=== PATIENT | female | born 1955 | race Caucasian/White ===

== ENCOUNTER 2020-07-26 14:03 | Outpatient (REF) | payer MEDICAID, SELFPAY | END 2020-07-26 14:04 | disposition home or self-care (01) | LOC: HO.SH 14:03 | PROVIDERS: Visit Provider Family Medicine | DX: H91.93 Unspecified hearing loss, bilateral (principal) | CPT/HCPCS: 92557; 92567; 92591 ==

== ENCOUNTER 2020-09-06 13:55 | Outpatient (REF) | payer MEDICAID, SELFPAY | END 2020-09-06 13:56 | disposition home or self-care (01) | LOC: HO.HAP 13:55 | PROVIDERS: PCP Family Medicine; Referring Provider Family Medicine; Visit Provider Family Medicine | DX: Z46.1 Encounter for fitting and adjustment of hearing aid (principal) | CPT/HCPCS: V5011; V5020; V5160; V5261; V5264; V5266 ==

== ENCOUNTER → 2021-01-21 13:46 | Outpatient (REF) | payer MEDICAID, SELFPAY | LOC: HO.SL 13:46 | PROVIDERS: PCP Family Medicine; Visit Provider Family Medicine | DX: G47.33 Obstructive sleep apnea (adult) (pediatric) (principal) | CPT/HCPCS: 95806 ==

== ENCOUNTER 2021-08-16 12:55 | Outpatient (REF) | payer MEDICAID, SELFPAY ==
--- NOTE | ~2021-08-16 | CT_ITS ---
EXAMINATION: CT CHEST SCREENING CLINICAL INFORMATION: Current smoker. 43 pack-year history. COMPARISON: Previous chest x-ray most recent July [address] April 2017 TECHNIQUE: Multidetector volumetric CT imaging of the chest is performed without contrast using low dose technique. Additional 2D coronal and sagittal reformatted images and axial 3D maximum intensity projection (MIP) images are generated on the CT workstation. This CT examination was performed using dose optimization techniques as appropriate, variously including the following: *Automated exposure control *Adjustment of mA and/or kV according to patient size (this includes techniques or standardized protocols for targeted exams where dose is matched to indication/reason for exam; i.e. extremities or head) *Use of iterative reconstruction technique DLP: 80 mGy-cm FINDINGS: LUNGS: There is a surgical suture line and adjacent scarring or subsegmental atelectasis in the left upper lobe. There is an area of subtle increased attenuation seen in the posterior segment of the right upper lobe near the major fissure. This area measures approximately 2.0 x 4 cm for example axial image 121 series 5. The lungs are otherwise clear. No endobronchial or endotracheal lesion is seen. MEDIASTINUM: There are no enlarged hilar or mediastinal lymph nodes. There is mild coronary artery calcification. The heart does not appear enlarged. There is no pericardial effusion. PLEURA: There is no pleural effusion. No pleural mass or thickening. There is slight elevation of the right hemidiaphragm. AXILLA: No lymphadenopathy. UPPER ABDOMEN: There are postsurgical changes to the stomach. The gallbladder has been removed. OSSEOUS STRUCTURES: There are degenerative changes of the spine. CT/CT lung screening IMPRESSION: Postsurgical changes to the left upper lobe. Ill-defined area of slight increased attenuation in the medial posterior segment of the right upper lobe near the major fissure measuring 2 x 4 cm. Elevated right hemidiaphragm. Mild coronary artery calcification. ASSESSMENT: Lung-RADS category 2: Benign RECOMMENDATION: Annual low-dose chest CT follow-up recommended.
== END 2021-08-16 12:56 | disposition home or self-care (01) ==
LOC: HO.CT 12:55
PROVIDERS: Visit Provider Physician Assistant Medical
DX: Z12.2 Encounter for screening for malignant neoplasm of respiratory organs (principal); F17.210 Nicotine dependence, cigarettes, uncomplicated
CPT/HCPCS: 71271; G0296

== ENCOUNTER 2021-10-08 14:12 | Outpatient (REF) | payer SELFPAY | END 2021-10-08 14:13 | disposition home or self-care (01) | LOC: HO.HAP 14:12 | PROVIDERS: Visit Provider Family Medicine | DX: Z13.89 Encounter for screening for other disorder (principal) ==

== ENCOUNTER 2022-01-14 11:03 | Outpatient (REF) | payer MEDICAID, SELFPAY ==
--- NOTE | ~2022-01-14 | XR_ITS ---
EXAMINATION: BILATERAL SHOULDER. CLINICAL INFORMATION: Pain in bilateral shoulder. COMPARISON: None TECHNIQUE: 4 views left shoulder and 4 views right shoulder. FINDINGS: Left shoulder: There is no visible acute fracture, dislocation or subluxation seen. No bony erosive changes. No loose bodies or calcification seen. The soft tissues are normal. Postsurgical changes left upper lobe Right shoulder: There is no visible acute fracture, dislocation or subluxation. No bony erosive changes, loose bodies or acute fracture. There is a small enthesophyte along the right greater tuberosity on axial view. The soft tissues are normal. XR/XR shoulder RT min 2V IMPRESSION: Mild degenerative enthesophytes right greater tuberosity. Otherwise unremarkable bilateral shoulder exam.
--- NOTE | ~2022-01-14 | XR_ITS ---
EXAMINATION: BILATERAL SHOULDER. CLINICAL INFORMATION: Pain in bilateral shoulder. COMPARISON: None TECHNIQUE: 4 views left shoulder and 4 views right shoulder. FINDINGS: Left shoulder: There is no visible acute fracture, dislocation or subluxation seen. No bony erosive changes. No loose bodies or calcification seen. The soft tissues are normal. Postsurgical changes left upper lobe Right shoulder: There is no visible acute fracture, dislocation or subluxation. No bony erosive changes, loose bodies or acute fracture. There is a small enthesophyte along the right greater tuberosity on axial view. The soft tissues are normal. XR/XR shoulder LT min 2V IMPRESSION: Mild degenerative enthesophytes right greater tuberosity. Otherwise unremarkable bilateral shoulder exam.
== END 2022-01-14 11:04 | disposition home or self-care (01) ==
LOC: HO.XRAY 11:03
PROVIDERS: PCP Family Medicine; Visit Provider Family Medicine
DX: M25.511 Pain in right shoulder (principal); M25.512 Pain in left shoulder
CPT/HCPCS: 73030

== ENCOUNTER → 2022-02-12 19:57 | Outpatient (REF) | payer MEDICAID, SELFPAY | LOC: HO.SL 19:57 | PROVIDERS: PCP Family Medicine; Visit Provider Family Medicine | DX: G47.33 Obstructive sleep apnea (adult) (pediatric) (principal) | CPT/HCPCS: 95810 ==

== ENCOUNTER → 2022-05-12 20:24 | Outpatient (REF) | payer MEDICARE, MEDICAID, SELFPAY | LOC: HO.SL 20:24 | PROVIDERS: PCP Family Medicine; Visit Provider Family Medicine | DX: G47.33 Obstructive sleep apnea (adult) (pediatric) (principal) | CPT/HCPCS: 95811 ==

== ENCOUNTER 2022-06-08 19:01 | Emergency (ER) | payer MEDICARE, MEDICAID, SELFPAY ==
--- NOTE | ~2022-06-08 | CT_ITS ---
EXAMINATION: CT SOFT TISSUE NECK WITHOUT CONTRAST CLINICAL INFORMATION: Left neck pain and swelling COMPARISON: PET/CT performed 01/29/2017 TECHNIQUE: Helical imaging was performed in the axial plane with generation of coronal and sagittal reformatted images. This CT examination was performed using dose optimization techniques as appropriate, variously including the following: *Automated exposure control *Adjustment of mA and/or kV according to patient size (this includes techniques or standardized protocols for targeted exams where dose is matched to indication/reason for exam; i.e. extremities or head) *Use of iterative reconstruction technique DLP: 558 mGy-cm FINDINGS: No cervical adenopathy is identified. The parotid glands are homogeneous in attenuation. Calcification measures 0.6 x 0.3 cm within the right submandibular gland. There are at least 3 additional calcifications along the course of the associated right salivary duct. These are consistent with sialoliths. The submandibular glands are otherwise normal. No contour abnormality or pathologic enhancement is seen within the oral cavity or pharyngeal mucosal space. The laryngeal structures are normal. The parapharyngeal fat is preserved. The carotid sheath vasculature opacify normally. No extra mucosal soft tissue mass or fluid collection is seen. No retropharyngeal fluid collection is seen. The thyroid gland is normal. The superior mediastinum is unremarkable. The lung apices are clear. Moderate opacification of the right maxillary sinus. The mastoid air cells and visualized portions of the paranasal sinuses are otherwise well-aerated. The temporomandibular joints are normal. No periapical disease is identified. No osseous abnormalities are seen. The imaged portions of the brain parenchyma are unremarkable. CT/CT soft tissue neck wo con IMPRESSION: No cervical lymphadenopathy. No left neck mass or swelling seen. Right submandibular sialoliths.
[2022-06-08 20:34] VITALS: BP 139/73; PULSE 88; RESP 16; TEMP 36.6; O2SAT 97; BMI 76.6
--- NOTE | 2022-06-08 23:38 | ED.GENADULT ---
HPI - General Adult General Chief complaint: General Medical Stated complaint: lump under chin Time Seen by Provider: 06/08/22 21:49 Source: patient Mode of arrival: ambulatory Limitations: no limitations History of Present Illness HPI narrative: Patient comes to the emergency room complaining of left-sided neck pain that has been intermittent for 3 months now. Patient states that the left side of her neck in the front feels like a lump inside, very painful to touch and also to swallow. Patient states that intermittently over the last 2 months it has resolved and returned. However, today it has been the most painful. Patient denies fever chills, no difficulty swallowing only pain. Also, patient complaining of a big pimple in her back that has been growing fast, does not hurt. Patient also complaining that she has noticed that there were some small oval stones that she finds in her mouth randomly. Related Data Previous Rx's Medication Instructions Recorded prednisone 10 mg tablet 10 mg PO DAILY #3 tabs 06/09/22 Allergies Allergy/AdvReac Type Severity Reaction Status Date / Time No Known Allergies Allergy Unverified 07/12/20 16:29 [No Known Allergies*] Review of Systems Review of Systems: Constitutional : No Weight loss, No Fever, No Chills, No Night Sweats, No Fatigue, No Malaise ENT/Mouth : No Hearing loss, No Ear Pain, No Nasal Congestion, No Sinus Pain, No Hoarseness, No sore throat, No Rhinorrhea, No Swallowing Difficulty, complaining of swelling on the left side of her neck anteriorly Eyes: No Eye Pain, No Swelling, No Redness, No Foreign Body, No Discharge, No Vision Changes Cardiovascular : No Chest Pain, No SOB, No Dyspnea on Exertion, No Orthopnea, No Edema, No Palpitations Respiratory : No Cough, No Sputum, No Wheezing, No Smoke Exposure, No Dyspnea Gastrointestinal : No Nausea, No Vomiting, No Diarrhea, No Constipation, No abdominal Pain, No Hematochezia, No Melena Genitourinary : no irregular bleeding, No Dysuria, No Urinary Frequency, No Hematuria, No Urinary Incontinence, No Urgency, No Flank Pain, No Urinary Flow Changes, No Hesitancy Musculoskeletal : No joint pain, No Myalgias, No Joint Swelling Skin : No Skin Lesions, No rash, complaining of a pimple in her back which is rapidly growing Neuro : No Weakness, No Numbness, No Paresthesias, No Loss of Consciousness, No Dizziness, No Headache Psych : No Anxiety/Panic, No Depression, No SI/HI/AH/VH, No Social Issues, Heme/Lymph: No Bruising, No Bleeding,No Lymphadenopathy Endocrine : No Polyuria, No Polydipsia, No Temperature Intolerance [facility] Past Medical History Medical History Depression Hyperlipidemia Hypertension, essential, benign Obstructive sleep apnea (~2007) Personal history of nicotine dependence Vitamin B12 deficiency anemia Surgical History History of colonoscopy History of gastric bypass History of hernia repair History of hysterectomy History of lung surgery History of tonsillectomy Social History Social History Advance Directives: No Advance Directives Information Provided: No Physical Exam ED Vital Signs: Vital Signs - 24 hr 06/08/22 20:34 Temperature 97.9 F Pulse Rate 88 Respiratory Rate 16 Blood Pressure 139/73 Pulse Oximetry 97 Oxygen Delivery Method Room Air BMI result Body Mass Index 76.6 Const Other: Appearance: Alert. Oriented X3. No acute distress. Eyes: Pupils equal, round and reactive to light. ENT: Pharynx normal. Pain to palpation on the left side of the neck, large induration, no erythema, no discharge warmth Neck: Normal inspection. Neck supple. No lymph nodes noted. No crepitus CVS: Normal heart rate and rhythm. Pulses normal. Normal S1 and S2 Respiratory: No respiratory distress. Breath sounds normal. No Wheezing. No rales Abdomen: Soft and nontender. No rigidity. No distention. Skin: Skin warm and dry. Normal skin color. Normal skin turgor. Patient has a sebaceous cyst in the back, no signs of cellulitis Extremities: No lower extremity edema. No Lacerations. No Rash Neuro: Oriented X 3. No motor deficit. No sensory deficit. Moving all extremities. No slurred speech. CN 2 through 12 grossly intact Psych: calm, cooperative, normal affect Course Course Course Narrative: The sebaceous cyst was used by unroofing the top with an 18 gauge needle. Moderate amount of cyst material was expressed. Patient tolerated well the procedure I discussed with the patient that the small stones that she finds in her mouth a likely secondary to sialolithiasis Soft tissue CT scan pending 00:44, I discussed the CT scan findings with the patient, no acute findings on the left side of the neck. Patient does have sialolithiasis. Medical Decision Making Imaging Data Soft tissue of the neck CT: Radiologist's impression: FINDINGS: No cervical adenopathy is identified. The parotid glands are homogeneous in attenuation. Calcification measures 0.6 x 0.3 cm within the right submandibular gland. There are at least 3 additional calcifications along the course of the associated right salivary duct. These are consistent with sialoliths. The submandibular glands are otherwise normal. No contour abnormality or pathologic enhancement is seen within the oral cavity or pharyngeal mucosal space. The laryngeal structures are normal. The parapharyngeal fat is preserved. The carotid sheath vasculature opacify normally. No extra mucosal soft tissue mass or fluid collection is seen. No retropharyngeal fluid collection is seen. The thyroid gland is normal. The superior mediastinum is unremarkable. The lung apices are clear. Moderate opacification of the right maxillary sinus. The mastoid air cells and visualized portions of the paranasal sinuses are otherwise well-aerated. The temporomandibular joints are normal. No periapical disease is identified. No osseous abnormalities are seen. The imaged portions of the brain parenchyma are unremarkable. CT/CT soft tissue neck wo con IMPRESSION: No cervical lymphadenopathy. No left neck mass or swelling seen. ? Right submandibular sialoliths.? Discharge Plan Discharge Clinical Impression: Neck swelling, Sialolithiasis Patient Disposition: Home, Self-Care Instructions: Sialoadenitis (ED) Additional Instructions: Please follow-up with your primary care physician tomorrow. If you have any worsening or new symptoms, please return to the emergency room or call 911 Prescriptions: New prednisone 10 mg tablet 10 mg PO DAILY Qty: 3 0RF
== END 2022-06-09 00:50 | disposition home or self-care (01) ==
PROVIDERS: Emergency Provider Emergency Medicine; PCP Family Medicine
DX: R22.1 Localized swelling, mass and lump, neck (principal); K11.5 Sialolithiasis; M54.2 Cervicalgia; Z79.899 Other long term (current) drug therapy
CPT/HCPCS: 70490; 99282; 99283

== ENCOUNTER 2023-05-05 13:45 | Outpatient (REF) | payer MEDICARE, SELFPAY ==
[2023-05-05 16:19] LABS: MANUAL DIFF FLAG NO
[2023-05-05 16:29] LABS: Basophils Absolute Auto 0.1 X10*3/uL (0.0-0.2); Basophils Percent Auto 0.8 % (0-2); Eosinophils Absolute Auto 0.1 X10*3/uL (0.0-0.4); Eosinophils Percent Auto 1.4 % (0-4); Hemoglobin 12.6 g/dl (12.0-16.0); Imm Gran Abs Auto 0.03 X10*3/uL (0.00-0.03); Imm Gran Pct Auto 0.4 % (0.0-0.4); Lymphocytes Absolute Auto 2.7 X10*3/uL (1.2-4.9); Lymphocytes Percent Auto 31.4 % (20-40); Mean Corpuscular HGB Conc 30.7 g/dl (31.0-35.0); Mean Corpuscular Hemoglobin 29.5 pg (27.0-33.0); Mean Platelet Volume 10.7 fL (9.4-12.3); Monocytes Absolute Auto 0.6 X10*3/uL (0.1-1.2); Monocytes Percent Auto 6.9 % (2-11); Neutrophils Absolute Auto 5.1 x10*3/uL (2.0-8.3); Neutrophils Percent Auto 59.1 % (45-73); Platelet Count 337 X10*3/uL (160-400); Red Blood Count 4.27 X10*6/uL (4.20-5.50); Red Cell Distribution Width 12.5 % (11.0-16.0); White Blood Count 8.6 X10*3/uL (4.8-10.8)
[2023-05-05 16:52] LABS: Alanine Aminotransferase 13 U/L (0-31); Alkaline Phosphatase 141 U/L (39-117); Anion Gap 14 (12-20); Aspartate Amino Transferase 16 U/L (5-31); Bilirubin Total 0.7 mg/dL (0.0-1.0); Blood Urea Nitrogen 9 mg/dL (9-16); Calcium 9.9 mg/dL (8.4-10.2); Carbon Dioxide 26 mmol/L (22-29); Chloride 104 mmol/L (96-108); Estimated Glomerular Filt Rate > 60; Glucose Random 203 mg/dL (60-115); Iron 129 mcg/dL (30-160); Percent Iron Saturation 39 % (15-50); Potassium 4.6 mmol/L (3.3-5.1); Sodium 139 mmol/L (135-145); Total Iron Binding Capacity 327 mcg/dL (228-428); Total Protein 6.5 g/dL (6.5-8.0); Unsaturated Iron Binding 198 ug/dL
[2023-05-05 17:11] LABS: Ferritin 29 ng/mL (10-250); Thyroid Stimulating Hormone 1.05 uIU/mL (0.32-4.0)
[2023-05-05 17:24] LABS: Folate 16.4 ng/mL (> or = 4.0); Vitamin B12 819 pg/mL (200-900)
== END 2023-05-05 13:46 | disposition home or self-care (01) ==
LOC: HO.CHCLDS 13:45
PROVIDERS: Visit Provider Family Medicine
DX: Z00.00 Encounter for general adult medical examination without abnormal findings (principal); R53.83 Other fatigue; D53.1 Other megaloblastic anemias, not elsewhere classified
CPT/HCPCS: 36415; 80053; 82607; 82728; 82746; 83540; 84443; 85025

== ENCOUNTER 2023-06-08 11:11 | Outpatient (AMB) | payer OTHER, SELFPAY ==
[2023-06-08 11:12] VITALS: BP 139/71; PULSE 87; BMI 34.8
--- NOTE | 2023-06-08 11:12 | A.OFFVIS_ITS ---
Intake Vital Signs 06/08/23 11:12 Height 5 ft 1 in Weight 184 lb BMI 34.8 BP 139/71 Blood Pressure Location Rt brachial Position Sitting Pulse 87 Intake Visit Reasons: Abd pain Intake Note: This patient presents for an assessment for abdominal pain. Patient c/o; abd pain, supraumbilical hernia, reports pain when taking deep breathes, denies problems with bowel movements. 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 Name: Patient declined hemmer chainstitch Accompanied by: Son Allergies No Known Allergies [No Known Allergies*] Allergy (Unverified 06/08/23 11:13) Medication List - Last Reconciled 06/08/23 by Richard Edwards MD albuterol sulfate mg inhalation QID PRN alcohol swabs (Alcohol Prep Pads) 0 pad topical BID atorvastatin 40 mg PO BEDTIME cholecalciferol (vitamin D3) (Vitamin D3) 25 mcg PO DAILY clonazepam 0.5 mg PO DAILY PRN cyanocobalamin (vitamin B-12) 1,000 mcg PO DAILY duloxetine 120 mg PO DAILY fluticasone propionate 50 mcg/actuation 1 spray intranasal DAILY fluticasone propionate 110 mcg/actuation (Flovent HFA) 0 mcg inhalation folic acid 0.4 mg PO DAILY lisinopril 20 mg PO DAILY loratadine 10 mg PO DAILY metformin 500 mg PO DAILY montelukast 10 mg PO DAILY multivitamin (One Daily Multivitamin tablet) 1 tab PO DAILY naproxen 500 mg PO BID omeprazole 20 mg PO DAILY prednisone 10 mg PO DAILY quetiapine 100 mg PO BEDTIME HPI Abd pain HPI Details 68-year-old female referred for abdominal pain. She says that for a past 6 months or so, she has been having pain on both left and right flank areas mostly as well as diffusely. She otherwise denies any GI complaints. She has good oral intake. She has good bowel movements. She denies any nausea or vomiting. She has a history of a repair of an epigastric hernia, recurrent, in 2014. She apparently had been sent for a CT scan last week in [place] but she does not know the report. [facility] Medical History (Updated 06/08/23 @ 11:36 by Richard Edwards MD) Abdominal pain Depression Hyperlipidemia Hypertension, essential, benign Obstructive sleep apnea (~2007) Personal history of nicotine dependence Vitamin B12 deficiency anemia Surgical History History of colonoscopy History of gastric bypass History of hernia repair History of hysterectomy History of lung surgery History of tonsillectomy Review of Systems Const Denies chills and Denies fever(s) Card Details: Has sleep apnea Denies chest pain, Denies dyspnea, Reports dyspnea on exertion and Reports orthopnea Resp Denies cough, Denies dyspnea and Reports dyspnea on exertion GI Denies hematochezia and Denies change in bowel habits Denies hematuria Musc Denies back pain and Denies limited range of motion Neuro Denies focal weakness and Denies convulsions Psych Denies depression and Denies mood swings Physical Exam Vital Signs: Last Vital Signs Pulse 87 06/08/23 11:12 BP 139/71 06/08/23 11:12 BMI result Body Mass Index 34.8 Const Other: Appears obese General: comfortable and no acute distress Orientation/consciousness: patient oriented x3 Neck Neck: Yes no lymphadenopathy Resp Auscultation: clear to auscultation bilaterally Cardio Rhythm: regular rhythm GI Other: Vague prominence on the epigastric area on Valsalva, not well-defined Palpation (GI): Soft to palpation, nontender and no guarding Neuro General: patient oriented x3 Assessment & Plan Assessment & Plan (1) Abdominal pain: Code(s): R10.9 - Unspecified abdominal pain Plan: She has abdominal pain, chronic, as described above. She actually had a CAT scan done in [place] but she is not aware of the results I have asked her to get a copy of the disc and to bring it to me in the office. I will review this with the radiologist. I will talk to her after review of this CT scan so we can discuss the findings and plan of care Otherwise she has a very benign exam. Coding Level of Care Code New Pt Level 3 (97266) Diagnoses Abdominal pain R10.9
== END 2023-06-08 11:33 | disposition home or self-care (01) ==
PROVIDERS: PCP Family Medicine; Referring Provider Family Medicine; Visit Provider Surgery
DX: R10.9 Unspecified abdominal pain (principal)
CPT/HCPCS: 99203

== ENCOUNTER → 2023-06-08 11:11 | Outpatient (BNVA) | payer OTHER, SELFPAY | PROVIDERS: PCP Family Medicine; Referring Provider Family Medicine; Visit Provider Surgery | DX: R10.9 Unspecified abdominal pain (principal) | CPT/HCPCS: 99202 ==

== ENCOUNTER 2023-06-13 08:38 | Emergency (ER) | payer OTHER, SELFPAY ==
[2023-06-13 08:46] VITALS: BP 130/64; PULSE 104; RESP 16; TEMP 36.3; O2SAT 96; BMI 35.0
--- NOTE | 2023-06-13 08:56 | ED_ITS ---
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 States pain is radiating to right ear. Denies fevers. Has taken Tylenol for discomfort. Denies cough, shortness of breath, nasal congestion. Patient also has history of sialolithiasis/sialoadenitis but denies any recent stones. MD complaint: sore throat Onset (ago): day(s) Location: mouth Radiation: other (right ear) Severity: severe Quality: aching Pain Consistency: constant Relieving factors: none Exacerbating factors: eating and movement Associated symptoms: denies other symptoms Treatments prior to arrival: other (Tylenol) Related Data Home Medications Medication Instructions Recorded Confirmed albuterol sulfate 2.5 mg/3 mL mg inhalation QID PRN 06/08/23 06/08/23 (0.083 %) solution for nebulization alcohol swabs (Alcohol Prep Pads) 0 pad topical BID 06/08/23 06/08/23 atorvastatin 40 mg tablet 40 mg PO BEDTIME 06/08/23 06/08/23 cholecalciferol (vitamin D3) 25 25 mcg PO DAILY 06/08/23 06/08/23 mcg (1,000 unit) capsule (Vitamin D3) clonazepam 0.5 mg tablet 0.5 mg PO DAILY PRN anxiety 06/08/23 06/08/23 cyanocobalamin (vitamin B-12) 1,000 mcg PO DAILY 06/08/23 06/08/23 1,000 mcg tablet duloxetine 60 mg capsule,delayed 120 mg PO DAILY 06/08/23 06/08/23 release fluticasone propionate 110 0 mcg inhalation 06/08/23 06/08/23 mcg/actuation HFA aerosol inhaler (Flovent HFA) fluticasone propionate 50 1 spray intranasal DAILY 06/08/23 06/08/23 mcg/actuation nasal spray,suspension folic acid 400 mcg tablet 0.4 mg PO DAILY 06/08/23 06/08/23 lisinopril 20 mg tablet 20 mg PO DAILY 06/08/23 06/08/23 loratadine 10 mg tablet 10 mg PO DAILY 06/08/23 06/08/23 metformin 500 mg tablet 500 mg PO DAILY 06/08/23 06/08/23 montelukast 10 mg tablet 10 mg PO DAILY 06/08/23 06/08/23 multivitamin (One Daily 1 tab PO DAILY 06/08/23 06/08/23 Multivitamin tablet) naproxen 500 mg tablet 500 mg PO BID 06/08/23 06/08/23 omeprazole 20 mg capsule,delayed 20 mg PO DAILY 06/08/23 06/08/23 release quetiapine 100 mg tablet 100 mg PO BEDTIME 06/08/23 06/08/23 Previous Rx's Medication Instructions Recorded prednisone 10 mg tablet 10 mg PO DAILY #3 tabs 06/09/22 Allergies Allergy/AdvReac Type Severity Reaction Status Date / Time No Known Allergies Allergy Unverified 06/08/23 11:13 [No Known Allergies*] Review of Systems Review of Systems: As per HPI. Yes all other systems are reviewed and are negative Constitutional: Constitutional: Reports as per HPI [facility] Past Medical History Medical History (Updated 06/13/23 @ 09:20 by Debra Singer NP) Abdominal pain Depression Hyperlipidemia Hypertension, essential, benign Obstructive sleep apnea (~2007) Personal history of nicotine dependence Vitamin B12 deficiency anemia Surgical History History of colonoscopy History of gastric bypass History of hernia repair History of hysterectomy History of lung surgery History of tonsillectomy Social History Social History Alcohol intake: never Smoked in Last 30 Days: Yes Use of substances other than those prescribed or required for medical reasons: No Advance Directives: No Advance Directives Information Provided: No Physical Exam ED Vital Signs: Vital Signs - 24 hr 06/13/23 08:46 Temperature 97.4 F Pulse Rate 104 H Respiratory Rate 16 Blood Pressure 130/64 Pulse Oximetry 96 Oxygen Delivery Method Room Air BMI result Body Mass Index 35.0 Vital signs have been reviewed and appear to be correct. Blood pressure normal. Heart rate mildly elevated. Respiratory rate normal. Temperature normal. Oxygen saturation normal. Const General: cooperative, healthy appearing and no acute distress Orientation/consciousness: oriented to person, oriented to place, oriented to time and patient oriented x3 Limitations: no limitations HENMT Head: Yes normocephalic and Yes atraumatic Ears: external ears normal, TM's normal bilaterally, EAC's normal and mastoids normal bilaterally General nose exam: Normal external nose present Face and sinus: Yes face symmetric Mouth: oropharynx normal and moist mucous membranes Throat: Yes posterior oropharynx normal, Yes uvula midline, No peritonsillar mass and No uvular edema Eyes Pupils: Equal, round and reactive pupils present Neck Neck: Yes normal visual inspection and Yes supple Lymphatic: lymphadenopathy bilateral submandibular Resp Effort & Inspection: normal respiratory effort and able to speak in complete sentences Auscultation: clear to auscultation bilaterally Cardio Rate: regular rate Rhythm: regular rhythm Heart sounds: S1 normal heart sound present and S2 normal heart sound present GI Palpation (GI): Soft to palpation and nontender Auscultation: normoactive bowel sounds General: Yes no CVA tenderness Back/Spine/Pelvis Back: no CVA tenderness Skin General skin exam: elasticity normal and turgor normal Neuro General: oriented to person, oriented to place, oriented to time, patient oriented x3, moves all extremities, no focal motor deficits and CN's II-XI intact bilaterally Cranial nerves: Yes Equal, round and reactive pupils present Cognition (Neuro): normal cognition Extrem General: Yes full ROM, Yes no pedal edema and Yes no calf tenderness Psych Mental Status: mental status grossly normal Affect: normal affect Thought process: Normal thought process present Medications Administered Discontinued Medications Generic Name Dose Route Start Last Admin Trade Name Freq PRN Reason Stop Dose Admin Acetaminophen 975 mg 06/13/23 09:06 06/13/23 09:18 Acetaminophen 325 Mg Tablet PO 06/13/23 09:07 975 mg ONCE ONE Administration Medical Decision Making Medical Decision Making [facility] Narrative: Patient is a 68-year-old female with history of gastric bypass, HLD, HTN, BEATRICE presenting to the emergency department with complaint of sore throat and gland swelling since yesterday. On exam patient is awake, A+Ox3, VS WNL, afebrile, normal neurological exam without focal deficits, TMs normal bilaterally, posterior oropharynx without erythema, edema or exudate, uvula midline without edema, submandibular adenopathy R>L. Given reported symptoms and physical exam findings, initial differential includes strep pharyngitis, viral pharyngitis, sialolithiasis/sialoadenitis. Do not suspect peritonsillar abscess. Negative rapid strep. Patient medicated with Tylenol for discomfort. Advised patient symptoms likely related to viral infection, instructed to use Tylenol every 6 hours as well as warm salt water gargle several times daily. Discussed with patient she can also utilize sour candies to see if this decreases her symptoms given her past history of sialoadenitis. Return precautions discussed at bedside. Instructed patient to follow-up with PCP this week. Patient emery balized understanding of and agreement with plan. Differential Diagnosis Differential Diagnoses: The differential diagnosis associated with the presentation includes As per [facility]. Lab Data [facility] Lab Attestation statement: I reviewed the patient's lab results. As per [facility]. Labs: Lab Results 06/13/23 Range/Units 08:55 S. pyogenes GrpA MINOO Negative (Negative) External Record Review External record reviewed: Inpatient record, Office record and Outpatient record Prescription Management I considered prescription management with: Pain Medication Discharge Plan Discharge Clinical Impression: Acute pharyngitis Patient Disposition: Home, Self-Care Instructions: Pharyngitis (ED) Additional Instructions: You were evaluated in the emergency department for a sore throat. Your strep test was negative. Your symptoms are likely related to a viral infection which should resolve on it's own with rest and fluids. You can take Tylenol 650mg every 6 hours as needed for pain. Return to the emergency department if you develop worsening pain, difficulty swallowing, fever 100.4F or greater, shortness of breath, or any other concerning symptoms. Prescriptions: No Action prednisone 10 mg tablet 10 mg PO DAILY Qty: 3 0RF duloxetine 60 mg capsule,delayed release(DR/EC) 120 mg PO DAILY cholecalciferol (vitamin D3) [Vitamin D3] 25 mcg (1,000 unit) capsule 25 mcg PO DAILY montelukast 10 mg tablet 10 mg PO DAILY omeprazole 20 mg capsule,delayed release(DR/EC) 20 mg PO DAILY quetiapine 100 mg tablet 100 mg PO BEDTIME cyanocobalamin (vitamin B-12) 1,000 mcg tablet 1,000 mcg PO DAILY clonazepam 0.5 mg tablet 0.5 mg PO DAILY PRN (Reason: anxiety) lisinopril 20 mg tablet 20 mg PO DAILY atorvastatin 40 mg tablet 40 mg PO BEDTIME fluticasone propionate [Flovent HFA] 110 mcg/actuation HFA aerosol inhaler 0 mcg inhalation folic acid 400 mcg tablet 0.4 mg PO DAILY alcohol swabs [Alcohol Prep Pads] Pads, Medicated 0 pad topical BID multivitamin [One Daily Multivitamin] Tablet 1 tab PO DAILY loratadine 10 mg tablet 10 mg PO DAILY naproxen 500 mg tablet 500 mg PO BID fluticasone propionate 50 mcg/actuation spray,suspension 1 spray intranasal DAILY albuterol sulfate 2.5 mg /3 mL (0.083 %) solution for nebulization inhalation QID PRN metformin 500 mg tablet 500 mg PO DAILY Interventions: ED Discharge Assessment Last Done: 06/13/23 09:37 Print Language: Palestinian
[2023-06-13 09:15] LABS: IDNOW Serial# 08D9AD1C; Strep A Nucleic Acid Negative (Negative)
[2023-06-13] MEDS: Acetaminophen 325 MG TABLET 975 MG PO (09:18)
== END 2023-06-13 09:37 | disposition home or self-care (01) ==
PROVIDERS: Emergency Provider Emergency Medicine; PCP Family Medicine
DX: J02.9 Acute pharyngitis, unspecified (principal); I10 Essential (primary) hypertension; E78.5 Hyperlipidemia, unspecified; F17.200 Nicotine dependence, unspecified, uncomplicated
CPT/HCPCS: 87651; 99283; 99284

== ENCOUNTER 2023-06-24 14:26 | Outpatient (AMB) | payer OTHER, SELFPAY ==
--- NOTE | 2023-06-24 14:27 | MHC.OFFVIS ---
Intake Vital Signs 06/24/23 14:40 Height 5 ft 1 in Weight 184 lb BMI 34.8 Intake Visit Reasons: Abdominal pain, CT results Intake Note: This patient presents for a follow-up assessment for Ct-Scan results. Patients c/o; reports being hospitalized in [facility] x3days for infection salivary glands, reports taking abx. [employer] Required: Yes [employer] Lead Language: Research Assistant Member Name: Bertha Information Interpreted: non-clinical & clinical Accompanied by: Self / Same As Patient Allergies No Known Allergies [No Known Allergies*] Allergy (Unverified 06/24/23 14:43) HPI Abdominal pain, CT results HPI Details I had seen her in the office earlier this month because of bilateral flank pains. She had a CAT scan in different institution at that time and asked to retrieve this so I can review this. She says that her pains are usually on the left and right flanks. She denies any palpable mass around the umbilicus. She does have a history of ventral hernia repair epigastric area in says that she still has some pain on this. He denies GI complaints. She has good oral intake. [facility] Medical History Abdominal pain Depression Hyperlipidemia Hypertension, essential, benign Obstructive sleep apnea (~2007) Personal history of nicotine dependence Vitamin B12 deficiency anemia Surgical History History of colonoscopy History of gastric bypass History of hernia repair History of hysterectomy History of lung surgery History of tonsillectomy Social History Alcohol intake: never Review of Systems Const Denies chills and Denies fever(s) Card Denies chest pain GI Denies diarrhea and Denies vomiting Denies difficulty voiding Physical Exam Vital Signs: BMI result Body Mass Index 34.8 Const Other: Appears overweight General: comfortable and no acute distress Resp Effort & Inspection: normal respiratory effort Cardio Rate: regular rate GI Other: No palpable hernia, no tenderness around the umbilicus Palpation (GI): Soft to palpation, not firm, nontender and no guarding Assessment & Plan Assessment & Plan (1) Abdominal pain: Code(s): R10.9 - Unspecified abdominal pain Plan: She describes chronic pain on both the left and right flank areas. I was able to retrieve a copy of her disc from her recent CT scan. This shows a small fat containing hernia on the supraumbilical area. This is nonpalpable. She does not have any pain or tenderness in this area I explained to her that we can repair this hernia on the supraumbilical area but this will not provide over chronic bilateral flank pain. I am uncertain as to the etiology of this flank pains. She does have a history of multiple surgeries on the abdomen so this may be secondary to adhesions as well. She does not want to proceed with any repair of her supra umbilical hernia at this time. I did tell her that if she feels any mass on the area of the umbilicus or she develops symptoms, she should come back to the office to be re-evaluated. I will again review her CT scan with the radiologist. She is comfortable with the plan. Coding Level of Care Code Est Pt Level 3 (46861) Diagnoses Abdominal pain R10.9
[2023-06-24 14:40] VITALS: BMI 34.8
== END 2023-06-24 14:57 | disposition home or self-care (01) ==
PROVIDERS: PCP Family Medicine; Visit Provider Surgery
DX: R10.9 Unspecified abdominal pain (principal)
CPT/HCPCS: 99213

== ENCOUNTER → 2023-06-24 14:26 | Outpatient (BNVA) | payer OTHER, SELFPAY | PROVIDERS: PCP Family Medicine; Visit Provider Surgery | DX: R10.9 Unspecified abdominal pain (principal) | CPT/HCPCS: 99212 ==

== ENCOUNTER 2023-07-07 10:18 | Outpatient (REF) | payer OTHER, SELFPAY ==
[2023-07-07 11:14] LABS: MANUAL DIFF FLAG NO
[2023-07-07 11:36] LABS: Basophils Absolute Auto 0.1 X10*3/uL (0.0-0.2); Basophils Percent Auto 0.6 % (0-2); Eosinophils Absolute Auto 0.2 X10*3/uL (0.0-0.4); Hematocrit 39.8 % (37.0-47.0); Hemoglobin 12.3 g/dl (12.0-16.0); Imm Gran Abs Auto 0.03 X10*3/uL (0.00-0.03); Imm Gran Pct Auto 0.3 % (0.0-0.4); Lymphocytes Absolute Auto 2.9 X10*3/uL (1.2-4.9); Lymphocytes Percent Auto 33.3 % (20-40); Mean Corpuscular HGB Conc 30.9 g/dl (31.0-35.0); Mean Corpuscular Hemoglobin 29.4 pg (27.0-33.0); Mean Platelet Volume 9.9 fL (9.4-12.3); Monocytes Absolute Auto 0.6 X10*3/uL (0.1-1.2); Neutrophils Absolute Auto 4.9 x10*3/uL (2.0-8.3); Neutrophils Percent Auto 56.8 % (45-73); Platelet Count 324 X10*3/uL (160-400); Red Blood Count 4.19 X10*6/uL (4.20-5.50); Red Cell Distribution Width 13.1 % (11.0-16.0); White Blood Count 8.6 X10*3/uL (4.8-10.8)
[2023-07-07 12:09] LABS: C Reactive Protein 0.24 mg/dL (< or = 0.50)
[2023-07-07 12:20] LABS: Erythrocyte Sedimentation Rate 10 MM/HR (0-20)
[2023-07-09 15:08] LABS: Antibody to SS-A Antigen <1.0 NEG AI (<1.0 NEG); Antibody to SS-B Antigen <1.0 NEG AI (<1.0 NEG)
== END 2023-07-07 10:19 | disposition home or self-care (01) ==
LOC: HO.HHCL 10:18
PROVIDERS: Visit Provider Family Medicine
DX: R68.2 Dry mouth, unspecified (principal); Z20.2 Contact with and (suspected) exposure to infections with a predominantly sexual mode of transmission
CPT/HCPCS: 36415; 85025; 85652; 86140; 86235

== ENCOUNTER → 2023-09-03 15:30 | Outpatient (BNV) | payer OTHER, SELFPAY | PROVIDERS: PCP Family Medicine; Visit Provider Internal Medicine | DX: J45.40 Moderate persistent asthma, uncomplicated (principal) | CPT/HCPCS: 94060; 94727; 94729 ==

== ENCOUNTER 2023-09-03 15:39 | Outpatient (REF) | payer OTHER, SELFPAY ==
--- NOTE | 2023-09-03 | PFT_ITS ---
Forced vital capacity 80%, FEV1 61%, and FEV1/ FVC ratio is 61. [id number] 42%, and MVV 103%. Post-bronchodilator therapy, there is some decrease in all the numbers indicating a negative effect from the bronchodilator therapy. Total lung capacity 75%. Residual volume 76%. Diffusion capacity 64%. CONCLUSION: There is evidence of mild restrictive pulmonary disorder. Also moderately severe obstructive airway disorder. No positive response to bronchodilator therapy. Rather, there is some negative response. Clinical correlation is recommended. MD RINKU Loo/MODL / [phone]
== END 2023-09-03 15:40 | disposition home or self-care (01) ==
LOC: HO.RESP 15:39
PROVIDERS: PCP Family Medicine; Visit Provider Family Medicine
DX: J45.40 Moderate persistent asthma, uncomplicated (principal)
CPT/HCPCS: 94010; 94727; 94729

== ENCOUNTER 2023-12-21 14:56 | Outpatient (REF) | payer OTHER, SELFPAY ==
[2023-12-21 16:50] LABS: Microalbum/Creatinine Ratio Ur 10.8 ug/mg cr (<30)
[2023-12-21 17:57] LABS: Alanine Aminotransferase 16 U/L (0-31); Albumin Level 4.2 g/dL (3.5-5.0); Alkaline Phosphatase 137 U/L (39-117); Anion Gap 13 (12-20); Aspartate Amino Transferase 17 U/L (5-31); Bilirubin Total 0.4 mg/dL (0.0-1.0); Blood Urea Nitrogen 15 mg/dL (9-16); Calcium 9.2 mg/dL (8.4-10.2); Carbon Dioxide 30 mmol/L (22-29); Chloride 103 mmol/L (96-108); Cholesterol 123 mg/dL (<200); Estimated Glomerular Filt Rate > 60; Glucose Random 161 mg/dL (60-115); HDL Cholesterol 51 mg/dL (>40); LDL Cholesterol Calculated 56 mg/dL (<100); Potassium 4.5 mmol/L (3.3-5.1); Sodium 141 mmol/L (135-145); Triglycerides 84 mg/dL (<150)
[2023-12-21 18:18] LABS: Reflex LDLD? No
[2023-12-21 18:26] LABS: Folate 17.4 ng/mL (> or = 4.0); Vitamin B12 1746 pg/mL (200-900)
== END 2023-12-21 14:57 | disposition home or self-care (01) ==
LOC: HO.HHCL 14:56
PROVIDERS: Visit Provider Family Medicine
DX: E11.65 Type 2 diabetes mellitus with hyperglycemia (principal)
CPT/HCPCS: 36415; 80053; 80061; 82043; 82570; 82607; 82746; 84443

== ENCOUNTER 2024-04-19 14:23 | Outpatient (AMB) | payer OTHER, SELFPAY ==
--- NOTE | 2024-04-19 14:52 | MHC.OFFVIS ---
Vital Signs 04/19/24 14:54 Height 5 ft 1 in Weight 184 lb BMI 34.8 Pulse 90 Pulse Source Pulse Oximeter Pulse Oximetry (%) 95 Oxygen Delivery Method Room Air Intake Visit Reasons: copd/beatrice Jig Inspector Required: No Allergies No Known Allergies [No Known Allergies*] Allergy (Unverified 04/19/24 14:55) HPI Comments Details: The patient is here for pulmonary evaluation. The patient is a 69 year woman with known history apnea and COPD. Apparently her respiratory symptoms have been getting worse. More shortness of breath with activity addition to cough. The patient is a former smoker she quit about 4 months ago. She had been participating in the lung cancer screening program and had a CT scan back into the some 1 but has not had 1 as of yet. Will go ahead and request to see if she can go back on the program or if she needs to be re-referred. In the meantime she has been using Flovent in addition to Incruse. The medication that been partially helpful. Will try to simplify respiratory regimen by switching over to Trelegy. She should also have a rescue inhaler available as needed. The patient did have pulmonary function studies several years ago we did review them she did have a mixed obstructive restrictive ventilatory defect consistent with mild COPD and mild restrictive lung disease. Most conditions are likely contributing to her ongoing shortness of breath. Therefore will optimize respiratory therapy and have her PFTs repeated and she should have the CT scan of the lung cancer screening program will follow-up after that. If the patient develops any worsening symptoms prior to the next visit she will call for an earlier assessment. [facility] Medical History (Updated 04/19/24 @ 22:26 by Luís Hall MD) COPD (chronic obstructive pulmonary disease) Abdominal pain Vitamin B12 deficiency anemia Depression Personal history of nicotine dependence Hyperlipidemia Hypertension, essential, benign Obstructive sleep apnea (~2007) Surgical History History of tonsillectomy History of hysterectomy History of gastric bypass History of colonoscopy History of hernia repair History of lung surgery Social History Alcohol intake: never Review of Systems Const Denies fever(s) Eyes Reports no additional complaints ENT Reports nasal congestion Card Denies chest pain and Reports dyspnea on exertion Resp Reports cough, Reports dyspnea on exertion and Denies wheezing GI Reports no additional complaints Musc Reports no additional complaints Skin/Breast Denies rash Aller/Immun Denies wheezing Physical Exam Vital Signs: Last Vital Signs Pulse 90 04/19/24 14:54 Pulse Ox 95 04/19/24 14:54 Oxygen Delivery Method Room Air 04/19/24 14:54 BMI result Body Mass Index 34.8 Const General: comfortable HEENT Head: Yes normocephalic Neck Neck: Yes supple Chest Chest palpation & inspection: normal inspection of the chest Resp Effort & Inspection: normal respiratory effort Auscultation: diminished lung sounds Cardio Heart sounds: S1 normal heart sound present and S2 normal heart sound present GI Palpation (GI): Soft to palpation Skin General skin exam: no rashes or lesions noted Extrem General: Yes no clubbing, cyanosis or edema Assessment & Plan Assessment & Plan (1) COPD (chronic obstructive pulmonary disease): Code(s): J44.9 - Chronic obstructive pulmonary disease, unspecified Category: Medical Qualifiers: COPD type: chronic bronchitis Chronic bronchitis type: simple Qualified Code(s): J41.0 - Simple chronic bronchitis (2) Obstructive sleep apnea: Onset Date: ~2007 Comment: (Moderate BEATRICE on 2007 sleep test - AHI 45.6 on 01/21/21 sleep test Code(s): G47.33 - Obstructive sleep apnea (adult) (pediatric) Category: Medical Plan Start Trelegy stop Incruse and Flovent [place] as needed PFTs restart LDCT program continue CPAP therapy F/U 3 months Orders: Orders PFT pulmonary function test Today J44.9 - Chronic obstructive pulmonary disease, unspecified Medications: New [id number] 100-62.5-25 mcg (Trelegy Ellipta) 1 inh inhalation DAILY 60 ea 11RF 30 days J44.9 - Chronic obstructive pulmonary disease, unspecified albuterol sulfate 90 mcg/actuation 2 inhalations inhalation Q6H PRN 18 grams 12RF shortness of breath or wheezing 30 days J44.9 - Chronic obstructive pulmonary disease, unspecified Coding Level of Care Code New Pt Level 4 (08361) Diagnoses Simple chronic bronchitis J41.0 COPD type: chronic bronchitis Chronic bronchitis type: simple Obstructive sleep apnea G47.33 Time Spent (min) 35
[2024-04-19 14:54] VITALS: PULSE 90; O2SAT 95; BMI 34.8
== END 2024-04-19 15:25 | disposition home or self-care (01) ==
PROVIDERS: PCP Family Medicine; Visit Provider Hospitalist
DX: J41.0 Simple chronic bronchitis (principal); G47.33 Obstructive sleep apnea (adult) (pediatric)
CPT/HCPCS: 99204

== ENCOUNTER → 2024-04-19 14:23 | Outpatient (BNVA) | payer OTHER, SELFPAY | PROVIDERS: PCP Family Medicine; Visit Provider Hospitalist | DX: J41.0 Simple chronic bronchitis (principal); G47.33 Obstructive sleep apnea (adult) (pediatric) | CPT/HCPCS: 99202 ==

== ENCOUNTER 2024-10-21 13:55 | Outpatient (REF) | payer OTHER, SELFPAY ==
[2024-10-21 10:07] VITALS: PULSE 116
--- NOTE | 2024-10-21 13:59 | PFT_ITS ---
Flows: FEV1: 66 % of predicted at 1.36 L FVC: 64 % of predicted at 1.68 L FEV1/FVC: 81 % Bronchodilator response: Present in small to medium airways only Volumes: Total lung capacity: 61 % of predicted at 2.73 L Residual volume: 63 % of predicted at 1.07 L Slow vital capacity: 59 % of predicted at 1.66 L Expiratory reserve volume: 7 % of predicted at 0.05 L Diffusion capacity: Normal Impression: Moderate restrictive ventilatory defect with bronchodilator response present in small to medium airways only. Decreased expiratory reserve volume suggests extrathoracic restriction likely secondary to abdominal obesity. MTDD
== END 2024-10-21 13:56 | disposition home or self-care (01) ==
LOC: HO.RESP 13:55
PROVIDERS: PCP Family Medicine; Visit Provider Hospitalist
DX: J44.9 Chronic obstructive pulmonary disease, unspecified (principal)
CPT/HCPCS: 94010; 94640; 94727; 94729

== ENCOUNTER → 2024-10-21 13:59 | Outpatient (BNV) | payer OTHER, SELFPAY | PROVIDERS: PCP Family Medicine; Visit Provider Internal Medicine Pulmonary Disease | DX: J44.9 Chronic obstructive pulmonary disease, unspecified (principal) | CPT/HCPCS: 94060; 94727; 94729 ==

== ENCOUNTER 2024-10-27 12:10 | Outpatient (REF) | payer OTHER, SELFPAY ==
[2024-10-27 13:36] LABS: Alanine Aminotransferase 16 U/L (0-31); Albumin Level 4.4 g/dL (3.5-5.0); Alkaline Phosphatase 177 U/L (39-117); Anion Gap 12 (12-20); Aspartate Amino Transferase 21 U/L (5-31); Bilirubin Total 0.4 mg/dL (0.0-1.0); Blood Urea Nitrogen 11 mg/dL (9-16); Calcium 9.3 mg/dL (8.4-10.2); Carbon Dioxide 29 mmol/L (22-29); Chloride 101 mmol/L (96-108); Cholesterol 110 mg/dL (<200); Estimated Glomerular Filt Rate > 60; Glucose Random 245 mg/dL (60-115); HDL Cholesterol 33 mg/dL (>40); LDL Cholesterol Calculated 52 mg/dL (<100); Potassium 4.6 mmol/L (3.3-5.1); Sodium 137 mmol/L (135-145); Total Protein 7.4 g/dL (6.5-8.0); Triglycerides 125 mg/dL (<150)
[2024-10-27 13:56] LABS: Folate 18.3 ng/mL (> or = 4.0); Vitamin B12 1488 pg/mL (200-900)
[2024-10-27 14:12] LABS: Reflex LDLD? No
== END 2024-10-27 12:11 | disposition home or self-care (01) ==
LOC: HO.HHCL 12:10
PROVIDERS: Visit Provider Family Medicine
DX: E11.65 Type 2 diabetes mellitus with hyperglycemia (principal)
CPT/HCPCS: 36415; 80053; 80061; 82607; 82746; 84443

== ENCOUNTER 2024-11-04 14:06 | Outpatient (AMB) | payer OTHER, SELFPAY ==
--- NOTE | 2024-11-04 14:09 | MHC.OFFVIS ---
Vital Signs 11/04/24 14:12 Height 5 ft 1 in Weight 195 lb 1.745 oz BMI 36.9 BP 120/72 Blood Pressure Location Rt brachial Position Sitting Pulse 93 Pulse Source Pulse Oximeter Pulse Oximetry (%) 96 Oxygen Delivery Method Room Air Intake Visit Reasons: copd Allergies No Known Allergies [No Known Allergies*] Allergy (Unverified 11/04/24 14:15) HPI Comments Details: The patient is a 69 year woman with known history apnea and COPD. Apparently her respiratory symptoms have been getting worse. More shortness of breath with activity addition to cough. The patient is a former smoker she quit about 4 months ago. She had been participating in the lung cancer screening program and had a CT scan back into the some 1 but has not had 1 as of yet. Will go ahead and request to see if she can go back on the program or if she needs to be re-referred. In the meantime she has been using Flovent in addition to Incruse. The medication that been partially helpful. Will try to simplify respiratory regimen by switching over to Trelegy. She should also have a rescue inhaler available as needed. The patient did have pulmonary function studies several years ago we did review them she did have a mixed obstructive restrictive ventilatory defect consistent with mild COPD and mild restrictive lung disease. Most conditions are likely contributing to her ongoing shortness of breath. Therefore will optimize respiratory therapy and have her PFTs repeated and she should have the CT scan of the lung cancer screening program will follow-up after that. If the patient develops any worsening symptoms prior to the next visit she will call for an earlier assessment. 11/04/2024 the patient is here for a pulmonary follow-up visit. She still struggling with her breathing. Significant shortness of breath even at rest. But worse with activity. Moderate in severity. She needs to take a break while walking. 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 I will send it again. In addition to that she did have pulmonary function studies. No evidence of any obstruction but she did have a moderate restriction. Likely her body habitus although need to address for any parenchymal disease. She was supposed to have a CT scan through the lung cancer screening program but she has not has had it as of yet. In addition to that the patient has not been using her CPAP. She understands she needs uses CPAP but she does not have supplies. I did fill out a script for her to get supplies and I did send to the [employer] and I did call the [employer] company as well. Hopefully we can get his supplies in the meantime she can rinse her supplies with mild soap or white vinegar to try to clean it and use it effectively. The patient did have a brief walking oximetry in the office. She was very short of breath and heart rate did go up to about 115 with minimal activity. Therefore will have her get an echocardiogram. She does get lower extremity edema so will also request Lasix for 3-4 days to help her volume status. She may benefit from a stress test as well. [facility] Medical History (Updated 04/19/24 @ 22:26 by Luís Hall MD) COPD (chronic obstructive pulmonary disease) Abdominal pain Vitamin B12 deficiency anemia Depression Personal history of nicotine dependence Hyperlipidemia Hypertension, essential, benign Obstructive sleep apnea (~2007) Surgical History History of tonsillectomy History of hysterectomy History of gastric bypass History of colonoscopy History of hernia repair History of lung surgery Social History (Updated 11/04/24 @ 14:15 by Rosi Noel CMA) Alcohol intake: never Patient Tobacco Use Status: Former Tobacco user Review of Systems Const Denies fever(s) Eyes Reports no additional complaints ENT Reports nasal congestion Card Denies chest pain and Reports dyspnea on exertion Resp Reports cough, Reports dyspnea on exertion and Denies wheezing GI Reports no additional complaints Musc Reports no additional complaints Skin/Breast Denies rash Aller/Immun Denies wheezing Physical Exam Vital Signs: Last Vital Signs Pulse 93 11/04/24 14:12 BP 120/72 11/04/24 14:12 Pulse Ox 96 11/04/24 14:12 Oxygen Delivery Method Room Air 11/04/24 14:12 BMI result Body Mass Index 36.9 Const General: comfortable HEENT Head: Yes normocephalic Neck Neck: Yes supple Chest Chest palpation & inspection: normal inspection of the chest Resp Effort & Inspection: normal respiratory effort Auscultation: diminished lung sounds Cardio Heart sounds: S1 normal heart sound present and S2 normal heart sound present GI Palpation (GI): Soft to palpation Skin General skin exam: no rashes or lesions noted Extrem General: Yes no clubbing, cyanosis or edema Assessment & Plan Assessment & Plan (1) COPD (chronic obstructive pulmonary disease): Code(s): J44.9 - Chronic obstructive pulmonary disease, unspecified Category: Medical Qualifiers: COPD type: chronic bronchitis Chronic bronchitis type: simple Qualified Code(s): J41.0 - Simple chronic bronchitis (2) Obstructive sleep apnea: Onset Date: ~2007 Comment: (Moderate BEATRICE on 2007 sleep test - AHI 45.6 on 01/21/21 sleep test Code(s): G47.33 - Obstructive sleep apnea (adult) (pediatric) Category: Medical Plan Start Trelegy stop Incruse and Flovent [place] as needed restart LDCT program continue CPAP therapy Lasix x 3-5 days ECHO F/U 3 months Orders: Orders CA echo transthoracic complete 11/04/24 I27.20 - Pulmonary hypertension, unspecified Medications: New furosemide (Lasix) 20 mg PO DAILY 5 tabs 0RF Refilled cbixyvnfqdw-ddqlzyzds-srkvihho 100-62.5-25 mcg (Trelegy Ellipta) 1 inh inhalation DAILY 60 ea 11RF 30 days J44.9 - Chronic obstructive pulmonary disease, unspecified Coding Level of Care Code Est Pt Level 4 (82181) Diagnoses Simple chronic bronchitis J41.0 COPD type: chronic bronchitis Chronic bronchitis type: simple Obstructive sleep apnea G47.33 Time Spent (min) 17
[2024-11-04 14:12] VITALS: BP 120/72; PULSE 93; O2SAT 96; BMI 36.9
== END 2024-11-04 14:34 | disposition home or self-care (01) ==
PROVIDERS: PCP Family Medicine; Visit Provider Hospitalist
DX: J41.0 Simple chronic bronchitis (principal); G47.33 Obstructive sleep apnea (adult) (pediatric)
CPT/HCPCS: 99214

== ENCOUNTER → 2024-11-04 14:06 | Outpatient (BNVA) | payer OTHER, SELFPAY | PROVIDERS: PCP Family Medicine; Visit Provider Hospitalist | DX: J41.0 Simple chronic bronchitis (principal); G47.33 Obstructive sleep apnea (adult) (pediatric) | CPT/HCPCS: 99212 ==

== ENCOUNTER 2024-11-28 09:19 | Outpatient (REF) | payer OTHER, SELFPAY ==
--- NOTE | ~2024-11-28 | XR_ITS ---
EXAMINATION: XR CERVICAL SPINE CLINICAL INFORMATION: chronic neck pain on left side COMPARISON: None available. TECHNIQUE: 6 views of the cervical spine, inclusive of flexion and extension views, were obtained. FINDINGS: Craniocervical junction is intact. Marginal osteophyte formation and endplate sclerosis and decreased intervertebral disc height at C4-5 C5-6 and to a lesser extent C6-7. Grade 1 anterolisthesis C3-4. Grade 1 retrolisthesis C5-6. No acute cortical disruption. Left neuroforamina narrowing C4-5 and C5-6. Upper airway is patent. XR/XR cervical spine 4V IMPRESSION: Multilevel cervical spondylosis resulting in grade 1 anterolisthesis C3-4 and grade 1 retrolisthesis C5-6. Electronically signed by: Alvin Porras MD 11/28/2024 11:54 AM [facility]
--- NOTE | ~2024-11-28 | XR_ITS ---
EXAMINATION: XR SHOULDER 2 OR MORE VIEWS LEFT HISTORY: chronic left shoulder pain. Positive impingement COMPARISON: Comparison is made with the prior examination dated 01/14/2022. FINDINGS: Three views of the left shoulder are submitted. Osseous mineralization is normal. There is no fracture or dislocation. The glenohumeral joint is maintained. There is mild narrowing of the AC joint. The soft tissues are unremarkable. XR/XR shoulder LT min 2V IMPRESSION: Mild narrowing of the AC joint. Electronically signed by: Pravin Kendrick MD 11/29/2024 07:51 AM [facility]
--- OUTSIDE RECORDS SUMMARY | 2024-11-28 09:44 | XMS_ITS | Encounter Summary ---
Author Organization [employer] Address [address] [facility] 7 [place] [address] Care Team Providers Care Painter And Paperhanger Apprentice Name Role Phone Isela Grier MD Primary Care Provider [phone] Jaron Ambrose PRESSURE SUPERVISOR Unavailable Unavailable Reason for Referral * Imaging (Routine) - Closed Specialty Diagnoses / Procedures Referred By Jaden mallory Referred To Contact Radiology Diagnoses Generalized abdominal pain Procedures CT Abdomen Pelvis w/ Contrast Isela Grier MD [address] [place] [address] Phone: tel: fax: [facility] [address] [place] [address] Phone: tel: fax: Referral ID Status Reason Start Date Expiration Date Visits Re quested Visits Authorized [id number] Closed 05/13/2023 05/12/2024 1 1 Encounter Details Date Type Department Care Team (Late st Contact Info) Description 05/13/2023 Orders Only [facility] MEDICINE [address] [place], [place] [phone] Isela Grier MD [address] [place], [place] [phone] Generalized abdominal pain (Primary Dx) Social History Tobacco Use Types Packs/Day Years Used Date Smoking Tobacco: Every Day Cigarettes Passive Smoke Exposure: Current Smokeless Tobacco: Never Comments Unknown Sex and Gender Information Value Date Recorded Sex Assigned at Female 08/25/2022 10:14 AM EDT Legal Sex Female 10:14 AM EDT Gender Identity Female 08/25/2022 10:14 AM EDT Sexual Orientation Straight 08/25/2022 10 :14 AM EDT COVID-19 Exposure Response Date Recorded In the last 10 days, have yo u been in contact with someone who was confirmed or suspected to have Coronavirus/COVID-19? No / Unsure 05/05/2023 12:55 PM EDT documented as of this encounter Plan of Treatment Scheduled Orders Name Type Priority Associated Diagnoses Orde r Schedule CT Abdomen Pelvis w/ Contrast Imaging Routine Generalized abdominal pain Expected: 05/13/2023, Expires: 05/13/2024 documented as of this encounter Visit Diagnoses Diagnosis Generalized abdominal pain- Primary Abdominal pain, generalized documented in this encounter Additional Health Concerns Assessment Noted Time PHQ-9 Depression Total Score: 15 03/17/ 023 2:20 PM EDT documented as of this encounter Care Teams Painter And Paperhanger Apprentice Relationship Specialty Start Date End Date Isela Grier MD [address] [place] [address] PCP - General Family Medicine 10/26/18 Jaron Ambrose FNP [address] [place] [address] Nurse Practitioner Family Medicine 09/21/23 documented as of this encounter
--- OUTSIDE RECORDS SUMMARY | 2024-11-28 09:45 | XMS_ITS | Encounter Summary ---
Author Organization [facility] Address [address] [place] [address] Care Team Providers Care Web Developer Programmer Name Role Phone Isela Grier MD Primary Care Provider [phone] Reason for Referral * Imaging (Routine) - Closed Specialty Diagnoses / Procedures Referred By Jaden mallory Referred To Contact Radiology Diagnoses Encounter for screening for osteoporosis Procedures BD Bone Density DXA Axial Skeleton Isela Grier MD [address] [place] [address] [address] Referral ID Status Reason Start Date Expiration Date Visits Re quested Visits Authorized [id number] Closed 10/30/2024 10/30/2025 1 1 Reason for Visit * Imaging (Routine) - Closed Specialty Diagnoses / Procedures Referred By Jaden mallory Referred To Contact Radiology Diagnoses Encounter for screening for osteoporosis Procedures BD Bone Density DXA Axial Skeleton Isela Grier MD [address] [place] [address] [address] Referral ID Status Reason Start Date Expiration Date Visits Re quested Visits Authorized [id number] Closed 10/30/2024 10/30/2025 1 1 Encounter Details Date Type Department Care Team (Latest Contact Info) Description 11/09/2024 9:36 AM EST - 11/09/2024 11:59 PM EST Hospital Encounter [facility] Bone Density [address] [place] [address] Encounter for screening for osteoporosis Discharge Disposition: Home or Self Care Social History Tobacco Use Types Packs/Day Years Used Date Smoking Tobacco: Former Cigarettes Passive Smoke Exposure: Never Smokeless Tobacco: Never Alcohol Use Standard Drinks/Week Comments Never 0 (1 standard drink = 0.6 oz pur e alcohol) Sex and Gender Information Value Date Recorded Sex Assigned at Female 09/07/2024 10:48 AM EST Gender Identity Female 09/07/2024 10:48 AM EST Sexual Orientation Straight 11/02/2024 3: 01 PM EST Job Start Date Occupation Industry Not on file Not on file Not on file documented as of this encounter Medications at Time of Discharge Medication Sig Dispensed Refills Start Date End Date albuterol HFA (PROAIR HFA ; PROVENTIL HFA ; VENTOLIN HFA) 90 mcg/actuation inhaler 2 puffs every 6 (six) hours if needed. 01/16/2014 B complex tablet Take 1 tablet by mouth 1 (one) time each day. cholecalciferol (VITAMIN D-3) 25 mcg (1,000 unit) capsule Take 1 capsule (1,000 Units total) by mouth 1 (one) time each day. duloxetine HCl (CYMBALTA ORAL) Take 120 mg by mouth 1 (one) time each day. FOLIC ACID ORAL Take 1 tablet by mouth 1 (one) time each day. lisinopriL (PRINIVIL,ZESTRIL) 2.5 mg tablet 1 tablet (2.5 mg total). 01/16/2014 loratadine (CLARITIN) 10 mg tablet Take 1 tablet (10 mg total) by mouth 1 (one) time each day. LORazepam (ATIVAN) 0.5 mg tablet Take 1 tablet (0.5 mg total) by mouth every 6 (six) hours if needed for anxiety. Max Daily Amount: 2 mg metFORMIN (GLUCOPHAGE) 500 mg tablet Take 1 tablet (500 mg total) by mouth 2 (two) times a day with meals. multivitamin (MULTIPLE VITAMINS ORAL) Take 10 mg by mouth 1 (one) time each day. omeprazole (PriLOSEC) [address] capsule 1 capsule (20 mg total) 1 (one) time each day. Take 1 Capsule by mouth daily for 90 days. - Oral Do not crush or chew. oxyCODONE (OXY-IR) 5 mg immediate release capsule Take 1-2 capsules (5-10 mg total) by mouth every 4 (four) hours if needed for severe pain. 12 capsule 09/07/2024 pravastatin (PRAVACHOL) 40 mg tablet Take 1 tablet (40 mg total) by mouth 1 (one) time each day. 01/16/2014 documented as of this encounter Discharge Disposition Disposition Code Departure Means Destination Home or Self Care documented in this encounter Plan of Treatment Not on file documented as of this encounter Procedures Procedure Name Priority Date/Time Associated Diagnosis Comments BD BONE DENSITY DXA AXIAL SKELETON Routine 11/09/2024 10:33 AM EST Encounter for screening for osteoporosis documented in this encounter Results * BD Bone Density DXA Axial Skeleton (11/09/2024 10:33 AM EST) Anatomical Region Laterality Modality Wrist, Hip, L-spine Bone Densito metry 11/09/2024 12:2 2 PM EST Impressions 11/09/2024 12:24 PM EST 1. Osteopenia. 2. FRAX analysis yields a 10-year probability of major osteoporotic fracture of 10.5% and a 10-year probability of hip fracture of 1.8%. Code 62784 -------- FINAL REPORT -------- Dictated By: Michael Fierro Dictated Date: 11/09/2024 12:22 ET Assigned Physician: Michael Fierro Reviewed and Electronically Signed By: Michael Fierro Signed Date: 11/09/2024 12:24 ET Workstation ID: [id number] Transcribed By: Self Edit Transcribed Date: 11/09/2024 12:22 ET Narrative 11/09/2024 12:24 PM EST HISTORY: ??The patient is a 69-year-old postmenopausal female with clinical concern for metabolic bone disease. FINDINGS: ??Dual energy x-ray absorptiometry of the lumbar spine and femurs is performed. The mean bone mineral density at L1-3 is 0.938 gm/cm2 which is 80% of that of young normals and 89% of that of age matched controls. This yields a T-score of -1.9 and a Z-score of -1.0 which is diagnostic of osteopenia. The mean bone mineral density of the femurs bilaterally is 0.836 gm/cm2 which is 83% of that of young normals and 92% of that of age matched controls. ??This yields a T-score of -1.4 and a Z-score of -0.5 which is diagnostic of osteopenia. ??The T-score of the right femoral neck is -2.2 and that of the left femoral neck is - 2.2 which is diagnostic of osteopenia. Procedure Note Michael Fierro MD - 11/09/2024 HISTORY: The patient is a 69-year-old postmenopausal female with clinicalconcern for metabolic bone disease. FINDINGS: Dual energy x-ray absorptiometry of the lumbar spine and femursis performed. The mean bone mineral density at L1-3 is 0.938 gm/cm2 whichis 80% of that of young normals and 89% of that of age matched controls.This yields a T-score of -1.9 and a Z-score of -1.0 which is diagnostic ofosteopenia. The mean bone mineral density of the femurs bilaterally is 0.836 gm/vx7ijlst is 83% of that of young normals and 92% of that of age matchedcontrols. This yields a T-score of -1.4 and a Z-score of -0.5 which isdiagnostic of osteopenia. The T- score of the right femoral neck is -2.2and that of the left femoral neck is -2.2 which is diagnostic ofosteopenia. IMPRESSION: 1. Osteopenia. 2. FRAX analysis yields a 10-year probability of major osteoporoticfracture of 10.5% and a 10-year probability of hip fracture of 1.8%. Code 23566 -------- FINAL REPORT -------- Dictated By: Michael Fierro Dictated Date: 11/09/2024 12:22 ET Assigned Physician: Michael Fierro Reviewed and Electronically Signed By: Michael Fierro Signed Date: 11/09/2024 12:24 ET Workstation ID: [id number] Transcribed By: Self Edit Transcribed Date: 11/09/2024 12:22 ET Isela Grier MD IMG DXA PROCEDURES documented in this encounter Visit Diagnoses Diagnosis Encounter for screening for osteoporosis documented in this encounter Care Teams Web Developer Programmer Relationship Specialty Start Date End Date Isela Grier MD [address] [place] [id number] PCP - General 10/20/23 documented as of this encounter
--- OUTSIDE RECORDS SUMMARY | 2024-11-28 09:45 | XMS_ITS | Encounter Summary ---
Author Organization [employer] Address [address] [facility] 7t [place] [address] Care Team Providers Care Anesthesiologist Physician Name Role Phone Isela Grier MD Primary Care Provider [phone] Jaron Ambrose Unavailable Unavailable Reason for Visit * Reason Comments Med Refill Encounter Details Date Type Department Care Team (Late st Contact Info) Description 07/27/2023 Refill [facility] MEDICINE [address] [place], [place] [phone] Rosi Saxena MD [address] [place], [place] [phone] Social History Tobacco Use Types Packs/Day Years Used Date Smoking Tobacco: Every Day Cigarettes Passive Smoke Exposure: Current Smokeless Tobacco: Never Depression Answer Date Recorded Patient Health Questionnaire-9 Score 12 07/14/2023 Depression Answer Date Recorded Patient Health Questionnaire-2 Score 5 07/14/2023 Comments Unknown Sex and Gender Information Value Date Recorded Sex Assigned at Female 08/25/2022 10:14 AM EDT Legal Sex Female 10:14 AM EDT Gender Identity Female 08/25/2022 10:14 AM EDT Sexual Orientation Straight 08/25/2022 10 :14 AM EDT documented as of this encounter Plan of Treatment Not on file documented as of this encounter Visit Diagnoses Not on filedocumented in this encounter Additional Health Concerns Assessment Noted Time PHQ-9 Depression Total Score: 12 023 1:12 PM EDT documented as of this encounter Care Teams Anesthesiologist Physician Relationship Specialty Start Date End Date Isela Grier MD [address] [place] [address] PCP - General Family Medicine 10/26/18 Jaron Ambrose FNP [address] [place] [address] Nurse Practitioner Family Medicine 09/21/23 documented as of this encounter
--- OUTSIDE RECORDS SUMMARY | 2024-11-28 09:45 | XMS_ITS | Encounter Summary ---
Author Organization [employer] Address [address] [facility] 7t [place] [address] Care Team Providers Care Equalizer Operator Name Role Phone Isela Grier MD Primary Care Provider Jaron Ambrose Unavailable Unavailable Encounter Details Date Type Department Care Team (Late st Contact Info) Description 09/26/2022 Abstract [facility] MED & PEDS [address] [place] [address] Provider, MD Luis Social History Tobacco Use Types Packs/Day Years Used Date Smoking Tobacco: Never Assessed Comments Unknown Sex and Gender Information Value Date Recorded Sex Assigned at Female 08/25/2022 10:14 AM EDT Legal Sex Female 10:14 AM EDT Gender Identity Female 08/25/2022 10:14 AM EDT Sexual Orientation Straight 08/25/2022 10 :14 AM EDT documented as of this encounter Plan of Treatment Not on file documented as of this encounter Visit Diagnoses Not on filedocumented in this encounter Care Teams Equalizer Operator Relationship Specialty Start Date End Date Isela Grier MD [address] [place] [address] PCP - General Family Medicine 10/26/18 Jaron Ambrose FNP [address] [place] [address] Nurse Practitioner Family Medicine 09/21/23 documented as of this encounter
--- OUTSIDE RECORDS SUMMARY | 2024-11-28 09:45 | XMS_ITS | Encounter Summary ---
Author Organization [employer] Address [address] [facility] [address] [place] [address] Care Team Providers Care Data Librarian Name Role Phone Isela Grier MD Primary Care Provider [phone] Jaron Ambrose Unavailable Unavailable Reason for Visit * Reason Onset Date Comments Appointment 10/03/2022 Encounter Details Date Type Department Care Team (Late st Contact Info) Description 10/03/2022 Telephone [facility] MEDICINE [address] [place], [place] [phone] Isela Grier MD [address] [place], [place] [phone] Appointment Social History Tobacco Use Types Packs/Day Years Used Date Smoking Tobacco: Never Assessed Depression Answer Date Recorded Patient Health Questionnaire-9 Score 13 05/09/2024 Patient Health Questionnaire-9 Score 13 05/09/2024 Last PHQ-9: Questionnaire Data Not on file 0 05/09/2024 Housing Stability Answer Date Recorded What is your housing situation today? I have sharon isidro 08/17/[address] you li ve. Do you have problems with any of the following? None of the above 08/17/2023 Food Insecurity Answer Date Recorded Within the past 12 months, y ou worried that your food would run out before you got money to buy more: Never True 08/17/2023 Within the past 12 months,th e food you bought just didn't last and you didn't have enough money to get more: Never True Transportation Answer Date Recorded In the past 12 months, has l ack of transportation kept you from medical appts, meetings, work or from getting things needed for daily living? No 08/17/2023 Utilities Answer Date Recorded In the past 12 months, has t he electric, gas, oil or water company threatened to shut off services in your home? No 08/17/2023 Depression Answer Date Recorded Patient Health Questionnaire-2 Score 3 05/09/2024 Comments Unknown Sex and Gender Information Value [...] PM EDT documented as of this encounter Miscellaneous Notes * Telephone Encounter - Philip Hobbs - 10/03/2022 2:02 PM EST Tc from pt requesting to switch follow up appt scheduled for 10/06/22 @ 10am with PCP as a TELE , Advised will leave a message. Please contact at [phone] documented in this encounter Plan of Treatment Not on file documented as of this encounter Visit Diagnoses Not on filedocumented in this encounter Care Teams Data Librarian Relationship Specialty Start Date End Date Isela Grier MD [address] [place] [address] PCP - General Family Medicine 10/26/18 Jaron Ambrose FNP [address] [place] [address] Nurse Practitioner Family Medicine 09/21/23 documented as of this encounter
--- OUTSIDE RECORDS SUMMARY | 2024-11-28 09:45 | XMS_ITS | Clinical Summary ---
Author Organization [facility] Address [address] [place] [address] Care Team Providers Care Customer Solutions Architect Name Role Phone Unavailable Primary Care Provider Unavailabl e Social History Tobacco Use Types Packs/Day Years Used Date Smoking Tobacco: Never Assessed Sex and Gender Information Value Date Recorded Sex Assigned at Not on file Gender Identity Not on file Sexual Orientation Not on file Plan of Treatment Health Maintenance Due Date Last Done Comments Hepatitis C Virus Screening 1955 DTaP/Tdap/Td Vaccines (1 - Tdap) 1976 Pneumococcal Vaccines 50+ (1 of 1 - PCV) 2007 Zoster (Shingles) Vaccine (1 of 2) 2007 COVID-19 Vaccine ( - 2023-2 5 season) 2024 RSV Vaccine 60 years and old er and Patients (1 - 1-dose 75+ series) 2032 Hepatitis B Vaccines Aged Out No long er eligible based on patient's age to complete this topic
--- OUTSIDE RECORDS SUMMARY | 2024-11-28 09:45 | XMS_ITS | Encounter Summary ---
Author Organization [employer] Address [address] [facility] [address] [place] [address] Care Team Providers Care Burlap Man Name Role Phone Isela Grier MD Primary Care Provider [phone] Jaron Ambrose Unavailable Unavailable Reason for Visit * Reason Onset Date Comments DME from [facility] 11/11/2024 Encounter Details Date Type Department Care Team (Late st Contact Info) Description 11/11/[address] [facility] MEDICINE [address] [place] [address] Rissa Kiser MA DME from [facility] Social History Tobacco Use Types Packs/Day Years [...] AM EDT documented as of this encounter Miscellaneous Notes * Telephone Encounter - Rissa Kiser MA - 11/11/2024 10:26 AM EST Confirmation of order and DME for CPAP from [facility] placed on PCP desk for signature. documented in this encounter Plan of Treatment Not on file documented as of this encounter Visit Diagnoses Not on filedocumented in this encounter Additional Health Concerns Assessment Noted Time PHQ-9 Depression Total Score: 13 024 2:55 PM EDT documented as of this encounter Care Teams Burlap Man Relationship Specialty Start Date End Date Isela Grier MD [address] [place] [address] PCP - General Family Medicine 10/26/18 Jaron Ambrose FNP [address] [place] [address] Nurse Practitioner Family Medicine 09/21/23 documented as of this encounter
--- OUTSIDE RECORDS SUMMARY | 2024-11-28 09:45 | XMS_ITS | Encounter Summary ---
Author Organization [facility] Address [address] [place] [address] Care Team Providers Care Supervisor Steno Pool Name Role Phone Isela Grier MD Primary Care Provider [phone] Reason for Referral * Imaging (Routine) - Closed Specialty Diagnoses / Procedures Referred By Jaden mallory Referred To Contact Radiology Diagnoses Encounter for screening mammogram for malignant neoplasm of breast Procedures [facility] Mammo Digital Screening w Isela Patel MD [address] [place] [address] [address] Referral ID Status Reason Start Date Expiration Date Visits Re quested Visits Authorized [id number] Closed 10/30/2024 10/30/2025 1 1 Reason for Visit * Imaging (Routine) - Closed Specialty Diagnoses / Procedures Referred By Jaden mallory Referred To Contact Radiology Diagnoses Encounter for screening mammogram for malignant neoplasm of breast Procedures [facility] Mammo Digital Screening w Isela aPtel MD [address] [place] [address] [address] Referral ID Status Reason Start Date Expiration Date Visits Re quested Visits Authorized [id number] Closed 10/30/2024 10/30/2025 1 1 Encounter Details Date Type Department Care Team (Latest Contact Info) Description 11/09/2024 9:38 AM EST - 11/09/2024 11:59 PM EST Hospital En[facility] at [address] [address] Encounter for screening mammogram for malignant neoplasm of breast Discharge Disposition: Home or Self Care Social [...] on file documented as of this encounter Last Filed Vital Signs Vital Sign Reading Time Taken Comments Blood Pressure - - Pulse - - Temperature - - Respiratory Rate - - Oxygen Saturation - - Inhaled Oxygen Concentration - - Weight 87.5 kg (193 lb) 11/09/2024 10:19 AM EST Height 154.9 cm (5' 1 ) 11/09/2024 10:19 AM EST Body Mass Index 36.47 11/09/2024 10:19 AM EST documented in this encounter Medications at Time of Discharge [...] Procedure Name Priority Date/Time Associated Diagnosis Comments MG MAMMO DIGITAL SCREENING W TACHO BILAT Routine 11/09/2024 10:32 AM EST Encounter for screening mammogram for malignant neoplasm of breast documented in this encounter Results * MG Mammo Digital Screening w Tacho bilat (11/09/2024 10:32 AM EST) Anatomical Region Laterality Modality Breast Bilateral Mammography 11/18/2024 3:31 PM EST Impressions 11/18/2024 3:36 PM EST No mammographic evidence of malignancy. ?? No suspicious interval change. A negative mammogram in the presence of a clinically suspicious palpable abnormality does not preclude the possibility of malignancy or alter the indications for biopsy. ASSESSMENT: ?? BI-RADS 1: NEGATIVE RECOMMENDATION(S): 1: Routine screening mammogram BILATERAL in 1 year. -------- FINAL REPORT -------- Dictated By: Thomas Swanson Dictated Date: 11/18/2024 15:31 ET Assigned Physician: Thomas Swanson Reviewed and Electronically Signed By: Thomas Swanson Signed Date: 11/18/2024 15:36 ET Workstation ID: [id number] Transcribed By: Self Edit Transcribed Date: 11/18/2024 15:31 ET Narrative 11/18/2024 3:36 PM EST EXAM: ??SCREENING MAMMOGRAPHY, BILATERAL HISTORY: ??SCREENING. ??No additional history. COMPARISON: ??11/19/2012 TECHNIQUE: Synthesized CC and MLO projections of each breast. ??Tomosynthesis of each breast in the CC and MLO projections. ADDITIONAL IMAGING: None Computer-aided detection was employed with the iCAD ??profound AI 3-D. TISSUE DENSITY: There are scattered areas of fibroglandular density. (BI-RADS category B) FINDINGS: RIGHT BREAST: No suspicious mass. No suspicious calcification. No distortion. ?? No additional suspicious right breast findings LEFT BREAST: No suspicious mass. No suspicious calcification. No distortion. ?? Stable intramammary lymph node in the 3 o'clock position. Procedure Note Thomas Swanson MD - 11/18/2024 EXAM: SCREENING MAMMOGRAPHY, BILATERAL HISTORY: SCREENING. No additional history. COMPARISON: 11/19/2012 TECHNIQUE: Synthesized CC and MLO projections of each breast.Tomosynthesis of each breast in the CC and MLO projections. ADDITIONAL IMAGING: None Computer-aided detection was employed with the iCAD profound AI 3-D. TISSUE DENSITY: There are scattered areas of fibroglandular density.(BI-RADS category B) FINDINGS: RIGHT BREAST: No suspicious mass. No suspicious calcification. No distortion. Noadditional suspicious right breast findings LEFT BREAST: No suspicious mass. No suspicious calcification. No distortion. Stableintramammary lymph node in the 3 o'clock position. IMPRESSION: No mammographic evidence of malignancy. No suspicious interval change. A negative mammogram in the presence of a clinically suspicious palpableabnormality does not preclude the possibility of malignancy or alter theindications for biopsy. ASSESSMENT: BI-RADS 1: NEGATIVE RECOMMENDATION(S): 1: Routine screening mammogram BILATERAL in 1 year. -------- FINAL REPORT -------- Dictated By: Thomas Swanson Dictated Date: 11/18/2024 15:31 ET Assigned Physician: Thomas Swanson Reviewed and Electronically Signed By: Thomas Swanson Signed Date: 11/18/2024 15:36 ET Workstation ID: [id number] Transcribed By: Self Edit Transcribed Date: 11/18/2024 15:31 ET Isela Grier MD IMG BI PROCEDURES documented in this encounter Visit Diagnoses Diagnosis Encounter for screening mammogram for malignant neoplasm of breast documented in this encounter Care Teams Supervisor Steno Pool Relationship Specialty Start Date End Date Isela Grier MD [address] [place] [phone] PCP - General 10/20/23 documented as of this encounter
--- OUTSIDE RECORDS SUMMARY | 2024-11-28 09:45 | XMS_ITS | Encounter Summary ---
Author Organization [facility] [employer] [facility] Address [address] [facility] [address] [place] [address] Care Team Providers Care Splicer Helper Name Role Phone Isela Grier MD Primary Care Provider [phone] Jaron Ambrose Unavailable Unavailable Reason for Visit * Reason Comments Med Refill Encounter Details Date Type Department Care Team (Late st Contact Info) Description 06/19/2023 Refill [facility] [address] [place], [place] [phone] Rosi Saxena MD [address] [place], [place] [phone] Type 2 diabetes mellitus without complications (CMS/HCC) Social History Tobacco Use Types Packs/Day Years [...] as of this encounter Visit Diagnoses Diagnosis Type 2 diabetes mellitus without complications (CMS/HCC) documented in this encounter Additional Health Concerns Assessment Noted Time PHQ-9 Depression Total Score: 15 023 2:20 PM EDT documented as of this encounter Care Teams Splicer Helper Relationship Specialty Start Date End Date Isela Grier MD [address] [place] [address] PCP - General Family Medicine 10/26/18 Jaron Ambrose FNP [address] [place] [address] Nurse Practitioner Family Medicine 09/21/23 documented as of this encounter
--- OUTSIDE RECORDS SUMMARY | 2024-11-28 09:45 | XMS_ITS | Encounter Summary ---
Author Organization [facility] [employer] [facility] [employer] [facility] Address [address] [place] [address] Care Team Providers Care Pathology Secretary Name Role Phone Isela Grier MD Primary Care Provider [phone] Jaron Ambrose Unavailable Unavailable Reason for Visit * Reason Comments Med Refill Encounter Details Date Type Department Care Team (Late st Contact Info) Description 09/21/2024 Refill [facility] [address] [place], [place] [phone] Isela Grier MD [address] [place], [place] [phone] Social History Tobacco Use Types Packs/Day Years [...] documented as of this encounter Care Teams Pathology Secretary Relationship Specialty Start Date End Date Isela Grier MD [address] [place] [address] PCP - General Family Medicine 10/26/18 Jaron Ambrose FNP [address] [place] [address] Nurse Practitioner Family Medicine 09/21/23 documented as of this encounter
--- OUTSIDE RECORDS SUMMARY | 2024-11-28 09:45 | XMS_ITS | Clinical Summary ---
Author Organization [facility] Address [address] [place] [address] Phone Care Team Providers Care Driver Name Role Phone Isela Grier MD Primary Care Provider [phone] Allergies No known active allergies Medications Medication Sig Dispensed Refills Start Date End Date Status cholecalciferol (VITAMIN D-3) 25 mcg (1,000 unit) capsule Take 1 capsule (1,000 Units total) by mouth 1 (one) time each day. Active loratadine (CLARITIN) 10 mg tablet Take 1 tablet (10 mg total) by mouth 1 (one) time each day. Active lisinopriL (PRINIVIL,ZESTRIL) 2.5 mg tablet 1 tablet (2.5 mg total). 01/16/2014 Active albuterol HFA (PROAIR HFA ; PROVENTIL HFA ; VENTOLIN HFA) 90 mcg/actuation inhaler 2 puffs every 6 (six) hours if needed. 01/16/2014 Active pravastatin (PRAVACHOL) 40 mg tablet Take 1 tablet (40 mg total) by mouth 1 (one) time each day. 01/16/2014 Active FOLIC ACID ORAL Take 1 tablet by mouth 1 (one) time each day. Active multivitamin (MULTIPLE VITAMINS ORAL) Take 10 mg by mouth 1 (one) time each day. Active omeprazole (PriLOSEC) [address] capsule 1 capsule (20 mg total) 1 (one) time each day. Take 1 Capsule by mouth daily for 90 days. - Oral Do not crush or chew. Active B complex tablet Take 1 tablet by mouth 1 (one) time each day. Active metFORMIN (GLUCOPHAGE) 500 mg tablet Take 1 tablet (500 mg total) by mouth 2 (two) times a day with meals. Active LORazepam (ATIVAN) 0.5 mg tablet Take 1 tablet (0.5 mg total) by mouth every 6 (six) hours if needed for anxiety. Max Daily Amount: 2 mg Active duloxetine HCl (CYMBALTA ORAL) Take 120 mg by mouth 1 (one) time each day. Active oxyCODONE (OXY-IR) 5 mg immediate release capsule Take 1-2 capsules (5-10 mg total) by mouth every 4 (four) hours if needed for severe pain. 12 capsule 09/07/2024 Active Active Problems Problem Noted Date Diagnosed Date B12 deficiency 01/16/2014 CTS (carpal tunnel syndrome) 01/16/2014 Diabetes mellitus type 2 with neurological manif estations 01/16/2014 Overview (07/28/2024): CTS DJD (degenerative joint disease) 01/16/2014 Overview (07/28/2024): Multiple joints Hyperlipidemia 01/16/2014 Obesity 01/16/2014 Overview (07/28/2024): S/p gastric bypass Schizoaffective disorder 01/16/2014 Vitamin D deficiency 01/16/2014 Anxiety 12/14/2013 Chronic joint pain 12/14/2013 Depression 12/14/2013 Resolved Problems Problem Noted Date Diagnosed Date Resolved Date Incarcerated ventral hernia 09/06/2024 09/07/2024 Encounters Date Type Department Care Team Description 11/09/2024 9:38 AM EST - 11/09/2024 11:59 PM [facility] Hospital Encounter [facility] [address] [place] [phone] Encounter for screening mammogram for malignant neoplasm of breast Discharge Disposition: Home or Self Care 11/09/2024 9:36 AM EST - 11/09/2024 11:59 PM [facility] Hospital Encounter [facility] Bone Density [address] [place] [phone] Encounter for screening for osteoporosis Discharge Disposition: Home or Self Care 10/19/2024 11:14 AM EST - 10/19/2024 2:00 PM EST Emergency [facility] Emergency [address] [place] [address] Nahun Kelley MD Pneumonia of right lower lobe due to infectious organism (Primary Dx) Discharge Disposition: Home or Self Care 10/10/2024 1:45 PM EST Office Visit Bariatric Surgery [facility] [address] [phone] Adwoa Tate MD S/P repair of ventral hernia (Primary Dx) 09/07/2024 2:02 PM EST Anesthesia Event [facility] OR [address] [place] [address] Beck Rodriges MD [facility], [facility] 09/07/2024 1:30 PM EST - 09/07/2024 4:00 PM EST Surgery [facility] OR [address] [place] [address] Adwoa Tate MD OPEN REPAIR VENTRAL HERNIA [[id number] (CPT??)] 09/07/2024 10:50 AM EST - 09/07/2024 5:32 PM EST Hospital Encounter [facility] OR [address] [place] [phone] Adwoa Tate MD Ventral hernia without obstruction or gangrene Discharge Disposition: Home or Self Care 09/06/2024 1:15 PM EST Office Visit Bariatric Surgery [facility] [address] [phone] Nissa Johnson PA Incarcerated ventral hernia (Primary Dx) from Last 3 Months Immunizations Name Administration Dates Next Due COVID-19 (Moderna/Spikevax) 12yo and older 05/21/2022,10/24/2021,01/29/2021,01/01 Hep A, Unspecified 06/23/2012 Influenza, Unspecified 07/08/2013,07/23/2011, Moderna SARS-CoV-2 COVID-19, mRNA, LNP-S, preservative free 05/21/2022,10/24/2021,01/29/2021,01/01 Pneumococcal polysaccharide 23 valent (Pneumovax 23) 2yo and older 11/08/2009 Td Tetanus diptheria (Tdvax) 7yo and older 05/02/2003 Tdap Tetanus diptheria acell ular pertussis (Boostrix; Adacel) 7yo and older 01/20/2012 Surgical History Surgery Date Site/Laterality Comments TONSILLECTOMY PROCEDURE: HISTORICAL TONSILLECTOMY TUBAL LIGATION PROCEDURE: HISTORICAL TUBAL LIGATION OTHER SURGICAL HISTORY PROCEDURE: MD ANES HRNA RPR UPR ABD LMBR&VNT HERNIA&/DEHSN BLADDER SUSPENSION PROCEDURE: HISTORICAL BLADDER SUSPENSION HYSTERECTOMY PROCEDURE: HISTORICAL HYSTERECTOMY GASTRIC BYPASS PROCEDURE: MD GASTRIC RSTCV W/BYP W/SM INT RCNSTJ LIMIT ABSRPJ OTHER SURGICAL HISTORY 11/19/12 PROCEDURE: OUTSIDE MAMMO SALIVARY GLANDS Bilateral REMOVED STEREOTACTIC CORE BIOPSY Right BREAST CYST ASPIRATION Right Medical History Medical History Date Comments Depression 12/14/2013 DX:Depression Anxiety 12/14/2013 DX:Anxiety Chronic joint pain 12/14/2013 DX:Chronic joel int pain Diabetes mellitus type 2, diet-controlled (CMS/HCC) 01/16/2014 DX:Diabetes mellitus type 2, diet-controlled (HCC) Schizoaffective disorder ([facility]) 01/16/2014 DX:Schizoaffective disorder (HCC) Hyperlipidemia 01/16/2014 DX:Hyperlipidemi a B12 deficiency 01/16/2014 DX:B12 deficienc y Obesity 01/16/2014 DX:Obesity; COMM ENT: S/p gastric bypass Tobacco abuse 01/16/2014 DX:Tobacco abuse Vitamin D deficiency 01/16/2014 DX:Vitamin D deficiency DJD (degenerative joint disease) 01/16/2014 DX:DJD (degenerative joint disease); COMMENT: Multiple joints CTS (carpal tunnel syndrome) 01/16/2014 DX: CTS (carpal tunnel syndrome) Panic Attack Hypertension Asthma COPD (chronic obstructive pu lmonary disease) ([facility]) Sleep apnea Shortness of breath HL (hearing loss) Hearing loss GERD (gastroesophageal reflux disease) Hernia of abdominal wall Anemia Neuromuscular disorder ([facility]) Chronic fatigue syndrome wit h fibromyalgia Family History Medical History Relation Name Comments Other: head and neck cancer Father Hyperlipidemia Mother Relation Name Status Comments Father Mother Social History Tobacco Use Types Packs/Day Years Used Date Smoking Tobacco: Former Cigarettes Passive Smoke Exposure: Never Smokeless Tobacco: Never Tobacco Cessation:Counseling Given: Not Answered Alcohol Use Standard Drinks/Week Comments Never 0 (1 standard drink = 0.6 oz pur e alcohol) Sex and Gender Information Value Date Recorded Sex Assigned at Female 09/07/2024 10:48 AM EST Gender Identity Female 09/07/2024 10:48 AM EST Sexual Orientation Straight 11/02/2024 3: 01 PM EST Job Start Date Occupation Industry Not on file Not on file Not on file Obstetrics History Para Term AB IAB SAB Ectopic Multiple Livin g Live Births 6 Last Filed Vital Signs Vital Sign Reading Time Taken Comments Blood Pressure 130/51 10/19/2024 1:38 PM EST Pulse 90 10/19/2024 1:38 PM EST Temperature 36.8 ??C (98.2 ??F) 10/19/2024 1:38 PM ES T Respiratory Rate 20 10/19/2024 11:01 AM EST Oxygen Saturation 97% 10/19/2024 1:25 PM EST Inhaled Oxygen Concentration - - Weight 87.5 kg (193 lb) 11/09/2024 10:19 AM EST Height 154.9 cm (5' 1 ) 11/09/2024 10:19 AM EST Body Mass Index 36.47 11/09/2024 10:19 AM EST Plan of Treatment Health Maintenance Due Date Last Done Comments Diabetes: Annual Foot Exam 1967 Diabetes: Annual Retina Eye Exam 1967 RSV Immunization Patients 60+ Years Old (1 - Risk 60-74 years 1-dose series) 2017 Colorectal Cancer Screening: Colonoscopy 09/27/2022 Hepatitis C Screening 09/27/2022 Medicare Annual Wellness Visit 09/27/2022 Social Influencers of Health Screening 09/27/2022 Diabetes: Annual Urine Albumin-Creatinine Ratio (uACR) 12/21/2024 12/21/2023 Diabetes: Blood Sugar Control Test (HGBA1C) 04/26/2025 10/27/2024, 09/07/2024, 02/09/2024, Additional history exists Depression Screening 05/09/2025 05/09/2024 Falls Risk Assessment 09/07/2025 09/07/2024 Diabetes: Annual GFR (Glomerular Filtration Rate) 10/27/2025 10/27/2024, 10/19/2024, 09/07/2024, Additional history exists Hypertension/CHF/CAD Annual BMP Blood Test 10/27/2025 10/27/2024, 10/19/2024, 09/07/2024, Additional history exists Breast Cancer Screening 11/09/2026 11/09/2024, 07/15 Cholesterol Screening (Lipid Panel) 12/21/2028 12/21/2023 DTaP,Tdap,and Td Vaccines (4 - Td or Tdap) 07/30/2032 07/30/2022, 01/20/2012, 05/02/2003 Osteoporosis Screening (Bone Density Screening) 11/09/2034 11/09/2024 Hepatitis B Vaccines Completed 07/02/2016, 07/23/2015, 06/07/2015 Pneumococcal Vaccine: 65+ Years Completed 07/30/2022, 06/12/2017, 03/24/2016, Additional history exists Zoster Vaccines Completed 12/19/2022, 07/30/2022 Hepatitis A Vaccines Completed 12/21/2023, 06/23/20 12 COVID-19 Vaccine Completed 10/27/2024, , 05/21/2022, Additional history exists Influenza Vaccine Completed 10/27/2024, , 07/18/2022, Additional history exists HIB Vaccines Aged Out No longer eligi ble based on patient's age to complete this topic HPV Vaccines Aged Out No longer eligi ble based on patient's age to complete this topic IPV Vaccines Aged Out No longer eligi ble based on patient's age to complete this topic MMR Vaccines Aged Out No longer eligi ble based on patient's age to complete this topic Meningococcal ACWY Vaccine Aged Out N o longer eligible based on patient's age to complete this topic RSV Immunization Patients Under 20 months Aged Out No longer eligible based on patient's age to complete this topic Varicella Vaccines Aged Out No longer eligible based on patient's age to complete this topic Medical Devices Implanted Type Area Hand Drawer In Device Identifier Shelf Expiration Date Model / Serial / Lot Mesh Ventralex St 2.5in Med [place] W/Vicky - /A - [id number] Implanted:Qty: 1 on 09/07/2024 by Adwoa Tate MD at [facility] Surgical Mesh Sling Implants N/A: Abdomen CR BARD - DAVOL DIV [id number] 09/22/2025 [id number] / N/A / [id number] Procedures Procedure Name Priority Date/Time Associated Diagnosis Comments BD BONE DENSITY DXA AXIAL SKELETON Routine 11/09/2024 10:33 AM EST Encounter for screening for osteoporosis MG MAMMO DIGITAL SCREENING W TACHO BILAT Routine 11/09/2024 10:32 AM EST Encounter for screening mammogram for malignant neoplasm of breast RESPIRATORY VIRUS PANEL MOLECULAR STUDY STAT 10/19/2024 12:00 PM EST TROPONIN I HIGH SENSITIVITY STAT 10/19/2024 11:42 AM EST XR CHEST 2 VIEWS STAT 10/19/2024 11:2 9 AM EST CBC WITH AUTO DIFFERENTIAL STAT 10/19/2024 11:08 AM EST TROPONIN I HIGH SENSITIVITY STAT 10/19/2024 11:08 AM EST BASIC METABOLIC PANEL STAT 10/19/2024 11:08 AM EST CBC AND DIFFERENTIAL STAT 10/19/2024 11:08 AM EST ECG 12-LEAD STAT 10/19/2024 10:55 AM EST ECG ANNOTATED 10/19/2024 TISSUE EXAM Routine 09/07/2024 2:38 PM EST Ventral hernia without obstruction or gangrene TH AN ENDOTRACHEAL(NO CHARGE) Routine 09/07/2024 2:24 PM EST MD REPR ANT ABD HERNIA(S) ANY APPR INIT INCL IMPL 3-10 CM REDUCIBLE 09/07/2024 2:04 PM EST Ventral hernia without obstruction or gangrene Case Notes 23 HR BED, MOVE to 3 HEMOGLOBIN A1C Routine 09/07/2024 11:45 AM EST PROCEDURAL ECG Routine 09/07/2024 11:44 AM EST GIBBS URINE CULTURE TUBE Routine 09/07/2024 11:30 AM EST URINALYSIS WITH REFLEX MICROSCOPIC AND CULTURE Routine 09/07/2024 11:30 AM EST URINALYSIS WITH REFLEX MICROSCOPIC AND CULTURE Routine 09/07/2024 11:30 AM EST CULTURE URINE Routine 09/07/2024 11:30 AM EST CBC WITH AUTO DIFFERENTIAL Routine 09/07/2024 11:28 AM EST TYPE AND SCREEN Routine 09/07/2024 11:28 AM EST PROTHROMBIN TIME WITH INR Routine 09/07/2024 11:28 AM EST CBC AND DIFFERENTIAL Routine 09/07/2024 11:28 AM EST BASIC METABOLIC PANEL Routine 09/07/2024 11:28 AM EST POCT GLUCOSE BLOOD Routine 09/07/2024 11 :13 AM EST HM URINE ALBUMIN CREATININE RATIO Routine 12/21/2023 LIPID PANEL Routine 12/21/2023 from Last 3 Months or Most Recently Relevant to Health Maintenance Results * BD Bone Density DXA Axial Skeleton (11/09/2024 10:33 AM EST) Anatomical Region Laterality Modality Wrist, Hip, L-spine Bone Densito metry 11/09/2024 12:2 2 PM EST Impressions 11/09/2024 12:24 PM EST 1. Osteopenia. 2. FRAX analysis yields a 10-year probability of major osteoporotic fracture of 10.5% and a 10-year probability of hip fracture of 1.8%. Code 57009 -------- FINAL REPORT -------- Dictated By: Michael Fierro Dictated Date: 11/09/2024 12:22 ET Assigned Physician: Michael Fierro Reviewed and Electronically Signed By: Michael Fierro Signed Date: 11/09/2024 12:24 ET Workstation ID: [id number] Transcribed By: Self Edit Transcribed Date: 11/09/2024 [...] density of the femurs bilaterally is 0.836 gm/fa3gthqa is 83% of that of young normals [...] probability of hip fracture of 1.8%. Code 23416 -------- FINAL REPORT -------- Dictated By: Michael iFerro Dictated Date: 11/09/2024 12:22 ET Assigned Physician: Michale Fierro Reviewed and Electronically Signed By: Michael Fierro Signed Date: 11/09/2024 12:24 ET Workstation ID: [id number] Transcribed By: Self Edit Transcribed Date: 11/09/2024 12:22 ET Isela Grier MD IMG DXA PROCEDURES * MG Mammo Digital Screening w Tacho [...] Signed Date: 11/18/2024 15:36 ET Workstation ID: [id number] Transcribed By: Self Edit Transcribed Date: 11/18/2024 [...] Signed Date: 11/18/2024 15:36 ET Workstation ID: [id number] Transcribed By: Self Edit Transcribed Date: 11/18/2024 15:31 ET Isela Grier MD [facility] BI PROCEDURES * Respiratory virus panel molecular study (10/19/2024 12:00 PM EST) Pathologist [facility] Adenovirus Detection by PCR Not Detected Not Detected LAB MICROBIOLOGY METHOD 10/19/2024 1:30 PM EST [facility] Influenza A PCR Not Detected Not Detected LAB MICROBIOLOGY METHOD 10/19/2024 1:30 PM EST [facility] Influenza B PCR Not Detected Not Detected LAB MICROBIOLOGY METHOD 10/19/2024 1:30 PM EST [facility] Coronavirus 229E Not Detected Not Detected LAB MICROBIOLOGY METHOD 10/19/2024 1:30 PM EST [facility] Coronavirus HKU1 Not Detected Not Detected LAB MICROBIOLOGY METHOD 10/19/2024 1:30 PM EST [facility] Coronavirus OC43 Not Detected Not Detected LAB MICROBIOLOGY METHOD 10/19/2024 1:30 PM EST [facility] Coronavirus NL63 Not Detected Not Detected LAB MICROBIOLOGY METHOD 10/19/2024 1:30 PM EST [facility] Parainfluenza Virus 1 Not Detected Not Detected LAB MICROBIOLOGY METHOD 10/19/2024 1:30 PM EST [facility] Parainfluenza Virus 2 Not Detected Not Detected LAB MICROBIOLOGY METHOD 10/19/2024 1:30 PM EST [facility] Parainfluenza Virus 3 Not Detected Not Detected LAB MICROBIOLOGY METHOD 10/19/2024 1:30 PM EST [facility] Parainfluenza Virus 4 Not Detected Not Detected LAB MICROBIOLOGY METHOD 10/19/2024 1:30 PM EST [facility] RSV PCR Not Detected Not Detected LAB MICROBIOLOGY METHOD 10/19/2024 1:30 PM EST [facility] Human Metapneumovirus A and B Not Detected Not Detected LAB MICROBIOLOGY METHOD 10/19/2024 1:30 PM EST [facility] Rhinovirus/Entero virus Not Detected Not Detected LAB MICROBIOLOGY METHOD 10/19/2024 1:30 PM EST [facility] Bordetella pertussis Not Detected Not Detected LAB MICROBIOLOGY METHOD 10/19/2024 1:30 PM EST [facility] Bordetella parapertussis Not Detected Not Detected LAB MICROBIOLOGY METHOD 10/19/2024 1:30 PM EST [facility] Mycoplasma pneumo by PCR Not Detected Not Detected LAB MICROBIOLOGY METHOD 10/19/2024 1:30 PM EST [facility] Chlamydia pneumoniae Not Detected Not Detected LAB MICROBIOLOGY METHOD 10/19/2024 1:30 PM EST [facility] SARS COV-2 Not Detected Not Detected LAB MICROBIOLOGY METHOD 10/19/2024 1:30 PM EST [facility] Swab Both anterior nares / Unknown Non-blood Collection / Unknown 10/19/2024 12:00 PM EST 10/19/2024 12:13 PM EST [facility] - 10/19/2024 1:30 PM EST Testing was performed using the [employer] Respiratory Pathogen PCR Assay. All results must be correlated with the clinical findings. Results should not be used as the sole basis for diagnosis. False Negative results may occur from the presence of sequence variants in the region targeted by the assay or the presence of inhibitors. Results may be affected by concurrent antiviral/antimicrobial therapy or levels of organisms that are below the limit of detection. Carole FLOREZ LAB MICROBIOLOGY - GENERAL ORDERABLES [facility] [address] [place] [address], * Troponin I high sensitivity (10/19/2024 11:42 AM EST) Only the most recent of2 resultswithin the time period is included. High Sensitivity Troponin I 6 <=54 ng/L LAB CHEMISTRY METHOD 10/19/2024 12:35 PM EST [facility] Blood Venous blood specimen / Unknown Venipuncture / Unknown 10/19/2024 11:42 AM EST 10/19/2024 11:56 AM EST [facility]ative [facility] - 10/19/2024 12:35 PM EST High levels of biotin in samples may falsely decrease hsTroponin values. ??Use caution when interpreting hsTroponin results in patients taking biotin who exhibit renal impairment (eGFR <60) or in patients taking more than 20 mg/day of biotin. Nahun Kelley MD LAB BLOOD ORDERABLES [facility] ([facility] [address] [place] [address], * XR Chest 2 Views (10/19/2024 11:29 AM EST) Anatomical Region Laterality Modality Body Radiographic Afsaneh ging 10/19/2024 11:4 0 AM EST Impressions 10/19/2024 11:42 AM EST Elevated right hemidiaphragm width opacity right lung base suspicious for atelectasis infiltrate. It is new since the last study 01/24/2022 -------- FINAL REPORT -------- Dictated By: Franklin Dasilva Dictated Date: 10/19/2024 11:40 ET Assigned Physician: Franklin Dasilva Reviewed and Electronically Signed By: Franklin Dasilva Signed Date: 10/19/2024 11:42 ET Workstation ID: [id number] Transcribed By: Self Edit Transcribed Date: 10/19/2024 11:40 ET Narrative 10/19/2024 11:42 AM EST EXAMINATION: Chest 2 views. CLINICAL INDICATION: SOB and sick for 2 days. COMPARISON: Chest 01/24/2022. FINDINGS: The lungs are hyperexpanded with moderate elevation of right hemidiaphragm and effacement of medial right hemidiaphragm suggestive of underlying infiltrate or atelectasis. Rest of lungs are clear. The heart size and pulmonary vascularity is normal. No gross bony abnormality seen. Procedure Note Franklin Dasilva MD - 10/19/2024 EXAMINATION: Chest 2 views. CLINICAL INDICATION: SOB and sick for 2 days. COMPARISON: Chest 01/24/2022. FINDINGS: The lungs are hyperexpanded with moderate elevation of righthemidiaphragm and effacement of medial right hemidiaphragm suggestive ofunderlying infiltrate or atelectasis. Rest of lungs are clear. The heartsize and pulmonary vascularity is normal. No gross bony abnormalityseen. IMPRESSION: Elevated right hemidiaphragm width opacity right lung base suspicious foratelectasis infiltrate. It is new since the last study 01/24/2022 -------- FINAL REPORT -------- Dictated By: Franklin Dasilva Dictated Date: 10/19/2024 11:40 ET Assigned Physician: Franklin Dasilva Reviewed and Electronically Signed By: Franklin Dasilva Signed Date: 10/19/2024 11:42 ET Workstation ID: [id number] Transcribed By: Self Edit Transcribed Date: 10/19/2024 11:40 ET Nahun Kelley MD IMG XR PROCEDURES * (ABNORMAL) CBC auto differential (10/19/2024 11:08 AM EST) Only the most recent of2 resultswithin the time period is included. WBC 8.4 4.8 - 10.8 K/mcL LAB HEMETOLOGY METHOD 10/19/2024 11:33 AM [facility] RBC 3.90 3.80 - 4.80 M/mcL LAB HEMETOLOGY METHOD 10/19/2024 11:33 AM [facility] Hemoglobin 11.6 11.5 - 16.0 g/dL LAB HEMETOLOGY METHOD 10/19/2024 11:33 AM [facility] Hematocrit 36.7 35.0 - 47.0 % LAB HEMETOLOGY METHOD 10/19/2024 11:33 AM [facility] MCV 93.4 79.0 - 98.0 FL LAB HEMETOLOGY METHOD 10/19/2024 11:33 AM [facility] MCH 29.5 27.0 - 32.0 pcg LAB HEMETOLOGY METHOD 10/19/2024 11:33 AM [facility] MCHC 31.6(L) 32.0 - 37.0 g/dL LAB HEMETOLOGY METHOD 10/19/2024 11:33 AM [facility] RDW 11.9 11.0 - 15.0 % LAB HEMETOLOGY METHOD 10/19/2024 11:33 AM [facility] Platelets 323 130 - 400 K/mcL LAB HEMETOLOGY METHOD 10/19/2024 11:33 AM [facility] MPV 9.9 7.0 - 11.0 FL LAB HEMETOLOGY METHOD 10/19/2024 11:33 AM [facility] NRBC 0.0 <1.0 % LAB HEMETOLOGY METHOD 10/19/2024 11:33 AM [facility] NRBC Absolute 0.00 <0.10 K/mcL LAB HEMETOLOGY METHOD 10/19/2024 11:33 AM [facility] Neutrophils Relative 57.7 % LAB HEMETOLOGY METHOD 10/19/2024 11:33 AM [facility] Lymphocytes Relative 31.6 % LAB HEMETOLOGY METHOD 10/19/2024 11:33 AM [facility] Monocytes Relative 7.5 % LAB HEMETOLOGY METHOD 10/19/2024 11:33 AM [facility] Eosinophils Relative 2.0 % LAB HEMETOLOGY METHOD 10/19/2024 11:33 AM [facility] Basophils Relative 0.7 % LAB HEMETOLOGY METHOD 10/19/2024 11:33 AM [facility] Immature Granulocytes Relative 0.5 % LAB HEMETOLOGY METHOD 10/19/2024 11:33 AM [facility] Neutrophils Absolute 4.85 1.50 - 7.00 K/mcL LAB HEMETOLOGY METHOD 10/19/2024 11:33 AM EST [facility] Lymphocytes Absolute 2.66 1.00 - 5.00 K/mcL LAB HEMETOLOGY METHOD 10/19/2024 11:33 AM EST [facility] Monocytes Absolute 0.63 0.20 - 1.00 K/mcL LAB HEMETOLOGY METHOD 10/19/2024 11:33 AM EST [facility] Eosinophils Absolute 0.17 0.00 - 0.50 K/mcL LAB HEMETOLOGY METHOD 10/19/2024 11:33 AM EST [facility] Basophils Absolute 0.06 0.00 - 0.20 K/mcL LAB HEMETOLOGY METHOD 10/19/2024 11:33 AM [facility] Immature Granulocytes Absolute 0.04(H) 0.00 - 0.03 K/mcL LAB HEMETOLOGY METHOD 10/19/2024 11:33 AM [facility] Blood Venous blood specimen / Unknown Venipuncture / Unknown 10/19/2024 11:08 AM EST 10/19/2024 11:27 AM EST Nahun Kelley MD LAB BLOOD ORDERABLES [facility] [address] [place] [address], * (ABNORMAL) Basic metabolic panel (10/19/2024 11:08 AM EST) Only the most recent of2 resultswithin the time period is included. Sodium 136 133 - 145 mmol/L LAB CHEMISTRY METHOD 10/19/2024 11:51 AM EST [facility] Potassium 4.6 3.5 - 5.5 mmol/L LAB CHEMISTRY METHOD 10/19/2024 11:51 AM [facility] Chloride 102 96 - 110 mmol/L LAB CHEMISTRY METHOD 10/19/2024 11:51 AM EST [facility] CO2 31 21 - 32 mmol/L LAB CHEMISTRY METHOD 10/19/2024 11:51 AM [facility] Anion Gap 3 3 - 11 LAB CHEMISTRY METHOD 10/19/2024 11:51 AM [facility] Glucose 292(H) 70 - 100 mg/dL LAB CHEMISTRY METHOD 10/19/2024 11:51 AM [facility] BUN 13 5 - 25 mg/dL LAB CHEMISTRY METHOD 10/19/2024 11:51 AM [facility] Creatinine 1.05 0.50 - 1.10 mg/dL LAB CHEMISTRY METHOD 10/19/2024 11:51 AM [facility] eGFR 58(L) >=60 mL/min/1. 73m2 LAB CHEMISTRY METHOD 10/19/2024 11:51 AM [facility] Comment:Calculation based on the??Chronic Kidney Disease Epidemiology Collaboration (CKD-EPI) equation refit??without adjustment for race. BUN/Creatinine Ratio 12.4 LAB CHEMISTRY METHOD 10/19/2024 11:51 AM [facility] Calcium 9.0 8.5 - 10.5 mg/dL LAB CHEMISTRY METHOD 10/19/2024 11:51 AM [facility] Blood Venous blood specimen / Unknown Venipuncture / Unknown 10/19/2024 11:08 AM EST 10/19/2024 11:27 AM EST Nhaun Kelley MD LAB BLOOD ORDERABLES [facility] [facility] [address] [place] [address], * ECG 12 lead (10/19/2024 10:55 AM EST) Ventricular Rate ECG 90 BPM GEMUSE Atrial Rate 90 BPM GEMUSE P-R Interval 144 ms GEMUSE QRS Duration 90 ms GEMUSE Q-T Interval 362 ms GEMUSE QTc 442 ms GEMUSE P Wave Deering 33 degrees GEMUSE R Deering 32 degrees GEMUSE T Deering 39 degrees GEMUSE ECG Interpretation Normal sinus rhythm Normal ECG When compared with ECG of 07-SEP-2024 11:44, No significant change was found Confirmed by Frankie CHAPMAN, GISELA ([id number]) on 10/19/2024 8:04:19 PM GEMUSE 10/19/2024 10:5 5 AM EST 10/19/2024 8:04 PM EST Nahun Kelley MD ECG ORDERABLES GEMESAU * ECG-Annotated (10/19/2024) Provider Onbase MD ECG ORDERABLES * Tissue exam (09/07/2024 2:38 PM EST) Final Diagnosis Ventral hernia sac: Benign mesothelial lined adipose tissue with patchy chronic inflammation 09/09/2024 12:31 PM EST [facility] Gross Description A. Abdominal Wall, HERNIA SAC: Labeled hernia sac . Received in formalin is a 45 gram, 7.0 x 6.5 x 3.4 cm soft, yellow, lobular fibrovascular portion of adipose tissue with attached soft, thin, kapoor-white to pink saccular, fibromembranous tissue. The specimen is sections and wholesale representative sections are submitted in one cassette, multiple pieces. TS 09/09/2024 12:31 PM EST [facility] Disclaimer Unless otherwise specified, all tissue is 10% NB formalin fixed and paraffin embedded. 09/09/2024 12:31 PM EST [facility] Tissue Abdominal wall / Unknown 09/07/2024 2:38 PM EST 09/07/2024 4:10 PM EST Adwoa Tate MD LAB PATHOLOGY ORDERA BLES [facility] [address] [place] [address], * TH AN ENDOTRACHEAL(NO CHARGE) (09/07/2024 2:24 PM EST) Narrative Gege Brunner CRNA - 09/07/2024 2:24 PM EST Gege Brunner CRNA ? 09/07/2024 ??2:25 PM General Information and Staff Patient location during procedure: OR Performed by: Gege Brunner CRNA Authorized by: Beck Rodriges MD ?? Intubation Airway not difficult Urgency: elective Final Airway Details Successful airway: ETT Cuffed: yes Successful intubation technique: direct laryngoscopy Facilitating devices/methods: anterior pressure/BURP Endotracheal tube insertion site: oral Blade: Kristian Blade size: #3 ETT size (mm): 7.0 Cormack-Lehane Classification: grade IIb - view of arytenoids or posterior of glottis only Placement verified by: chest auscultation and capnometry Measured from: lips ETT to lips (cm): 22 Number of attempts at approach: 1 Ventilation between attempts: BVM Number of other approaches attempted: 0Final airway type: endotracheal airway Indications and Patient Condition Indications for airway management: anesthesia Spontaneous ventilation: present Sedation level: Yes Preoxygenated: yes Soft Tissue Damage: No Dentition Unchanged: Yes Patient position: neutral MILS not maintained throughout Mask difficulty assessment: 2 - vent by mask + OA or adjuvant +/- NMBA Start Time: 09/07/2024 2:18 PMStop Time: 09/07/2024 2:18 PM Beck Rodriges MD ANESTHESIA ORDERABLE S * (ABNORMAL) Hemoglobin A1c (09/07/2024 11:45 AM EST) Hemoglobin A1C 8.3(H) <6.5 % LAB CHEMISTRY METHOD 09/08/2024 10:30 PM EST [facility] Mean Bld Glu Estim. 192 mg/dL LAB CHEMISTRY METHOD 09/08/2024 10:30 PM EST [facility] Blood Venous blood specimen / Unknown Venipuncture / Unknown 09/07/2024 11:45 AM EST 09/08/2024 2:14 PM EST Adwoa Tate MD LAB BLOOD ORDERABLES Performing Organization Address City/[facility]/ZIP Co de Phone Number [facility] [address] [place] [address], * ECG 12 lead - Procedural (No Charge) (09/07/2024 11:44 AM EST) Ventricular Rate ECG 90 BPM GEMUSE Atrial Rate 90 BPM GEMUSE P-R Interval 146 ms GEMUSE QRS Duration 76 ms GEMUSE Q-T Interval 356 ms GEMUSE QTc 435 ms GEMUSE P Wave Deering 22 degrees GEMUSE R Deering 20 degrees GEMUSE T Deering 34 degrees GEMUSE ECG Interpretation Normal sinus rhythm Normal ECG When compared with ECG of 24-JAN-2022 01:58, No significant change was found Confirmed by Frankie REED JOHN ([id number]) on 09/08/2024 6:59:46 AM GEMUSE 09/07/2024 11:4 4 AM EST 09/08/2024 6:59 AM EST Nissa FLOREZ ECG ORDERABLES Performing Organization Address [facility]/ZIP Co de Phone Number GEMUSE * (ABNORMAL) Urinalysis with reflex microscopic and culture (09/07/2024 11:30 AM EST) Pathologist [facility] Specific [place] Urine 1.026 1.003 - 1.030 LAB URINALYSIS - AUTOMATED METHOD 09/07/2024 12:20 PM [facility] pH, Urine 5.5 5.0 - 8.0 pH LAB URINALYSIS - AUTOMATED METHOD 09/07/2024 12:20 PM [facility] Leukocytes, Urine Small(A) Negative LAB URINALYSIS - AUTOMATED METHOD 09/07/2024 12:20 PM [facility] Nitrite, Urine Negative Negative LAB URINALYSIS - AUTOMATED METHOD 09/07/2024 12:20 PM [facility] Protein, Urine 30(A) <=Trace mg/dL LAB URINALYSIS - AUTOMATED METHOD 09/07/2024 12:20 PM [facility] Glucose, Urine Negative Negative mg/dL LAB URINALYSIS - AUTOMATED METHOD 09/07/2024 12:20 PM [facility] Ketones, Urine Trace(A) Negative mg/dL LAB URINALYSIS - AUTOMATED METHOD 09/07/2024 12:20 PM [facility] Urobilinogen, Urine 1.0 0.2 - 1.0 mg/dL LAB URINALYSIS - AUTOMATED METHOD 09/07/2024 12:20 PM [facility] Bilirubin, Urine Negative Negative LAB URINALYSIS - AUTOMATED METHOD 09/07/2024 12:20 PM [facility] Blood, Urine Negative Negative LAB URINALYSIS - AUTOMATED METHOD 09/07/2024 12:20 PM [facility] RBC, Urine 0.3 0 - 4 /HPF LAB URINALYSIS - AUTOMATED METHOD 09/07/2024 12:20 PM [facility] WBC, Urine 5.1(H) 0 - 4 /HPF LAB URINALYSIS - AUTOMATED METHOD 09/07/2024 12:20 PM [facility] Squamous Epithelial, Urine >100(H) 0 - 60 /LPF LAB URINALYSIS - AUTOMATED METHOD 09/07/2024 12:20 PM [facility] Bacteria, Urine Negative Negative /HPF LAB URINALYSIS - AUTOMATED METHOD 09/07/2024 12:20 PM [facility] Hyaline Casts, Urine 14.3(H) 0 - 3 /LPF LAB URINALYSIS - AUTOMATED METHOD 09/07/2024 12:20 PM [facility] Urine Urine specimen obtained by clean catch procedure / Unknown Non-blood Collection / Unknown 09/07/2024 11:30 AM EST 09/07/2024 11:43 AM EST Nissa FLOREZ LAB URINE ORDERABLES [facility] [address] [place] [address], [place] [phone] * Gibbs urine culture tube (09/07/2024 11:30 AM EST) Pathologist [facility] Extra Tube Hold for add-ons. 09/07/2024 1:01 PM EST [facility] Comment:Auto resulted. Urine Urine specimen obtained by clean catch procedure / Unknown Non-blood Collection / Unknown 09/07/2024 11:30 AM EST 09/07/2024 11:43 AM EST Nissa FLOREZ LAB URINE ORDERABLES Performing Organization Address [facility]/ZIP Co de Phone Number [facility] [address] [place] [address], [place] [phone] * Culture urine (09/07/2024 11:30 AM EST) [facility] Culture, Urine No growth 09/08/2024 1:10 PM EST [facility] Urine Urine specimen obtained by clean catch procedure / Unknown Non-blood Collection / Unknown 09/07/2024 11:30 AM EST 09/07/2024 12:20 PM EST Nissa FLOREZ LAB MICROBIOLOGY - G ENERAL ORDERABLES Performing Organization Address City/[facility]/ZIP Co de Phone Number [facility] [address] [place] [address], [place] [phone] * Prothrombin time with INR (09/07/2024 11:28 AM EST) Protime 11.4 10.6 - 13.9 sec LAB COAGULATION METHOD 09/07/2024 12:01 PM [facility] INR 0.9 LAB COAGULATION METHOD 09/07/2024 12:01 PM [facility] Blood Venous blood specimen / Unknown Venipuncture / Unknown 09/07/2024 11:28 AM EST 09/07/2024 11:43 AM EST Nissa FLOREZ LAB BLOOD ORDERABLES [facility] [address] [place] [address], [place] [phone] * Type and screen (09/07/2024 11:28 AM EST) ABO Group O 09/07/2024 12:41 PM EST [facility] Rh Type Positive 09/07/2024 12:41 PM EST [facility] Antibody Screen Negative 09/07/2024 12:41 PM EST [facility] Blood Venous blood specimen / Unknown Venipuncture / Unknown 09/07/2024 11:28 AM EST 09/07/2024 11:43 AM EST Nissa FLOREZ LAB BLOOD BANK TEST ORDERABLES Performing Organization Address City/[facility]/ZIP Co de Phone Number [facility] [address] [place] [address], [place] [phone] * (ABNORMAL) POCT Glucose, blood (09/07/2024 11:13 AM EST) Glucose POCT 176(H) 70 - 100 mg/dL 09/07/2024 11:14 AM EST [facility] Blood Capillary blood specimen / Unknown 09/07/2024 11:13 AM EST 09/07/2024 11:15 AM EST Adwoa Tate MD LAB POINT OF CARE TE ST DOCKED DEVICE UNSOLICITED RESULTS [facility] [address] [place] [address], [place] [phone] * HM Urine Albumin Creatinine Ratio (12/21/2023) HM Urine Albumin Creatinine Ratio Abstracted Historical Provider MD MISBAH Albright * Lipid panel (12/21/2023) LDL/HDL Ratio 0 Comment:No interpretation, A bstracted Triglycerides 0 mg/dL Comment:No interpretation, A bstracted Cholesterol 0 mg/dL Comment:No interpretation, A bstracted HDL 0 mg/dL Comment:No interpretation, A bstracted LDL Cholesterol 0 mg/dL Comment:No interpretation, A bstracted Blood Venous blood specimen / Unknown Historical Provider LAB BLOOD ORDERAB LES from Last 3 Months or Most Recently Relevant to Health Maintenance Advance Directives * Full Code - Default (Latest Code Status on File) Date Activated Date Inactivated Comments 09/07/2024 11:24 AM 09/07/2024 3:59 PM This is o rder is used when code status has not been discussed with the patient, or code status is otherwise unknown/unconfirmed To update the patient's code status, place a code status order. Do not modify or discontinue any currently active code status orders. Care Teams Driver Relationship Specialty Start Date End Date Isela Grier MD [address] [place] [phone] PCP - General 10/20/23
--- OUTSIDE RECORDS SUMMARY | 2024-11-28 09:45 | XMS_ITS | Encounter Summary ---
Author Organization [employer] Address [address] [facility] [address] [place] [address] Care Team Providers Care Drawing Box Tender Name Role Phone Isela Grier MD Primary Care Provider [phone] Jaron Ambrose SUPERVISOR [employer] Unavailable Unavailable Reason for Visit * Reason Onset Date Comments [employer] 11/23/2024 CPAP/B iPAP supplies Encounter Details Date Type Department Care Team (Late st Contact Info) Description 11/23/[address] [facility] [address] [place], [place] [phone] Isela Grier MD [address], [place] [phone] [employer] (CPAP/BiPAP supplies) Social History Tobacco Use Types Packs/Day Years [...] encounter Miscellaneous Notes * Telephone Encounter - Susana Roque [place] - 11/23/2024 11:10 AM EST Received medical necessity form from [employer] For CPAP/BiPAP. Form has been placedon PCP's desk for signature. documented in this encounter Plan of Treatment Not on file documented as of this encounter Visit Diagnoses Not on filedocumented in this encounter Additional Health Concerns Assessment Noted Time PHQ-9 Depression Total Score: 13 024 2:55 PM EDT documented as of this encounter Care Teams Drawing Box Tender Relationship Specialty Start Date End Date Isela Grier MD [address] [place] [address] PCP - General Family Medicine 10/26/18 Jaron Ambrose FNP [address] [place] [address] Nurse Practitioner Family Medicine 09/21/23 documented as of this encounter
--- OUTSIDE RECORDS SUMMARY | 2024-11-28 09:46 | XMS_ITS | Clinical Summary ---
Author Organization [employer] Address [address] [place] [address] Care Team Providers Care Financial Representative Name Role Phone Isela Grier MD Primary Care Provider [phone] Jaron Ambrose Unavailable Unavailable Allergies No known active allergies Medications * This document contains information received from the source organization and may not represent a complete record from that organization. albuterol 108 (90 Base) MCG/ACT inhaler Inhale 2 puffs by mouth every 4 to 6 hours as needed 2 Active Blood Glucose Monitoring Suppl (Ogone [place] Lite) w/Device kit 1 each before breakfast and before evening meal. 2 Active Ibuprofen-Acetamin ophen (Advil Dual Action) 125-250 MG tablet per tablet Take 2 tablets by mouth every 4 hours as needed Active Mometasone Furoate (Asmanex HFA) 100 MCG/ACT aerosol INHALE 1 PUFF BY MOUTH TWICE DAILY RINSE MOUTH AFTER USING. 13 g 11 3 Active Umeclidinium [place]hen[place] (Incruse Ellipta) 62.5 MCG/ACT aerosol powder Inhale 1 Dose in the morning. 30 each 11 3 Active nicotine polacrilex (Nicorette) 2 MG gum CHEW 1 PIECE OF GUM EVERY 2 HOURS NEEDED 110 each 1 4 Active nicotine (Nicoderm, Step 3) 7 MG/24HR patch APPLY 1 PATCH TOPICALLY TO THE SKIN IN THE MORNING *DO NOT SMOKE WHILE USING PATCH* 30 patch 1 4 Active famotidine (Pepcid) 20 MG tablet Take 1 tablet (20 mg) by mouth if needed at bedtime for heartburn. 30 tablet 11 4 12/20/19 25 Active cyanocobalamin (Vitamin B-12) 1000 MCG tablet TAKE 1 TABLET BY MOUTH EVERY MORNING 90 tablet 4 Active montelukast (Singulair) 10 MG tablet TAKE 1 TABLET BY MOUTH EVERY EVENING 90 tablet 4 Active lisinopril 20 MG tablet TAKE 1 TABLET BY MOUTH EVERY MORNING 30 tablet 4 Active omeprazole (PriLOSEC) [address] capsule TAKE 1 CAPSULE BY MOUTH ONCE DAILY EVERY MORNING 30 capsule 4 Active fluticasone (Flonase) 50 MCG/ACT nasal spray INHALE 1 SPRAY IN EACH NOSTRIL ONCE DAILY EVERY MORNING 16 g 4 Active buPROPion XL (Wellbutrin XL) 150 MG 24 hr tablet Take 1 tablet (150 mg) by mouth in the morning. Do not crush, chew, or split. 90 tablet 3 4 Active clonazePAM (KlonoPIN) 0.5 MG tabletIndications: MDD (major depressive disorder), recurrent, severe, with psychosis (CMS/HCC) Take 1 tablet (0.5 mg) by mouth every 12 (twelve) hours if needed for anxiety. 60 tablet 4 Active DULoxetine (Cymbalta) [address] capsuleIndications :MDD (major depressive disorder), recurrent, severe, with psychosis (CMS/HCC) Take 1 capsule (60 mg) by mouth 2 times daily. 180 capsule 4 Active QUEtiapine (SEROquel) 50 MG tabletIndications: MDD (major depressive disorder), recurrent, severe, with psychosis (CMS/HCC) Take 1 tablet (50 mg) by mouth in the morning. Also take Seroquel (Quetiapine) 200 mg at bedtime 90 tablet 4 Active QUEtiapine (SEROquel) 300 MG tabletIndications: MDD (major depressive disorder), recurrent, severe, with psychosis (CMS/HCC) Take 1 tablet (300 mg) by mouth at bedtime. Plus Seroquel (Quetiapine) 50 mg in the morning 90 tablet 3 4 Active loratadine (Claritin) 10 MG tablet TAKE 1 TABLET BY MOUTH EVERY MORNING 90 tablet 3 4 Active Alcohol Swabs (Alcohol Prep) 70 % pads USE DIRECTED TWICE DAILY 100 each 5 4 Active TRUEplus Lancets 33G miscIndications:Ty pe 2 diabetes mellitus with diabetic polyneuropathy (CMS/HCC),Type 2 diabetes mellitus without complications (CMS/HCC) TEST BLOOD SUGAR TWICE DAILY 100 each 11 4 Active FREESTYLE LITE test stripIndications:T ype 2 diabetes mellitus with diabetic polyneuropathy (CMS/HCC),Type 2 diabetes mellitus without complications (CMS/HCC) TEST BLOOD SUGAR TWICE DAILY 50 strip 11 4 Active atorvastatin (Lipitor) 80 MG tablet TAKE 1 TABLET BY MOUTH AT BEDTIME 90 tablet 3 4 Active folic acid (Folvite) 400 MCG tablet TAKE 1 TABLET BY MOUTH EVERY MORNING 90 tablet 3 4 Active cholecalciferol (D3-1000) 25 MCG (1000 UT) capsule TAKE 1 CAPSULE BY MOUTH EVERY MORNING 90 capsule 4 Active Multiple Vitamin (Multivitamin) tablet TAKE 1 TABLET BY MOUTH EVERY MORNING WITH FOOD 90 tablet 4 Active metFORMIN XR (Glucophage-XR) 500 MG 24 hr tabletIndications: Type 2 diabetes mellitus with hyperglycemia, without long-term current use of insulin (CMS/HCC) TAKE 2 TABLETS BY MOUTH TWICE DAILY IN THE MORNING AND IN THE EVENING BEFORE MEALS DO NOT BREAK, CRUSH, DISSOLVE OR CHEW 360 tablet 4 Active Ascorbic Acid (vitamin C) 500 MG tabletIndications: Iron deficiency anemia, unspecified iron deficiency anemia type TAKE 1 TABLET BY MOUTH TWICE DAILY IN THE MORNING AND AT BEDTIME 180 tablet 4 Active Dulaglutide 3 MG/0.5ML solution auto-injector Inject 3 mg under the skin 1 (one) time per week. 2 mL 11 5 Active Active Problems Problem Noted Date Diagnosed Date Neck pain on left side 10/27/2024 Chronic left shoulder pain 10/27/2024 Assessment & Plan (10/27/2024 5:34 PM EST): Evaluate with X-ray Refer to [facility] Improve glycemic control before intraarticular steroid injection S/P recurrent ventral herniorrhaphy 10/26/2024 Assessment & Plan (10/26/2024 4:19 PM EST): - On our record at least 3 times - Another provider documents 5 times - most recently by Dr. Tate on 09/07/24 Chronic pain of both knees 02/09/2024 Assessment & Plan (10/27/2024 5:33 PM EST): Check XR and refer back to orthopedics. Work on weight reduction. Assessment & Plan (02/09/2024 4:54 PM EDT): Check XR and refer back to orthopedics. Work on weight reduction. GERD (gastroesophageal reflux disease) Assessment & Plan (01/04/2024 9:12 AM EDT): - continue omeprazole - add famotidine - check H. Pylori stool antigen Dry mouth 07/07/2023 Assessment & Plan (10/27/2024 5:32 PM EST): - Multifactorial - possibly due to medications, DM, Allergic rhinitis/BEATRICE - evaluated for Sjogren's syndrome, negative MARY ANNE in 2022 Assessment & Plan (07/07/2023 10:24 AM EDT): Multifactorial - possibly due to medications, DM, Allergic rhinitis/BEATRICE - will Optimize Tx for Chronic Diagnosis/Chronic Conditions - will evaluate for Sjogran? s Syndrome Infective sialoadenitis 07/07/2023 Assessment & Plan (07/07/2023 10:26 AM EDT): Hospitalized from 06/19 - 06/21 in [facility] Treated with IV Abx, completed Abx course Pt has outpatient f/u with ENT Generalized abdominal pain 05/05/2023 Assessment & Plan (10/27/2024 5:23 PM EST): - normal colonoscopy in 2013 - s/p ventral hernia repair in 2014 - CT Scan in May 2023 Showed : fat-containing paramedian supraumbilical hernia. - s/p open ventral hernia repair by Dr. Tate on 09/07/24 Assessment & Plan (01/04/2024 8:59 AM EDT): - normal colonoscopy in 2013 - s/p ventral hernia repair in 2014 - CT Scan Showed : fat-containing paramedian supraumbilical hernia. - evaluated by Dr. Edwards on 06/24/30 and was given reassurance that there is no need for surgical treatment - check abdominal US and renal US for flank pain Assessment & Plan (07/29/2023 3:59 AM EDT): - normal colonoscopy in 2013 - s/p ventral hernia repair in 2014 - CT Scan Showed : fat-containing paramedian supraumbilical hernia. - evaluated by Dr. Edwards on 06/24/30 and was given reassurance that there is no need for surgical treatment Assessment & Plan (05/12/2023 6:23 AM EDT): - normal colonoscopy in 2013 - s/p ventral hernia repair in 2014 - possible recurrent hernia; refer back to Dr. 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) use of oral hypoglycemic kayla jaquez 02/26/2023 Tobacco dependence 10/07/2022 Assessment & Plan (02/20/2024 7:00 AM EDT): Last CT scan in Lung RADS 2 in Jul 2021 She stopped smoking in Oct 2023 Continue working on smoking cessation effort Referred back to [facility] screening program, but missed appt Assessment & Plan (01/04/2024 9:13 AM EDT): Last CT scan in Lung RADS 2 in Jul 2021 She has cut down on smoking and stopped completely recently Continue working on smoking cessation effort Refer back to [facility] lung cancer screening program Assessment & Plan (10/16/2023 11:53 AM EST): ?? Last CT scan in Lung RADS 2 in Jul 2021 ?? Currently 4-5 cigs per day, slowly cutting down ?? Continue working on smoking cessation effort ?? Start nicotine patch and gum ?? Advised pt to check with [facility] lung cancer screening program Assessment & Plan (07/07/2023 10:27 AM EDT): ?? Last CT scan in Lung RADS 2 in Jul 2021 ?? Currently 4-5 cigs per day, slowly cutting down ?? Continue working on smoking cessation effort ?? Evaluate with PFT for COPD ?? Consider adding Long-Acting Muscarinic agonist ?? Advised pt to check with [facility] lung cancer screening program Assessment & Plan (05/12/2023 6:46 AM EDT): ?? Last CT scan in Lung RADS 2 in Jul 2021 ?? Currently 3-4 cigs per day, slowly cutting down ?? Continue working on smoking cessation effort ?? Advised pt to check with [facility] cancer screening program Assessment & Plan (02/26/2023 11:50 AM EDT): ?? Currently 3-4 cigs per day, slowly cutting down ?? Continue working on smoking cessation effort Assessment & Plan (10/07/2022 11:23 AM EST): ?? Currently 3-4 cigs per day, slowly cutting down ?? Continue working on smoking cessation effort Sialolithiasis 10/07/2022 Assessment & Plan (10/27/2024 5:37 PM EST): - Recurrent - Last seen by ENT in Nov 2023 - Surgery for stone removal in 11/2023 - recommended patient to suck on a lemondrop with gentle massages to salivary gland Assessment & Plan (07/07/2023 10:13 AM EDT): Recurrent - most recent for Infective Sialadenitis - Upcoming appt with ENT in 09/2023 - Surgery for stone removal is in 11/2023 - recommended patient to suck on a lemondrop with gentle massages to salivary gland Assessment & Plan (10/07/2022 11:23 AM EST): ?? Referred to ENT and pt missed appt ?? Pt states she will reschedule Osteoarthritis of multiple joints 10/07/2022 Overview (10/07/2022): Referred to catering driver per pt's request Pt missed appt and states pt will reschedule Stopped smoking with greater than 20 pack year h istory 10/07/2022 Overview (10/07/2022): ?? Followed by [facility] [place] cancer screening program ?? Last seen on 08/14/21 Assessment & Plan (10/27/2024 5:36 PM EST): Previously followed by [facility] lung cancer screening program Last seen on 08/14/21, and missed recent appointment Encouraged to reschedule Assessment & Plan (02/20/2024 7:00 AM EDT): Previously followed by [facility] cancer screening program Last seen on 08/14/21, and missed recent appointment Encouraged to reschedule Assessment & Plan (10/06/2023 7:28 AM EST): Followed by [facility] cancer screening [facility] Last seen on 08/14/21 Assessment & Plan (10/07/2022 11:27 AM EST): ?? Followed by [facility] cancer screening [facility] ?? Last seen on 08/14/21 ?? Check the status of follow-up Obstructive sleep apnea syndrome 09/29/2022 Assessment & Plan (10/27/2024 5:25 PM EST): - Sleep study on 01/2022 severe BEATRICE. - Titration sleep study on 05/12/22. AutoPAP 11-20 cm H2O recommended. - She states she has a machine, but needs new supplies. Will check the status - Will prescribe CPAP and supplies. Assessment & Plan (02/20/2024 6:53 AM EDT): Last sleep study done on 05/05/22, at [facility], recommended Auto-PAP between 11-20 cm H2O. Check the status of Auto-PAP. Assessment & Plan (01/04/2024 8:58 AM EDT): Last sleep study done on 05/05/22, at [facility], recommended Auto-PAP between 11-20 cm H2O. Check the status of Auto-PAP. Assessment & Plan (10/06/2023 7:24 AM EST): Last sleep study done on 05/05/22, at [facility], recommended Auto-PAP between 11-20 cm H2O. Check the status of Auto-PAP. Assessment & Plan (07/07/2023 10:11 AM EDT): ?? Last sleep study done on 05/05/22, at [facility], recommended Auto-PAP between 11-20 cm H2O. ?? Check the status of Auto-PAP. Assessment & Plan (05/12/2023 6:27 AM EDT): ?? Last sleep study done on 05/05/22, at [facility], recommended Auto-PAP between 11-20 cm H2O. ?? Check the status of Auto-PAP. Assessment & Plan (02/26/2023 11:45 AM EDT): ?? Last sleep study done in April 2022, at [facility]. It was a titration study, but ideal treatment pressure was not obtained. It recommends Auto-PAP between 11-20 cm H2O. ?? Check the status of CPAP supply. Assessment & Plan (10/07/2022 11:15 AM EST): ?? Last sleep study done in February 2021, she was supposed to have a titration study ?? Check the status of CPAP titration and supply. Status post gastric bypass for obesity Assessment & Plan (10/27/2024 5:30 PM EST): - by Dr. 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 Dela Cruz - left VATS lingular wedge resection, mediastinal lympadenectomy, bronchoscopy, and intercotal subpleural paravertebral nerve blocks on 06/11/17 for left upper lobe pulmonary nodule and mediastinal lymphadenopathy - final pathology report was histoplasmosis Assessment & Plan (05/12/2023 6:33 AM EDT): - evaluated by thoracic surgeon, Dr. Dela Cruz - left VATS lingular wedge resection, mediastinal lympadenectomy, bronchoscopy, and intercotal subpleural paravertebral nerve blocks on 06/11/17 for left upper lobe pulmonary nodule and mediastinal lymphadenopathy - final pathology report was histoplasmosis Carpal tunnel syndrome 07/02/2016 Essential hypertension 03/31/2016 Assessment & Plan (10/27/2024 5:29 PM EST): Goal BP < 140/90 per JNC-8 and < 130/80 per ACC/AHA guideline BP at goal today Continue lisinopril 20 mg daily Continue working on lifestyle modifications Assessment & Plan (02/09/2024 6:25 AM EDT): Goal BP < 140/90 per JNC-8 and < 130/80 per ACC/AHA guideline Continue lisinopril 20 mg daily Treatment Hx: Has not tried other medication Continue current lifestyle modifications Continue current medications: Follow up in 3-6 mo, sooner if any problem arises Assessment & Plan (01/04/2024 8:59 AM EDT): Goal BP < 140/90 per JNC-8 and < 130/80 per ACC/AHA guideline Continue lisinopril 20 mg daily Treatment Hx: Has not tried other medication Continue current lifestyle modifications Continue current medications: Follow up in 3-6 mo, sooner if any problem arises Assessment & Plan (10/06/2023 7:25 AM EST): ? ? Goal BP < 140/90 per JNC-8 and < 130/80 per ACC/AHA guideline ? ? Continue lisinopril 20 mg daily ? ? Treatment Hx: Has not tried other medication ? ? Continue current lifestyle modifications ? ? Continue current medications: ? ? Follow up in 3-6 mo, sooner if any problem arises Assessment & Plan (07/07/2023 10:06 AM EDT): ? ? Goal BP < 140/90 per JNC-8 and < 130/80 per ACC/AHA guideline ? ? Continue lisinopril 20 mg daily ? ? Treatment Hx: Has not tried other medication ? ? Continue current lifestyle modifications ? ? Continue current medications: ? ? Follow up in 3-6 mo, sooner if any problem arises Assessment & Plan (05/05/2023 1:45 PM EDT): ? ? Goal BP < 140/90 per JNC-8 and < 130/80 per ACC/AHA guideline ? ? Continue lisinopril 20 mg daily ? ? Treatment Hx: Has not tried other medication ? ? Continue current lifestyle modifications ? ? Continue current medications: ? ? Follow up in 3-6 mo, sooner if any problem arises Assessment & Plan (02/16/2023 5:28 PM EDT): ? ? Goal BP < 140/90 per JNC-8 and < 130/80 per ACC/AHA guideline ? ? Continue lisinopril 20 mg daily ? ? Treatment Hx: Has not tried other medication ? ? Continue current lifestyle modifications ? ? Continue current medications: ? ? Follow up in 3-6 mo, sooner if any problem arises Assessment & Plan (10/07/2022 11:05 AM EST): ? ? Goal BP < 140/90 per JNC-8 and < 130/80 per ACC/AHA guideline ? ? Continue lisinopril 20 mg daily ? ? Treatment Hx: Has not tried other medication ? ? Continue current lifestyle modifications ? ? Continue current medications: ? ? Follow up in 3-6 mo, sooner if any problem arises Megaloblastic anemia due to vitamin B12 deficien cy 03/31/2016 COPD (chronic obstructive pulmonary disease) 09/2015 Assessment & Plan (10/27/2024 5:46 PM EST): - Following with [facility] Propulsion Systems Engineer, Dr. Hall, last seen in March 2024. Upcoming appointment. - Last exacerbation in April 2021 - recently seen [facility] on 10/19/24, and Dx pneumonia. Rx Augmentin. No prednisone. Patient reports minimal improvement. No wheezing today. - Previously treated as asthma. Most recent PFT in Aug 2023 is suggestive of COPD. - Previously on mometasone (Asmanex) and umeclidinium (Incruse), which were switched to fluticasone / umeclidinium / vilanterol (Trelegy). Questionable adherence to a new inhaler. - Continue montelukast 10 mg daily - Continue albuterol HFA prn. - She stop smoking 10/17. She has not smoked since then. Cont her smoking cessation efforts. - Optimize treatment for BEATRICE - Consider cardiac etiology for SOB Assessment & Plan (02/09/2024 4:15 PM EDT): - Last exacerbation in April 2021 - Previously treated as asthma. Most recent PFT in Aug 2023 is suggestive of COPD. - Cont umeclidinium - Cont mometasone 100 mcg bid - Continue montelukast 10 mg daily - Continue albuterol HFA prn. - She stop smoking 10/17. She has not smoked since then. Cont her smoking cessation efforts. - Sleep study on 01/2022 severe BEATRICE. - Titration sleep study on 05/12/22. AutoPAP 11-20 cm H2O recommended. - Has not recieved CPAP, will check status, Assessment & Plan (10/16/2023 11:34 AM EST): - Last exacerbation in April 2021 - Previously treated as asthma. Most recent PFT in Aug 2023 is suggestive of COPD. - Start LAMA, either tiotropium or umeclidinium - Switch fluticasone 110 mcg bid to mometasone 100 mcg bid - Continue montelukast 10 mg daily - Continue albuterol HFA prn. - Stop smoking. - Sleep study on 01/2022 severe BEATRICE. - Titration sleep study on 05/12/22. AutoPAP 11-20 cm H2O recommended. - Has not recieved CPAP, will check status, Assessment & Plan (07/07/2023 10:49 AM EDT): Last exacerbation in April 2021 -Continue Flovent 110 mcg bid. -Continue Singulair 10 mg daily. -Continue albuterol HFA prn. -Stop smoking. -Sleep study on 01/2022 severe BEATRICE. -Titration sleep study on 05/12/22. AutoPAP 11-20 cm H2O recommended. -Has not recieved CPAP, will check status, Assessment & Plan (02/26/2023 11:47 AM EDT): Last exacerbation in April 2021 -Continue Flovent 110 mcg bid. -Continue Singulair 10 mg daily. -Continue albuterol HFA prn. -Stop smoking. -Sleep study on 01/2022 severe BEATRICE. -Titration sleep study on 05/12/22. AutoPAP 11-20 cm H2O recommended. -Has not recieved CPAP, will check status, Obesity 12/03/2012 Vitamin D deficiency 12/03/2012 MDD (major depressive disord er), recurrent, severe, with psychosis 12/03/2012 Assessment & Plan (10/26/2024 4:20 PM EST): >>ASSESSMENT AND PLAN FOR SCHIZOAFFECTIVE DISORDER (CMS/HCC) WRITTEN ON 10/07/2022 11:14 AM BY ISELA GRIER MD Followed by Jaron for psychopharmacology clinic Current medications: Cymalta 120 mg daily; Quetiapine 50 mg qAM and 150 mg at bedtime, clonazepam 1mg prn Continue following Tx plan per Jaron. Jaron's input appreciated. She was able to contract safety today. Assessment & Plan (10/26/2024 4:20 PM EST): >>ASSESSMENT AND PLAN FOR SCHIZOAFFECTIVE DISORDER (CMS/HCC) WRITTEN ON 02/20/2024 7:00 AM BY ISELA GRIER MD Followed by Jaron for psychopharmacology clinic Current medications: Cymalta 120 mg daily; Quetiapine 50 mg qAM and 150 mg at bedtime, clonazepam 1mg prn Continue following Tx plan per Jaron. Jaron's input appreciated. She was able to contract safety today. Assessment & Plan (10/26/2024 4:24 PM EST): Previous and differential Dxs included anxiety disorder with panic attack, PTSD, and/or schizoaffective disorder Previously followed by [facility], in psychopharmacology clinic Current medications: duloexetine (Cymbalta) 120 mg daily; Quetiapine 50 mg qAM and 300 mg at bedtime; bupropion XL 150 mg qAM; clonazepam 0.5 mg bid prn Assessment & Plan (05/09/2024 3:52 PM EDT): Doing better. Anxiety, depressive symptoms and hallucinations (shadows) improved. Sleeping better. She has multiple serious medical conditions and chronic pain. Continue Seroquel 300 mg at bedtime. Continue Seroquel 50 mg in am, Clonazepam 0.5 mg BID prn, Wellbutrin XL 150 mg in am, Cymbalta 120 mg daily. Since this provider will be retiring, she will be referred to new [facility] psychiatric provider. Pt is aware that those will be televisits, and that the new provider is not an [facility] [facility] employee. She gives verbal consent to share protected health information. F/U with therapist as usual. She agrees with the plan. Assessment & Plan (03/28/2024 4:28 PM EDT): Anxiety, depressive symptoms and hallucinations (shadows) are not adequately controlled. Not sleeping well and talking in her sleep (which is new for her). She has multiple serious medical conditions and chronic pain. Will now increase to Seroquel 300 mg at bedtime. Continue Seroquel 50 mg in am, Clonazepam 0.5 mg BID (not prn), Wellbutrin XL 150 mg in am, Cymbalta 120 mg daily. Since this provider will be retiring, we will have one more appointment in approx 1 month, then she will be referred to new [facility] psychiatric provider. Pt is aware that those will be televisits, and that the new provider is not an [facility] employee. She gives verbal consent to share protected health information. F/U with therapist as usual. She agrees with the plan. Assessment & Plan (01/25/2024 12:12 PM EDT): Pt c/o too much anxiety, plus depression. Mild passive SI. Only mild visual hallucinations (shadows). Recently quit smoking, eating too much as a result. Will increase to Clonazepam 0.5 mg BID (not prn). Continue Wellbutrin XL 150 mg in am, Seroquel 200 mg at bedtime, Seroquel 50 mg in am, Cymbalta 120 mg daily. Today 01/25/2024 informed pt that I would be retiring, and suggest she speak with therapist about referral to agency prescriber. Meanwhile F/U with me in 2 months. She agrees with the plan. Assessment & Plan (10/26/2024 4:20 PM EST): >>ASSESSMENT AND PLAN FOR MDD (MAJOR DEPRESSIVE DISORDER), RECURRENT, SEVERE, WITH PSYCHOSIS (CMS/HCC) WRITTEN ON 10/16/2023 11:49 AM BY ISELA GRIER MD Followed by Jaron for psychopharmacology clinic Current medications: Cymalta 120 mg daily; Quetiapine 50 mg qAM and 200 mg at bedtime, clonazepam 0.5 mg prn Continue following Tx plan per Jaron. Jaron's input appreciated. She was able to contract safety today. >>ASSESSMENT AND PLAN FOR SCHIZOAFFECTIVE DISORDER (CMS/HCC) WRITTEN ON 10/16/2023 11:49 AM BY ISELA GRIER MD Followed by Jaron for psychopharmacology clinic Current medications: Cymalta 120 mg daily; Quetiapine 50 mg qAM and 150 mg at bedtime, clonazepam 1mg prn Continue following Tx plan per Jarno. Jaron's input appreciated. She was able to contract safety today. Assessment & Plan (07/14/2023 1:47 PM EDT): Question mild cognitive defect/impaired memory. Pt states she is the same, but PHQ9 is improved, no longer with passive SI, and only mild visual hallucinations (shadows) that don't bother her. She will continue Wellbutrin XL 150 mg in am, Seroquel 200 mg at bedtime, Seroquel 50 mg in am, Clonazepam 0.5 mg once daily prn, Cymbalta 120 mg daily. F/U with therapist and with me in 2 months. She agrees with the plan. Assessment & Plan (10/26/2024 4:20 PM EST): >>ASSESSMENT AND PLAN FOR MDD (MAJOR DEPRESSIVE DISORDER), RECURRENT, SEVERE, WITH PSYCHOSIS (CMS/HCC) WRITTEN ON 07/07/2023 10:09 AM BY KIMBERLY VILLARREAL Followed by Jaron for psychopharmacology clinic Current medications: Cymalta 120 mg daily; Quetiapine 50 mg qAM and 200 mg at bedtime, clonazepam 0.5 mg prn Continue following Tx plan per Jaron. Jaron's input appreciated. She was able to contract safety today. >>ASSESSMENT AND PLAN FOR SCHIZOAFFECTIVE DISORDER (CMS/HCC) WRITTEN ON 07/07/2023 10:11 AM BY KIMBERLY VILLARREAL Followed by Jaron for psychopharmacology clinic Current medications: Cymalta 120 mg daily; Quetiapine 50 mg qAM and 150 mg at bedtime, clonazepam 1mg prn Continue following Tx plan per Jaron. Jaron's input appreciated. She was able to contract safety today. Assessment & Plan (10/26/2024 4:20 PM EST): >>ASSESSMENT AND PLAN FOR MDD (MAJOR DEPRESSIVE DISORDER), RECURRENT, SEVERE, WITH PSYCHOSIS (CMS/HCC) WRITTEN ON 05/05/2023 1:46 PM BY KIMBERLY Parrish by Jaron for psychopharmacology clinic Current medications: Cymalta 120 mg daily; Quetiapine 50 mg qAM and 200 mg at bedtime, clonazepam 0.5 mg prn Continue following Tx plan per Jaron. Jaron's input appreciated. She was able to contract safety today. >>ASSESSMENT AND PLAN FOR SCHIZOAFFECTIVE DISORDER (CMS/HCC) WRITTEN ON 05/05/2023 1:52 PM BY KIMBERLY Parrish by Jaron for psychopharmacology clinic Current medications: Cymalta 120 mg daily; Quetiapine 50 mg qAM and 150 mg at bedtime, clonazepam 1mg prn Continue following Tx plan per Jaron. Jaron's input appreciated. She was able to contract safety today. Assessment & Plan (03/17/2023 3:31 PM EDT): Sleeping OK with medication, but anhedonia and low mood are persistent, with mild visual hallucinations (shadows) and passive SI without plan or intent. Will add Wellbutrin XL 150 mg in am. Continue other medications as usual: Seroquel 200 mg at bedtime, Seroquel 50 mg in am, Clonazepam 0.5 mg once daily prn, Cymbalta 120 mg daily. Will refer for counseling. F/u 2 months. She agrees with the plan. Assessment & Plan (02/26/2023 11:50 AM EDT): ?? Followed by Jaron for psychopharmacology clinic ?? Current medications: Cymalta 120 mg daily; Quetiapine 50 mg qAM and 200 mg at bedtime, clonazepam 0.5 mg prn ?? Continue following Tx plan per Jaron. Jaron's input appreciated. ?? She was able to contract safety today. Assessment & Plan (01/20/2023 1:26 PM EDT): Sleep and mood are improved. Did not discuss visual hallucinations today. Patient has not found them bothersome. Unfortunately seems to have experienced increased appetite with higher dose of Seroquel. Since she is otherwise doing very well, would prefer not to change the medications if possible. Pt would be interested in speaking with integrated circuit fabricator and the provider will consult PCP about possible referral. Meanwhile, continue Seroquel 200 mg at bedtime, Seroquel 50 mg in am, Clonazepam 0.5 mg once daily prn, Cymbalta 120 mg daily. F/u 6-8 weeks. She agrees with the plan. Assessment & Plan (12/02/2022 1:28 PM EST): Mood is stable, but not sleeping as well. Visual hallucinations improved but not eradicated, but patient does not find this bothersome. Will increase to Seroquel 200 mg at bedtime. Continue Seroquel 50 mg in am. Continue Clonazepam 0.5 mg once daily prn, Cymbalta 120 mg daily. F/u 6-8 weeks. She agrees with the plan. Assessment & Plan (10/07/2022 3:42 PM EST): Mood is improved. Sleeping well. Visual hallucinations improved but not eradicated, but patient does not find this bothersome. Will continue Seroquel 50 mg in am; Seroquel 100 mg plus 50 mg (total dose Seroquel 150 mg) at bedtime,. Continue Clonazepam 0.5 mg once daily prn, Cymbalta 120 mg daily. F/u 6-8 weeks. She agrees with the plan. Dyslipidemia 06/17/2012 Assessment & Plan (10/26/2024 4:32 PM EST): - last lipid profile 12/21/23 - continue Atorvastatin 80 mg nightly - continue working on lifestyle modification Assessment & Plan (02/09/2024 4:52 PM EDT): - last lipid profile 12/21/23 - continue Atorvastatin 80 mg nightly - continue working on lifestyle modification Assessment & Plan (10/16/2023 11:49 AM EST): - last lipid profile 11/11/22 TC 178; TG 175; HDL 41; LDL 108 - continue Atorvastatin 80 mg nightly - continue working on lifestyle modification Assessment & Plan (07/07/2023 10:06 AM EDT): - last lipid profile 11/11/22 TC 178; TG 175; HDL 41; LDL 108 - continue Atorvastatin 80 mg nightly - continue working on lifestyle modification Assessment & Plan (05/12/2023 6:39 AM EDT): - last lipid profile 11/11/22 TC 178; TG 175; HDL 41; LDL 108 - continue Atorvastatin 80 mg nightly - continue working on lifestyle modification Assessment & Plan (02/16/2023 5:33 PM EDT): 11/11/22 TC 178; TG 175; HDL 41; LDL 108 -continue Atorvastatin 80 mg nightly Elevated alkaline phosphatase level 06/17/2012 Assessment & Plan (10/26/2024 4:31 PM EST): - mild - most recent hepatic profile showed improvement - 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 Hx GBP. Previously diet-controlled after GBP. Started pharmacological Tx in 2022 Hgb A1C 9.3% on 10/27/24 Continue Metformin ER 1000 mg bid Increase dulaglutide to 3 mg weekly and titrate up as tolerated. Continue working on lifestyle modifications Continue checking BG Microalbumin test: 12/21/23 normal, ordered on 10/27/24 Lipid profile: 10/27/24 Diabetic eye exam: 09/24/23 Foot exam: 10/27/24 Follow up in 3 mo Assessment & Plan (02/20/2024 7:04 AM EDT): Dx > 10 years. Hx GBP. Previously diet-controlled after GBP. Started pharmacological Tx in 2022 Hgb A1C 7.0% on 02/09/24, improving Continue Metformin ER 1000 mg bid Increase dulaglutide to 1.5 mg weekly and titrate up as tolerated. Continue working on lifestyle modifications Continue checking BG Microalbumin test: 12/21/23, normal Lipid profile: 12/21/23 Diabetic eye exam: 09/24/23 Foot exam: 10/06/23 Follow up in 3 mo Assessment & Plan (01/04/2024 9:12 AM EDT): Dx > 10 years. Hx GBP. Previously diet-controlled after GBP. Started pharmacological Tx in 2022 Hgb A1C 8.7% on 10/06/23 despite metformin, 7.6% on 07/07/23 Continue Metformin ER to 1000 mg bid Continue dulaglutide 0.75 mg weekly and titrate up as tolerated. Continue working on lifestyle modifications Continue checking BG Microalbumin test: 11/11/22, undetected Lipid profile: 11/11/22 TC 178; TG 175; HDL 41; LDL 108 Diabetic eye exam: 09/24/23 Foot exam: 10/06/23 Follow up in 3 mo Assessment & Plan (10/16/2023 11:38 AM EST): Dx > 10 years. Hx GBP. Previously diet-controlled after GBP. Started pharmacological Tx in 2022 Hgb A1C 8.7% on 10/06/23 despite metformin, 7.6% on 07/07/23 Increase Metformin ER to 1000 mg bid Start dulaglutide 0.75 mg weekly and titrate up as tolerated. Continue working on lifestyle modifications Continue checking BG Microalbumin test: 11/11/22, undetected Lipid profile: 11/11/22 TC 178; TG 175; HDL 41; LDL 108 Diabetic eye exam: 09/24/23 Foot exam: 10/06/23 Follow up in 3 mo Assessment & Plan (07/07/2023 10:03 AM EDT): ?? Dx > 10 years. Hx GBP. ?? Hgb A1C 7.6% on 07/07/23, stable from 7.5% on 05/05/23 ?? Continue Metformin ?? Consider adding GLP-1 agonist if pt wishes to lose weight ?? Continue working on lifestyle modifications ?? Continue checking BG ?? Microalbumin test: 11/11/22, undetected ?? Lipid profile: 11/11/22 TC 178; TG 175; HDL 41; LDL 108 ?? Diabetic eye exam: 01/31/22 ?? Foot exam: 06/18/22 Assessment & Plan (05/12/2023 6:48 AM EDT): ?? Dx > 10 years. Hx GBP. ?? Hgb A1C 7.5% on 05/05/23, improving from 8.0% on 02/16/23 ?? Continue Metformin ?? Consider adding GLP-1 agonist if pt wishes to lose weight ?? Continue working on lifestyle modifications ?? Continue checking BG ?? Microalbumin test: 11/11/22, undetected ?? Lipid profile: 11/11/22 TC 178; TG 175; HDL 41; LDL 108 ?? Diabetic eye exam: 01/31/22 ?? Foot exam: 06/18/22 Assessment & Plan (02/16/2023 5:32 PM EDT): ?? Dx > 10 years. Hx GBP. ?? Hgb A1C 8.0% on 02/16/23, worsened from 6.6% on 06/18/22 ?? Start Metformin ?? Continue working on lifestyle modifications ?? Continue checking BG ?? Microalbumin test: 11/11/22, undetected ?? Lipid profile: 11/11/22 TC 178; TG 175; HDL 41; LDL 108 ?? Diabetic eye exam: 01/31/22 ?? Foot exam: 06/18/22 Assessment & Plan (10/07/2022 11:12 AM EST): ?? Dx > 10 years. Hx GBP. ?? Hgb A1C 6.6% on 06/18/22 ?? Continue working on lifestyle modifications ?? Continue checking BG ?? Microalbumin test: Overdue ?? Lipid profile: 01/14/22, will reorder ?? Diabetic eye exam: 01/31/22 ?? Foot exam: 06/18/22 Resolved Problems Problem Noted Date Diagnosed Date Resolved Date Acute atopic conjunctivitis 09/29/2022 05/12/2023 Encounters Date Type Department Care Team Description 11/23/2024 Telephone [facility] [address] [place] [address] Isela Grier MD [employer] (CPAP/BiPAP supplies) 11/11/2024 Telephone [facility] [address] [place] [address], [place] [phone] Rissa Kiser MA DME from [employer] 10/28/2024 Telephone [facility] [address] [place] [address] Luanne Miles MA dme [employer] supplies 10/27/2024 11:00 AM EST Office Visit [facility] [address] [place] [address] Isela Grier MD Obstructive sleep apnea syndrome (Primary Dx); Chronic obstructive pulmonary disease, unspecified COPD type (CMS/HCC); Essential hypertension; Type 2 diabetes mellitus with hyperglycemia, without long-term current use of insulin ([facility]); Generalized abdominal pain; S/P recurrent ventral herniorrhaphy; MDD (major depressive disorder), recurrent, severe, with psychosis (CMS/HCC); Elevated alkaline phosphatase level; Dyslipidemia; Screening for osteoporosis; Postmenopause; Breast cancer screening by mammogram; Chronic left shoulder pain; Neck pain on left side; Encounter for immunization; Tachycardia; Palpitation; Dyspnea, unspecified type; Sialolithiasis; Status post gastric bypass for obesity; Dry mouth; Osteoarthritis of multiple joints, unspecified osteoarthritis type; Chronic pain of both knees; Stopped smoking with greater than 20 pack year history 10/27/2024 Telephone [facility] [address] [place] [address] Isela Grier MD 10/27/2024 Travel 09/21/2024 Refill [facility] [address] [place] [address] Isela Grier MD 09/20/2024 Telephone [facility] [address] [place] [address] Rissa Kiser MA Rx for CPAP discontinuation 09/19/2024 Telephone [facility] [address] [place] [address] Isela Grier MD Med Refill 09/19/2024 Refill [facility] [address] [place] [address] Isela Grier MD Type 2 diabetes mellitus with hyperglycemia, without long-term current use of insulin ([facility]); Iron deficiency anemia, unspecified iron deficiency anemia type 09/19/2024 Telephone [facility] [address] [place] [address] Rissa Kiser MA DME CPap [employer] 09/15/2024 Telephone [facility] [address] [place] [address] Luanne Miles MA cpap machine fyi from Last 3 Months Immunizations Name Administration Dates Next Due Hep A, Adult 12/21/2023 Hep B, adult 07/02/2016,07/23/2015,06/07/2015 Influenza High-dose Quadriva lent Preservative Free 07/07/2023,07/18/2022 Influenza injectable quadriv alent IIV4 with preservative 07/21/2017,07/23/2015 Influenza injectable quadriv alent preservative free 07/26/2020,07/15/2019,10/05/2018,12/25 Influenza, High Dose Seasona l, Preservative Free 10/27/2024 Influenza, IIV3, injectable 10/23/2014, 1,07/10/2010 Influenza, Split (incl. nazia fied surface antigen) 07/08/2013,11/17/2012 Moderna Covid-19 Vaccine 12+ 05/21/2022, 10/24/2021,01/29/2021,01/01 Pfizer Covid-19 Vaccine 12+ 10/27/2024, 4 Pneumococcal Conjugate PCV 20 07/30/2022 Pneumococcal Polysaccharide PPSV23 06/12,03/24/2016,06/08/2012,11/08 TD (adult), 2 Lf tetanus tox oid, preservative free, adsorbed 05/02/2003 Tdap 07/30/2022,01/20/2012 Zoster, Recombinant 12/19/2022,07/30/2022 Social History Tobacco Use Types Packs/Day Years Used Date Smoking Tobacco: Every Day Cigarettes Passive Smoke Exposure: Current Smokeless Tobacco: Never Tobacco Cessation:Ready to Q uit: Not Asked; Counseling Given: Not Answered Depression Answer Date Recorded Patient Health Questionnaire-9 Score 05/09/2024 Patient Health Questionnaire-9 Score 05/09/2024 Last PHQ-9: Questionnaire Data Not on [...] Orientation Straight 08/25/2022 10 :14 AM EDT Last Filed Vital Signs Vital Sign Reading Time Taken Comments Blood Pressure 124/70 10/27/2024 11:13 AM EST Pulse 114 10/27/2024 11:13 AM EST Temperature 35.1 ??C (95.1 ??F) 10/27/2024 11:[address] Respiratory Rate 17 10/27/2024 11:13 AM EST Oxygen Saturation 95% 10/27/2024 11:13 AM EST Inhaled Oxygen Concentration - - Weight 88 kg (194 lb) 10/27/2024 11:13 AM EST Height 157.1 cm (5' 1.87 ) 07/07/2023 9:40 AM ED T Body Mass Index 35.63 07/07/2023 9:40 AM EDT Plan of Treatment Health Maintenance Due Date Last Done Comments CT Colonography 1957 FIT DNA/Cologuard 1957 FIT 1957 FOBT 1957 Sigmoidoscopy 1957 Eye Exam 1967 Alcohol/Substance Use Screening 1969 RSV Patients and Patients Aged 60 years or older (1 - Risk 60-74 years 1-dose series) 2017 Mammogram 07/15/2021 07/15/2019 SDOH Screening 02/17/2024 02/16/2023 Colonoscopy 05/09/2024 05/09/2014 Colorectal Cancer Screening 05/09/2024 Depression Monitoring (PHQ-9) 11/09/2024 05/09/2024, 05/09/2024 Diabetes: Urine Protein Screening 12/21/2024 12/21/2023, 05/21/2020 Diabetes: Hemoglobin A1C 01/25/2025 025, 02/09/2024, 10/06/2023, Additional history exists Depression Screening 05/09/2025 05/09/2024, 05/09/20 Diabetes: Foot Exam 10/27/2025 10/27/2024 Lipid Panel 10/27/2025 10/27/2024, 11/27, 11/11/2022, Additional history exists Tobacco Screening 10/27/2025 10/27/2024 DTaP/Tdap/Td Vaccines (3 - Td or Tdap) 07/30/2032 07/30/2022, 01/20/2012, 05/02/2003 Hepatitis B Vaccines Completed 07/02/2016, 07/23/2015, 06/07/2015 Pneumococcal Vaccine: 50+ Years Completed 07/30/2022, 06/12/2017, 03/24/2016, Additional history [...] on patient's age to complete this topic Hepatitis C Screening Discontinued IPV Vaccines Aged Out No longer eligi ble based on patient's age to complete this topic Meningococcal Vaccine Aged Out No noreen cristino eligible based on patient's age to complete this topic RSV under 20 months Aged Out No longe r eligible based on patient's age to complete this topic Rotavirus Vaccines Aged Out No longer eligible based on patient's age to complete this topic Procedures Procedure Name Priority Date/Time Associated Diagnosis Comments ECG 12-LEAD Routine 10/27/2024 12:51 PM EST Tachycardia Palpitation Dyspnea, unspecified type TSH W/REFLEX TO FT4 Routine 10/27/2024 1 2:13 PM EST Type 2 diabetes mellitus with hyperglycemia, without long-term current use of insulin (CMS/HCC) COMPREHENSIVE METABOLIC PANEL Routine 10/27/2024 12:13 PM EST Type 2 diabetes mellitus with hyperglycemia, without long-term current use of insulin (CMS/HCC) LIPID PANEL WITH REFLEX TO DIRECT LDL Routine 10/27/2024 12:13 PM EST Type 2 diabetes mellitus with hyperglycemia, without long-term current use of insulin (CMS/HCC) VITAMIN B12/FOLATE, SERUM PANEL Routine 10/27/2024 12:13 PM EST Type 2 diabetes mellitus with hyperglycemia, without long-term current use of insulin (CMS/HCC) POCT GLYCOSYLATED HEMOGLOBIN (HGB A1C) Routine 10/27/2024 11:14 AM EST Type 2 diabetes mellitus with hyperglycemia, without long-term current use of insulin (CMS/HCC) POCT GLUCOSE Routine 10/27/2024 11:14 AM EST Type 2 diabetes mellitus with hyperglycemia, without long-term current use of insulin (CMS/HCC) ALBUMIN, RANDOM URINE W/CREATININE Routine 12/21/2023 3:00 PM EST Type 2 diabetes mellitus with hyperglycemia, without long-term current use of insulin (CMS/HCC) BI MAMMOGRAM SCREENING BILATERAL Routine 07/15/2019 11:33 AM EDT HM COLONOSCOPY Routine 05/09/2014 from Last 3 Months or Most Recently Relevant to Health Maintenance Results * ECG 12 lead (10/27/2024 12:51 PM EST) Narrative Isela Grier MD - 10/27/2024 12:51 PM EST Rate 92, sinus rhythm, normal WA, narrow QRS, normal QTc. ??Normal axis. ?? No hypertrophy. ??No acute ischemic ST-T change. ?? Isela Grier MD ECG ORDERABLES Final Result * (ABNORMAL) Vitamin B12 (Cobalamin) and Folate Panel, Serum (10/27/2024 12:13 PM EST) Vitamin B12 1,488(H) 200 - 900 pg/mL [facility] Comment:NORMAL 200-900 PG/ML INDETERMINATE 160-199 PG/ML DEFICIENT < 160 PG/ML Folate 18.3 > or = 4.0 ng/mL [facility] Comment:Reference Values:> o r = 4.0 ng/mL< 4.0 ng/mL suggests folate deficiency Methotrexate, aminopterin and folinic acid(leucovorin) are chemotherapeutic agents whose molecularstructures are similar to folate; therefore, the Architectfolate assay cannot be used for patients using these drugs. Blood 10/27/2024 12:1 3 PM EST 10/27/2024 1:00 PM EST Isela Grier MD LAB BLOOD ORDERABLES Final Resul t Performing Organization Address [facility] Co de Phone Number [facility] [address] [place] [phone] * TSH with Reflex to Free T4 (10/27/2024 12:13 PM EST) TSH reflex Free T4 0.80 0.32 - 4.0 uIU/mL [facility] Blood 10/27/2024 12:1 3 PM EST 10/27/2024 1:00 PM EST Isela Grier MD LAB BLOOD ORDERABLES Final Resul t Performing Organization Address City/[facility]/ZIP Co de Phone Number [facility] [address] [place] [phone] * (ABNORMAL) Lipid Panel with Reflex to Direct LDL (10/27/2024 12:13 PM EST) Triglycerides 125 <150 mg/dL [facility] Comment:Desirable Triglyceri de: less than 150 mg/dLBorderline High Triglyceride 150-199 mg/dLHigh Triglyceride: 200-499 mg/dLVery High Triglyceride: greater than or equal to 5OO mg/dL Cholesterol 110 <200 mg/dL [facility] Comment:Desirable Cholestero l: less than 200 mg/dLBorderline High Cholesterol: 200-239 mg/dLHigh Cholesterol: greater than 239 mg/dL LDL Cholesterol Calculated 52 <100 mg/dL [facility] Comment:Desirable LDL: less than 100 mg/dLNear Optimal/Above Optimal LDL: 110- 129 mg/dLBorderline High LDL: 130-159 mg/dLHigh LDL: 160-189 mg/dLVery High LDL: greater than or equal to 190 mg/dL HDL Cholesterol 33(L) >40 mg/dL [facility] Comment:Desirable HDL: great er than 40 mg/dL Note: This HDL assay may give artificially low results in patients with liver disease. Blood 10/27/2024 12:1 3 PM EST 10/27/2024 1:00 PM EST us Isela Grier MD LAB BLOOD ORDERABLES Final Resul t [facility] [address] [place] [phone] * (ABNORMAL) Comprehensive Metabolic Panel (10/27/2024 12:13 PM EST) Sodium 137 135 - 145 mmol/L [facility] Potassium 4.6 3.3 - 5.1 mmol/L [facility] Chloride 101 96 - 108 mmol/L [facility] Carbon Dioxide 29 22 - 29 mmol/L [facility] Anion Gap 12 12 - 20 [facility] Urea Nitrogen (BUN) 11 9 - 16 mg/dL [facility] Creatinine, Serum 0.89 0.5 - 1.4 mg/dL [facility] Estimated Glomerular Filt Rate >60 [facility] Comment:Chronic Kidney Disea se: Estimated GFR < 60 mL/min/1.64g0Rebstq Kidney Disease: Estimated GFR < 15 mL/min/1.73m2 Glucose 245(H) 60 - 115 mg/dL [facility] Calcium 9.3 8.4 - 10.2 mg/dL [facility] Bilirubin, Total 0.4 0.0 - 1.0 mg/dL [facility] Aspartate Amino Transferase 21 5 - 31 U/L [facility] Alanine Aminotransferase 16 0 - 31 U/L [facility] Total Protein 7.4 6.5 - 8.0 g/dL [facility] Albumin Level 4.4 3.5 - 5.0 g/dL [facility] Alkaline Phosphatase 177(H) 39 - 117 U/L [facility] Blood Venous blood specimen / Unknown 10/27/2024 12:13 PM EST 10/27/2024 1:00 PM EST Isela Grier MD LAB BLOOD ORDERABLES Final Resul t [facility] [address] [place] [phone] * (ABNORMAL) POCT glycosylated hemoglobin (Hgb A1c) (10/27/2024 11:14 AM EST) Pathologist [facility] Hemoglobin A1C 9.3(A) 4.0 - 6.0 % QC Media Lot # [id number] Lot# Expiration Date Blood Capillary blood specimen / Unknown 10/27/2024 11:14 AM EST us Isela Grier MD POINT OF CARE TEST ENTER/EDIT OR DERABLES Final Result * (ABNORMAL) POCT glucose manually resulted (10/27/2024 11:14 AM EST) Pathologist [facility] Glucose Blood, POC 329(A) 60 - 200 mg/dL [employer] Media Lot # [id number] Lot# Expiration Date [id number] Blood Capillary blood specimen / Unknown 10/27/2024 11:14 AM EST us Isela Grier MD POINT OF CARE TEST ENTER/EDIT OR DERABLES Final Result * Albumin, Random Urine W/Creatinine (12/21/2023 3:00 PM EST) Creatinine, Urine 211.40 mg/dL [facility] Microalbumin Urine 23.0 mg/L [facility] Microalbum Creatinine Ratio Ur 10.8 <30 ug/mg cr [facility] Comment:Albumin/Creatinine R atio Reference Ranges: Normal: < 30 ug/mg creatinine Microalbuminuria: 30 - 300 ug/mg creatinineClinical Albuminuria: > 300 ug/mg creatinine Urine 12/21/2023 3:00 PM EST 12/21/2023 4:02 PM EST Isela Grier MD LAB URINE ORDERABLES Final Resul t Performing Organization Address City/State/[facility] Co de Phone Number [facility] [address] [place] [phone] * DIGITAL BILATERAL SCREEN 1 (07/15/2019 11:33 AM EDT) Anatomical Region Laterality Modality Breast Bilateral Mammography 07/15/2019 11:3 3 AM EDT Narrative 07/15/2019 11:33 AM EDT Refer to the Notes tab for result details [facility] Procedure: DIGITAL BILATERAL SCREEN 1 Procedure Note ProviderLuis MD - 01/17/2023 Refer to the Notes tab for result details [facility] Procedure: DIGITAL BILATERAL SCREEN 1 us Isela Grier MD IMG BI PROCEDURES Final Result * Hm Colonoscopy (05/09/2014) Colonoscopy Normal Normal [facility] External Provider HEALTH MAINTENANCE Final Result from Last 3 Months or Most Recently Relevant to Health Maintenance Insurance - [employer] Care Teams Financial Representative Relationship Specialty Start Date End Date Isela Grier MD [address] [place] [address] PCP - General Family Medicine 10/26/18 Jaron Ambrose FNP [address] [place] [address] Nurse Practitioner Family Medicine 09/21/23
--- OUTSIDE RECORDS SUMMARY | 2024-11-28 09:46 | XMS_ITS | Encounter Summary ---
Author Organization [employer] Address [address] [place] [address] Care Team Providers Care Ethanol Quality Leader Name Role Phone Isela Grier MD Primary Care Provider [phone] Jaron Ambrose Unavailable Unavailable Reason for Visit * Reason Onset Date Comments Med Refill 09/19/2024 Encounter Details Date Type Department Care Team (Late st Contact Info) Description 09/19/2024 Telephone [facility] [address] [place], [place] [phone] Isela Grier MD [address], [place] [phone] Med Refill Social History Tobacco Use Types Packs/Day Years [...] encounter Miscellaneous Notes * Telephone Encounter - Bridget Sebastian LPN - 09/19/2024 3:02 PM EST Medication pended to provider for approval. * Telephone Encounter - Lilia Miranda - 09/19/2024 2:45 PM EST TC from [facility] requesting refills on medications : Multiple Vitamin (Multivitamin) tablet ,Vitamin D High Potency 25 MCG (1000 UT) capsule , metFORMINXR (Glucophage-XR) 500 MG 24 hr tablet, Ascorbic Acid (vitamin C) 500 MG tablet Pt need refills for medboxes. PCP DR. Grier documented in this encounter Plan of Treatment Not on file documented as of this encounter Visit Diagnoses Not on filedocumented in this encounter Additional Health Concerns Assessment Noted Time PHQ-9 Depression Total Score: 13 024 2:55 PM EDT documented as of this encounter Care Teams Ethanol Quality Leader Relationship Specialty Start Date End Date Isela Grier MD [address] [place] [phone] PCP - General Family Medicine 10/26/18 Jaron Ambrose FNP [address] [place] [address] Nurse Practitioner Family Medicine 09/21/23 documented as of this encounter
[2024-11-28 12:15] LABS: Creatinine Urine 187.33 mg/dL; Microalbum/Creatinine Ratio Ur 5.8 ug/mg cr (<30)
== END 2024-11-28 09:20 | disposition home or self-care (01) ==
LOC: HO.XRAY 09:19
PROVIDERS: PCP Family Medicine; Visit Provider Family Medicine
DX: M25.512 Pain in left shoulder (principal); E11.65 Type 2 diabetes mellitus with hyperglycemia; G89.29 Other chronic pain; M54.2 Cervicalgia
CPT/HCPCS: 72050; 73030; 82043; 82570

== ENCOUNTER → 2024-11-28 09:37 | Outpatient (BNV) | payer OTHER, SELFPAY | PROVIDERS: PCP Family Medicine; Visit Provider Radiology Diagnostic Radiology | DX: M47.812 Spondylosis without myelopathy or radiculopathy, cervical region (principal) | CPT/HCPCS: 72050; 73030 ==

== ENCOUNTER → 2024-12-02 14:40 | Outpatient (REF) | payer OTHER, SELFPAY | LOC: HO.CARD 14:40 | PROVIDERS: PCP Family Medicine; Visit Provider Hospitalist | DX: I27.20 Pulmonary hypertension, unspecified (principal) | CPT/HCPCS: 93306 ==

== ENCOUNTER → 2024-12-02 14:44 | Outpatient (BNV) | payer OTHER, SELFPAY | PROVIDERS: PCP Family Medicine; Visit Provider Internal Medicine Cardiovascular Disease | DX: I51.89 Other ill-defined heart diseases (principal); I27.20 Pulmonary hypertension, unspecified | CPT/HCPCS: 93306 ==

== ENCOUNTER 2025-02-24 11:01 | Outpatient (AMB) | payer OTHER, SELFPAY ==
[2025-02-24 11:03] VITALS: BP 130/64; PULSE 95; O2SAT 93; BMI 36.0
--- NOTE | 2025-02-24 11:03 | MHC.OFFVIS ---
Vital Signs 02/24/25 11:03 Height 5 ft 1 in Weight 190 lb 11.198 oz BMI 36.0 BP 130/64 Blood Pressure Location Lt brachial Position Sitting Pulse 95 Pulse Source Pulse Oximeter Pulse Oximetry (%) 93 Oxygen Delivery Method Room Air Intake Visit Reasons: COPD Allergies No Known Allergies [No Known Allergies*] Allergy (Verified 02/24/25 11:05) HPI Comments Details: The patient is a 69 year woman with known history apnea and COPD. Apparently her respiratory symptoms have been getting worse. More shortness of breath with activity addition to cough. The patient is a former smoker she quit about 4 months ago. She had been participating in the lung cancer screening program and had a CT scan back into the some 1 but has not had 1 as of yet. Will go ahead and request to see if she can go back on the program or if she needs to be re-referred. In the meantime she has been using Flovent in addition to Incruse. The medication that been partially helpful. Will try to simplify respiratory regimen by switching over to Trelegy. She should also have a rescue inhaler available as needed. The patient did have pulmonary function studies several years ago we did review them she did have a mixed obstructive restrictive ventilatory defect consistent with mild COPD and mild restrictive lung disease. Most conditions are likely contributing to her ongoing shortness of breath. Therefore will optimize respiratory therapy and have her PFTs repeated and she should have the CT scan of the lung cancer screening program will follow-up after that. If the patient develops any worsening symptoms prior to the next visit she will call for an earlier assessment. 11/04/2024 the patient is here for a pulmonary follow-up visit. She still struggling with her breathing. Significant shortness of breath even at rest. But worse with activity. Moderate in severity. She needs to take a break while walking. She did pick out hand the Trelegy. I will send it again. In addition to that she did have pulmonary function studies. No evidence of any obstruction but she did have a moderate restriction. Likely her body habitus although need to address for any parenchymal disease. She was supposed to have a CT scan through the lung cancer screening program but she has not has had it as of yet. In addition to that the patient has not been using her CPAP. She understands she needs uses CPAP but she does not have supplies. I did fill out a script for her to get supplies and I did send to the [employer] and I did call the [employer] as well. Hopefully we can get his supplies in the meantime she can rinse her supplies with mild soap or white vinegar to try to clean it and use it effectively. The patient did have a brief walking oximetry in the office. She was very short of breath and heart rate did go up to about 115 with minimal activity. Therefore will have her get an echocardiogram. She does get lower extremity edema so will also request Lasix for 3-4 days to help her volume status. She may benefit from a stress test as well. 02/24/2025 the patient is here for pulmonary follow-up visit. She continues to have dyspnea on exertion with minimal activity. Moderate severity. During the last visit she was started on Trelegy and also given some diuretics for few days. She did have an echocardiogram demonstrating some diastolic dysfunction. In addition to that she underwent blood work which is reassuring. She was supposed to have a CT through the lung cancer screening program she has not has not had as of yet. I did have her talk to the program to make sure she gets scheduled. The patient also has been using the CPAP. The CPAP therapy has been affecting beneficial. She has a fullface mask and sometimes has a hard time with it. She can always try a nasal mask. I did provide her a trial of the end 30 I that she can try. The patient will bring her CPAP to the next visit. I do believe that based on her symptoms in her cardiovascular risk factors that she should have a cardiac evaluation as well. I will refer to Cardiology this time to undergo additional cardiac testing. [facility] Medical History (Updated 02/26/25 @ 16:24 by Luís Hall MD) Dyspnea COPD (chronic obstructive pulmonary disease) Abdominal pain Vitamin B12 deficiency anemia Depression Personal history of nicotine dependence Hyperlipidemia Hypertension, essential, benign Obstructive sleep apnea (~2007) Surgical History History of tonsillectomy History of hysterectomy History of gastric bypass History of colonoscopy History of hernia repair History of lung surgery Social History Alcohol intake: never Patient Tobacco Use Status: Former Tobacco user Review of Systems Const Denies chills, Denies fatigue, Denies fever(s), Denies weight gain and Denies weight loss Eyes Reports no additional complaints ENT Denies dizziness Card Denies chest pain, Denies leg edema, Denies lightheadedness, Denies palpitations, Denies dyspnea on exertion, Denies orthopnea and Denies other Resp Denies cough, Denies dyspnea on exertion and Denies wheezing GI Denies hematochezia and Denies change in stool character Musc Denies abnormal gait, Denies muscle weakness, Denies numbness, Denies radiating pain into limb and Denies tingling Skin/Breast Denies rash Neuro Denies abnormal gait, Denies dizziness, Denies numbness and Denies tingling Endo Denies fatigue and Denies palpitations Aller/Immun Denies wheezing Physical Exam Vital Signs: Last Vital Signs Pulse 95 02/24/25 11:03 BP 130/64 02/24/25 11:03 Pulse Ox 93 02/24/25 11:03 Oxygen Delivery Method Room Air 02/24/25 11:03 BMI result Body Mass Index 36.0 Const General: comfortable HEENT Head: Yes normocephalic Neck Neck: Yes supple Chest Chest palpation & inspection: normal inspection of the chest Resp Effort & Inspection: normal respiratory effort Auscultation: diminished lung sounds Cardio Heart sounds: S1 normal heart sound present and S2 normal heart sound present GI Palpation (GI): Soft to palpation Skin General skin exam: no rashes or lesions noted Extrem General: Yes no clubbing, cyanosis or edema Assessment & Plan Assessment & Plan (1) COPD (chronic obstructive pulmonary disease): Code(s): J44.9 - Chronic obstructive pulmonary disease, unspecified Category: Medical Qualifiers: COPD type: chronic bronchitis Chronic bronchitis type: simple Qualified Code(s): J41.0 - Simple chronic bronchitis (2) Obstructive sleep apnea: Onset Date: ~2007 Comment: (Moderate BEATRICE on 2007 sleep test - AHI 45.6 on 01/21/21 sleep test Code(s): G47.33 - Obstructive sleep apnea (adult) (pediatric) Category: Medical (3) Dyspnea: Code(s): R06.00 - Dyspnea, unspecified Category: Medical Qualifiers: Dyspnea type: dyspnea on exertion Qualified Code(s): R06.09 - Other forms of dyspnea Plan daily Trelegy FRANKLIN as needed restart LDCT program continue CPAP therapy, n30i Cardiology eval F/U 6 months Orders: Referrals Cardiology Referral R06.00 - Dyspnea, unspecified Coding Level of Care Code Est Pt Level 4 (76235) Complex EM visit Add On G2211 Diagnoses Simple chronic bronchitis J41.0 COPD type: chronic bronchitis Chronic bronchitis type: simple Obstructive sleep apnea G47.33 Dyspnea on exertion R06.09 Dyspnea type: dyspnea on exertion Time Spent (min) 17
--- OUTSIDE RECORDS SUMMARY | 2025-02-24 12:08 | XMS_ITS | Encounter Summary ---
Author Organization [employer] Address [address] [place] [address] Care Team Providers Care Podiatric Physician Name Role Phone Isela Grier MD Primary Care Provider [phone] Jaron Ambrose Unavailable Unavailable Encounter Details Date Type Department Care Team (Late st Contact Info) Description 11/28/2024 Abstract [facility] [address] [place] [address] Luanne Miles MA Social History Tobacco Use Types Packs/Day Years [...] as of this encounter Plan of Treatment Upcoming Encounters Date Type Department Care Team (Late st Contact Info) Description 05/01/2025 3:15 PM EDT Office Visit [facility] [address] [place] [phone] Isela Grier MD [address] [place] [phone] documented as of this encounter Visit Diagnoses Not on filedocumented in this encounter Additional Health Concerns Assessment Noted Time PHQ-9 Depression Total Score: 13 024 2:55 PM EDT documented as of this encounter Care Teams Podiatric Physician Relationship Specialty Start Date End Date Isela Grier MD [address] [place] [phone] PCP - General Family Medicine 10/26/18 Jaron Ambrose FNP [address] [place] [phone] Nurse Practitioner Family Medicine 09/21/23 documented as of this encounter
--- OUTSIDE RECORDS SUMMARY | 2025-02-24 12:08 | XMS_ITS | Clinical Summary ---
Author Organization [facility] Address [address] [place] [address] Phone Care Team Providers Care Case Operator Name Role Phone Isela Grier MD Primary Care Provider Allergies No known active allergies Medications cholecalciferol (VITAMIN D-3) 25 mcg (1,000 unit) capsule Take 1 capsule (1,000 Units total) by mouth 1 (one) time each day. Active loratadine (CLARITIN) 10 mg tablet Take 1 tablet (10 mg total) by mouth 1 (one) time each day. Active lisinopriL (PRINIVIL,ZESTR IL) 2.5 mg tablet 1 tablet (2.5 mg [...] tunnel syndrome) 01/16/2014 Diabetes mellitus type 2 wit h neurological manifestations ([facility] V24, [facility] V28) 01/16/2014 Overview (07/28/2024): CTS DJD (degenerative joint disease) 01/16/2014 Overview (07/28/2024): Multiple joints Hyperlipidemia 01/16/2014 Obesity 01/16/2014 Overview (07/28/2024): S/p gastric bypass Schizoaffective disorder ([facility] V24, [facility] V 28) 01/16/2014 Vitamin D deficiency 01/16/2014 Anxiety 12/14/2013 Chronic joint pain 12/14/2013 Depression 12/14/2013 Resolved Problems Problem Noted Date Diagnosed Date Resolved Date Incarcerated ventral hernia 09/06/2024 09/07/2024 Immunizations Name Administration Dates Next Due COVID-19 [...] HISTORICAL TUBAL LIGATION OTHER SURGICAL HISTORY PROCEDURE: [place] ANES HRNA RPR UPR ABD LMBR&VNT HERNIA&/DEHSN BLADDER SUSPENSION PROCEDURE: HISTORICAL BLADDER SUSPENSION HYSTERECTOMY PROCEDURE: HISTORICAL HYSTERECTOMY GASTRIC BYPASS PROCEDURE: [place] GASTRIC RSTCV W/BYP W/SM INT RCNSTJ LIMIT ABSRPJ OTHER SURGICAL HISTORY 11/19/12 PROCEDURE: OUTSIDE MAMMO SALIVARY GLANDS Bilateral REMOVED STEREOTACTIC CORE BIOPSY Right BREAST CYST ASPIRATION Right Medical History Medical History Date Comments Depression 12/14/2013 DX:Depression Anxiety 12/14/2013 DX:Anxiety Chronic joint pain 12/14/2013 DX:Chronic joel int pain Diabetes mellitus type 2, diet-controlled ([facility] V24, [facility] V28) 01/16/2014 DX:Diabetes mellitus type 2, diet-controlled ([facility]) Schizoaffective disorder ( S/[facility] V24, [facility] V28) 01/16/2014 DX:Schizoaffective disorder ([facility]) Hyperlipidemia 01/16/2014 DX:Hyperlipidemi a B12 deficiency 01/16/2014 DX:B12 deficienc y Obesity 01/16/2014 DX:Obesity; COMM ENT: S/p gastric bypass Tobacco abuse 01/16/2014 DX:Tobacco abuse Vitamin D deficiency 01/16/2014 DX:Vitamin D deficiency DJD (degenerative joint disease) 01/16/2014 DX:DJD (degenerative joint disease); COMMENT: Multiple joints CTS (carpal tunnel syndrome) 01/16/2014 DX: CTS (carpal tunnel syndrome) Panic Attack Hypertension Asthma COPD (chronic obstructive pu lmonary disease) ([facility] V24, [facility] V28) Sleep apnea Shortness of breath HL (hearing loss) Hearing loss GERD (gastroesophageal reflux disease) Hernia of abdominal wall Anemia Neuromuscular disorder ([facility] V24, [facility] V28) Chronic fatigue syndrome wit h fibromyalgia Family [...] drink = 0.6 oz pur e alcohol) Comments No Sex and Gender Information Value Date Recorded Sex Assigned at Female 09/07/2024 10:48 AM EST Legal Sex Female 6:17 PM EST Gender Identity Female 09/07/2024 10:48 AM EST Sexual Orientation Straight 11/02/2024 3: 01 PM EST Obstetrics History Para Term AB IAB SAB [...] Annual Retina Eye Exam 1967 RSV Immunization Adult Patients (1 - Risk 60-74 years 1-dose series) 2017 Colorectal Cancer Screening: Colonoscopy 09/27/2022 Hepatitis C Screening 09/27/2022 Medicare Annual Wellness Visit 09/27/2022 Social Influencers of Health Screening 09/27/2022 Diabetes: Annual Urine Albumin-Creatinine Ratio (uACR) 12/21/2024 12/21/2023 COVID-19 Vaccine ( season) 2025 10/27/2024, 12/21/2023, 05/21/2022, Additional history exists Diabetes: Blood Sugar Control Test (HGBA1C) 04/26/2025 [...] Vaccines Completed 12/19/2022, 07/30/2022 Hepatitis A Vaccines Aged Out 12/21/2023, 06/23/20 12 No longer eligible based on patient's age to complete this topic Influenza Vaccine Completed 10/27/2024, , 07/18/2022, Additional [...] patient's age to complete this topic Meningococcal B Vaccine Aged Out No l onger eligible based on patient's age to complete this topic RSV Immunization Patients Under 20 months Aged Out No longer eligible based on patient's age to complete this topic Varicella Vaccines Aged Out No longer eligible based on patient's age to complete this topic Medical Devices Implanted Type Area Truck Technician Device Identifier Shelf Expiration Date Model / Serial / Lot Mesh Ventralex St 2.5in Med Kletsel Dehe [employer] W/Strap - Sn/A - [id number] Implanted:Qty: 1 on 09/07/2024 by Adwoa Tate MD at [facility] Surgical Mesh Sling Implants N/A: Abdomen CR BARD - DAVOL DIV [id number] 09/22/2025 [id number] / N/A / [id number] Procedures Procedure Name Priority Date/Time Associated Diagnosis Comments BD BONE DENSITY DXA AXIAL SKELETON Routine 11/09/2024 10:33 AM EST Encounter for screening for osteoporosis MG MAMMO DIGITAL SCREENING W TACHO BILAT Routine 11/09/2024 10:32 AM EST Encounter for screening mammogram for malignant neoplasm of breast BASIC METABOLIC PANEL STAT 10/19/2024 11:08 AM EST HEMOGLOBIN A1C Routine 09/07/2024 11:45 AM EST HM URINE ALBUMIN CREATININE RATIO [...] probability of hip fracture of 1.8%. Code 89707 -------- FINAL REPORT -------- Dictated By: Michael Fierro Dictated Date: 11/09/2024 12:22 ET Assigned Physician: Michael Fierro Reviewed and Electronically Signed By: Michael Fierro Signed Date: 11/09/2024 12:24 ET Workstation ID: [id number] Transcribed By: Self Edit Transcribed Date: 11/09/2024 [...] density of the femurs bilaterally is 0.836 gm/ni3jsopz is 83% of that of young normals [...] probability of hip fracture of 1.8%. Code 61861 -------- FINAL REPORT -------- Dictated By: Michael Fierro Dictated Date: 11/09/2024 12:22 ET Assigned Physician: Michael Fierro Reviewed and Electronically Signed By: Michael Fierro Signed Date: 11/09/2024 12:24 ET Workstation ID: [id number] Transcribed By: Self Edit Transcribed Date: 11/09/2024 12:22 ET Isela Grier MD IM DXA PROCEDURES Final Result * MG Mammo Digital Screening w Tacho [...] Signed Date: 11/18/2024 15:36 ET Workstation ID: [id number] Transcribed By: Self Edit Transcribed Date: 11/18/2024 [...] Signed Date: 11/18/2024 15:36 ET Workstation ID: [id number] Transcribed By: Self Edit Transcribed Date: 11/18/2024 15:31 ET us Isela Grier MD IM BI PROCEDURES Final Result * (ABNORMAL) Basic metabolic panel (10/19/2024 11:08 AM EST) Sodium 136 133 - 145 mmol/L LAB CHEMISTRY METHOD 10/19/2024 11:51 AM [facility] Potassium 4.6 3.5 - 5.5 mmol/L LAB CHEMISTRY METHOD 10/19/2024 11:51 AM [facility] Chloride 102 96 - 110 mmol/L LAB CHEMISTRY METHOD 10/19/2024 11:51 AM [facility] CO2 31 21 - 32 mmol/L LAB CHEMISTRY METHOD 10/19/2024 11:51 AM [facility] Anion Gap 3 3 - 11 LAB CHEMISTRY METHOD 10/19/2024 11:51 AM [facility] Glucose 292(H) 70 - 100 mg/dL LAB CHEMISTRY METHOD 10/19/2024 11:51 AM [facility] BUN 13 5 - 25 mg/dL LAB CHEMISTRY METHOD 10/19/2024 11:51 AM [facility] Creatinine 1.05 0.50 - 1.10 mg/dL LAB CHEMISTRY METHOD 10/19/2024 11:51 AM [facility] eGFR 58(L) >=60 mL/min/1. 73m2 LAB CHEMISTRY METHOD 10/19/2024 11:51 AM [facility] Comment:Calculation based on the??Chronic Kidney Disease Epidemiology Collaboration (CKD-EPI) equation refit??without adjustment for race. BUN/Creatinine Ratio 12.4 LAB CHEMISTRY METHOD 10/19/2024 11:51 AM [facility] Calcium 9.0 8.5 - 10.5 mg/dL LAB CHEMISTRY METHOD 10/19/2024 11:51 AM [facility] Blood Venous blood specimen / Unknown Venipuncture / Unknown 10/19/2024 11:08 AM EST 10/19/2024 11:27 AM EST us Nahun Kelley MD LAB BLOOD ORDERABLES Final Resu lt [facility] [address] [place] [address], [place] [phone] * (ABNORMAL) Hemoglobin A1c (09/07/2024 11:45 AM EST) Pathologist [facility] Hemoglobin A1C 8.3(H) <6.5 % LAB CHEMISTRY METHOD 09/08/2024 10:30 PM EST [facility] Mean Bld Glu Estim. 192 mg/dL LAB CHEMISTRY METHOD 09/08/2024 10:30 PM EST [facility] Blood Venous blood specimen / Unknown Venipuncture / Unknown 09/07/2024 11:45 AM EST 09/08/2024 2:14 PM EST Adwoa Tate MD LAB BLOOD ORDERABLES Final R esult [facility] [address] [place] [address], * HM Urine Albumin Creatinine Ratio (12/21/2023) Pathologist [facility] Urine Albumin Creatinine Ratio Abstracted Historical Provider HEALTH MAINTENANCE Final Result * Lipid panel (12/21/2023) [facility] LDL/HDL Ratio 0 Comment:No interpretation, A bstracted Triglycerides 0 mg/dL Comment:No interpretation, A bstracted Cholesterol 0 mg/dL Comment:No interpretation, A bstracted HDL 0 mg/dL Comment:No interpretation, A bstracted LDL Cholesterol 0 mg/dL Comment:No interpretation, A bstracted Blood Venous blood specimen / Unknown Historical Provider LAB BLOOD ORDERABLES Tari l Result from Last 3 Months or Most Recently Relevant to Health Maintenance Insurance [facility] MEDICARE Member Subscriber Plan / Payer (Ef fective 2022-Present) Name:Lilliam Miranda Relation to Subscriber:Self Name:Lilliam Miranda Payer ID:[id number] Group ID:[id number] Type:Not on file Address: [place] [address] [address] [id number] Advance Directives * Full Code - Default [...] currently active code status orders. Care Teams Case Operator Relationship Specialty Start Date End Date Isela Grier MD [address] [place] [phone] PCP - General 10/20/23
--- OUTSIDE RECORDS SUMMARY | 2025-02-24 12:08 | XMS_ITS | Encounter Summary ---
Author Organization [employer] Address [address] [facility] 7 [place] [address] Care Team Providers Care Building Appraiser Name Role Phone Isela Grier MD Primary Care Provider [phone] Jaron Ambrose BERRY PLANTER Unavailable Unavailable Reason for Referral * Imaging (Routine) - Closed Specialty Diagnoses / Procedures Referred By Jaden mallory Referred To Contact Radiology Diagnoses Generalized abdominal pain Procedures CT Abdomen Pelvis w/ Contrast Isela Grier MD [address] [place] [address] Phone: tel: fax: [facility] [address] [place] [address] Phone: tel: fax: Referral ID Status Reason Start Date Expiration Date Visits Re quested Visits Authorized [id number] Closed 05/13/2023 05/12/2024 1 1 Encounter Details Date Type Department Care Team (Late st Contact Info) Description 05/13/[address] [facility] [address] [place], [place] [phone] Isela Grier MD [address] [place], [place] [phone] Generalized abdominal pain (Primary Dx) Social History [...] Description 05/01/2025 3:15 PM EDT Office Visit [facility] [address] [place] [address] Isela Grier MD [address] [place] [phone] Scheduled Orders Name Type Priority Associated Diagnoses [...] documented as of this encounter Care Teams Building Appraiser Relationship Specialty Start Date End Date Isela Grier MD [address] [place] [phone] PCP - General Family Medicine 10/26/18 Jaron Ambrose FNP [address] [place] [phone] Nurse Practitioner Family Medicine 09/21/23 documented as of this encounter
--- OUTSIDE RECORDS SUMMARY | 2025-02-24 12:08 | XMS_ITS | Encounter Summary ---
Author Organization [employer] Address [address] [facility] 7[address] [place] [address] Care Team Providers Care Daycare Manager Name Role Phone Isela Grier MD Primary Care Provider [phone] Jaron Ambrose Unavailable Unavailable Reason for Visit * Reason Comments Med Refill Encounter Details Date Type Department Care Team (Late st Contact Info) Description 06/19/2023 Refill [facility] [address] [place] [address] [phone] Rosi Saxena MD [address] [place] [address] [phone] Type 2 diabetes mellitus without complications ([facility]) Social History Tobacco Use Types Packs/Day Years [...] Description 05/01/2025 3:15 PM EDT Office Visit [facility] [address] [place] [address] [phone] Isela Grier MD [address] [place], [place] [phone] documented as of this encounter Visit Diagnoses Diagnosis Type 2 diabetes mellitus without complications (CMS/HCC) documented in this encounter Additional Health Concerns Assessment Noted Time PHQ-9 Depression Total Score: 15 023 2:20 PM EDT documented as of this encounter Care Teams Daycare Manager Relationship Specialty Start Date End Date Isela Grier MD [address] [place] [address] PCP - General Family Medicine 10/26/18 Jaron Ambrose FNP [address] [place] [address] Nurse Practitioner Family Medicine 09/21/23 documented as of this encounter
--- OUTSIDE RECORDS SUMMARY | 2025-02-24 12:08 | XMS_ITS | Data Portability ---
Author Organization [place] - [facility], Allergy Address [address] [address] Care Team Providers Care Hvac Estimator Name Role Phone BENITA RAO Primary Care Provider [phone] Assessment Encounter Date Assessment Date Assessment LastModified by Organization Details LastModified Time 11/29/2024 11/29/2024 patient complain s of hypersensitivity to touch on the area of right submandibular gland excison scar. The numb, sensitivity and itch sensation are likely consistent with prolonged healing. Discussed with Dr Mcdonnell who agrees that revision of the scar with additional surgery may not resolve the pain. Scar massage has not previously been attempted due to sensitivity. It is recommended that she try to break up the scar with massage twice daily which was demonstrated today in office. Steroid injection could also be considered if the massage is not effective. Followup with Dr Mcdonnell in December or January to discuss Risk factor of DM may explain the wound healing [email or web address] Not available 11/29/2024 09:14:10 02/16/2025 02/16/2025 1. Hypertrophic Scar Iris is s/p right submandibular gland excision 01/2024. She does not like the appearance of her scar which is mildly hypertrophic. We discussed that any steroid injection or scar revision will not address her symptoms of pain or discomfort at the site, but will only change appearance and thickness of the scar. Risks and benefits of kenalog injection were reviewed including but not limited to pain, bleeding, infection, need for further surgery, less than ideal cosmesis, hypopigmentation 1st injection performed today Follow-up in 6 weeks [email or web address] Not available 02/19/2025 09:44:41 Plan of Treatment Reminders Order Date Submit Date Provider Last Modified By Organization Details Last Modified Time Details Appointments Establish ed 15 2024 04:00P M CRISTOPHER MCDONNELL MD Not available Not available Not available Lab None recorded. Referral None recorded. Procedures None recorded. Surgeries None recorded. Imaging None recorded. Medication Orders None recorded. Patient TargetsNo targets recorded. Patient InstructionsNo instructions recorded. Reason for Referral None Reported. Problems Name Problem SNOMED Code Status Onset Date Resolution Date Notes Provider Name and Address Organization Details Recorded Time Sialolith iasis 42095129 Active 2022 Sialolith iasis; Note: Date Diagnosed : 06/18/2023 9:53 AM (K11.5) Not Available [facility] 4 03:09:19 Acute recurrent sialoaden itis 24529084211 41554 Active 2022 Acute recurrent sialoaden itis; Note: Date Diagnosed : 06/18/2023 9:53 AM (K11.22) Not Available [facility] 4 03:09:17 Follow-up visit Active 2023 Encounter for follow-up examinati on after completed treatment for condition s other than malignant neoplasm; Note: Date Diagnosed : 12/07/2023 3:50 PM (Z09) Not Available [facility] 4 03:09:17 Mass of neck 499669744 Active 2023 Localized swelling, mass and lump, neck; Note: Date Diagnosed : 01/18/2024 4:30 PM (R22.1) Not Available [facility] 4 03:09:18 Neck swelling 714257253 Active 2023 Localized swelling, mass and lump, neck; Note: Date Diagnosed : 01/18/2024 4:30 PM (R22.1) Not Available [facility] 4 03:09:18 Sensorine ural hearing loss 87542960 Active 2023 Sensorine ural hearing loss, unilatera l, right ear, with unrestric cyndee hearing on the contralat eral side; Note: Date Diagnosed : 01/18/2024 4:30 PM (H90.41) Not Available [facility] 4 03:09:18 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 Procedures Surgical History Date Name Laterality Status Provider Name and Address Organization Details Recorded Time Injection kenalog completed CRISTOPHER MCDONNELL MD [address], [place], [address], [facility] - [facility] 02/19/2025 09:42:50 Imaging Results None recorded. Procedure Notes None recorded. Medical Equipment None Reported. Allergies No known drug allergies Medications Name Sig Start Date Stop Date Status Note LastModified by Organization Details LastModified Time medbox status USE DIRECTED 02/16 completed Not Available Not Available Not Available multivita min tablet TAKE 1 TABLET BY MOUTH EVERY MORNING WITH FOOD active Not Available Not Available No t Available atorvasta tin 80 mg tablet TAKE 1 TABLET BY MOUTH AT BEDTIME active Not Available Not Available No t Available quetiapin e 300 mg tablet TAKE 1 TABLET BY MOUTH AT BEDTIME 02/16 completed Not Available Not Available Not Available Vitamin C 500 mg tablet TAKE 1 TABLET BY MOUTH TWICE DAILY IN THE MORNING AND AT BEDTIME active Not Available Not Available No t Available lisinopri l 20 mg tablet TAKE 1 TABLET BY MOUTH EVERY MORNING active Not Available Not Available No t Available clonazepa m 0.5 mg tablet TAKE 1 TABLET BY MOUTH EVERY TWELVE HOURS NEEDED FOR ANXIETY active Not Available Not Available No t Available quetiapin e 200 mg tablet 02/16 completed Not Available Not Available Not Available cyanocoba nicole (vit B-12) 1,000 mcg tablet TAKE 1 TABLET BY MOUTH EVERY MORNING active Not Available Not Available No t Available folic acid 400 mcg tablet TAKE 1 TABLET BY MOUTH EVERY MORNING active Not Available Not Available No t Available acetamino phen 500 mg tablet TAKE 2 TABLETS BY MOUTH EVERY 8 HOURS 02/16 completed Not Available Not Available Not Available amoxicill in 500 mg tablet TAKE 1 TABLET BY MOUTH FOUR TIMES DAILY UNTIL FINISHED 11/29 completed Not Available Not Available Not Available ketorolac 0.5 % eye drops PLACE 1 DROP IN THE AFFECTED EYE THREE TIMES DAILY DIRECTED . START 2 DAYS BEFORE SURGERY AND CONTINUE DIRECTED active Not Available Not Available No t Available famotidin e 20 mg tablet TAKE 1 TABLET BY MOUTH AT BEDTIME NEEDED FOR HEARTBUR N active Not Available Not Available No t Available docusate sodium 100 mg capsule TAKE 1 CAPSULE BY MOUTH TWICE DAILY active Not Available Not Available No t Available omeprazol e 20 mg capsule,d elayed release TAKE 1 TABLET BY MOUTH EVERY MORNING active Not Available Not Available No t Available monteluka st 10 mg tablet TAKE 1 TABLET BY MOUTH EVERY EVENING active Not Available Not Available No t Available furosemid e 20 mg tablet TAKE 1 TABLET BY MOUTH EVERY DAY active Not Available Not Available No t Available fluticaso ne propionat e 50 mcg/actua tion nasal spray,carla pension INSTILL 1 SPRAY IN EACH NOSTRIL ONCE DAILY IN THE MORNING active Not Available Not Available No t Available metformin ER 500 mg tablet,ex tended release 24 hr TAKE 2 TABLETS BY MOUTH TWICE DAILY IN THE MORNING AND EVENING BEFORE MEALS DO NOT BREAK, CRUSH, DISSOLVE OR CHEW active Not Available Not Available No t Available loratadin e 10 mg tablet TAKE 1 TABLET BY MOUTH EVERY MORNING active Not Available Not Available No t Available amoxicill in 875 mg-potass ium clavulana te 125 mg tablet TOME 1 TABLETA POR V A ORAL CADA 12 HORAS POR 7 D 11/29 completed Not Available Not Available Not Available nicotine 7 mg/24 hr daily transderm al patch 11/29 completed Not Available Not Available Not Available Ventolin HFA 90 mcg/actua tion aerosol inhaler INHALE 2 PUFFS BY MOUTH EVERY 6 HOURS NEEDED FOR WHEEZING OR SHORTNES S OF BREATH active Not Available Not Available No t Available oxycodone 5 mg tablet TAKE 1 TO 2 TABLETS BY MOUTH EVERY 4 HOURS NEEDED FOR SEVERE PAIN 11/29 completed Not Available Not Available Not Available Vitamin D3 25 mcg (1,000 unit) capsule TAKE 1 CAPSULE BY MOUTH EVERY MORNING active Not Available Not Available No t Available bupropion HCl XL 150 mg 24 hr tablet, extended release TAKE 1 TABLET BY MOUTH EVERY MORNING active Not Available Not Available No t Available Alcohol Prep Pads USE DIRECTED TWICE DAILY active Not Available Not Available No t Available duloxetin e 60 mg capsule,d elayed release TAKE 2 CAPSULES BY MOUTH ONCE DAILY IN THE MORNING active Not Available Not Available No t Available Flovent HFA 110 mcg/actua tion aerosol inhaler active Medicati on ID: [id number] rand Name: Flovent HFA Send Method: E-Prescr ibed Sub s Allowed: subs OK Medic ationGen ericName : Flovent HFA Not Available Not Available Not Available quetiapin e 50 mg tablet TAKE 1 TABLET BY MOUTH EVERY MORNING active Not Available Not Available No t Available FreeStyle Lite Strips USE DIRECTED TO TEST BLOOD SUGAR TWICE DAILY active Not Available Not Available No t Available diclofena c 1 % topical gel APPLY 4 GRAMS TOPICALL Y TO AFFECTED AREA(S) TWICE DAILY DIRECTED active Not Available Not Available No t Available TRUEplus Lancets 33 gauge USE DIRECTED TO TEST BLOOD SUGAR TWICE DAILY active Not Available Not Available No t Available Trulicity 1.5 mg/0.5 mL subcutane ous pen injector INJECT ONE PEN (=1.5MG) SUBCUTAN EOUSLY ONCE A WEEK DIRECTED 11/29 completed Not Available Not Available Not Available Trulicity 0.75 mg/0.5 mL subcutane ous pen injector INJECT ONE PEN (=0.75MG ) SUBCUTAN EOUSLY ONCE A WEEK DIRECTED 11/29 completed Not Available Not Available Not Available Asmanex HFA 100 mcg/actua tion aerosol inhaler INHALE 1 PUFF BY MOUTH TWICE DAILY. RINSE MOUTH AFTER USING. active Not Available Not Available No t Available Incruse Ellipta 62.5 mcg/actua tion powder for inhalatio n INHALE 1 PUFF BY MOUTH EVERY DAY IN THE MORNING AT THE SAME TIME 02/16 completed Not Available Not Available Not Available Trelegy Ellipta 100 mcg-62.5 mcg-25 mcg powder for inhalatio n INHALE 1 PUFF BY MOUTH EVERY DAY AT THE SAME TIME RINSE MOUTH AFTER USING active Not Available Not Available No t Available Pediatric Comp-Air Compresso r Nebulizer OTC active Not Available Not Available No t Available Trulicity 3 mg/0.5 mL subcutane ous pen injector INJECT ONE PEN (= 3MG) SUBCUTAN EOUSLY ONCE A WEEK DIRECTED active Not Available Not Available No t Available Vitals Date Recorded Body height Body mass index (BMI) Body weight Provider Name and Address Organization Details Last Updated DateTime 02/16/2025 154.94 cm 35.9 kg/m2 05104.55 g Helena Blancas [facility] 02/16/2025 15:41:19 Date Recorded Body height Body mass index (BMI) Body weight Provider Name and Address Organization Details Last Updated DateTime 11/29/2024 154.94 cm 36.7 kg/m2 04857.92 g Helena Blancas [facility] 11/29/2024 08:53:09 Social History None recorded. Functional Status None recorded. Mental Status None recorded. Family History Nothing Reported. Medical History No medical history recorded. Gynecological HistoryNo gynecological history recorded. Obstetrics History GPAL:G 0 P 0 0 0 0 Past Encounters Encounter ID Performer Location Encounter Start Date Encounter Closed Date Diagnosis/Indication Diagnosis SNOMED-CT Code Diagnosis ICD10 Code Diagnosis Note [id number] GURINDER LACY MD [facility] [address] [address] 11/29/2024 08:36:23 11/29/2024 09:17:33 Acute recurrent sialoadenitis 2534713448 087711 K11.22 Hypertrophic scar 495853 06 L91.0 Type 2 brent betes mellitus 46503114 E11.9 [id number] CRISTOPHER MCDONNELL MD [facility] [address] [address] 02/16/2025 15:30:00 02/16/2025 16:06:39 Hypertrophic scar 44971967 L91.0 Health Concerns Section Related Observation LastModified by Organization Detai ls LastModified Time None Recorded Concern Status LastModified by Organization Details LastModified Time None Recorded Advance Directives Directive None Recorded Payers Encounter Date Sequence Insurance Name Policy Number Policy Martin Covered Member ID Martin Member ID Guarantor Name 11/29/2024 1 [facility] [employer] - DOS ON OR AFTER 2023 - HALF-WAY OPTIONS AND ONE CARE (MEDICARE REPLACEMENT/ADV ANTAGE - PPO) Lilliam Miranda [id number] Lilliam Miranda 02/16/2025 1 [employer] - DOS ON OR AFTER 2023 - HALF-WAY OPTIONS AND ONE CARE (MEDICARE REPLACEMENT/ADV ANTAGE - PPO) Lilliam Miranda [id number] Lilliam Miranda Notes Date Note Type Note Provider Name and Address Organization Details Recorded Time 11/29/2024 text/html [place] - son translatingRIGHT sialoadenitisnow reports occasional numb, itch or burn of the skin areapain 03/04 now, 07/05 prior to surgeryfeels the area swells when she is asleepuses advil to improve pain to 01/0212/04/23 Rosie, Right submandibular gland [facility]02/23[facility]20[facility]. There is residual 14 mm island of submandibular tissue with surrounding stranding consistent with scarring. No obstructing sialolith GURINDER LACY MD [address] [place] [address], [phone], [place] - [facility] 11/29/2024 09:16:12 02/16/2025 text/html 69yo woman who presents for kenalog injection. She had a right submandibular gland excision 01/2024 w/ Dr. Velez. She reports pain and discomfort at the incision site since that time. She also does not like the thickened appearance of the scar. CRISTOPHER MCDONNELL MD [address] [place] [address], [phone], [facility] - [facility] 02/19/2025 09:45:03 OBGyn Episode No OBEpisode recorded.
--- OUTSIDE RECORDS SUMMARY | 2025-02-24 12:08 | XMS_ITS | Encounter Summary ---
Author Organization [employer] Address [address] [place] [address] Care Team Providers Care Hand Bootmaker Name Role Phone Isela Grier MD Primary Care Provider [phone] Jaron Ambrose Unavailable Unavailable Reason for Visit * Reason Comments Med Refill Encounter Details Date Type Department Care Team (Late st Contact Info) Description 09/21/2024 Refill [facility] MEDICINE [address] [place], [place] [phone] Isela Grier MD [address] [place], [place] [phone] Social History Tobacco Use Types Packs/Day Years [...] Description 05/01/2025 3:15 PM EDT Office Visit [facility] [address] [place] [phone] Isela Grier MD [address] [place] [address] documented as of this encounter Visit Diagnoses Not on filedocumented in this encounter Additional Health Concerns Assessment Noted Time PHQ-9 Depression Total Score: 13 024 2:55 PM EDT documented as of this encounter Care Teams Hand Bootmaker Relationship Specialty Start Date End Date Isela Grier MD [address] [place] [address] PCP - General Family Medicine 10/26/18 Jaron Ambrose FNP [address] [place] [phone] Nurse Practitioner Family Medicine 09/21/23 documented as of this encounter
--- OUTSIDE RECORDS SUMMARY | 2025-02-24 12:08 | XMS_ITS | Encounter Summary ---
Author Organization [employer] Address [address] [facility] [address] [place] [address] Care Team Providers Care Technology Internship Name Role Phone Isela Grier MD Primary Care Provider [phone] Jaron Ambrose Unavailable Unavailable Reason for Visit * Reason Comments Med Refill Encounter Details Date Type Department Care Team (Late Contact Info) Description 07/27/2023 Refill [facility] MEDICINE [address] [place] [phone] Rosi Saxena MD [address] [place] [phone] Social History Tobacco Use Types Packs/Day Years [...] Encounters Date Type Department Care Team (Late Contact Info) Description 05/01/2025 3:15 PM EDT Office Visit [facility] MEDICINE [address] [place] [phone] Isela Grier MD [address] [place] [phone] documented as of this encounter Visit Diagnoses Not on filedocumented in this encounter Additional Health Concerns Assessment Noted Time PHQ-9 Depression Total Score: 12 07/14/ 023 1:12 PM EDT documented as of this encounter Care Teams Technology Internship Relationship Specialty Start Date End Date Isela Grier MD [address] [place] [address] PCP - General Family Medicine 10/26/18 Jaron Ambrose FNP [address] [place] [address] Nurse Practitioner Family Medicine 09/21/23 documented as of this encounter
--- OUTSIDE RECORDS SUMMARY | 2025-02-24 12:08 | XMS_ITS | Clinical Summary ---
Author Organization [facility] Address [address] [place] [address] Care Team Providers Care Calciner Operator Helper Name Role Phone Isela Rothman MD Primary Care Provider [phone] Jaron Ambrose Unavailable Unavailable Allergies No known active allergies Medications * This document contains information received from the source organization and may not represent a complete record from that organization. albuterol 108 (90 Base) MCG/ACT inhaler Inhale 2 puffs by mouth every 4 to 6 hours as needed 07/31/20 22 Active Ibuprofen-Acetami nophen (Advil Dual Action) 125-250 MG tablet per tablet Take 2 tablets by mouth every 4 hours as needed Active Mometasone Furoate (Asmanex HFA) 100 MCG/ACT aerosol INHALE 1 PUFF BY MOUTH TWICE DAILY RINSE MOUTH AFTER USING. 13 g 11 09/21/20 23 Active Umeclidinium Baldwin (Incruse Ellipta) 62.5 MCG/ACT aerosol powder Inhale 1 Dose in the morning. 30 each 10/06/20 23 Active nicotine polacrilex (Nicorette) 2 MG gum CHEW 1 PIECE OF GUM EVERY 2 HOURS NEEDED 110 each 11/27/19 24 Active nicotine (Nicoderm, Step 3) 7 MG/24HR patch APPLY 1 PATCH TOPICALLY TO THE SKIN IN THE MORNING *DO NOT SMOKE WHILE USING PATCH* 30 patch 1 12/21/19 24 Active lisinopril 20 MG tablet TAKE 1 TABLET BY MOUTH EVERY MORNING 30 tablet 04/06/20 24 Active omeprazole (PriLOSEC) [address] capsule TAKE 1 CAPSULE BY MOUTH ONCE DAILY EVERY MORNING 30 capsule 04/06/20 24 Active buPROPion XL (Wellbutrin XL) 150 MG 24 hr tablet Take 1 tablet (150 mg) by mouth in the morning. Do not crush, chew, or split. 90 tablet 05/09/20 24 Active DULoxetine (Cymbalta) [address] capsuleIndication s:MDD (major depressive disorder), recurrent, severe, with psychosis (CMS/HCC) Take 1 capsule (60 mg) by mouth 2 times daily. 180 capsule 05/09/20 24 Active QUEtiapine (SEROquel) 50 MG tabletIndications :MDD (major depressive disorder), recurrent, severe, with psychosis (CMS/HCC) Take 1 tablet (50 mg) by mouth in the morning. Also take Seroquel (Quetiapine) 200 mg at bedtime 90 tablet 05/09/20 24 Active QUEtiapine (SEROquel) 300 MG tabletIndications :MDD (major depressive disorder), recurrent, severe, with psychosis (CMS/HCC) Take 1 tablet (300 mg) by mouth at bedtime. Plus Seroquel (Quetiapine) 50 mg in the morning 90 tablet 05/09/20 24 Active loratadine (Claritin) 10 MG tablet TAKE 1 TABLET BY MOUTH EVERY MORNING 90 tablet 06/06/20 24 Active Alcohol Swabs (Alcohol Prep) 70 % pads USE DIRECTED TWICE DAILY 100 each 06/20/20 24 Active TRUEplus Lancets 33G miscIndications:T ype 2 diabetes mellitus with diabetic polyneuropathy (CMS/HCC),Type 2 diabetes mellitus without complications (CMS/HCC) TEST BLOOD SUGAR TWICE DAILY 100 each 07/14/20 24 Active FREESTYLE LITE test stripIndications: Type 2 diabetes mellitus with diabetic polyneuropathy (CMS/HCC),Type 2 diabetes mellitus without complications (CMS/HCC) TEST BLOOD SUGAR TWICE DAILY 50 strip 07/18/20 24 Active atorvastatin (Lipitor) 80 MG tablet TAKE 1 TABLET BY MOUTH AT BEDTIME 90 tablet 07/25/20 24 Active folic acid (Folvite) 400 MCG tablet TAKE 1 TABLET BY MOUTH EVERY MORNING 90 tablet 3 08/23/20 24 Active Dulaglutide 3 MG/0.5ML solution auto-injector Inject 3 mg under the skin 1 (one) time per week. 2 mL 11 10/27/19 25 Active alendronate (Fosamax) 70 MG tabletIndications :Screening for osteoporosis Take 1 tablet (70 mg) by mouth every 7 (seven) days. Take in the morning with a full glass of water, on an empty stomach, and do not take anything else by mouth or lie down for the next 30 min. 4 tablet 11 11/29/19 25 026 Active Blood Glucose Monitoring Suppl ([employer] [place] Lite) w/Device kit 1 each before breakfast and before evening meal. 1 kit 1 11/29/19 25 Active fluticasone (Flonase) 50 MCG/ACT nasal spray INSTILL 1 SPRAY IN EACH NOSTRIL ONCE DAILY IN THE MORNING 16 g 3 12/05/19 25 Active Multiple Vitamin (Multivitamin) tablet TAKE 1 TABLET BY MOUTH EVERY MORNING WITH FOOD 90 tablet 12/13/19 25 Active Ascorbic Acid (vitamin C) 500 MG tabletIndications :Iron deficiency anemia, unspecified iron deficiency anemia type TAKE 1 TABLET BY MOUTH TWICE DAILY IN THE MORNING AND AT BEDTIME 180 tablet 12/13/19 25 Active metFORMIN XR (Glucophage-XR) 500 MG 24 hr tabletIndications :Type 2 diabetes mellitus with hyperglycemia, without long-term current use of insulin (CMS/HCC) TAKE 2 TABLETS BY MOUTH TWICE DAILY IN THE MORNING AND EVENING BEFORE MEALS DO NOT BREAK, CRUSH, DISSOLVE OR CHEW 360 tablet 12/13/19 25 Active D3-1000 25 MCG (1000 UT) capsule TAKE 1 CAPSULE BY MOUTH EVERY MORNING 90 capsule 12/13/19 25 Active cyanocobalamin (Vitamin B-12) 1000 MCG tablet TAKE 1 TABLET BY MOUTH EVERY MORNING 90 tablet 3 01/05/20 25 Active dapagliflozin (Farxiga) 10 MG Take 1 tablet (10 mg) by mouth Once per day. 90 tablet 3 01/25/20 25 026 Active clonazePAM (KlonoPIN) 0.5 MG tabletIndications :MDD (major depressive disorder), recurrent, severe, with psychosis (CMS/HCC) Take 1 tablet (0.5 mg) by mouth every 12 (twelve) hours if needed for anxiety. 60 tablet 01/26/20 25 Active famotidine (Pepcid) 20 MG tablet TAKE 1 TABLET BY MOUTH AT BEDTIME NEEDED FOR HEARTBURN 30 tablet 11 02/02/20 25 Active montelukast (Singulair) 10 MG tablet TAKE 1 TABLET BY MOUTH EVERY EVENING 90 tablet 3 02/02/20 25 Active famotidine (Pepcid) 20 MG tablet Take 1 tablet (20 mg) by mouth if needed at bedtime for heartburn. 30 tablet 11 12/21/19 24 025 Discontinued montelukast (Singulair) 10 MG tablet TAKE 1 TABLET BY MOUTH EVERY EVENING 90 tablet 3 03/14/20 24 025 Discontinued Active Problems Problem Noted Date Diagnosed Date Recurrent falls 01/29/2025 Assessment & Plan (01/29/2025 12:52 PM EDT): - check lab and MRI Osteopenia 01/24/2025 Assessment & Plan (01/29/2025 1:01 PM EDT): - DEXA on 11/09/24 the lowest T score -2.2 - continue alendronate 70 mg weekly - continue weight - bearing exercise Neck pain on left side 10/27/2024 Chronic [...] EDT): Hospitalized from 06/19 - 06/21 in [facility] Treated with IV Abx, completed Abx [...] 2013 - s/p ventral hernia repair in 2015 - possible recurrent hernia; refer back to Dr. Edwards - will obtain abdominal CT data security consultant (current) use of oral hypoglycemic kayla gs 02/26/2023 Tobacco dependence 10/07/2022 Assessment & Plan (01/25/2025 11:55 AM EDT): Last CT scan in [facility] 2 in Jul 2021 She stopped smoking in Oct 2023 Continue working on smoking cessation effort [place] [facility] [place], but missed appt Assessment & Plan (02/20/2024 7:00 AM EDT): Last CT scan in Lung [facility] 2 in Jul 2021 She stopped smoking in Oct 2023 Continue working on smoking cessation effort Referred back [place] [facility] [place], but missed appt Assessment & Plan (01/04/2024 9:13 AM EDT): Last CT scan in Lung [facility] 2 in Jul 2021 She has cut down on smoking and stopped completely recently Continue working on smoking cessation effort Refer back [place] [facility] [place] Assessment & Plan (10/16/2023 11:53 AM EST): ?? Last CT scan in Lung [facility] 2 in Jul 2021 ?? Currently 4-5 cigs per day, slowly cutting down ?? Continue working on smoking cessation effort ?? Start nicotine patch and gum ?? Advised pt to check with [facility] [place] Assessment & Plan (07/07/2023 10:27 AM EDT): ?? Last CT scan in Lung [facility] 2 in Jul 2021 ?? Currently 4-5 cigs per day, slowly cutting down ?? Continue working on smoking cessation effort ?? Evaluate with PFT for COPD ?? Consider adding Long-Acting Muscarinic agonist ?? Advised pt to check with [facility] [place] Assessment & Plan (05/12/2023 6:46 AM EDT): ?? Last CT scan in Lung [facility] 2 in Jul 2021 ?? Currently 3-4 cigs per day, slowly cutting down ?? Continue working on smoking cessation effort ?? Advised pt to check with [facility] [place] Assessment & Plan [...] multiple joints 10/07/2022 Overview (10/07/2022): Referred to prospect manager per pt's request Pt missed appt and states pt will reschedule Stopped smoking with greater than 20 pack year h istory 10/07/2022 Overview (10/07/2022): ?? [place] [facility] [place] ?? Last seen on 08/14/21 Assessment & Plan (10/27/2024 5:36 PM EST): Previously followed [place] [facility] [place] Last seen on 08/14/21, and missed recent appointment Encouraged to reschedule Assessment & Plan (02/20/2024 7:00 AM EDT): Previously [place] [facility] [place] Last seen on 08/14/21, and missed recent appointment Encouraged to reschedule Assessment & Plan (10/06/2023 7:28 AM EST): [place] [facility] [place] Last seen on 08/14/21 Assessment & Plan (10/07/2022 11:27 AM EST): ?? Followed [place] [facility] [place] ?? Last seen on 08/14/21 ?? Check the status of follow-up Obstructive sleep apnea syndrome 09/29/2022 Assessment & Plan (01/29/2025 1:00 PM EDT): - Sleep study on 01/2022 severe BEATRICE. - Titration sleep study on 05/12/22. AutoPAP 11-20 cm H2O recommended. - Recently seen by Dr. Hall, and was prescribed all the supplies she needed; improve adherence Assessment & Plan (10/27/2024 5:25 PM EST): - Sleep study on 01/2022 severe BEATRICE. - Titration sleep study on 05/12/22. AutoPAP 11-20 cm H2O recommended. - She states she has a machine, but needs new supplies. Will check the status - Will prescribe CPAP and supplies. Assessment & Plan (02/20/2024 6:53 AM EDT): Last sleep study done on 05/05/22, [place] [facility], recommended Auto-PAP between 11-20 cm H2O. Check the status of Auto-PAP. Assessment & Plan (01/04/2024 8:58 AM EDT): Last sleep study done on 05/05/22, at [facility], recommended Auto-PAP between 11-20 cm H2O. Check the status of Auto-PAP. Assessment & Plan (10/06/2023 7:24 AM EST): Last sleep study done on 05/05/22, at [facility], recommended Auto-PAP between 11-20 cm H2O. Check the status of Auto-PAP. Assessment & Plan (07/07/2023 10:11 AM EDT): ?? Last sleep study done on 05/05/22, [place] [facility], recommended Auto-PAP between 11-20 cm H2O. ?? Check the status of Auto-PAP. Assessment & Plan (05/12/2023 6:27 AM EDT): ?? Last sleep study done on 05/05/22, at [facility], recommended Auto-PAP between 11-20 cm H2O. ?? Check the status of Auto-PAP. Assessment & Plan (02/26/2023 11:45 AM EDT): ?? Last sleep study done in April 2022, at [facility] It was a titration study, but ideal [...] 07/02/2016 Essential hypertension 03/31/2016 Assessment & Plan (01/25/2025 11:52 AM EDT): Goal BP < 140/90 per JNC-8 and < 130/80 per ACC/AHA guideline BP at goal today Continue lisinopril 20 mg daily Continue working on lifestyle modifications Assessment & Plan (10/27/2024 5:29 PM EST): [...] obstructive pulmonary disease) 09/2015 Assessment & Plan (01/29/2025 12:59 PM EDT): - Following with [facility] Coach Driver, Dr. Hall, last seen in Oct 2024. Upcoming appointment. - Last exacerbation in April 2021 - recently seen in [facility] ED on 10/19/24, and Dx pneumonia. Rx [...] cardiac etiology for SOB Assessment & Plan (10/27/2024 5:46 PM EST): - Following with [facility] Coach Driver, Dr. Hall, last seen in March 2024. Upcoming appointment. - Last exacerbation in April 2021 - recently seen in [facility] ED on 10/19/24, and Dx pneumonia. Rx [...] EST): >>ASSESSMENT AND PLAN FOR SCHIZOAFFECTIVE DISORDER ([facility]/HCC) WRITTEN ON 10/07/2022 11:14 AM BY ISELA ROTHMAN MD Followed by Jaron for psychopharmacology clinic Current medications: Cymalta 120 mg daily; Quetiapine 50 mg qAM and 150 mg at bedtime, clonazepam 1mg prn Continue following Tx plan per Jaron. Jaron's input appreciated. She was able to contract safety today. Assessment & Plan (10/26/2024 4:20 PM EST): >>ASSESSMENT AND PLAN FOR SCHIZOAFFECTIVE DISORDER ([facility]) WRITTEN ON 02/20/2024 7:00 AM BY ISELA ROTHMAN MD Followed by Jaron for psychopharmacology clinic [...] retiring, she will be referred to new [facility] psychiatric provider. Pt is aware that those will be televisits, and that the new provider is not an [facility] employee. She gives verbal consent to share [...] then she will be referred to new [facility] psychiatric provider. Pt is aware that those will be televisits, and that the new provider is not an [facility] employee. She gives verbal consent to share [...] (CMS/HCC) WRITTEN ON 10/16/2023 11:49 AM BY IESLA ROTHMAN MD Followed by Jaron for psychopharmacology clinic Current medications: Cymalta 120 mg daily; Quetiapine 50 mg qAM and 200 mg at bedtime, clonazepam 0.5 mg prn Continue following Tx plan per Jaron. Jaron's input appreciated. She was able to contract safety today. >>ASSESSMENT AND PLAN FOR SCHIZOAFFECTIVE DISORDER (CMS/HCC) WRITTEN ON 10/16/2023 11:49 AM BY ISELA ROTHMAN MD Followed by Jaron for psychopharmacology clinic [...] (MAJOR DEPRESSIVE DISORDER), RECURRENT, SEVERE, WITH PSYCHOSIS ([facility]/HCC) WRITTEN ON 07/07/2023 10:09 AM BY KIMBERLY VILLARREAL Followed by Jaron for psychopharmacology clinic Current medications: Cymalta 120 mg daily; Quetiapine 50 mg qAM and 200 mg at bedtime, clonazepam 0.5 mg prn Continue following Tx plan per Jaron. Jaron's input appreciated. She was able to contract safety today. >>ASSESSMENT AND PLAN FOR SCHIZOAFFECTIVE DISORDER ([facility]/HCC) WRITTEN ON 07/07/2023 10:11 AM BY KIMBERLY [...] WRITTEN ON 05/05/2023 1:46 PM BY KIMBERLY VILLARREAL Followed by Jaron for psychopharmacology clinic Current medications: Cymalta 120 mg daily; Quetiapine 50 mg qAM and 200 mg at bedtime, clonazepam 0.5 mg prn Continue following Tx plan per Jaron. Jaron's input appreciated. She was able to contract safety today. >>ASSESSMENT AND PLAN FOR SCHIZOAFFECTIVE DISORDER (CMS/HCC) WRITTEN ON 05/05/2023 1:52 PM BY KIMBERLY VILLARREAL Followed by Jaron for [...] Pt would be interested in speaking with highway worker and the provider will consult PCP about [...] the plan. Dyslipidemia 06/17/2012 Assessment & Plan (01/25/2025 11:55 AM EDT): - last lipid profile 10/27/24 - continue Atorvastatin 80 mg nightly - continue working on lifestyle modification Assessment & Plan (10/26/2024 4:32 PM EST): [...] mellitus, type 2 05/19/2012 Assessment & Plan (01/29/2025 1:02 PM EDT): Dx > 10 years. Hx GBP. Previously diet-controlled after GBP. Started pharmacological Tx in 2022 Hgb A1C 8.2% on 01/24/25, improvement from 9.3% on 10/27/24 Continue Metformin ER 1000 mg bid Continue dulaglutide to 3 mg weekly and titrate up as tolerated. Add dapagliflozin (Farxiga) 10 mg daily Continue working on lifestyle modifications Continue checking BG Microalbumin test: 12/21/23 normal, ordered on 10/27/24 Lipid profile: 10/27/24 Diabetic eye exam: 09/24/23 Foot exam: 10/27/24 Follow up in 3 mo Assessment & Plan (10/27/2024 5:43 PM EST): [...] Encounters Date Type Department Care Team Description 01/30/2025 Refill [facility] [address] [place] [id number] Isela Rothman MD 01/25/2025 Refill [facility] [address] [place] [address] Shanita Vasquez RN MDD (major depressive disorder), recurrent, severe, with psychosis ([facility]/HCC) 01/25/2025 Telephone [facility] [address] [place] [address] Isela Rothman MD Med Refill 01/24/2025 3:15 PM EDT Office Visit [facility] [address] [place] [address] Isela Rothman MD Obstructive sleep apnea syndrome (Primary Dx); Essential hypertension; Type 2 diabetes mellitus with hyperglycemia, without long-term current use of insulin ([facility]); Megaloblastic anemia due to vitamin B12 deficiency; Vitamin D deficiency; Class 2 severe obesity due to excess calories with serious comorbidity and body mass index (BMI) of 35.0 to 35.9 in adult ([facility]); Tobacco dependence; Dyslipidemia; Osteopenia of necks of both femurs; Recurrent falls; Dietary counseling; Exercise counseling; Chronic obstructive pulmonary disease, unspecified COPD type ([facility]); Dizziness; MDD (major depressive disorder), recurrent, severe, with psychosis ([facility]) 01/24/2025 Travel 01/02/2025 Refill [facility] [address] [place] [address] Isela Rothman MD 12/12/2024 Refill [facility] [address] [place] [address] Mary Avina MD Iron deficiency anemia, unspecified iron deficiency anemia type; Type 2 diabetes mellitus with hyperglycemia, without long-term current use of insulin ([facility]) 12/03/2024 Refill [facility] [address] [place] [address] Isela Rothman MD 11/29/2024 Abstract [facility] [address] [place] [address] Luanne Miles MA 11/29/2024 Refill [facility] [address] [place] [address] Clair Celeste RN Screening for osteoporosis 11/28/2024 Abstract [facility] [address] [place] [address] Luanne Miles MA from Last 3 Months Immunizations Name Administration [...] Sign Reading Time Taken Comments Blood Pressure 136/91 01/24/2025 3:27 PM EDT Pulse 95 01/24/2025 3:27 PM EDT Temperature 35.6 ??C (96 ??F) 01/24/2025 3:27 PM EDT Respiratory Rate 12 01/24/2025 3:27 PM EDT Oxygen Saturation 92% 01/24/2025 3:27 PM EDT Inhaled Oxygen Concentration - - Weight 86.3 kg (190 lb 3.2 oz) 01/24/2025 3:27 P M EDT Height 154.9 cm (5' 1 ) 01/24/2025 3:27 PM EDT Body Mass Index 35.94 01/24/2025 3:27 PM EDT Plan of Treatment Upcoming Encounters Date Type Department Care Team (Late st Contact Info) Description 05/01/2025 3:15 PM EDT Office Visit [facility] [address] [place] [address] Isela Rothman MD [address] [place] [address] Health Maintenance Due Date Last Done Comments CT Colonography 1957 FIT DNA/Cologuard 1957 FIT 1957 FOBT 1955 Sigmoidoscopy 1957 Eye Exam 1967 Alcohol/Substance Use Screening 1969 RSV Patients and Patients Aged 60 years or older (1 - Risk 60-74 years 1-dose series) 2017 SDOH Screening 02/17/2024 02/16/2023 Colonoscopy 05/09/2024 05/09/2014 Colorectal Cancer Screening 05/09/2024 Diabetes: Hemoglobin A1C 04/25/2025 025, 10/27/2024, 09/07/2024, Additional history exists Depression Screening 05/09/2025 05/09/2024, 05/09/20 Diabetes: Foot Exam 10/27/2025 10/27/2024 Lipid Panel 10/27/2025 10/27/2024, 11/27, 11/11/2022, Additional history exists Diabetes: Urine Protein Screening 11/28/2025 11/28/2024, 12/21/2023, 05/21/2020 Tobacco Screening 01/29/2026 01/29/2025 Mammogram 11/09/2026 11/09/2024, 10/26, 11/09/2024, Additional history exists DTaP/Tdap/Td Vaccines (3 - Td or Tdap) 07/30/2032 07/30/2022, 01/20/2012, 05/02/2003 Hepatitis B Vaccines Completed 07/02/2016, 07/23/2015, 06/07/2015 Pneumococcal Vaccine: 50+ Years Completed 07/30/2022, 06/12/2017, 03/24/2016, Additional history exists Zoster Vaccines Completed 12/19/2022, 07/30/2022 Hepatitis A Vaccines Aged Out 12/21/2023, 06/23/20 12 No longer eligible based on patient's age to complete this topic COVID-19 Vaccine Completed 10/27/2024, , 05/21/2022, Additional [...] Procedure Name Priority Date/Time Associated Diagnosis Comments POCT GLYCATED HEMOGLOBIN, TOTAL Routine 01/24/2025 3:29 PM EDT Type 2 diabetes mellitus with hyperglycemia, without long-term current use of insulin ([facility]) POCT GLUCOSE Routine 01/24/2025 3:28 PM EDT Type 2 diabetes mellitus with hyperglycemia, without long-term current use of insulin ([facility]) XR CERVICAL SPINE 4V Routine 11/28/2024 10:00 AM EST Chronic left shoulder pain Neck pain on left side XR SHOULDER 2+ VIEWS LEFT Routine 11/28/2024 10:00 AM EST Chronic left shoulder pain Neck pain on left side ALBUMIN, RANDOM URINE W/CREATININE Routine 11/28/2024 9:30 AM EST Type 2 diabetes mellitus with hyperglycemia, without long-term current use of insulin ([facility]) HM MAMMOGRAPHY Routine 11/09/2024 LIPID PANEL WITH REFLEX TO DIRECT LDL Routine 10/27/2024 12:13 PM EST Type 2 diabetes mellitus with hyperglycemia, without long-term current use of insulin ([facility]) COLONOSCOPY Routine 05/09/2014 from Last 3 Months or Most Recently Relevant to Health Maintenance Results * (ABNORMAL) POCT HGB A1C (01/24/2025 3:29 PM EDT) Hemoglobin A1C 8.2(A) 4.0 - 6.0 % QC Media Lot # [id number] Lot# Expiration Date Blood 01/24/2025 3:29 PM EDT Isela Rothman MD POINT OF CARE TEST ENTER/EDIT OR DERABLES Final Result * POCT Glucose (01/24/2025 3:28 PM EDT) Glucose Blood, POC 140 60 - 200 mg/dL QC Media Lot # [id number] Lot# Expiration Date ,026 Blood Capillary blood specimen / Unknown 01/24/2025 3:28 PM EDT Isela Rothman MD POINT OF CARE TEST ENTER/EDIT OR DERABLES Final Result * XR CERVICAL SPINE 4V (11/28/2024 10:00 AM EST) Anatomical Region Laterality Modality Abdomen Radiographic Afsaneh ging 11/28/2024 10:0 0 AM EST Narrative 11/28/2024 11:57 AM EST ? [facility] ?[address] ?[place] [address] ?XRay Report ? Signed ? Patient: Lilliam Savage ?MR#: [id number] ?? [id number] ? : 1955 ?Acct:[id number] ? Age/Sex: 69 / F ?ADM Date: 11/28/24 ? Loc: HO.XRAY ? Attending Dr: Isela Rothman MD ? Ordering Physician: Isela Rothman MD ?? Date of Service: 11/28/24 ?? Procedure(s): XR cervical spine 4V ?? Accession Number(s): [id number] ? cc: Isela Rothman MD ? EXAMINATION: ?? XR CERVICAL SPINE ? CLINICAL INFORMATION: ?? chronic neck pain on left side ? COMPARISON: ?? None available. ? TECHNIQUE: ?? 6 views of the cervical spine, inclusive of flexion and extension ?? views, were obtained. ? FINDINGS: ?? Craniocervical junction is intact. ?? Marginal osteophyte formation and endplate sclerosis and decreased ?? intervertebral disc height at C4-5 C5-6 and to a lesser extent C6-7. ?? Grade 1 anterolisthesis C3-4. ?? Grade 1 retrolisthesis C5-6. ?? No acute cortical disruption. ?? Left neuroforamina narrowing C4-5 and C5-6. ?? Upper airway is patent. ? XR/XR cervical spine 4V ?? IMPRESSION: ?? Multilevel cervical spondylosis resulting in grade 1 anterolisthesis ?? C3-4 and grade 1 retrolisthesis C5-6. ? Electronically signed by: ??Alvin Porras MD ??11/28/2024 11:54 AM ?? EST RP ? Dictated By: ?Alvin Lyn MD ? Signed By: ?<Electronically signed by Alvin Ayoub MD in OV> ? 11/28/241153 ? DD/ 1000 ? TD/TT: 11/28/24 1017 ? Weighing Station Operator: ? Procedure Note Donotuseinterpreter, Image - 11/28/[address] [address] XRay Report Signed Patient: Cecelia Savage#: [id number] : 7Acct:[id number] Age/Sex: 69 / FADM Date: 11/28/24 Loc: [facility] Attending Dr: Isela Rothman MD Ordering Physician: Isela Rothman MD Date of Service: 11/28/24 Procedure(s): XR cervical spine 4V Accession Number(s): [id number] cc: Isela Rothman MD EXAMINATION: XR CERVICAL SPINE CLINICAL INFORMATION: chronic neck pain on left side COMPARISON: None available. TECHNIQUE: 6 views of the cervical spine, inclusive of flexion and extension views, were obtained. FINDINGS: Craniocervical junction is intact. Marginal osteophyte formation and endplate sclerosis and decreased intervertebral disc height at C4-5 C5-6 and to a lesser extent C6-7. Grade 1 anterolisthesis C3-4. Grade 1 retrolisthesis C5-6. No acute cortical disruption. Left neuroforamina narrowing C4-5 and C5-6. Upper airway is patent. XR/XR cervical spine 4V IMPRESSION: Multilevel cervical spondylosis resulting in grade 1 anterolisthesis C3-4 and grade 1 retrolisthesis C5-6. Electronically signed by: Alvin Porras MD 11/28/2024 11:54 AM EST Dictated By: Alvin Lyn MD Signed By: <Electronically signed by Alvin Ayoub MDin OV> 11/28/24 1154 DD/ 1000 TD/TT: 11/28/24 1017 Weighing Station Operator: us Isela Rothman MD IMG XR PROCEDURES Final Result * XR Shoulder 2+ Views Left (11/28/2024 10:00 AM EST) Anatomical Region Laterality Modality Upper Extremities, Shoulder Left Radi ographic Imaging 11/28/2024 10:0 0 AM EST Narrative 11/29/2024 7:54 AM EST ? [facility] ?[address] ?[place] [address] ?XRay Report ? Signed ? Patient: Lilliam Savage ?MR#: [id number] ?? [id number] ? : 1955 ?Acct:[id number] ? Age/Sex: 69 / F ?ADM Date: 11/28/24 ? Loc: HO.XRAY ? Attending Dr: Isela Rothman MD ? Ordering Physician: Isela Rothman MD ?? Date of Service: 11/28/24 ?? Procedure(s): XR shoulder LT min 2V ?? Accession Number(s): [id number] ? cc: Isela Rothman MD ? EXAMINATION: ??XR SHOULDER 2 OR MORE VIEWS LEFT ? HISTORY: chronic left shoulder pain. ??Positive impingement ? COMPARISON: Comparison is made with the prior examination dated ?? 01/14/2022. ? FINDINGS: ? Three views of the left shoulder are submitted. ??Osseous mineralization ?? is normal. ??There is no fracture or dislocation. ??The glenohumeral ?? joint is maintained. There is mild narrowing of the AC joint. ??The soft ?? tissues are unremarkable. ? XR/XR shoulder LT min 2V ?? IMPRESSION: ? Mild narrowing of the AC joint. ? Electronically signed by: ??Pravin Kendrick MD ??11/29/2024 07:51 AM EST ?? RP ? Dictated By: ?Pravin Kendrick MD ? Signed By: ?<Electronically signed by Pravin Kendrick MD in OV> ?11/29/24 0751 ? DD/ 1000 ? TD/TT: 11/28/24 1017 ? Weighing Station Operator: ? Procedure Note Donotuseinterpreter, Image - 11/29/[address] [address] XRay Report Signed Patient: Cecelia Savage#: [id number] : 7Acct:[id number] Age/Sex: 69 / FADM Date: 11/28/24 Loc: [facility] Attending Dr: Isela Rothman MD Ordering Physician: Isela Rothman MD Date of Service: 11/28/24 Procedure(s): XR shoulder LT min 2V Accession Number(s): [id number] cc: Isela Rothman MD EXAMINATION: XR SHOULDER 2 OR MORE VIEWS LEFT HISTORY: chronic left shoulder pain. Positive impingement COMPARISON: Comparison is made with the prior examination dated 01/14/2022. FINDINGS: Three views of the left shoulder are submitted. Osseous mineralization is normal. There is no fracture or dislocation. The glenohumeral joint is maintained. There is mild narrowing of the AC joint. The soft tissues are unremarkable. XR/XR shoulder LT min 2V IMPRESSION: Mild narrowing of the AC joint. Electronically signed by: Pravin Kendrick MD 11/29/2024 07:51 AM EST Dictated By: Pravin Kendrick MD Signed By: <Electronically signed by Pravin Kendrick MD in OV> 11/29/24 0751 DD/ 1000 TD/TT: 11/28/24 1017 Weighing Station Operator: us Isela Rothman MD IMG XR PROCEDURES Edited Result - Final * Albumin, Random Urine W/Creatinine (11/28/2024 9:30 AM EST) Creatinine, Urine 187.33 mg/dL [facility] Microalbumin Urine 11.0 mg/L [facility] Microalbum Creatinine Ratio Ur 5.8 <30 ug/mg cr [facility] Comment:Albumin/Creatinine R atio Reference Ranges: Normal: < 30 ug/mg creatinine Microalbuminuria: 30 - 300 ug/mg creatinineClinical Albuminuria: > 300 ug/mg creatinine Urine 11/28/2024 9:30 AM EST 11/28/2024 10:29 AM EST Isela Rothman MD LAB URINE ORDERABLES Final Resul t [facility] [address] [place], [place] [phone] * Mammography (11/09/2024) Mammogram BIRADS 1 Normal, Abnormal, BIRADS 1 , BIRADS 2 Anatomical Region Laterality Modality Other 11/09/2024 us Historical Provider HEALTH MAINTENANCE Final Result * (ABNORMAL) Lipid Panel with Reflex to Direct LDL (10/27/2024 12:13 PM EST) Triglycerides 125 <150 mg/dL [facility] Comment:Desirable Triglyceri de: less than 150 mg/dLBorderline High Triglyceride 150-199 mg/dLHigh Triglyceride: 200-499 mg/dLVery High Triglyceride: greater than or equal to 5OO mg/dL Cholesterol 110 <200 mg/dL [facility] Comment:Desirable Cholestero l: less than 200 mg/dLBorderline High Cholesterol: 200-239 mg/dLHigh Cholesterol: greater than 239 mg/dL LDL Cholesterol Calculated 52 <100 mg/dL [facility] Comment:Desirable LDL: less than 100 mg/dLNear Optimal/Above Optimal LDL: 110- 129 mg/dLBorderline High LDL: 130-159 mg/dLHigh LDL: 160-189 mg/dLVery High LDL: greater than or equal to 190 mg/dL HDL Cholesterol 33(L) >40 mg/dL [facility] Comment:Desirable HDL: great er than 40 mg/dL Note: This HDL assay may give artificially low results in patients with liver disease. Blood 10/27/2024 12:1 3 PM EST 10/27/2024 1:00 PM EST Isela Rothman MD LAB BLOOD ORDERABLES Final Resul t [facility] [address] [place] [address] [phone] * Hm Colonoscopy (05/09/2014) Colonoscopy Normal Normal [facility] External Provider HEALTH MAINTENANCE Final Result from Last 3 Months or Most Recently Relevant to Health Maintenance Insurance [facility] [employer] OPT[employer] (HMO D-SNP) [id number] Care Teams Calciner Operator Helper Relationship Specialty Start Date End Date Isela Rothman MD [address] [place] [id number] PCP - General Family Medicine 1/1/19 Jaron Ambrose FNP [address] [place] [id number] Nurse Practitioner Family Medicine 09/21/23
--- OUTSIDE RECORDS SUMMARY | 2025-02-24 12:08 | XMS_ITS | Encounter Summary ---
Author Organization [employer] Address [address] [place] [address] Care Team Providers Care Wellfield Technician Name Role Phone Isela Grier MD Primary Care Provider [phone] Jaron Ambrose Unavailable Unavailable Reason for Visit * Reason Onset Date Comments Med Refill 09/19/2024 Encounter Details Date Type Department Care Team (Late st Contact Info) Description 09/19/2024 Telephone [facility] [address] [place], [place] [phone] Isela Grier MD [address] [place], [place] [phone] Med Refill Social History Tobacco Use Types [...] - 09/19/2024 2:45 PM EST TC from [facility] requesting refills on medications : Multiple Vitamin (Multivitamin) tablet ,Vitamin D High Potency 25 MCG (1000 UT) capsule , metFORMINXR (Glucophage-XR) 500 MG 24 hr tablet, Ascorbic Acid (vitamin C) 500 MG tablet Pt need refills for medboxes. PCP DR. Grier documented in this encounter Plan of Treatment Upcoming Encounters Date Type Department Care Team (Late st Contact Info) Description 05/01/2025 3:15 PM EDT Office Visit [facility] [address] [place] [address] Isela Grier MD [address] [place] [address] documented as of this encounter Visit Diagnoses Not on filedocumented in this encounter Additional Health Concerns Assessment Noted Time PHQ-9 Depression Total Score: 13 024 2:55 PM EDT documented as of this encounter Care Teams Wellfield Technician Relationship Specialty Start Date End Date Isela Grier MD [address] [place] [address] PCP - General Family Medicine 10/26/18 Jaron Ambrose FNP [address] [place] [address] Nurse Practitioner Family Medicine 09/21/23 documented as of this encounter
--- OUTSIDE RECORDS SUMMARY | 2025-02-24 12:08 | XMS_ITS | Clinical Summary ---
Author Organization [facility] Address [address] [place] [address] Care Team Providers Care Steamship Agent Name Role Phone Unavailable Primary Care Provider Unavailabl e Social History Tobacco Use Types Packs/Day Years Used Date Smoking Tobacco: Never Assessed Comments Unknown Sex and Gender Information Value Date Recorded Sex Assigned at Not on file Legal Sex Female 6:40 PM EST Gender Identity Not on file Sexual Orientation [...]
--- OUTSIDE RECORDS SUMMARY | 2025-02-24 12:08 | XMS_ITS | Encounter Summary ---
Author Organization [employer] Address [address] [facility] [address] [place] [address] Care Team Providers Care Wedding Planner Name Role Phone Isela Grier MD Primary Care Provider [phone] Jaron Ambrose GRADE SETTER Unavailable Unavailable Encounter Details Date Type Department Care Team (Late st Contact Info) Description 09/26/2022 Abstract [facility] [address] [place] [address] ProviderLuis MD Social History Tobacco Use Types Packs/Day Years [...] Description 05/01/2025 3:15 PM EDT Office Visit [facility] [address] [place] [address] Isela Grier MD [address] [place], [place] [phone] documented as of this encounter Visit Diagnoses Not on filedocumented in this encounter Care Teams Wedding Planner Relationship Specialty Start Date End Date Isela Grier MD [address] [place], [place] [phone] PCP - General Family Medicine 10/26/18 Jaron Ambrose FNP [address] [place] [address] Nurse Practitioner Family Medicine 09/21/23 documented as of this encounter
== END 2025-02-24 11:31 | disposition home or self-care (01) ==
LOC: HO.HPS 11:02
PROVIDERS: PCP Family Medicine; Visit Provider Hospitalist
DX: J41.0 Simple chronic bronchitis (principal); G47.33 Obstructive sleep apnea (adult) (pediatric); R06.09 Other forms of dyspnea
CPT/HCPCS: 99214; G2211

== ENCOUNTER → 2025-02-24 11:01 | Outpatient (BNVA) | payer OTHER, SELFPAY | PROVIDERS: PCP Family Medicine; Visit Provider Hospitalist | DX: J41.0 Simple chronic bronchitis (principal); G47.33 Obstructive sleep apnea (adult) (pediatric); R06.09 Other forms of dyspnea; Z99.89 Dependence on other enabling machines and devices | CPT/HCPCS: 99212 ==

== ENCOUNTER 2025-06-14 09:10 | Outpatient (AMB) | payer OTHER, SELFPAY ==
--- NOTE | 2025-06-14 09:11 | MHC.OFFVIS ---
Vital Signs 06/14/25 09:19 Height 5 ft 1 in Weight 186 lb BMI 35.1 BP 121/62 Blood Pressure Location Rt brachial Position Sitting Pulse 97 Intake Visit Reasons: colonoscopy screening Intake Note: Patient referred by pcp Dr. Grier for colonoscopy screening. Last colonoscopy many yrs ago. Patient c/o: denies hemorrhoids, diarrhea, constipation. Cytotechnologist/Cytology Supervisor Required: No Accompanied by: Self / Same As Patient Allergies No Known Allergies (No Known Allergies*) Allergy (Verified 06/14/25 09:16) Medication List - Last Reconciled 06/14/25 by Richard Edwards MD albuterol sulfate mg inhalation QID PRN albuterol sulfate 90 mcg/actuation 2 inhalations inhalation Q6H PRN 30 days alcohol swabs (Alcohol Prep Pads) 0 pad topical BID atorvastatin 40 mg PO BEDTIME atorvastatin 80 mg PO DAILY blood sugar diagnostic (FreeStyle Lite Strips) As directed bupropion HCl XL 150 mg PO DAILY cholecalciferol (vitamin D3) (Vitamin D3) 25 mcg PO DAILY clonazepam 0.5 mg PO DAILY PRN CPAP (CPAP Machine/Device) As directed cyanocobalamin (vitamin B-12) 1,000 mcg PO DAILY duloxetine 120 mg PO DAILY fluticasone propionate 50 mcg/actuation 1 spray intranasal DAILY esdpssmurzz-wcupkqnxe-fzzjjptf 100-62.5-25 mcg (Trelegy Ellipta) 1 inh inhalation DAILY 30 days folic acid 0.4 mg PO DAILY furosemide (Lasix) 20 mg PO DAILY lisinopril 20 mg PO DAILY loratadine 10 mg PO DAILY metformin 500 mg PO DAILY montelukast 10 mg PO DAILY multivitamin (One Daily Multivitamin tablet) 1 tab PO DAILY naproxen 500 mg PO BID nebulizers As directed omeprazole 20 mg PO DAILY quetiapine 100 mg PO BEDTIME HPI HPI colonoscopy screening: Details: [age] year old female referred for screening colonoscopy. She denies significant GI complaints. She denies any family history of colon cancer. She has known emphysema. She is an ex-smoker. She has not on oxygen supplemental oxygen but admits to shortness breast easily. Review of her records show that her last colonoscopy was in 2013 and this was unremarkable. [facility] Medical History Colon cancer screening Dyspnea COPD (chronic obstructive pulmonary disease) Abdominal pain Vitamin B12 deficiency anemia Depression Personal history of nicotine dependence Hyperlipidemia Hypertension, essential, benign Obstructive sleep apnea (~2007) Surgical History History of tonsillectomy History of hysterectomy History of gastric bypass History of colonoscopy History of hernia repair History of lung surgery Social History Alcohol intake: never Patient Tobacco Use Status: Former Tobacco user Review of Systems Const Denies chills and Denies fever(s) Card Denies chest pain, Reports dyspnea and Reports dyspnea on exertion Resp Denies cough, Reports dyspnea and Reports dyspnea on exertion GI Denies hematochezia and Denies change in bowel habits Denies hematuria Musc Denies back pain, Reports arthralgias and Reports limited range of motion Neuro Denies focal weakness and Denies convulsions Psych Denies depression and Denies mood swings Physical Exam Const Other: Walks with a cane General: comfortable and no acute distress Orientation/consciousness: patient oriented x3 Neck Neck: Yes no lymphadenopathy Resp Auscultation: clear to auscultation bilaterally Cardio Rhythm: regular rhythm GI Palpation (GI): Soft to palpation, nontender and no guarding Neuro General: patient oriented x3 Assessment & Plan Assessment & Plan (1) Colon cancer screening: Code(s): Z12.11 - Encounter for screening for malignant neoplasm of colon Category: Medical Plan: I explained to her the technique of colonoscopy for screening. I reviewed the risks including but not limited to bleeding and perforation, as well as the benefits and alternatives. She says she understands and agrees to proceed. She does not seem to be at high risk for colon cancer. Review of her records shows that her last colonoscopy was in 2013 and she had normal findings then. Medications: New sodium,potassium,mag sulfates 17.5-3.13-1.6 gram (Suprep Bowel Prep Kit) DILUTE; drink full amount early evening before AND next morning at least 2 hr before procedure; follow w 960 mL water PO 354 mL 0RF Coding Level of Care Code New Pt Level 3 (79736) Diagnoses Colon cancer screening Z12.11
[2025-06-14 09:19] VITALS: BP 121/62; PULSE 97; BMI 35.1
--- OUTSIDE RECORDS SUMMARY | 2025-06-14 09:52 | XMS_ITS | Encounter Summary ---
Author Organization [employer] Address [address] [place] [address] [address] [place] [address] Care Team Providers Care Licensed Mortician Name Role Phone Isela Grier MD Primary Care Provider [phone] Jaron Ambrose Unavailable Unavailable Reason for Visit * Reason Comments Med Refill Encounter Details Date Type Department Care Team (Late st Contact Info) Description 07/27/2023 Refill [facility] [address] [place] [address] Rosi Saxena MD [address] [place], [place] [phone] Social History Tobacco Use Types Packs/Day Years [...] documented as of this encounter Care Teams Licensed Mortician Relationship Specialty Start Date End Date Isela Grier MD [address] [place] [address] PCP - General Family Medicine 10/26/18 Jaron Ambrose FNP [address] [place] [address] Nurse Practitioner Family Medicine 09/21/23 documented as of this encounter
--- OUTSIDE RECORDS SUMMARY | 2025-06-14 09:54 | XMS_ITS | Patient Health Record ---
Author Organization [facility] Address [address] [place] [address] Care Team Providers Care Manager Of Production Name Role Phone Pravin Huynh Unavailable [phone] Reason For Referral No Information Plan Of Treatment No Information
--- OUTSIDE RECORDS SUMMARY | 2025-06-14 09:54 | XMS_ITS | Clinical Summary ---
Author Organization [facility] Address [address] [place] [address] Care Team Providers Care Surfacer Operator Name Role Phone Unavailable Primary Care Provider [...]
== END 2025-06-14 09:24 | disposition home or self-care (01) ==
LOC: HO.HGS 09:11
PROVIDERS: PCP Family Medicine; Visit Provider Surgery
DX: Z12.11 Encounter for screening for malignant neoplasm of colon (principal)
CPT/HCPCS: 99213

== ENCOUNTER → 2025-06-14 09:10 | Outpatient (BNVA) | payer OTHER, SELFPAY | PROVIDERS: PCP Family Medicine; Visit Provider Surgery | DX: Z12.11 Encounter for screening for malignant neoplasm of colon (principal) | CPT/HCPCS: 99212 ==

== ENCOUNTER 2025-07-04 10:31 | Outpatient (AMB) | payer OTHER, SELFPAY ==
[2025-07-04 10:45] VITALS: BP 110/62; PULSE 86; O2SAT 90; BMI 36.7
--- NOTE | 2025-07-04 10:45 | MHC.OFFVIS ---
Vital Signs 07/04/25 10:45 Height 5 ft 1 in Weight 194 lb 0.108 oz BMI 36.7 BP 110/62 Blood Pressure Location Lt brachial Position Sitting Pulse 86 Pulse Source Pulse Oximeter Pulse Oximetry (%) 90 L Oxygen Delivery Method Room Air Intake Visit Reasons: COPD Accompanied by: Self / Same As Patient Allergies No Known Allergies (No Known Allergies*) Allergy (Verified 07/04/25 10:48) HPI Comments Details: The patient is a 70 year woman with known history apnea and COPD. Apparently her respiratory symptoms have been getting worse. More shortness of breath with activity addition to cough. The patient is a former smoker she quit about 4 months ago. She had been participating in the lung cancer screening program and had a CT scan back into the some 1 but has not had 1 as of yet. Will go ahead and request to see if she can go back on the program or if she needs to be re-referred. In the meantime she has been using Flovent in addition to Incruse. The medication that been partially helpful. Will try to simplify respiratory regimen by switching over to Trelegy. She should also have a rescue inhaler available as needed. The patient did have pulmonary function studies several years ago we did review them she did have a mixed obstructive restrictive ventilatory defect consistent with mild COPD and mild restrictive lung disease. Most conditions are likely contributing to her ongoing shortness of breath. Therefore will optimize respiratory therapy and have her PFTs repeated and she should have the CT scan of the lung cancer screening program will follow-up after that. If the patient develops any worsening symptoms prior to the next visit she will call for an earlier assessment. 11/04/2024 the patient is here for a pulmonary follow-up visit. She still struggling with her breathing. Significant shortness of breath even at rest. But worse with activity. Moderate in severity. She needs to take a break while walking. She did picker operator the Trelegy. I will send it again. In addition to that she did have pulmonary function studies. No evidence of any obstruction but she did have a moderate restriction. Likely her body habitus although need to address for any parenchymal disease. She was supposed to have a CT scan through the lung cancer screening program but she has not has had it as of yet. In addition to that the patient has not been using her CPAP. She understands she needs uses CPAP but she does not have supplies. I did fill out a script for her to get supplies and I did send to the [employer]ript[employer] company and I did call the Tript[employer]ting company as well. Hopefully we can get his supplies in the meantime she can rinse her supplies with mild soap or white vinegar to try to clean it and use it effectively. The patient did have a brief walking oximetry in the office. She was very short of breath and heart rate did go up to about 115 with minimal activity. Therefore will have her get an echocardiogram. She does get lower extremity edema so will also request Lasix for 3-4 days to help her volume status. She may benefit from a stress test as well. 02/24/2025 the patient is here for pulmonary follow-up visit. She continues to have dyspnea on exertion with minimal activity. Moderate severity. During the last visit she was started on Trelegy and also given some diuretics for few days. She did have an echocardiogram demonstrating some diastolic dysfunction. In addition to that she underwent blood work which is reassuring. She was supposed to have a CT through the lung cancer screening program she has not has not had as of yet. I did have her talk to the program to make sure she gets scheduled. The patient also has been using the CPAP. The CPAP therapy has been affecting beneficial. She has a fullface mask and sometimes has a hard time with it. She can always try a nasal mask. I did provide her a trial of the end 30 I that she can try. The patient will bring her CPAP to the next visit. I do believe that based on her symptoms in her cardiovascular risk factors that she should have a cardiac evaluation as well. I will refer to Cardiology this time to undergo additional cardiac testing. 07/04/2025 the patient is here for pulmonary preop evaluation. The patient is scheduled to undergo a total knee replacement at [facility]. Overall she is doing good from a respiratory standpoint. She continues to use her CPAP at nighttime. The CPAP therapy does help her cardiovascular risk. She has struggles with the though. She is getting supplies and she does try to use it more than 4 hours a night. Her respiratory status is also stable. For COPD she has been on Trelegy which he has been affecting beneficial. She has not required any prednisone. And she does not need the use of her albuterol regularly. She was supposed to take part in the lung cancer screening program. I will reach out to the coordinate see if there is any obstacles for her getting into the program. At least from a pulmonary standpoint the patient may be able to proceed with anesthesia and surgery without any reservations. [facility] Medical History Colon cancer screening Dyspnea COPD (chronic obstructive pulmonary disease) Abdominal pain Vitamin B12 deficiency anemia Depression Personal history of nicotine dependence Hyperlipidemia Hypertension, essential, benign Obstructive sleep apnea (~2007) Surgical History History of tonsillectomy History of hysterectomy History of gastric bypass History of colonoscopy History of hernia repair History of lung surgery Social History Alcohol intake: never Patient Tobacco Use Status: Former Tobacco user Review of Systems Const Denies chills, Denies fatigue, Denies fever(s), Denies weight gain and Denies weight loss Eyes Reports no additional complaints ENT Denies dizziness Card Denies chest pain, Denies leg edema, Denies lightheadedness, Denies palpitations, Denies dyspnea on exertion, Denies orthopnea and Denies other Resp Denies cough, Denies dyspnea on exertion and Denies wheezing GI Denies hematochezia and Denies change in stool character Musc Reports abnormal gait, Reports arthralgias, Reports limited range of motion, Denies muscle weakness, Denies numbness, Denies radiating pain into limb and Denies tingling Skin/Breast Denies rash Neuro Reports abnormal gait, Denies dizziness, Denies numbness and Denies tingling Endo Denies fatigue and Denies palpitations Aller/Immun Denies wheezing Physical Exam Vital Signs: Last Vital Signs Pulse 86 07/04/25 10:45 BP 110/62 07/04/25 10:45 Pulse Ox 90 L 07/04/25 10:45 Oxygen Delivery Method Room Air 07/04/25 10:45 BMI result Body Mass Index 36.7 Const General: comfortable HEENT Head: Yes normocephalic Neck Neck: Yes supple Chest Chest palpation & inspection: normal inspection of the chest Resp Effort & Inspection: normal respiratory effort Auscultation: diminished lung sounds Cardio Heart sounds: S1 normal heart sound present and S2 normal heart sound present GI Palpation (GI): Soft to palpation Skin General skin exam: no rashes or lesions noted Extrem General: Yes no clubbing, cyanosis or edema Assessment & Plan Assessment & Plan (1) COPD (chronic obstructive pulmonary disease): Code(s): J44.9 - Chronic obstructive pulmonary disease, unspecified Category: Medical Qualifiers: COPD type: chronic bronchitis Chronic bronchitis type: simple Qualified Code(s): J41.0 - Simple chronic bronchitis (2) Obstructive sleep apnea: Onset Date: ~2007 Comment: (Moderate BEATRICE on 2007 sleep test - AHI 45.6 on 01/21/21 sleep test Code(s): G47.33 - Obstructive sleep apnea (adult) (pediatric) Category: Medical (3) Dyspnea: Code(s): R06.00 - Dyspnea, unspecified Category: Medical Qualifiers: Dyspnea type: dyspnea on exertion Qualified Code(s): R06.09 - Other forms of dyspnea (4) Pre-op chest exam: Code(s): Z01.811 - Encounter for preprocedural respiratory examination Category: Medical (5) Personal history of nicotine dependence: Comment: (current smoker, onset 23, 1ppd x 43yrs, now 1/4ppd - 40pyh) Code(s): Z87.891 - Personal history of nicotine dependence Category: Medical Plan daily Trelegy [place]LIN as needed restart LDCT program? continue CPAP therapy, n30i proceed with anesthesia and orthopedic surgery from Pulmonary standpoint. Bronchodilator therapy. Should continue PAP therapy in the post operative period. F/U 6-8 months Orders: Referrals Lung Cancer Screening Referral Z87.891 - Personal history of nicotine dependence Coding Level of Care Code Est Pt Level 4 (56245) Complex EM visit Add On G2211 Diagnoses Simple chronic bronchitis J41.0 COPD type: chronic bronchitis Chronic bronchitis type: simple Obstructive sleep apnea G47.33 Dyspnea on exertion R06.09 Dyspnea type: dyspnea on exertion Pre-op chest exam Z01.811 Personal history of nicotine dependence Z87.891 Time Spent (min) 17
--- OUTSIDE RECORDS SUMMARY | 2025-07-04 12:20 | XMS_ITS | Encounter Summary ---
Author Organization [employer] Address [address] [place] [address] Care Team Providers Care Hospital Television Rental Clerk Name Role Phone Isela Grier MD Primary Care Provider [phone] Jaron Ambrose Unavailable Unavailable Reason for Visit * Reason Comments Med Refill Encounter Details Date Type Department Care Team (Late st Contact Info) Description 04/06/2025 Refill [facility] MEDICINE [address] [place], [place] [phone] Rosi Saxena MD [address] [place], [place] [phone] Moderate persistent asthma, uncomplicated Social History Tobacco Use Types Packs/Day Years [...] as of this encounter Visit Diagnoses Diagnosis Moderate persistent asthma, uncomplicated documented in this encounter Additional Health Concerns Assessment Noted Time PHQ-9 Depression Total Score: 13 024 2:55 PM EDT documented as of this encounter Care Teams Hospital Television Rental Clerk Relationship Specialty Start Date End Date Isela Grier MD [address] [place] [address] PCP - General Family Medicine 10/26/18 Jaron Ambrose FNP [address] [place] [address] Nurse Practitioner Family Medicine 09/21/23 documented as of this encounter
--- OUTSIDE RECORDS SUMMARY | 2025-07-04 12:20 | XMS_ITS | Encounter Summary ---
Author Organization [employer] Address [address] [facility] [address] [place] [address] Care Team Providers Care Asphalt Heater Tender Name Role Phone Isela Grier MD Primary Care Provider [phone] Jaron Ambrose Unavailable Unavailable Reason for Referral * Imaging (Routine) - Closed Specialty Diagnoses / Procedures Referred By Jaden mallory Referred To Contact Radiology Diagnoses Generalized abdominal pain Procedures CT Abdomen Pelvis w/ Contrast Isela Grier MD [address] [place] [address] Phone: tel: fax: [facility] [address] [place] [address] Phone: tel: fax: Referral ID Status Reason Start Date Expiration Date Visits Re quested Visits Authorized [id number] Closed 05/13/2023 05/12/2024 1 1 Encounter Details Date Type Department Care Team (Late st Contact Info) Description 05/13/2023 Orders Only [facility] MED[facility]INE [address] [place], [place] [phone] Isela Grier MD [address] [place] [address] Generalized abdominal pain (Primary Dx) Social History [...] documented as of this encounter Care Teams Asphalt Heater Tender Relationship Specialty Start Date End Date Isela Grier MD [address] [place] [address] PCP - General Family Medicine 10/26/18 Jaron Ambrose FNP [address] [place] [address] Nurse Practitioner Family Medicine 09/21/23 documented as of this encounter
--- OUTSIDE RECORDS SUMMARY | 2025-07-04 12:20 | XMS_ITS | Encounter Summary ---
Author Organization [employer] Address [address] [place] [address] [address] [place] [address] Care Team Providers Care Formation Fracturing Operator Name Role Phone Isela Grier MD Primary Care Provider [phone] Jaron Ambrose Unavailable Unavailable Reason for Visit * Reason Comments Med Refill Encounter Details Date Type Department Care Team (Late st Contact Info) Description 07/27/[address] [facility] MEDICINE [address] [place] [address] Rosi Saxena MD [address] [place], [place] [phone] Social History Tobacco Use Types Packs/Day Years [...] documented as of this encounter Care Teams Formation Fracturing Operator Relationship Specialty Start Date End Date Isela Grier MD [address] [place] [address] PCP - General Family Medicine 10/26/18 Jaron Ambrose FNP [address] [place] [address] Nurse Practitioner Family Medicine 09/21/23 documented as of this encounter
--- OUTSIDE RECORDS SUMMARY | 2025-07-04 12:20 | XMS_ITS | Encounter Summary ---
Author Organization [employer] Address [address] [place] [address] [address] [place] [address] Care Team Providers Care Meat Lugger Name Role Phone Isela Grier MD Primary Care Provider [phone] Jaron Ambrose Unavailable Unavailable Reason for Visit * Reason Comments Med Refill Encounter Details Date Type Department Care Team (Late st Contact Info) Description 06/19/2023 Refill [facility] MEDICINE [address] [place] [address] Rosi Saxena MD [address] [place], [place] [phone] Type 2 diabetes mellitus without complications (CMS/HCC) [...] documented as of this encounter Care Teams Meat Lugger Relationship Specialty Start Date End Date Isela Grier MD [address] [place] [address] PCP - General Family Medicine 10/26/18 Jaron Ambrose FNP [address] [place] [address] Nurse Practitioner Family Medicine 09/21/23 documented as of this encounter
--- OUTSIDE RECORDS SUMMARY | 2025-07-04 12:21 | XMS_ITS | Clinical Summary ---
Author Organization [facility] Address [address] [place] [address] Phone Care Team Providers Care House Mother Name Role Phone Isela Grier MD Primary Care Provider [phone] Allergies No known active allergies Medications cholecalciferol [...] (two) times a day with meals. Active duloxetine HCl (CYMBALTA ORAL) Take 120 mg by mouth 1 (one) time each day. Active oxyCODONE (OXY-IR) 5 mg immediate release capsule Take 1-2 capsules (5-10 mg total) by mouth every 4 (four) hours if needed for severe pain. 12 capsule 09/07/2024 Active LORazepam (Ativan) 0.5 mg tablet Take 1 tablet (0.5 mg total) by mouth 3 (three) times a day if needed for anxiety for up to 5 days. Max Daily Amount: 1.5 mg 15 tablet 04/04/2025 Active loratadine (CLARITIN) 10 mg tablet Take 1 tablet (10 mg total) by mouth 1 (one) time each day. 30 tablet 05/06/2025 Active Active Problems Problem Noted Date Diagnosed Date B12 deficiency 01/16/2014 CTS (carpal tunnel syndrome) 01/16/2014 Diabetes mellitus type 2 wit h neurological manifestations ([facility] V24, [facility] V28) 01/16/2014 Overview (07/28/2024): CTS DJD (degenerative joint disease) 01/16/2014 Overview (07/28/2024): Multiple joints Hyperlipidemia 01/16/2014 Obesity 01/16/2014 Overview (07/28/2024): S/p gastric bypass Schizoaffective disorder ([facility] V24, [facility] V 28) 01/16/2014 Vitamin D deficiency 01/16/2014 Anxiety 12/14/2013 Chronic joint pain 12/14/2013 Depression 12/14/2013 Resolved Problems Problem Noted Date Diagnosed Date Resolved Date Incarcerated ventral hernia 09/06/2024 09/07/2024 Encounters Date Type Department Care Team Description 05/07/2025 5:25 PM EDT - 05/08/2025 12:37 AM EDT [facility] Emergency [address] [place] [address] Discharge Disposition: Home or Self Care 05/06/2025 8:54 PM EDT - 05/06/2025 10:29 PM EDT Emergency [facility] Emergency [address] [place] [id number] Blepharitis of upper and lower eyelids of both eyes, unspecified type (Primary Dx); Allergic conjunctivitis of both eyes Discharge Disposition: Home or Self Care 04/04/2025 9:14 AM EDT - 04/04/2025 1:04 PM EDT Emergency [facility] Emergency [address] [place] [address] Alberto Henderson MD Mild asthma with exacerbation, unspecified whether persistent (Primary Dx); Anxiety; Chronic kidney disease, unspecified CKD stage Discharge Disposition: Home or Self Care from Last 3 Months Immunizations Name Administration [...] HISTORICAL TUBAL LIGATION OTHER SURGICAL HISTORY PROCEDURE: NH ANES HRNA RPR UPR ABD LMBR&VNT HERNIA&/DEHSN BLADDER SUSPENSION PROCEDURE: HISTORICAL BLADDER SUSPENSION HYSTERECTOMY PROCEDURE: HISTORICAL HYSTERECTOMY GASTRIC BYPASS PROCEDURE: NH GASTRIC RSTCV W/BYP W/SM INT RCNSTJ LIMIT ABSRPJ OTHER SURGICAL HISTORY 11/19/12 PROCEDURE: OUTSIDE MAMMO SALIVARY GLANDS Bilateral REMOVED STEREOTACTIC CORE BIOPSY Right BREAST CYST ASPIRATION Right Medical History Medical History Date Comments Depression 12/14/2013 DX:Depression Anxiety 12/14/2013 DX:Anxiety Chronic joint pain 12/14/2013 DX:Chronic joel int pain Diabetes mellitus type 2, diet-controlled ([facility] V24, [facility] V28) 01/16/2014 DX:Diabetes mellitus type 2, diet-controlled ([facility]) Schizoaffective disorder ([facility] V24, [facility] V28) 01/16/2014 DX:Schizoaffective disorder ([facility]) Hyperlipidemia 01/16/2014 DX:Hyperlipidemi a B12 deficiency 01/16/2014 DX:B12 deficienc y Obesity 01/16/2014 DX:Obesity; COMM ENT: S/p gastric bypass Tobacco abuse 01/16/2014 DX:Tobacco abuse Vitamin D deficiency 01/16/2014 DX:Vitamin D deficiency DJD (degenerative joint disease) 01/16/2014 DX:DJD (degenerative joint disease); COMMENT: Multiple joints CTS (carpal tunnel syndrome) 01/16/2014 DX: CTS (carpal tunnel syndrome) Panic Attack Hypertension Asthma COPD (chronic obstructive pu lmonary disease) ([facility] V24, [facility] V28) Sleep apnea Shortness of breath HL (hearing loss) Hearing loss GERD (gastroesophageal reflux disease) Hernia of abdominal wall Anemia Neuromuscular disorder ([facility] V24, [facility] V28) Chronic fatigue syndrome wit h fibromyalgia [...] Sign Reading Time Taken Comments Blood Pressure 156/100 05/07/2025 9:29 PM EDT Pulse 90 05/07/2025 9:29 PM EDT Temperature 37.2 C (99 F) 05/07/2025 9:29 PM EDT Respiratory Rate 18 05/07/2025 9:29 PM EDT Oxygen Saturation 97% 05/07/2025 9:29 PM EDT Inhaled Oxygen Concentration - - Weight 83.5 kg (184 lb) 05/07/2025 5:32 PM EDT Height 154.9 cm (5' 1 ) 05/07/2025 5:32 PM EDT Body Mass Index 34.77 05/07/2025 5:32 PM EDT Plan of Treatment Health Maintenance Due Date Last Done Comments Diabetes: Annual Foot Exam 1965 Diabetes: Annual Retina Eye Exam 1965 RSV Immunization Adult Patients (1 - Risk 60-74 years 1-dose series) 2017 Colorectal Cancer Screening: Colonoscopy 09/27/2022 Hepatitis C Screening 09/27/2022 Medicare Annual Wellness Visit 09/27/2022 Social Influencers of Health Screening 09/27/2022 Depression Screening 10/26/2024 Diabetes: Annual Urine Albumin-Creatinine Ratio (uACR) 12/21/2024 12/21/2023 COVID-19 Vaccine ( season) 2025 10/27/2024, 12/21/2023, 05/21/2022, Additional history exists Influenza Vaccine (#1) 2025 , 07/07/2023, 07/18/2022, Additional history exists Falls Risk Assessment 09/07/2025 09/07/2024 Diabetes: Blood Sugar Control Test (HGBA1C) 11/01/2025 05/01/2025, 01/24/2025, 10/27/2024, Additional history exists Diabetes: Annual GFR (Glomerular Filtration Rate) 04/04/2026 04/04/2025, 10/27/2024, 10/19/2024, Additional history exists Hypertension/CHF/CAD Annual BMP Blood Test 04/04/2026 04/04/2025, 10/27/2024, 10/19/2024, Additional history exists Breast Cancer Screening 11/09/2026 [...] on patient's age to complete this topic HIB Vaccines Aged Out No longer eligi [...] this topic Medical Devices Implanted Type Area Remnant Sorter Device Identifier Shelf Expiration Date Model / Serial / Lot Mesh Ventralex St 2.5in Med [employer] W/Strap - Sn/A - [id number] Implanted:Qty: 1 on 09/07/2024 by Adwoa Tate MD at [facility] Surgical Mesh Sling Implants N/A: Abdomen CR BARD - DAVOL DIV [id number] 09/22/2025 [id number] / N/A / [id number] Procedures Procedure Name Priority Date/Time Associated Diagnosis Comments ECG ANNOTATED 04/05/2025 XR CHEST 2 VIEWS STAT 04/04/2025 12:1 9 PM EDT TROPONIN I HIGH SENSITIVITY STAT 04/04/2025 10:49 AM EDT [id number], RSV, FLU A AND B QUALITATIVE RT-PCR, INTERNAL LAB STAT 04/04/2025 10:49 AM EDT ECG 12-LEAD STAT 04/04/2025 9:35 AM EDT CBC WITH AUTO DIFFERENTIAL STAT 04/04/2025 9:32 AM EDT B-TYPE NATRIURETIC PEPTIDE STAT 04/04/2025 9:32 AM EDT MAGNESIUM STAT 04/04/2025 9:32 AM EDT LIPASE STAT 04/04/2025 9:32 AM EDT COMPREHENSIVE METABOLIC PANEL STAT 04/04/2025 9:32 AM EDT CBC AND DIFFERENTIAL STAT 04/04/2025 9:32 AM EDT TROPONIN I HIGH SENSITIVITY STAT 04/04/2025 9:32 AM EDT BD BONE DENSITY DXA AXIAL SKELETON Routine 11/09/2024 10:33 AM EST Encounter for screening for osteoporosis MG MAMMO DIGITAL SCREENING W TACHO BILAT Routine 11/09/2024 10:32 AM EST Encounter for screening mammogram for malignant neoplasm of breast HEMOGLOBIN A1C Routine 09/07/2024 11:45 AM EST HM URINE ALBUMIN CREATININE RATIO Routine 12/21/2023 LIPID PANEL Routine 12/21/2023 from Last 3 Months or Most Recently Relevant to Health Maintenance Results * ECG-Annotated (04/05/2025) us Provider Onbase MD ECG ORDERABLES Final Result * XR Chest 2 Views (04/04/2025 12:19 PM EDT) Anatomical Region Laterality Modality Body Radiographic Afsaneh ging 04/04/2025 12:2 3 PM EDT Impressions 04/04/2025 12:24 PM EDT Impression: Stable radiographic appearance of the chest. No active pulmonary process identified. Telerad VIKKI ([id number]) -------- FINAL REPORT -------- Dictated By: Jeri Martinez Dictated Date: 04/04/2025 12:23 ET Assigned Physician: Jeri Martinez Reviewed and Electronically Signed By: Jeri Martinez Signed Date: 04/04/2025 12:24 ET Workstation ID: [id number] Transcribed By: Self Edit Transcribed Date: 04/04/2025 12:23 ET Narrative 04/04/2025 12:24 PM EDT History: Chest pain. Comparison: 10/19/24 Findings: PA and lateral views. This is a suboptimal inspiration. The cardiac silhouette remains normal in size. The isela are not enlarged and the pulmonary vascularity is within normal limits. Surgical chain suture is again seen in the left lung, consistent with previous partial lung resection. The lungs are clear. The costophrenic angles are sharp. Right hemidiaphragmatic elevation is unchanged. The regional skeleton is intact. Upper abdominal surgical clips are seen. Procedure Note Jeri Martinez MD - 04/04/2025 History: Chest pain. Comparison: 10/19/24 Findings: PA and lateral views. This is a suboptimal inspiration. The cardiacsilhouette remains normal in size. The isela are not enlarged and thepulmonary vascularity is within normal limits. Surgical chain suture is again seen in the left lung, consistent withprevious partial lung resection. The lungs are clear. The costophrenicangles are sharp. Right hemidiaphragmatic elevation is unchanged. The regional skeleton is intact. Upper abdominal surgical clips areseen. IMPRESSION: Impression: Stable radiographic appearance of the chest. No active pulmonary processidentified. Telerad VIKKI ([id number]) -------- FINAL REPORT -------- Dictated By: Jeri Martinez Dictated Date: 04/04/2025 12:23 ET Assigned Physician: Jeri Martinez Reviewed and Electronically Signed By: Jeri Martinez Signed Date: 04/04/2025 12:24 ET Workstation ID: [id number] Transcribed By: Self Edit Transcribed Date: 04/04/2025 12:23 ET Alberto Henderson MD IMG XR PROCEDURES Final Res ult * [id number], RSV, Influenza A and B qualitative RT-PCR (04/04/2025 10:49 AM EDT) Influenza A PCR Not Detected Not Detected LAB MICROBIOLOGY METHOD 04/04/2025 12:10 PM EDT [facility] Influenza B PCR Not Detected Not Detected LAB MICROBIOLOGY METHOD 04/04/2025 12:10 PM EDT [facility] RSV PCR Not Detected Not Detected LAB MICROBIOLOGY METHOD 04/04/2025 12:10 PM EDT [facility] SARS COV-2 Not Detected Not Detected LAB MICROBIOLOGY METHOD 04/04/2025 12:10 PM EDT [facility] Swab Both anterior nares / Unknown Non-blood Collection / Unknown 04/04/2025 10:49 AM EDT 04/04/2025 11:10 AM EDT Narrative [facility] - 04/04/2025 12:10 PM EDT Disclaimer: Testing was performed using the [employer] GeneXpert Xpress SARS-CoV-2 _Flu_RSV PLUS PCR assay. The manner in which this information is used to guide patient care is the responsibility of the healthcare provider. Results should be correlated with the clinical history, epidemiological data, and other data available to the clinician evaluating the patient. Negative results do not preclude infection. This test has been authorized by the FDA under an Emergency Use Authorization (EUA). This test is only authorized for the duration of time the declaration that circumstances exist justifying the authorization of the emergency use of in vitro diagnostic tests for detection of SARS-CoV-2 virus and/or diagnosis of COVID-19 infection under section 564 (b) (1) of the Act, 21 U.S.C 360bbb-3 (b) (1), unless the authorization is terminated or revoked sooner. Reference Range: Not Detected Fact sheet for Healthcare providers can be found at https://www.fda.gov/media/641871/download. Fact sheet for Healthcare patients can be found at https://www.fda.gov/media/779905/download. us Alberto Henderson MD LAB MICROBIOLOGY - GENERAL ORDERABLES Final Result Performing Organization Address [facility] de Phone Number [facility] [address] [place] [address], [place] [phone] * Troponin I high sensitivity (04/04/2025 10:49 AM EDT) Only the most recent of2 resultswithin the time period is included. [facility] High Sensitivity Troponin I 6 <=54 ng/L LAB CHEMISTRY METHOD 04/04/2025 11:47 AM EDT [facility] Blood Venous blood specimen / Unknown Venipuncture / Unknown 04/04/2025 10:49 AM EDT 04/04/2025 11:10 AM EDT Narrative [facility] - 04/04/2025 11:47 AM EDT High levels of biotin in samples may falsely decrease hsTroponin values. Use caution when interpreting hsTroponin results in patients taking biotin who exhibit renal impairment (eGFR <60) or in patients taking more than 20 mg/day of biotin. us Alberto Henderson MD LAB BLOOD ORDERABLES Final Result Performing Organization Address [facility] de Phone Number [facility] [address] [place] [address], [place] [phone] * ECG 12 lead (04/04/2025 9:35 AM EDT) [facility] Ventricular Rate ECG 111 BPM GEMUSE Atrial Rate 111 BPM GEMUSE P-R Interval 136 ms GEMUSE QRS Duration 84 ms GEMUSE Q-T Interval 318 ms GEMUSE QTc 432 ms GEMUSE P Wave [place] 26 degrees GEMUSE R [place] 15 degrees GEMUSE T [place] 17 degrees GEMUSE ECG Interpretation Sinus tachycardia Otherwise normal ECG When compared with ECG of 19-OCT-2024 10:55, No significant change was found Confirmed by Frankie GARCIA JAMES ([id number]) on 04/04/2025 3:46:33 PM GEMUSE 04/04/2025 9:35 AM EDT 04/04/2025 3:46 PM EDT us Alberto Henderson MD ECG ORDERABLES Final Resul t GEMUSE * (ABNORMAL) CBC auto differential (04/04/2025 9:32 AM EDT) WBC 10.1 4.8 - 10.8 K/mcL LAB HEMETOLOGY METHOD 04/04/2025 10:16 AM [facility] RBC 4.00 3.80 - 4.80 M/mcL LAB HEMETOLOGY METHOD 04/04/2025 10:16 AM [facility] Hemoglobin 11.8 11.5 - 16.0 g/dL LAB HEMETOLOGY METHOD 04/04/2025 10:16 AM [facility] Hematocrit 38.3 35.0 - 47.0 % LAB HEMETOLOGY METHOD 04/04/2025 10:16 AM [facility] MCV 96.5 79.0 - 98.0 FL LAB HEMETOLOGY METHOD 04/04/2025 10:16 AM [facility] MCH 29.7 27.0 - 32.0 pcg LAB HEMETOLOGY METHOD 04/04/2025 10:16 AM [facility] MCHC 30.8(L) 32.0 - 37.0 g/dL LAB HEMETOLOGY METHOD 04/04/2025 10:16 AM [facility] RDW 12.3 11.0 - 15.0 % LAB HEMETOLOGY METHOD 04/04/2025 10:16 AM [facility] Platelets 372 130 - 400 K/mcL LAB HEMETOLOGY METHOD 04/04/2025 10:16 AM [facility] MPV 9.9 7.0 - 11.0 FL LAB HEMETOLOGY METHOD 04/04/2025 10:16 AM [facility] NRBC 0.0 <1.0 % LAB HEMETOLOGY METHOD 04/04/2025 10:16 AM [facility] NRBC Absolute 0.00 <0.10 K/mcL LAB HEMETOLOGY METHOD 04/04/2025 10:16 AM [facility] Neutrophils Relative 62.3 % LAB HEMETOLOGY METHOD 04/04/2025 10:16 AM [facility] Lymphocytes Relative 28.1 % LAB HEMETOLOGY METHOD 04/04/2025 10:16 AM [facility] Monocytes Relative 7.0 % LAB HEMETOLOGY METHOD 04/04/2025 10:16 AM [facility] Eosinophils Relative 1.6 % LAB HEMETOLOGY METHOD 04/04/2025 10:16 AM [facility] Basophils Relative 0.6 % LAB HEMETOLOGY METHOD 04/04/2025 10:16 AM [facility] Immature Granulocytes Relative 0.4 % LAB HEMETOLOGY METHOD 04/04/2025 10:16 AM [facility] Neutrophils Absolute 6.27 1.50 - 7.00 K/mcL LAB HEMETOLOGY METHOD 04/04/2025 10:16 AM [facility] Lymphocytes Absolute 2.83 1.00 - 5.00 K/mcL LAB HEMETOLOGY METHOD 04/04/2025 10:16 AM [facility] Monocytes Absolute 0.70 0.20 - 1.00 K/mcL LAB HEMETOLOGY METHOD 04/04/2025 10:16 AM [facility] Eosinophils Absolute 0.16 0.00 - 0.50 K/[facility] LAB HEMETOLOGY METHOD 04/04/2025 10:16 AM EDT [facility] Basophils Absolute 0.06 0.00 - 0.20 K/[facility] LAB HEMETOLOGY METHOD 04/04/2025 10:16 AM EDT [facility] Immature Granulocytes Absolute 0.04(H) 0.00 - 0.03 K/[facility] LAB HEMETOLOGY METHOD 04/04/2025 10:16 AM EDT [facility] Blood Venous blood specimen / Unknown Venipuncture / Unknown 04/04/2025 9:32 AM EDT 04/04/2025 10:05 AM EDT Alberto Henderson MD LAB BLOOD ORDERABLES Final Result Performing Organization Address [facility]/ZIP Co de Phone Number [facility] [address] [place] [address], [place] [phone] * B-type natriuretic peptide (04/04/2025 9:32 AM EDT) BNP 9 <=100 pcg/mL LAB CHEMISTRY METHOD 04/04/2025 10:43 AM EDT [facility] Blood Venous blood specimen / Unknown Venipuncture / Unknown 04/04/2025 9:32 AM EDT 04/04/2025 10:04 AM EDT Alberto Henderson MD LAB BLOOD ORDERABLES Final Result Performing Organization Address [facility]/State/ZIP Co de Phone Number [facility] [address] [place] [address], [place] [phone] * (ABNORMAL) Magnesium (04/04/2025 9:32 AM EDT) Magnesium 1.8(L) 1.9 - 2.6 mg/dL LAB CHEMISTRY METHOD 04/04/2025 10:56 AM EDT [facility] Comment:Hemolysis present Blood Venous blood specimen / Unknown Venipuncture / Unknown 04/04/2025 9:32 AM EDT 04/04/2025 10:04 AM EDT Alberto Henderson MD LAB BLOOD ORDERABLES Final Result Performing Organization Address [facility]/ZIP Co de Phone Number [facility] [address] [place] [address], [place] [phone] * Lipase (04/04/2025 9:32 AM EDT) Lipase 59 13 - 75 unit/L LAB CHEMISTRY METHOD 04/04/2025 10:56 AM EDT [facility] Blood Venous blood specimen / Unknown Venipuncture / Unknown 04/04/2025 9:32 AM EDT 04/04/2025 10:04 AM EDT Alberto Henderson MD LAB BLOOD ORDERABLES Final Result Performing Organization Address [facility]/ZIP Co de Phone Number [facility] [address] [place] [address], [place] [phone] * (ABNORMAL) Comprehensive metabolic panel (04/04/2025 9:32 AM EDT) Sodium 142 133 - 145 mmol/L LAB CHEMISTRY METHOD 04/04/2025 10:56 AM EDT [facility] Potassium 4.2 3.5 - 5.5 mmol/L LAB CHEMISTRY METHOD 04/04/2025 10:56 AM EDT [facility] Comment:Hemolysis present Chloride 109 96 - 110 mmol/L LAB CHEMISTRY METHOD 04/04/2025 10:56 AM EDT [facility] CO2 23 21 - 32 mmol/L LAB CHEMISTRY METHOD 04/04/2025 10:56 AM EDT [facility] Anion Gap 10 3 - 11 LAB CHEMISTRY METHOD 04/04/2025 10:56 AM [facility] Glucose 218(H) 70 - 100 mg/dL LAB CHEMISTRY METHOD 04/04/2025 10:56 AM [facility] BUN 14 5 - 25 mg/dL LAB CHEMISTRY METHOD 04/04/2025 10:56 AM [facility] Creatinine 1.29(H) 0.50 - 1.10 mg/dL LAB CHEMISTRY METHOD 04/04/2025 10:56 AM [facility] eGFR 45(L) >=60 mL/min/1. 73m2 LAB CHEMISTRY METHOD 04/04/2025 10:56 AM [facility] Comment:Calculation based on the Chronic Kidney Disease Epidemiology Collaboration (CKD-EPI) equation refit without adjustment for race. BUN/Creatinine Ratio 10.9 LAB CHEMISTRY METHOD 04/04/2025 10:56 AM [facility] Calcium 8.3(L) 8.5 - 10.5 mg/dL LAB CHEMISTRY METHOD 04/04/2025 10:56 AM [facility] AST (SGOT) 27 10 - 42 unit/L LAB CHEMISTRY METHOD 04/04/2025 10:56 AM [facility] Comment:Hemolysis present ALT (SGPT) 26 10 - 60 unit/L LAB CHEMISTRY METHOD 04/04/2025 10:56 AM [facility] Alkaline Phosphatase 195(H) 42 - 121 unit/L LAB CHEMISTRY METHOD 04/04/2025 10:56 AM [facility] Total Protein 6.7 6.0 - 8.0 g/dL LAB CHEMISTRY METHOD 04/04/2025 10:56 AM [facility] Albumin 3.6 3.2 - 5.0 g/dL LAB CHEMISTRY METHOD 04/04/2025 10:56 AM [facility] Total Bilirubin 0.3 0.0 - 1.4 mg/dL LAB CHEMISTRY METHOD 04/04/2025 10:56 AM EDT [facility] Blood Venous blood specimen / Unknown Venipuncture / Unknown 04/04/2025 9:32 AM EDT 04/04/2025 10:04 AM EDT us Alberto Henderson MD LAB BLOOD ORDERABLES Final Result [facility] [address] [place] [address], * BD Bone Density DXA Axial Skeleton (11/09/2024 10:33 AM EST) Anatomical Region Laterality Modality Wrist, Hip, L-spine Bone Densito metry 11/09/2024 12:2 2 PM EST Impressions 11/09/2024 12:24 PM EST 1. Osteopenia. 2. FRAX analysis yields a 10-year probability of major osteoporotic fracture of 10.5% and a 10-year probability of hip fracture of 1.8%. Code 34893 -------- FINAL REPORT -------- Dictated By: Michael Fierro Dictated Date: 11/09/2024 12:22 ET Assigned Physician: Michael Fierro Reviewed and Electronically Signed By: Michael Fierro Signed Date: 11/09/2024 12:24 ET Workstation ID: [id number] Transcribed By: Self Edit Transcribed Date: 11/09/2024 12:22 ET Narrative 11/09/2024 12:24 PM EST HISTORY: The patient is a 69-year-old postmenopausal female with clinical concern for metabolic bone disease. FINDINGS: Dual energy [...] 92% of that of age matched controls. This yields a T-score of -1.4 and a Z-score of -0.5 which is diagnostic of osteopenia. The T-score of the right femoral neck is -2.2 and that of the left femoral neck is -2.2 which is diagnostic of osteopenia. Procedure Note [...] density of the femurs bilaterally is 0.836 gm/hx6hbekm is 83% of that of young normals [...] probability of hip fracture of 1.8%. Code 83804 -------- FINAL REPORT -------- Dictated By: Michael Fierro Dictated Date: 11/09/2024 12:22 ET Assigned Physician: Michael Fierro Reviewed and Electronically Signed By: Michael Fierro Signed Date: 11/09/2024 12:24 ET Workstation ID: [id number] Transcribed By: Self Edit Transcribed Date: 11/09/2024 12:22 ET us Isela Grier MD IM DXA PROCEDURES Final Result * MG Mammo Digital Screening w Tacho bilat (11/09/2024 10:32 AM EST) Anatomical Region Laterality Modality Breast Bilateral Mammography 11/18/2024 3:31 PM EST Impressions 11/18/2024 3:36 PM EST No mammographic evidence of malignancy. No suspicious interval change. A negative mammogram in the presence of a clinically suspicious palpable abnormality does not preclude the possibility of malignancy or alter the indications for biopsy. ASSESSMENT: BI-RADS 1: NEGATIVE RECOMMENDATION(S): 1: Routine screening mammogram BILATERAL in 1 year. -------- FINAL REPORT -------- Dictated By: Thomas Swanson Dictated Date: 11/18/2024 15:31 ET Assigned Physician: Thomas Swanson Reviewed and Electronically Signed By: Thomas Swanson Signed Date: 11/18/2024 15:36 ET Workstation ID: [id number] Transcribed By: Self Edit Transcribed Date: 11/18/2024 15:31 ET Narrative 11/18/2024 3:36 PM EST EXAM: SCREENING MAMMOGRAPHY, BILATERAL HISTORY: SCREENING. No additional history. COMPARISON: 11/19/2012 TECHNIQUE: Synthesized CC and MLO projections of each breast. Tomosynthesis of each breast in the CC and MLO projections. ADDITIONAL IMAGING: None Computer-aided detection was employed with the [employer] 3-D. TISSUE DENSITY: There are scattered areas of fibroglandular density. (BI-RADS category B) FINDINGS: RIGHT BREAST: No suspicious mass. No suspicious calcification. No distortion. No additional suspicious right breast findings LEFT BREAST: No suspicious mass. No suspicious calcification. No distortion. Stable intramammary lymph node in the 3 o'clock position. Procedure Note Thomas Swanson MD - 11/18/2024 EXAM: SCREENING MAMMOGRAPHY, BILATERAL HISTORY: SCREENING. No additional history. COMPARISON: 11/19/2012 TECHNIQUE: Synthesized CC and MLO projections of each breast.Tomosynthesis of each breast in the CC and MLO projections. ADDITIONAL IMAGING: None Computer-aided detection was employed with the [employer] AI 3-D. TISSUE DENSITY: There are scattered [...] Signed Date: 11/18/2024 15:36 ET Workstation ID: [id number] Transcribed By: Self Edit Transcribed Date: 11/18/2024 15:31 ET Isela Grier MD IMG BI PROCEDURES Final Result * (ABNORMAL) Hemoglobin A1c (09/07/2024 11:45 AM EST) Hemoglobin A1C 8.3(H) <6.5 % LAB CHEMISTRY METHOD 09/08/2024 10:30 PM EST [facility] Mean Bld Glu Estim. 192 mg/dL LAB CHEMISTRY METHOD 09/08/2024 10:30 PM EST [facility] Blood Venous blood specimen / Unknown Venipuncture / Unknown 09/07/2024 11:45 AM EST 09/08/2024 2:14 PM EST Adwoa Tate MD LAB BLOOD ORDERABLES Final R esult [facility] [address] [place] [address], [place] [phone] * HM Urine Albumin Creatinine Ratio (12/21/2023) Urine Albumin Creatinine Ratio Abstracted Historical Provider HEALTH MAINTENANCE Final Result * Lipid panel (12/21/2023) LDL/HDL Ratio 0 Comment:No interpretation, A bstracted Triglycerides 0 mg/dL Comment:No interpretation, A bstracted Cholesterol 0 mg/dL Comment:No interpretation, A bstracted HDL 0 mg/dL Comment:No interpretation, A bstracted LDL Cholesterol 0 mg/dL Comment:No interpretation, A bstracted Blood Venous blood specimen / Unknown us Historical Provider MD LAB BLOOD ORDERABLES Tari l Result from Last 3 Months or Most Recently Relevant to Health Maintenance Insurance [facility] MEDICARE Member Subscriber Plan / Payer (Ef fective 2022-Present) Name:Lilliam Miranda Relation to Subscriber:Self Name:Lilliam Miranda Payer ID:[id number] Group ID:[id number] Type:Not on file Address: [place] [address] [address] [id number] Advance Directives * Full Code - Default [...] currently active code status orders. Care Teams House Mother Relationship Specialty Start Date End Date Isela Grier MD [address] [place] [address] [phone] PCP - General 10/20/23
--- OUTSIDE RECORDS SUMMARY | 2025-07-04 12:21 | XMS_ITS | Encounter Summary ---
Author Organization [employer] Address [address] [facility] [place] [address] Care Team Providers Care Reroller Hand Name Role Phone Isela Grier MD Primary Care Provider Jaron Ambrose Unavailable Unavailable Reason for Visit * Reason Onset Date Comments Med Refill 07/03/2025 Encounter Details Date Type Department Care Team (Late st Contact Info) Description 07/03/2025 Refill [facility] [address] [place], [place] [phone] Isela Grier MD [address] [place], [place] [phone] MDD (major depressive disorder), recurrent, severe, with psychosis (CMS/HCC) Social History Tobacco Use Types Packs/Day Years Used Date Smoking Tobacco: Every Day Cigarettes Passive Smoke Exposure: Current Smokeless Tobacco: Never Depression Answer Date Recorded Patient Health Questionnaire-9 Score 21 05/16/2025 Patient Health Questionnaire-9 Score 21 05/16/2025 Last PHQ-9: Questionnaire Data Not on file 0 05/16/2025 Housing Stability Answer Date Recorded What is your housing situation today? I have sharon isidro 05/01/[address] you li ve. Do you have problems with any of the following? None of the above 05/01/2025 Food Insecurity Answer Date Recorded Within the past 12 months, y ou worried that your food would run out before you got money to buy more: Never True 05/01/2025 Within the past 12 months,th e food you bought just didn't last and you didn't have enough money to get more: Never True 04/2025 Transportation Answer Date Recorded In the past 12 months, has l ack of transportation kept you from medical appts, meetings, work or from getting things needed for daily living? No 05/01/2025 Utilities Answer Date Recorded In the past 12 months, has t he electric, gas, oil or water company threatened to shut off services in your home? No 05/01/2025 Depression Answer Date Recorded Patient Health Questionnaire-2 Score 6 05/16/2025 Internet Access Answer Date Recorded Internet Access Q1 Yes 05/01/2025 Internet Access Q2 Not on file 05/01/2025 Comments No Sex and Gender Information Value Date Recorded Sex Assigned at Female 08/25/2022 10:14 AM EDT Legal Sex Female 10:14 AM EDT Gender Identity Female 08/25/2022 10:14 AM EDT Sexual Orientation Straight 08/25/2022 10 :14 AM EDT documented as of this encounter Miscellaneous Notes * Telephone Encounter - Carli Carvajal LPN - 07/03/2025 1:22 PM EDT Last seen 05/05/25. documented in this encounter Plan of Treatment Not on file documented as of this encounter Visit Diagnoses Diagnosis MDD (major depressive disorder), recurrent, severe, with psychosis (CMS/HCC) documented in this encounter Additional Health Concerns Assessment Noted Time PHQ-9 Depression Total Score: 21 025 1:55 PM EDT documented as of this encounter Care Teams Reroller Hand Relationship Specialty Start Date End Date Isela Grier MD [address] [place] [address] PCP - General Family Medicine 10/26/18 Jaron Ambrose FNP [address] [place] [address] Nurse Practitioner Family Medicine 09/21/23 documented as of this encounter
--- OUTSIDE RECORDS SUMMARY | 2025-07-04 12:21 | XMS_ITS | Encounter Summary ---
Author Organization [employer] Address [address] [place] [address] Care Team Providers Care Head Counselor Name Role Phone Isela Grier MD Primary Care Provider [phone] Jaron Ambrose Unavailable Unavailable Encounter Details Date Type Department Care Team (Late st Contact Info) Description 11/28/2024 Abstract [facility] [address] [place] [address] Luanne Miles [place] Social History Tobacco Use [...] documented as of this encounter Care Teams Head Counselor Relationship Specialty Start Date End Date Isela Grier MD [address] [place] [address] PCP - General Family Medicine 10/26/18 Jaron Ambrose FNP [address] [place] [address] Nurse Practitioner Family Medicine 09/21/23 documented as of this encounter
--- OUTSIDE RECORDS SUMMARY | 2025-07-04 12:21 | XMS_ITS | Encounter Summary ---
Author Organization [employer] Address [address] [facility] [address] [place] [address] Care Team Providers Care Licsw Name Role Phone Isela Grier MD Primary Care Provider [phone] Jaron Ambrose Unavailable Unavailable Reason for Visit * Reason Onset Date Comments Med Refill 09/19/2024 Encounter Details Date Type Department Care Team (Late st Contact Info) Description 09/19/2024 Telephone [facility] [address] [place], [place] [phone] Isela Grier MD [address] [place], [place] [phone] Med Refill Social History Tobacco Use Types [...] - 09/19/2024 2:45 PM EST TC from [facility] requesting refills on medications : [...] documented as of this encounter Care Teams Licsw Relationship Specialty Start Date End Date Isela Grier MD [address] [place] [phone] PCP - General Family Medicine 10/26/18 Jaron Ambrose FNP [address] [place] [address] Nurse Practitioner Family Medicine 09/21/23 documented as of this encounter
--- OUTSIDE RECORDS SUMMARY | 2025-07-04 12:21 | XMS_ITS | Patient Health Record ---
Author Organization [facility] Address [address] [place] [address] Care Team Providers Care Fashion Illustrator Name Role Phone Pravin Huynh Unavailable [phone] Reason For Referral No Information Plan Of Treatment No Information
--- OUTSIDE RECORDS SUMMARY | 2025-07-04 12:21 | XMS_ITS | Encounter Summary ---
Author Organization [employer] Address [address] [facility] [address] [place] [address] Care Team Providers Care Print Inspector Name Role Phone Isela Grier MD Primary Care Provider [phone] Jaron Ambrose Unavailable Unavailable Encounter Details Date Type Department Care Team (Late st Contact Info) Description 09/26/2022 Abstract [facility] [address] [place], [place] [phone] ProviderLuis MD Social History Tobacco Use Types [...] on filedocumented in this encounter Care Teams Print Inspector Relationship Specialty Start Date End Date Isela Grier MD [address] [place], [place] [phone] PCP - General Family Medicine 10/26/18 Jaron Ambrose FNP [address] [place] [address] Nurse Practitioner Family Medicine 09/21/23 documented as of this encounter
--- OUTSIDE RECORDS SUMMARY | 2025-07-04 12:21 | XMS_ITS | Clinical Summary ---
Author Organization [facility] Address [address] [place] [address] Care Team Providers Care Manual Winder Name Role Phone Unavailable Primary Care Provider Unavailabl e Social History Tobacco Use Types Packs/Day Years Used Date Smoking Tobacco: Never Assessed Comments Unknown Sex and Gender Information Value Date Recorded Sex Assigned at Not on file Legal Sex Female 6:40 PM EST Gender Identity Not on file Sexual Orientation Not on file Plan of Treatment Health Maintenance Due Date Last Done Comments Advance Care Planning 1955 Hepatitis C Virus Screening 1955 DTaP/Tdap/Td Vaccines (1 - Tdap) 1976 Pneumococcal Vaccines 50+ (1 of 1 - PCV) 2007 Zoster (Shingles) Vaccine (1 of 2) 2007 COVID-19 Vaccine ( - 2023-2 5 season) 2025 RSV Vaccine 60 years and old er and Patients (1 - 1-dose 75+ series) 2032 Hepatitis B Vaccines Aged Out No long er eligible based on patient's age to complete this topic
--- OUTSIDE RECORDS SUMMARY | 2025-07-04 12:21 | XMS_ITS | Clinical Summary ---
Author Organization [employer] Address [address] [facility] [address] [place] [address] Care Team Providers Care Receiving Associate Name Role Phone Isela Grier MD Primary Care Provider [phone] Jaron Ambrose Unavailable Unavailable Allergies No known [...] 13 g 11 09/21/20 23 Active Umeclidinium [place] (Incruse Ellipta) 62.5 MCG/ACT aerosol powder Inhale [...] PATCH* 30 patch 1 12/21/19 24 Active omeprazole (PriLOSEC) [address] capsule TAKE 1 CAPSULE BY MOUTH ONCE DAILY EVERY MORNING 30 capsule 04/06/20 24 Active loratadine (Claritin) 10 MG tablet TAKE 1 TABLET BY MOUTH EVERY MORNING 90 tablet 3 06/06/20 24 Active Alcohol Swabs (Alcohol Prep) 70 % pads USE DIRECTED TWICE DAILY 100 each 5 06/20/20 24 Active TRUEplus Lancets 33G miscIndications:T ype 2 diabetes mellitus with diabetic polyneuropathy (CMS/HCC),Type 2 diabetes mellitus without complications (CMS/HCC) TEST BLOOD SUGAR TWICE DAILY 100 each 11 07/14/20 24 Active folic acid (Folvite) 400 MCG tablet TAKE 1 TABLET BY MOUTH EVERY MORNING 90 tablet 3 08/23/20 24 Active alendronate (Fosamax) 70 MG tabletIndications :Screening for osteoporosis Take 1 tablet (70 mg) by mouth every 7 (seven) days. Take in the morning with a full glass of water, on an empty stomach, and do not take anything else by mouth or lie down for the next 30 min. 4 tablet 11 11/29/19 25 2025 Active Blood Glucose Monitoring Suppl (Social Tools Marcella Lite) w/Device kit 1 each before breakfast and before evening meal. 1 kit 1 11/29/19 25 Active fluticasone (Flonase) 50 MCG/ACT nasal spray INSTILL 1 SPRAY IN EACH NOSTRIL ONCE DAILY IN THE MORNING 16 g 3 12/05/19 25 Active cyanocobalamin (Vitamin B-12) 1000 MCG tablet TAKE 1 TABLET BY MOUTH EVERY MORNING 90 tablet 3 01/05/20 25 Active dapagliflozin (Farxiga) 10 MG Take 1 tablet (10 mg) by mouth Once per day. 90 tablet 3 01/25/20 25 2025 Active famotidine (Pepcid) 20 MG tablet TAKE 1 TABLET BY MOUTH AT BEDTIME NEEDED FOR HEARTBURN 30 tablet 11 02/02/20 25 Active montelukast (Singulair) 10 MG tablet TAKE 1 TABLET BY MOUTH EVERY EVENING 90 tablet 3 02/02/20 25 Active lisinopril 20 MG tablet TAKE 1 TABLET BY MOUTH EVERY MORNING 90 tablet 3 03/01/20 25 Active metFORMIN XR (Glucophage-XR) 500 MG 24 hr tabletIndications :Type 2 diabetes mellitus with hyperglycemia, without long-term current use of insulin (CMS/HCC) TAKE 2 TABLETS BY MOUTH TWICE DAILY IN THE MORNING AND EVENING WITH MEALS DO NOT BREAK, CRUSH, DISSOLVE OR CHEW 360 tablet 1 05/13/20 25 Active Ascorbic Acid (vitamin C) 500 MG tabletIndications :Iron deficiency anemia, unspecified iron deficiency anemia type TAKE 1 TABLET BY MOUTH TWICE DAILY IN THE MORNING AND AT BEDTIME 180 tablet 03/07/20 25 Active Multiple Vitamin (Multivitamin) tablet TAKE 1 TABLET BY MOUTH EVERY MORNING WITH FOOD 90 tablet 03/07/20 25 Active D3-1000 25 MCG (1000 UT) capsule TAKE 1 CAPSULE BY MOUTH EVERY MORNING 90 capsule 03/07/20 25 Active Blood Pressure Monitor [facility] Check BP daily 1 each 05/01/20 25 Active Tirzepatide (Mounjaro) 7.5 MG/0.5ML solution auto-injectorIndi cations:Type 2 diabetes mellitus with hyperglycemia, without long-term current use of insulin (CMS/HCC) Inject 7.5 mg under the skin 1 (one) time per week. 2 mL 05/01/20 25 Active clonazePAM (KlonoPIN) 0.5 MG tabletIndications :MDD (major depressive disorder), recurrent, severe, with psychosis (CMS/HCC) TAKE 1 TABLET BY MOUTH EVERY TWELVE HOURS NEEDED FOR ANXIETY 60 tablet 05/29/20 25 Active QUEtiapine (SEROquel) 300 MG tabletIndications :MDD (major depressive disorder), recurrent, severe, with psychosis (CMS/HCC) Take 1 tablet (300 mg) by mouth at bedtime. Plus Seroquel (Quetiapine) 50 mg in the morning 90 tablet 3 06/05/20 25 Active FREESTYLE LITE test stripIndications: Type 2 diabetes mellitus with diabetic polyneuropathy (CMS/HCC),Type 2 diabetes mellitus without complications (CMS/HCC) USE DIRECTED TO TEST BLOOD SUGAR TWICE DAILY 50 strip 11 06/19/20 25 Active atorvastatin (Lipitor) 80 MG tablet TAKE 1 TABLET BY MOUTH AT BEDTIME 90 tablet 3 07/03/20 25 Active QUEtiapine (SEROquel) 50 MG tabletIndications :MDD (major depressive disorder), recurrent, severe, with psychosis (CMS/HCC) Take 1 tablet (50 mg) by mouth in the morning. Also take Seroquel (Quetiapine) 200 mg at bedtime 90 tablet 3 07/03/20 25 Active buPROPion XL (Wellbutrin XL) 150 MG 24 hr tablet Take 1 tablet (150 mg) by mouth in the morning. Do not crush, chew, or split. 90 tablet 3 07/03/20 25 Active DULoxetine (Cymbalta) [address] capsuleIndication s:MDD (major depressive disorder), recurrent, severe, with psychosis (CMS/HCC) Take 1 capsule (60 mg) by mouth 2 times daily. 180 capsule 3 07/03/20 25 Active buPROPion XL (Wellbutrin XL) 150 MG 24 hr tablet Take 1 tablet (150 mg) by mouth in the morning. Do not crush, chew, or split. 90 tablet 3 05/09/20 24 2024 Discontinued(R eorder (will not trigger notification to Pharmacy)) DULoxetine (Cymbalta) [address] capsuleIndication s:MDD (major depressive disorder), recurrent, severe, with psychosis (CMS/HCC) Take 1 capsule (60 mg) by mouth 2 times daily. 180 capsule 3 05/09/202024 Discontinued(R eorder (will not trigger notification to Pharmacy)) QUEtiapine (SEROquel) 50 MG tabletIndications :MDD (major depressive disorder), recurrent, severe, with psychosis (CMS/HCC) Take 1 tablet (50 mg) by mouth in the morning. Also take Seroquel (Quetiapine) 200 mg at bedtime 90 tablet 05/09/202024 Discontinued(R eorder (will not trigger notification to Pharmacy)) QUEtiapine (SEROquel) 300 MG tabletIndications :MDD (major depressive disorder), recurrent, severe, with psychosis (CMS/HCC) Take 1 tablet (300 mg) by mouth at bedtime. Plus Seroquel (Quetiapine) 50 mg in the morning 90 tablet 3 05/09/20 24 2024 Discontinued(R eorder (will not trigger notification to Pharmacy)) FREESTYLE LITE test stripIndications: Type 2 diabetes mellitus with diabetic polyneuropathy (CMS/HCC),Type 2 diabetes mellitus without complications (CMS/HCC) TEST BLOOD SUGAR TWICE DAILY 50 strip 11 07/18/20 24 2024 Discontinued atorvastatin (Lipitor) 80 MG tablet TAKE 1 TABLET BY MOUTH AT BEDTIME 90 tablet 3 07/25/20 24 2024 Discontinued Active Problems Problem Noted Date Diagnosed Date WADE (generalized anxiety disorder) 05/16/2025 Right maxillary sinus opacification 05/14/2025 Assessment & Plan (05/14/2025 3:13 PM EDT): - Head MRI in January 2025 showed heterogeneous soft tissue over the right maxillary sinus, etiology unknown. Follow-up sinus CT advised to exclude mass lesions. - Will evaluate with sinus CT scan - Patient was advised to follow-up visit with current ENT Pulmonary fibrosis 05/14/2025 Assessment & Plan (05/14/2025 3:22 PM EDT): - Following with [facility] h[place] [facility]. Maldon[place], last seen in December 2024. - History of histoplasmosis; patient was seen by ID specialist and thoracic surgeon. She does not require any treatment. Recurrent falls 01/29/2025 Assessment & Plan (01/29/2025 [...] Chronic Diagnosis/Chronic Conditions - will evaluate for Sjogran s Syndrome Infective sialoadenitis 07/07/2023 Assessment & Plan (07/07/2023 10:26 AM EDT): Hospitalized from 06/19 - 06/21 in [facility] Treated with IV Abx, completed Abx course [...] Dr. Edwards - will obtain abdominal CT assisted (current) use of oral hypoglycemic kayla gisele 02/26/2023 Tobacco dependence 10/07/2022 Assessment & Plan (05/01/2025 1:09 PM EDT): Last CT scan in Lung R[facility] 2 in Jul 2021 She stopped smoking in Oct 2023 Continue working on smoking cessation effort Referred back to [facility] [place], but missed appt Assessment & Plan (01/25/2025 11:55 AM EDT): Last CT scan in Lung RADS 2 in Jul 2021 She stopped smoking in Oct 2023 Continue working on smoking cessation effort Referred back to [facility] [place], but missed appt Assessment & Plan (02/20/2024 7:00 AM EDT): Last CT scan in Lung RADS 2 in Jul 2021 She stopped smoking in Oct 2023 Continue working on smoking cessation effort Referred back to [facility] [place], but missed appt Assessment & Plan (01/04/2024 9:13 AM EDT): Last CT scan in Lung RADS 2 in Jul 2021 She has cut down on smoking and stopped completely recently Continue working on smoking cessation effort Refer back to [facility] [place] Assessment & Plan (10/16/2023 11:53 AM EST): Last CT scan in Lung RADS 2 in Jul 2021 Currently 4-5 cigs per day, slowly cutting down Continue working on smoking cessation effort Start nicotine patch and gum Advised pt to check with [facility] [place] Assessment & Plan (07/07/2023 10:27 AM EDT): Last CT scan in Lung RADS 2 in Jul 2021 Currently 4-5 cigs per day, slowly cutting down Continue working on smoking cessation effort Evaluate with PFT for COPD Consider adding Long-Acting Muscarinic agonist Advised pt to check with [facility] [place] Assessment & Plan (05/12/2023 6:46 AM EDT): Last CT scan in Lung RADS 2 in Jul 2021 Currently 3-4 cigs per day, slowly cutting down Continue working on smoking cessation effort Advised pt to check with [facility] [place] Assessment & Plan (02/26/2023 11:50 AM EDT): Currently 3-4 cigs per day, slowly cutting down Continue working on smoking cessation effort Assessment & Plan (10/07/2022 11:23 AM EST): Currently 3-4 cigs per day, slowly cutting down Continue working on smoking cessation effort Sialolithiasis [...] Assessment & Plan (10/07/2022 11:23 AM EST): Referred to ENT and pt missed appt Pt states she will reschedule Osteoarthritis of multiple joints 10/07/2022 Overview (10/07/2022): Referred to environmental services project manager per pt's request Pt missed appt and states pt will reschedule Stopped smoking with greater than 20 pack year h istory 10/07/2022 Overview (10/07/2022): Followed by [facility] [place] Last seen on 08/14/21 Assessment & Plan (05/01/2025 1:09 PM EDT): Previously followed by [facility] [place] Last seen on 08/14/21, and missed recent appointment Encouraged to reschedule Assessment & Plan (10/27/2024 5:36 PM EST): Previously followed by [facility] [place] Last seen on 08/14/21, and missed recent appointment Encouraged to reschedule Assessment & Plan (02/20/2024 7:00 AM EDT): Previously followed by [facility] [place] Last seen on 08/14/21, and missed recent appointment Encouraged to reschedule Assessment & Plan (10/06/2023 7:28 AM EST): Followed by [facility] [place] Last seen on 08/14/21 Assessment & Plan (10/07/2022 11:27 AM EST): Followed by [facility] [place] Last seen on 08/14/21 Check the status of follow-up Obstructive sleep apnea syndrome 09/29/2022 Assessment & Plan (05/01/2025 1:09 PM EDT): - Sleep study on 01/2022 severe BEATRICE. - Titration sleep study on 05/12/22. AutoPAP 11-20 cm H2O recommended. - Recently seen by Dr. Hall, and was prescribed all the supplies she needed; improve adherence Assessment & Plan (01/29/2025 1:00 PM EDT): [...] Last sleep study done on 05/05/22, at [facility], recommended Auto-PAP between 11-20 cm H2O. Check the status of Auto-PAP. Assessment & Plan (01/04/2024 8:58 AM EDT): Last sleep study done on 05/05/22, at [facility], recommended Auto-PAP between 11-20 cm H2O. Check the status of Auto-PAP. Assessment & Plan (10/06/2023 7:24 AM EST): Last sleep study done on 05/05/22, at [facility], recommended Auto-PAP between 11-20 cm H2O. Check the status of Auto-PAP. Assessment & Plan (07/07/2023 10:11 AM EDT): Last sleep study done on 05/05/22, at [facility], recommended Auto-PAP between 11-20 cm H2O. Check the status of Auto-PAP. Assessment & Plan (05/12/2023 6:27 AM EDT): Last sleep study done on 05/05/22, at [facility], recommended Auto-PAP between 11-20 cm H2O. Check the status of Auto-PAP. Assessment & Plan (02/26/2023 11:45 AM EDT): Last sleep study done in April 2022, at [facility]. It was a titration study, but ideal treatment pressure was not obtained. It recommends Auto-PAP between 11-20 cm H2O. Check the status of CPAP supply. Assessment & Plan (10/07/2022 11:15 AM EST): Last sleep study done in February 2021, she was supposed to have a titration study Check the status of CPAP titration and [...] 07/02/2016 Essential hypertension 03/31/2016 Assessment & Plan (05/14/2025 3:11 PM EDT): Goal BP < 130/80 per ACC/AHA guideline BP borderline today Continue lisinopril 20 mg daily Continue working on lifestyle modifications Assessment & Plan (01/25/2025 11:52 AM EDT): [...] Assessment & Plan (10/06/2023 7:25 AM EST): Goal BP < 140/90 per JNC-8 and < 130/80 per ACC/AHA guideline Continue lisinopril 20 mg daily Treatment Hx: Has not tried other medication Continue current lifestyle modifications Continue current medications: Follow up in 3-6 mo, sooner if any problem arises Assessment & Plan (07/07/2023 10:06 AM EDT): Goal BP < 140/90 per JNC-8 and < 130/80 per ACC/AHA guideline Continue lisinopril 20 mg daily Treatment Hx: Has not tried other medication Continue current lifestyle modifications Continue current medications: Follow up in 3-6 mo, sooner if any problem arises Assessment & Plan (05/05/2023 1:45 PM EDT): Goal BP < 140/90 per JNC-8 and < 130/80 per ACC/AHA guideline Continue lisinopril 20 mg daily Treatment Hx: Has not tried other medication Continue current lifestyle modifications Continue current medications: Follow up in 3-6 mo, sooner if any problem arises Assessment & Plan (02/16/2023 5:28 PM EDT): Goal BP < 140/90 per JNC-8 and < 130/80 per ACC/AHA guideline Continue lisinopril 20 mg daily Treatment Hx: Has not tried other medication Continue current lifestyle modifications Continue current medications: Follow up in 3-6 mo, sooner if any problem arises Assessment & Plan (10/07/2022 11:05 AM EST): Goal BP < 140/90 per JNC-8 and < 130/80 per ACC/AHA guideline Continue lisinopril 20 mg daily Treatment Hx: Has not tried other medication Continue current lifestyle modifications Continue current medications: Follow up in 3-6 mo, sooner if any problem arises 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 Hall, last seen in Oct 2024. Upcoming appointment. - Last exacerbation in April 2021 - recently seen in [facility] ED on 10/19/24, and Dx [...] cardiac etiology for SOB Assessment & Plan (01/29/2025 12:59 PM EDT): - Following with [facility] Signal Operator, Dr. Hall, last seen in Oct 2024. Upcoming appointment. - Last exacerbation in April 2021 - recently seen in [facility] ED on 10/19/24, and Dx [...] (10/27/2024 5:46 PM EST): - Following with [facility] Signal Operator, Dr. Hall, last seen in March 2024. Upcoming appointment. - Last exacerbation in April 2021 - recently seen in [facility] ED on 10/19/24, and Dx [...] recieved CPAP, will check status, Obesity 12/03/2012 Assessment & Plan (05/14/2025 3:18 PM EDT): - patient is on semaglutide for diabetes, BEATRICE, and obesity Vitamin D deficiency 12/03/2012 MDD (major depressive disord er), recurrent, severe, with psychosis 12/03/2012 Assessment & Plan (05/14/2025 3:16 PM EDT): - PHQ-9 score 23; WADE 7 score 12 - Previous and differential Dxs included anxiety disorder with panic attack, PTSD, and/or schizoaffective disorder - Previously followed by [facility], in psychopharmacology clinic - Current medications: duloexetine (Cymbalta) 120 mg daily; Quetiapine 50 mg qAM and 300 mg at bedtime; bupropion XL 150 mg qAM; clonazepam 0.5 mg bid prn - Referred to integrated behavioral health service Assessment & Plan (10/26/2024 4:20 PM EST): [...] retiring, she will be referred to new [facility] psychiatric provider. Pt is aware that those will be televisits, and that the new provider is not an [facility] employee. She gives verbal consent to [...] then she will be referred to new [facility] psychiatric provider. Pt is aware that those will be televisits, and that the new provider is not an [facility] employee. She gives verbal consent to [...] today. >>ASSESSMENT AND PLAN FOR SCHIZOAFFECTIVE DISORDER ([facility]/HCC) WRITTEN ON 07/07/2023 10:11 AM BY KIMBERLY [...] (MAJOR DEPRESSIVE DISORDER), RECURRENT, SEVERE, WITH PSYCHOSIS ([facility]) WRITTEN ON 05/05/2023 1:46 PM BY KIMBERLY VILLARREAL Followed by Jaron for psychopharmacology clinic Current medications: Cymalta 120 mg daily; Quetiapine 50 mg qAM and 200 mg at bedtime, clonazepam 0.5 mg prn Continue following Tx plan per Jaron. Jaron's input appreciated. She was able to contract safety today. >>ASSESSMENT AND PLAN FOR SCHIZOAFFECTIVE DISORDER ([facility]/HCC) WRITTEN ON 05/05/2023 1:52 PM BY KIMBERLY [...] Assessment & Plan (02/26/2023 11:50 AM EDT): Followed by Jaron for psychopharmacology clinic Current [...] Pt would be interested in speaking with assistant professor of theater and the provider will consult PCP about [...] the plan. Dyslipidemia 06/17/2012 Assessment & Plan (05/01/2025 1:07 PM EDT): - last lipid profile 10/27/24 - continue Atorvastatin 80 mg nightly - continue working on lifestyle modification Assessment & Plan (01/25/2025 11:55 AM EDT): [...] mellitus, type 2 05/19/2012 Assessment & Plan (05/14/2025 3:20 PM EDT): Dx > 10 years. Hx GBP. Previously diet-controlled after GBP. Started pharmacological Tx in 2022 Hgb A1C 8.0% on 05/01/25, very slightly improved from 8.2% on 01/24/25 Continue Metformin ER 1000 mg bid Change dulaglutide 3 mg weekly to tirzepatide for a better health outcome. Start at 7.5 mg weekly. Continue dapagliflozin (Farxiga) 10 mg daily Continue working on lifestyle modifications Continue checking BG Microalbumin test: 11/28/24 No microalbutminuria. Lipid profile: 10/27/24 Diabetic eye exam: 09/24/23 Foot exam: 10/27/24 Follow up in 3 mo Assessment & Plan (01/29/2025 1:02 PM EDT): [...] Assessment & Plan (07/07/2023 10:03 AM EDT): Dx > 10 years. Hx GBP. Hgb A1C 7.6% on 07/07/23, stable from 7.5% on 05/05/23 Continue Metformin Consider adding GLP-1 agonist if pt wishes to lose weight Continue working on lifestyle modifications Continue checking BG Microalbumin test: 11/11/22, undetected Lipid profile: 11/11/22 TC 178; TG 175; HDL 41; LDL 108 Diabetic eye exam: 01/31/22 Foot exam: 06/18/22 Assessment & Plan (05/12/2023 6:48 AM EDT): Dx > 10 years. Hx GBP. Hgb A1C 7.5% on 05/05/23, improving from 8.0% on 02/16/23 Continue Metformin Consider adding GLP-1 agonist if pt wishes to lose weight Continue working on lifestyle modifications Continue checking BG Microalbumin test: 11/11/22, undetected Lipid profile: 11/11/22 TC 178; TG 175; HDL 41; LDL 108 Diabetic eye exam: 01/31/22 Foot exam: 06/18/22 Assessment & Plan (02/16/2023 5:32 PM EDT): Dx > 10 years. Hx GBP. Hgb A1C 8.0% on 02/16/23, worsened from 6.6% on 06/18/22 Start Metformin Continue working on lifestyle modifications Continue checking BG Microalbumin test: 11/11/22, undetected Lipid profile: 11/11/22 TC 178; TG 175; HDL 41; LDL 108 Diabetic eye exam: 01/31/22 Foot exam: 06/18/22 Assessment & Plan (10/07/2022 11:12 AM EST): Dx > 10 years. Hx GBP. Hgb A1C 6.6% on 06/18/22 Continue working on lifestyle modifications Continue checking BG Microalbumin test: Overdue Lipid profile: 01/14/22, will reorder Diabetic eye exam: 01/31/22 Foot exam: 06/18/22 Resolved Problems Problem Noted Date Diagnosed Date Resolved Date Acute atopic conjunctivitis 09/29/2022 05/12/2023 Encounters * This document contains information received from the source organization and may not represent a complete record from that organization. Date Type Department Care Team Description 07/03/2025 Refill [facility] [address] [place] [address] Isela Grier MD MDD (major depressive disorder), recurrent, severe, with psychosis (CMS/HCC) 07/02/2025 Refill [facility] [address] [place] [address] Isela Grier MD MDD (major depressive disorder), recurrent, severe, with psychosis (CMS/HCC) 06/21/2025 Telephone [facility] [address] [place] [address] Iseal Grier MD july recall 06/20/2025 Telephone [facility] [address] [place] [address] 06/19/2025 Results Follow-Up [facility] [address] [place] [address] Sinus w/o Contrast 06/18/2025 Refill [facility] [address] [place] [address] Isela Grier MD Type 2 diabetes mellitus with diabetic polyneuropathy (CMS/HCC); Type 2 diabetes mellitus without complications (CMS/HCC) 06/05/2025 Refill [facility] [address] [place] [address] Isela Grier MD MDD (major depressive disorder), recurrent, severe, with psychosis (CMS/HCC) 05/26/2025 Refill [facility] [address] [place] [address] Isela Grier MD MDD (major depressive disorder), recurrent, severe, with psychosis (CMS/HCC) 05/05/2025 3:20 PM EDT Office Visit [facility] [address] [place] [id number] Abdiel Myles MD Acute bacterial conjunctivitis of both eyes (Primary Dx) 05/05/2025 Travel 05/01/2025 3:15 PM EDT Office Visit [facility] [address] [place] [id number] Isela Grier MD Essential hypertension (Primary Dx); Dyslipidemia; Type 2 diabetes mellitus with hyperglycemia, without long-term current use of insulin ([facility]/HCC); MDD (major depressive disorder), recurrent, severe, with psychosis ([facility]/HCC); Chronic obstructive pulmonary disease, unspecified COPD type ([facility]); Obstructive sleep apnea syndrome; Tobacco dependence; Stopped smoking with greater than 20 pack year history; Colon cancer screening; Hearing loss, unspecified hearing loss type, unspecified laterality; Right maxillary sinus opacification; Class 2 severe obesity due to excess calories with serious comorbidity and body mass index (BMI) of 35.0 to 35.9 in adult ([facility]); Pulmonary fibrosis ([facility]/HCC) 05/01/2025 Travel 04/27/2025 Telephone [facility] [address] [place] [id number] Luanne Miles MA chart prep 04/06/[address] [id number] Rosi Saxena MD Moderate persistent asthma, uncomplicated 04/06/2025 Telephone [address] [phone] Isela Grier MD Durable Medical Equipment (DME Order: Nebulizer) from Last 3 Months Immunizations Immunization Administration Dates Next Due Hep A, Adult [...] Sign Reading Time Taken Comments Blood Pressure 120/94 05/05/2025 2:51 PM EDT Pulse 95 05/05/2025 2:51 PM EDT Temperature 37.1 C (98.8 F) 05/05/2025 2:51 PM EDT Respiratory Rate 20 05/05/2025 2:51 PM EDT Oxygen Saturation 95% 05/05/2025 2:51 PM EDT Inhaled Oxygen Concentration - - Weight 85.9 kg (189 lb 6.4 oz) 05/05/2025 2:51 P M EDT Height 154.9 cm (5' 1 ) 05/01/2025 3:43 PM EDT Body Mass Index 35.79 05/01/2025 3:43 PM EDT Plan of Treatment Health Maintenance Due Date Last Done Comments CT Colonography 1957 FIT DNA/Cologuard 1957 FIT 1957 FOBT 1957 Sigmoidoscopy 1957 Eye Exam 1967 RSV Patients and Patients Aged 60 years or older (1 - Risk 60-74 years 1-dose series) 2017 Colonoscopy 05/09/2024 05/09/2014 Colorectal Cancer Screening 05/09/2024 COVID-19 Vaccine ( season) 2025 10/27/2024, 12/21/2023, 05/21/2022, Additional history exists Influenza Vaccine (#1) 2025 , 07/07/2023, 07/18/2022, Additional history exists Diabetes: Hemoglobin A1C 08/01/2025 025, 01/24/2025, 10/27/2024, Additional history exists Diabetes: Foot Exam 10/27/2025 10/27/2024 Lipid Panel 10/27/2025 10/27/2024, 11/27, 11/11/2022, Additional history exists Depression Monitoring 11/16/2025 05/16/2025, 025 Diabetes: Urine Protein Screening 11/28/2025 11/28/2024, 12/21/2023, 05/21/2020 Alcohol/Substance Use Screening 05/01/2026 05/01/2025 SDOH Screening 05/01/2026 05/01/2025 Tobacco Screening 05/14/2026 05/14/2025 Mammogram 11/09/2026 11/09/2024, 10/26, 11/09/2024, Additional history [...] Procedure Name Priority Date/Time Associated Diagnosis Comments CT SINUS WO CONTRAST Routine 06/09/2025 Right maxillary sinus opacification POCT GLYCOSYLATED HEMOGLOBIN (HGB A1C) Routine 05/01/2025 3:43 PM EDT Type 2 diabetes mellitus with hyperglycemia, without long-term current use of insulin (CMS/[facility]) POCT GLUCOSE Routine 05/01/2025 3:42 PM EDT Type 2 diabetes mellitus with hyperglycemia, without long-term current use of insulin (CMS/[facility]) ALBUMIN, RANDOM URINE W/CREATININE Routine 11/28/2024 9:30 AM EST Type 2 diabetes mellitus with hyperglycemia, without long-term current use of insulin ([facility]) HM MAMMOGRAPHY Routine 11/09/2024 LIPID PANEL WITH REFLEX TO DIRECT LDL Routine 10/27/2024 12:13 PM EST Type 2 diabetes mellitus with hyperglycemia, without long-term current use of insulin ([facility]) COLONOSCOPY Routine 05/09/2014 from Last 3 Months or Most Recently Relevant to Health Maintenance Results * CT Sinus w/o Contrast (06/09/2025) Anatomical Region Laterality Modality Computed Tomogra phy us Isela Grier MD IMG CT PROCEDURES Final Result * (ABNORMAL) POCT glycosylated hemoglobin (Hgb A1c) (05/01/2025 3:43 PM EDT) Hemoglobin A1C 8.0(A) 4.0 - 5.7 % QC Media Lot # [id number] Lot# Expiration Date Blood Capillary blood specimen / Unknown 05/01/2025 3:43 PM EDT us Isela Grier MD POINT OF CARE TEST ENTER/EDIT OR DERABLES Final Result * POCT glucose manually resulted (05/01/2025 3:42 PM EDT) Glucose Blood, POC 135 60 - 200 mg/dL QC Media Lot # [id number] Lot# Expiration Date Blood Capillary blood specimen / Unknown 05/01/2025 3:42 PM EDT Isela Grier MD POINT OF CARE TEST ENTER/EDIT OR DERABLES Final Result * Albumin, Random Urine W/Creatinine (11/28/2024 9:30 AM EST) Creatinine, Urine 187.33 mg/dL [facility] Microalbumin Urine 11.0 mg/L [facility] Microalbum Creatinine Ratio Ur 5.8 <30 ug/mg cr [facility] Comment:Albumin/Creatinine R atio Reference Ranges: Normal: < 30 ug/mg creatinine Microalbuminuria: 30 - 300 ug/mg creatinineClinical Albuminuria: > 300 ug/mg creatinine Urine 11/28/2024 9:30 AM EST 11/28/2024 10:29 AM EST Isela Grier MD LAB URINE ORDERABLES Final Resul t [facility] [address] [place] [address] [phone] * Mammography (11/09/2024) Mammogram BIRADS 1 Normal, Abnormal, BIRADS 1 , BIRADS 2 Anatomical Region Laterality Modality Other 11/09/2024 Luis Aguayo MD HEALTH MAINTENANCE Final Result * (ABNORMAL) Lipid Panel with Reflex to Direct LDL (10/27/2024 12:13 PM EST) Triglycerides 125 <150 mg/dL [facility] Comment:Desirable Triglyceri de: less than 150 mg/dLBorderline High Triglyceride 150-199 mg/dLHigh Triglyceride: 200-499 mg/dLVery High Triglyceride: greater than or equal to 5OO mg/dL Cholesterol 110 <200 mg/dL [facility] Comment:Desirable Cholestero l: less than 200 mg/dLBorderline High Cholesterol: 200-239 mg/dLHigh Cholesterol: greater than 239 mg/dL LDL Cholesterol Calculated 52 <100 mg/dL [facility] Comment:Desirable LDL: less than 100 mg/dLNear Optimal/Above Optimal LDL: 110- 129 mg/dLBorderline High LDL: 130-159 mg/dLHigh LDL: 160-189 mg/dLVery High LDL: greater than or equal to 190 mg/dL HDL Cholesterol 33(L) >40 mg/dL [facility] Comment:Desirable HDL: great er than 40 mg/dL Note: This HDL assay may give artificially low results in patients with liver disease. Blood 10/27/2024 12:1 3 PM EST 10/27/2024 1:00 PM EST Isela Grier MD LAB BLOOD ORDERABLES Final Resul t [facility] [address] [place] [phone] * Colonoscopy (05/09/2014) Colonoscopy Normal Normal [facility] External Provider HEALTH MAINTENANCE Final Result from Last 3 Months or Most Recently Relevant to Health Maintenance Insurance [facility] [employer] (O D-SNP) Care Teams Receiving Associate Relationship Specialty Start Date End Date Isela Grier MD [address] [place] [phone] PCP - General Family Medicine 10/26/18 Jaron Ambrose FNP [address] [place] [phone] Nurse Practitioner Family Medicine 09/21/23
--- OUTSIDE RECORDS SUMMARY | 2025-07-04 12:21 | XMS_ITS | Encounter Summary ---
Author Organization [employer] Address [address] [facility] 7 [place] [address] Care Team Providers Care Service Clerk Name Role Phone Isela Grier MD Primary Care Provider [phone] Jaron Ambrose Unavailable Unavailable Reason for Visit * Reason Comments Med Refill Encounter Details Date Type Department Care Team (Late st Contact Info) Description 09/21/2024 Refill [facility] [address] [place], [place] [phone] Isela Grier MD [address] [place], [place] [phone] Social History Tobacco Use Types Packs/Day Years [...] documented as of this encounter Care Teams Service Clerk Relationship Specialty Start Date End Date Isela Grier MD [address] [place] [address] PCP - General Family Medicine 10/26/18 Jaron Ambrose FNP [address] [place] [address] Nurse Practitioner Family Medicine 09/21/23 documented as of this encounter
--- OUTSIDE RECORDS SUMMARY | 2025-07-04 12:21 | XMS_ITS | Encounter Summary ---
Author Organization [employer] Address [address] [facility] 7t [place] [address] Care Team Providers Care Outside Sales Engineer Name Role Phone Isela Grier MD Primary Care Provider [phone] Jaron Ambrose Unavailable Unavailable Encounter Details Date Type Department Care Team (Late st Contact Info) Description 06/19/2025 Results Follow-Up [facility] [address] [place], [place] [phone] Isela Grier MD [address] [place], [place] [phone] CT Sinus w/o Contrast Social History Tobacco Use Types Packs/Day Years Used Date Smoking Tobacco: Every Day Cigarettes Passive Smoke Exposure: Current Smokeless Tobacco: Never Depression Answer Date Recorded Patient Health Questionnaire-9 Score 05/16/2025 Patient Health Questionnaire-9 Score 05/16/2025 Last PHQ-9: Questionnaire Data Not on file 0 05/16/2025 Housing Stability Answer Date Recorded What is your housing situation today? I have sharon iisdro 05/01/[address] you li [...] documented as of this encounter Care Teams Outside Sales Engineer Relationship Specialty Start Date End Date Isela Grier MD [address] [place] [address] PCP - General Family Medicine 10/26/18 Jaron Ambrose FNP [address] [place] [address] Nurse Practitioner Family Medicine 09/21/23 documented as of this encounter
--- OUTSIDE RECORDS SUMMARY | 2025-07-04 12:22 | XMS_ITS | Encounter Summary ---
Author Organization [employer] Address [address] [facility] 7 [place] [address] Care Team Providers Care Urologic Surgeon Name Role Phone Isela Grier MD Primary Care Provider [phone] Jaron Ambrose Unavailable Unavailable Reason for Visit * Reason Comments Med Refill Encounter Details Date Type Department Care Team (Late st Contact Info) Description 07/02/2025 Refill [facility] [address] [place], [place] [phone] Isela Grier MD [address] [place], [place] [phone] MDD (major depressive disorder), recurrent, severe, with [...] documented as of this encounter Care Teams Urologic Surgeon Relationship Specialty Start Date End Date Isela Grier MD [address] [place] [address] PCP - General Family Medicine 10/26/18 Jaron Ambrose FNP [address] [place] [address] Nurse Practitioner Family Medicine 09/21/23 documented as of this encounter
== END 2025-07-04 11:01 | disposition home or self-care (01) ==
LOC: HO.HPS 10:31
PROVIDERS: PCP Family Medicine; Visit Provider Hospitalist
DX: J41.0 Simple chronic bronchitis (principal); G47.33 Obstructive sleep apnea (adult) (pediatric); R06.09 Other forms of dyspnea; Z01.811 Encounter for preprocedural respiratory examination; Z87.891 Personal history of nicotine dependence
CPT/HCPCS: 99214; G2211

== ENCOUNTER → 2025-07-04 10:31 | Outpatient (BNVA) | payer OTHER, SELFPAY | PROVIDERS: PCP Family Medicine; Visit Provider Hospitalist | DX: Z01.811 Encounter for preprocedural respiratory examination (principal); R06.09 Other forms of dyspnea; J41.0 Simple chronic bronchitis; G47.33 Obstructive sleep apnea (adult) (pediatric); Z87.891 Personal history of nicotine dependence | CPT/HCPCS: 93005; 99202; 99212 ==

== ENCOUNTER 2025-07-04 12:10 | Outpatient (AMB) | payer OTHER, SELFPAY ==
[2025-07-04 12:50] VITALS: BP 120/76; PULSE 85; BMI 36.7
--- NOTE | 2025-07-04 12:50 | A.OFFVIS_ITS ---
Vital Signs 07/04/25 12:50 Height 5 ft 1 in Weight 194 lb 0.108 oz BMI 36.7 BP 120/76 Blood Pressure Location Lt brachial Position Sitting Pulse 85 Intake Visit Reasons: spinner cap frame/dr. hall/dyspnea Intake Note: New patient Dr Hall dx sob per patient was seen in [place] more then 10 years ago c/o sob and some chest pains Steward/Stewardess Second Class Required: No Allergies No Known Allergies (No Known Allergies*) Allergy (Verified 07/04/25 10:48) Medication List - Last Reconciled 07/04/25 by Matt Rey MD albuterol sulfate mg inhalation QID PRN albuterol sulfate 90 mcg/actuation 2 inhalations inhalation Q6H PRN 30 days alcohol swabs (Alcohol Prep Pads) 0 pad topical BID atorvastatin 80 mg PO DAILY blood sugar diagnostic (FreeStyle Lite Strips) As directed bupropion HCl XL 150 mg PO DAILY cholecalciferol (vitamin D3) (Vitamin D3) 25 mcg PO DAILY clonazepam 0.5 mg PO DAILY PRN CPAP (CPAP Machine/Device) As directed cyanocobalamin (vitamin B-12) 1,000 mcg PO DAILY duloxetine 120 mg PO DAILY fluticasone propionate 50 mcg/actuation 1 spray intranasal DAILY mpjthmjfynu-uuptxgyvf-vbhnvgjo 100-62.5-25 mcg (Trelegy Ellipta) 1 inh inhalation DAILY 30 days folic acid 0.4 mg PO DAILY furosemide (Lasix) 20 mg PO DAILY lisinopril 20 mg PO DAILY loratadine 10 mg PO DAILY metformin 500 mg PO DAILY montelukast 10 mg PO DAILY multivitamin (One Daily Multivitamin tablet) 1 tab PO DAILY naproxen 500 mg PO BID nebulizers As directed omeprazole 20 mg PO DAILY quetiapine 100 mg PO BEDTIME sodium,potassium,mag sulfates 17.5-3.13-1.6 gram (Suprep Bowel Prep Kit) DILUTE; drink full amount early evening before AND next morning at least 2 hr before procedure; follow w 960 mL water PO HPI Comments Details: Thank you for referring iris in cardiology consultation today for exertional shortness of breath. Patient in his 70-year-old female with prior history of significant COPD currently being followed in Pulmonary here, hypertension, diabetes, hyperlipidemia, obesity as well as obstructive sleep apnea. Patient has been for years getting increasing exertional shortness of breath. Currently now can not walk long distances without getting shortness of breath with the associated chest tightness. Patient denies any orthopnea, PND, leg edema. She says she does do a lot of wheezing. Although this has been optimized with medications by Pulmonary. Patient was referred here for further cardiac workup. In November she had an echocardiogram done which showed normal LV ejection fraction with borderline diastolic dysfunction without significant pulmonary hypertension valvular abnormalities. Given her multiple risk factors concern was myocardial ischemia. [facility] Medical History Colon cancer screening Dyspnea COPD (chronic obstructive pulmonary disease) Abdominal pain Vitamin B12 deficiency anemia Depression Personal history of nicotine dependence Hyperlipidemia Hypertension, essential, benign Obstructive sleep apnea (~2007) Surgical History History of tonsillectomy History of hysterectomy History of gastric bypass History of colonoscopy History of hernia repair History of lung surgery Social History Alcohol intake: never Patient Tobacco Use Status: Former Tobacco user Review of Systems Const Denies chills, Denies daytime sleepiness, Denies fatigue, Denies fever(s), Denies frequent falls, Denies poor appetite, Denies snoring, Denies stops breathing during sleep, Denies weakness, Denies weight gain and Denies weight loss Eyes Denies loss of vision ENT Denies dizziness and Denies hearing loss Card Reports chest pain, Denies claudication, Denies leg edema, Denies lightheadedness, Denies palpitations, Reports dyspnea, Denies dyspnea on exertion and Denies orthopnea Resp Denies cough, Denies excessive phlegm production, Reports dyspnea, Denies dyspnea on exertion, Denies snoring and Denies wheezing GI Denies abdominal pain, Denies hematochezia, Denies change in bowel habits, Denies nausea and Denies vomiting Denies urinary frequency and Denies dysuria Musc Denies arthralgias, Denies muscle weakness and Denies numbness Skin/Breast Denies nail changes and Denies rash Neuro Denies Abnormal speech present, Denies dizziness, Denies frequent falls, Denies loss of vision, Denies memory loss, Denies numbness and Denies weakness Psych Denies depression and Denies memory loss Endo Denies fatigue and Denies palpitations Tyrell/Lymph Reports easy bruising and Reports other (anemia) Aller/Immun Denies wheezing Physical Exam Vital Signs: Last Vital Signs Pulse 85 07/04/25 12:50 BP 120/76 07/04/25 12:50 BMI result Body Mass Index 36.7 Const General: cooperative, comfortable, no acute distress, alert and awake Nutritional Appearance: obese Orientation/consciousness: patient oriented x3 Limitations: no limitations HEENT Head: Yes normocephalic and Yes atraumatic Neck Neck: Yes trachea midline, Yes supple and Yes no JVD Resp Effort & Inspection: normal respiratory effort Auscultation: no rales, no wheezes and diminished lung sounds Cardio Jugular venous distension: no JVD Rate: regular rate Rhythm: regular rhythm Heart sounds: S1 normal heart sound present, S2 normal heart sound present, no click, no gallops, no murmurs and no rubs GI Auscultation: normal bowel sounds Skin General skin exam: no rashes or lesions noted Neuro General: patient oriented x3 and no focal motor deficits Speech: No Abnormal speech present Extrem General: Yes no clubbing, cyanosis or edema Psych Appearance: grossly normal Office Procedures EKG Details: EKG shows normal sinus rhythm with normal EKG [id number], Complete Assessment & Plan Assessment & Plan (1) Dyspnea: Code(s): R06.00 - Dyspnea, unspecified Category: Medical Qualifiers: Dyspnea type: dyspnea on exertion Qualified Code(s): R06.09 - Other forms of dyspnea Plan: Exertional shortness of breath associated with chest tightness in his elderly woman with multiple risk factors including hypertension, diabetes, prior smoking, hyperlipidemia as well as obesity. Myocardial ischemia suddenly likely and needs to be ruled out. Given her limited exercise capacity will suggest her to undergo vasodilating myocardial perfusion imaging to further assess for the same. This will be scheduled in near future. Reason and rationale for myocardial perfusion imaging was discussed with her. She understands agrees. She does have mild diastolic dysfunction although has no significant pulmonary hypertension with left atrial enlargement of valvular abnormalities. Unlikely to be contributing to his shortness of breath. If her myocardial perfusion imaging in his normal most likely shortness of breath related to her underlying pulmonary parenchymal disease with obesity and deconditioning. Will follow up after the above-mentioned test. Thank you for allowing me to partake in her care Orders: Orders CA lexiscan stress w denilson Today R06.09 - Other forms of dyspnea Coding Level of Care Code New Pt Level 4 (78996) Complex EM visit Add On G2211 Diagnoses Dyspnea on exertion R06.09 Dyspnea type: dyspnea on exertion CPT Codes EKG - CPT: 30154-[id number], Complete ([id number])
== END 2025-07-04 13:17 | disposition home or self-care (01) ==
LOC: HO.HCS 12:11
PROVIDERS: PCP Family Medicine; Visit Provider Internal Medicine Cardiovascular Disease
DX: R06.09 Other forms of dyspnea (principal)
CPT/HCPCS: 93010; 99204; G2211

== ENCOUNTER 2025-09-27 16:38 | Outpatient (REF) | payer OTHER, SELFPAY ==
--- OUTSIDE RECORDS SUMMARY | 2025-09-24 23:59 | XMS_ITS | Continuity of Care Document ---
Author Organization [facility] ter Address [address] [place] [id number]- Care Team Providers Care Talent Director Name Role Phone Marvel GOODSON, Isela Primary Care Physician [place] [facility] [place] 07/28/25 - 09/24/[address] [address]- Attending Physician: Jose Tesfaye MD Admitting Physician: Jose Tesfaye MD Encounter Type: Preadmit Daystay Allergies, Adverse Reactions, Alerts No Known Allergies Immunizations Given and Recorded Vaccine Date Status Refusal Reason pneumococcal 23-valent vaccine 03/24/16 Given Medications alendronate 70 mg oral tablet take 1 tablet by mouth once a week with 6 to 8 oz of water 30 min before first food of day. do not lie down for 30 minutes Start Date: 08/11/25 Status: Ordered Medication Dispense Status: Completed Total Allowed Fills: 1 Fills Dispensed: 0 atorvastatin 80 mg oral tablet 1 tablet = 80 mg, By Mouth, Daily at bedtime, # 90 tablet, 0 Refills, Maintenance, 06/19/23 12:44:00AM EDT, Tablet, Partial fill upon patient request if the prescription is for a schedule II opioid drug. Start Date: 06/19/23 Status: Ordered Medication Dispense Status: Completed Quantity: 90.0 Unit: tablet Total Allowed Fills: 1 Fills Dispensed: 0 buPROPion 150 mg/24 hours (XL) oral tablet, extended release 1 tablet = 150 mg, By Mouth, Every 24 hours, # 30 tablet, 0 Refills, Maintenance, 06/19/23 12:41:00 AM EDT, ER Tablet, Partial fill upon patient request if the prescription is for a schedule II opioiddrug. Start Date: 06/19/23 Status: Ordered Medication Dispense Status: Completed Quantity: 30.0 Unit: tablet Total Allowed Fills: 1 Fills Dispensed: 0 clonazePAM 0.5 mg oral tablet 1 tablet = 0.5 mg, By Mouth, 3 times a day, 0 Refills, Maintenance, 12/01/23 4:23:00 PM EST, Tablet, Partial fill upon patient request if the prescription is for a schedule II opioid drug. Start Date: 12/01/23 Status: Ordered Medication Dispense Status: Completed Total Allowed Fills: 1 Fills Dispensed: 0 Colace sodium 100 mg oral capsule 200 mg, 2, capsule, By Mouth, 2 times a day, # 120 capsule, Refills 0, Tot. Refills 0, Maintenance,09/07/18 10:56:53 AM EST, Print Requisition Start Date: 09/07/18 Status: Ordered Medication Dispense Status: Completed Quantity: 120.0 Unit: capsule Total Allowed Fills: 1 Fills Dispensed: 0 duloxetine 60 mg oral enteric coated capsule 2 capsule = 120 mg, By Mouth, Daily, do not crush or chew, # 60 capsule, 0 Refills, Maintenance, 06/19/23 12:41:00 AM EDT, CR Capsule, Partial fill upon patient request if the prescription is for a schedule II opioid drug. Start Date: 06/19/23 Status: Ordered Medication Dispense Status: Completed Quantity: 60.0 Unit: capsule Total Allowed Fills: 1 Fills Dispensed: 0 Farxiga 10 mg oral tablet TAKE 1 TABLET BY MOUTH EVERY DAY Start Date: 08/11/25 Status: Ordered Medication Dispense Status: Completed Total Allowed Fills: 1 Fills Dispensed: 0 lisinopril 10 mg oral tablet 20 mg, 2, tablet, By Mouth, Daily, # 30 tablet, Refills 0, Maintenance, 09/06/18 5:16:07 AM EST Start Date: 09/06/18 Status: Ordered Medication Dispense Status: Completed Quantity: 30.0 Unit: tablet Total Allowed Fills: 1 Fills Dispensed: 0 loratadine 10 mg oral tablet 10 mg, 1, tablet, By Mouth, Daily, # 30 tablet, Refills 0, Maintenance, 06/19/23 12:44:00 AM EDT, Partial fill upon patient request if the prescription is for a schedule II opioid drug. Start Date: 06/19/23 Status: Ordered Medication Dispense Status: Completed Quantity: 30.0 Unit: tablet Total Allowed Fills: 1 Fills Dispensed: 0 MetFORMIN (Eqv-Glucophage XR) 500 mg oral tablet, extended release TAKE 1 TABLET BY MOUTH TWICE DAILY IN THE MORNING AND IN THE EVENING BEFORE MEALS Start Date: 06/19/23 Status: Ordered Medication Dispense Status: Completed Total Allowed Fills: 1 Fills Dispensed: 0 montelukast 10 mg oral tablet 10 mg, By Mouth, Daily at bedtime, Refills 0, Maintenance, 09/07/18 10:57:32 AM EST Start Date: 09/07/18 Status: Ordered Medication Dispense Status: Completed Total Allowed Fills: 1 Fills Dispensed: 0 Mounjaro 7.5 mg/0.5 mL subcutaneous solution INJECT ONE PEN (=7.5MG) SUBCUTANEOUSLY ONCE A WEEK DIRECTED Start Date: 08/11/25 Status: Ordered Medication Dispense Status: Completed Total Allowed Fills: 1 Fills Dispensed: 0 omeprazole 20 mg oral enteric coated capsule 1 capsule = 20 mg, By Mouth, Daily, # 30 capsule, 0 Refills, Maintenance, 03/24/16 11:27:11 AM EDT, EC Capsule Start Date: 03/24/16 Stop Date: 04/23/16 Status: Ordered Medication Dispense Status: Completed Quantity: 30.0 Unit: capsule Total Allowed Fills: 1 Fills Dispensed: 0 QUEtiapine 200 mg oral tablet 200 mg, 1, tablet, By Mouth, Daily at bedtime, # 180 tablet, Refills 0, Maintenance, 06/19/23 12:42:00 AM EDT, Partial fill upon patient request if the prescription is for a schedule II opioid drug. Start Date: 06/19/23 Status: Ordered Medication Dispense Status: Completed Quantity: 180.0 Unit: tablet Total Allowed Fills: 1 Fills Dispensed: 0 QUEtiapine 50 mg oral tablet 1 tablet = 50 mg, By Mouth, Daily, # 30 tablet, 0 Refills, Maintenance, 06/19/23 12:43:00 AM EDT, Tablet, Partial fill upon patient request if the prescription is for a schedule II opioid drug. Start Date: 06/19/23 Status: Ordered Medication Dispense Status: Completed Quantity: 30.0 Unit: tablet Total Allowed Fills: 1 Fills Dispensed: 0 Trelegy Ellipta 100 mcg-62.5 mcg-25 mcg/inh inhalation powder 1 inhalation, Inhalation, Daily, at the same time every day, 0 Refills, Maintenance, 08/11/25 12:16:00 PM EDT, Powder, Partial fill upon patient request if the prescription is for a schedule II opioid drug. Start Date: 08/11/25 Status: Ordered Medication Dispense Status: Completed Total Allowed Fills: 1 Fills Dispensed: 0 Vitamin B-12 1000 mcg oral tablet 1,000 mcg, 1, tablet, By Mouth, Daily, # 30 tablet, Refills 0, Maintenance, 06/19/23 1:22:00 AM EDT,Partial fill upon patient request if the prescription is for a schedule II opioid drug. Start Date: 06/19/23 Status: Ordered Medication Dispense Status: Completed Quantity: 30.0 Unit: tablet Total Allowed Fills: 1 Fills Dispensed: 0 Vitamin C 500 mg oral tablet 1 tablet = 500 mg, By Mouth, Daily, # 30 tablet, 0 Refills, Maintenance, 06/19/23 1:23:00 AM EDT, Tablet, Partial fill upon patient request if the prescription is for a schedule II opioid drug. Start Date: 06/19/23 Status: Ordered Medication Dispense Status: Completed Quantity: 30.0 Unit: tablet Total Allowed Fills: 1 Fills Dispensed: 0 Vitamin D3 1000 intl units oral capsule 1 capsule = 25 mcg, By Mouth, Daily, # 100 capsule, 0 Refills, Maintenance, 06/19/23 1:23:00 AM EDT,Capsule, Partial fill upon patient request if the prescription is for a schedule II opioid drug. Start Date: 06/19/23 Status: Ordered Medication Dispense Status: Completed Quantity: 100.0 Unit: capsule Total Allowed Fills: 1 Fills Dispensed: 0 Problem List Condition Confirmation Course Effective Dates Status Health St atus Informant Chest pain at rest Confirmed Active HLD (hyperlipidemia) Confirmed Active HTN (hypertension) Confirmed Active Depression with anxiety Confirmed Active Moderate persistent asthma Confirmed Active Morbid obesity Confirmed 01/09/11 Active Obese class II Confirmed Active BEATRICE (obstructive sleep apnea) Confirmed Active OA (osteoarthritis) Confirmed Active Type 2 diabetes mellitus Confirmed Active Social History Social History Type Response Smoking Status Current every day sm oker; Type: Cigarettes; Previous treatment: None; Interested in cessation: No entered on: 12/23/14 Sex Female Sex Representation Female (finding) History and physical note * Event Display: History and Physical Hospital Authored Date: [id number] SURGICAL HISTORY AND PHYSICAL DATE: 08/29/2025 PRIMARY DIAGNOSIS: Osteoarthritis of the left knee. REASON FOR ADMISSION: The patient is being admitted for a left total knee arthroplasty by Dr. Tesfaye on 08/29/2025. HISTORY OF PRESENT ILLNESS: Ms. Ly is a very pleasant, mostly Tajik- speaking 70-year-old female with her daughter present to help with translation. The patient has a known longstanding history of left knee osteoarthritis, which has failed conservative management. She reports the pain is severe and worsens with activity. It has gotten to the point where it is affecting her ability to perform activities of daily living as well as daily social tasks and she is now interested in pursuing a left total knee by Dr. Tesfaye on 08/29/2025. PAST MEDICAL HISTORY: 1. Osteoarthritis of the left knee. 2. Asthma: The patient reports currently she went to the emergency room on 08/21; however, she waited too long and nobody came to see her, so she went home. She has [employer] insurance and they sent a provider to her house who gave her a prescription for prednisone and doxycycline for an asthma exacerbation. She is following up with her primary care today. She states that she is feeling much better. 3. Depression with anxiety. 4. Hyperlipidemia. 5. Hypertension. 6. Morbid obesity. Current weight is 91 kg. 7. Obstructive sleep apnea: The patient wears a CPAP at night with unknown settings. 8. Postoperative bile leak after a lap mal. 9. Type 2 diabetes. Hemoglobin A1c is 7.3. 10. The patient reports she has panic attacks at times with anesthesia. PAST SURGICAL HISTORY: 1. She had an ERCP in 2018. 2. A hysterectomy. 3. A gastric bypass. 4. Hernia repair. 5. Carpal tunnel decompression. 6. Lap mal. MEDICATIONS: The patient did not bring a list of her medications with her to the appointment. This was taken from her external fill history. 1. Prednisone 20 mg. She is taking two tablets every day for 4 days. 2. Doxycycline 100 mg. She takes one capsule twice a day for 7 days. 3. Trelegy inhaler 100 mcg. She is using one puff every day at the same time. Trelegy 100 mcg/62.5/25. 4. Loratadine 10 mg in the morning. 5. Mounjaro once weekly. She usually injects on Mondays. She knows to hold it this Thursday coming up. 6. Montelukast 10 mg in the evening. 7. Fluticasone nasal spray. 8. Tylenol with codeine. She takes as needed for pain. In the past, she states she has a few pills left. 9. Clonazepam 0.5 mg every 12 hours as needed for anxiety. 10. Atorvastatin 80 mg at bedtime. 11. Bupropion 300 mg. It looks like she is taking 150 mg daily. 12. Duloxetine 60 mg. She takes two tabs once a day. 13. Farxiga 10 mg every day, which she knows to hold 3 days prior to surgery. 14. Lisinopril 20 mg in the morning. 15. Seroquel 50 mg daily in the morning. 16. Metformin 1000 mg twice a day. 17. Seroquel. She is using 300 mg daily at bedtime. 18. Vitamin D. 19. Vitamin C. 20. Vitamin B12. ALLERGIES: No known drug allergies. SOCIAL HISTORY: She denies any alcohol, tobacco, or illicit drug use. PHYSICIANS: The patient's primary care physician is Kelly Diamond. REVIEW OF SYSTEMS: The patient's 12-point review of systems is negative with the exception of HPI. She does endorse some shortness of breath and cough from her recent asthma exacerbation, although she feels much better. PHYSICAL EXAMINATION: VITAL SIGNS: Weight is 191 pounds. GENERAL: Alert and oriented with normal insight, affect, and grooming. SKIN: Intact without rash or lesions. Nails without clubbing or cyanosis. HEENT: Normocephalic. Conjunctivae pink. Sclerae anicteric. NECK: Supple. CHEST: Lungs are clear to auscultation bilaterally. She does have a left lower lobe external expiratory wheeze. Breathing is unlabored. CARDIOVASCULAR: Heart has a regular rate and rhythm with normal S1, S2. No murmurs, rubs or gallopsappreciated. ABDOMEN: Obese, soft, nontender. EXTREMITIES: Lower Extremities: The patient has a negative straight leg raise test bilaterally. Left knee: Skin is intact without erythema, induration, or ecchymosis. Range of motion is 10-120. She has moderate laxity with varus/valgus stress testing. She has slight crepitus. Calves are supple and nontender. Ankle motion is satisfactory. Pedal pulses palpable bilaterally and skin about the feet is intact. PREOPERATIVE DIAGNOSTIC DATA: Orthopedic x-rays demonstrate end-stage osteoarthritis of the left knee. There is ikag-[id number] articulation, subchondral sclerosis, and osteophyte formation. EKG reads sinus rhythm at 89 beats per minute. LABORATORY DATA: Laboratory data is satisfactory with a hemoglobin A1c of 7.3. ASSESSMENT AND PLAN: The patient has end-stage osteoarthritis of the left knee and is now scheduledfor a left total knee arthroplasty by Dr. Tesfaye on 08/29/2025. She was seen by the [facility] who considered her low pulmonary and cardiovascular risk for surgery. We will reach out to the patient's primary care physician as she recently went to the emergency room for an asthma exacerbation and has been put on prednisone and doxycycline. The patient will receive IV TXA and be placedon Eliquis 2.5 mg twice a day for 30 days for DVT prophylaxis due to her history of gastric bypass.She states she can tolerate Aleve, so we will try Celebrex in the hospital. We will monitor her point of cares q.i.d. with a corresponding SSI. Discharge plans will be to home with services. She is requesting to stay a few days in the hospital. We will monitor her on end-tidal CO2 due to her CPAP use and order one for her overnight with her home settings, which she will bring with her to the hospital. She has been counseled regarding the risks and benefits of the proposed procedure. Her questions have been answered and she acknowledges understanding. The patient wishes to proceed with surgery. CONTACTS: Her daughter, Guzman, with a phone number of [phone]. Prescriptions given today include none. She will require prescriptions for Eliquis, Colace, pain medicine, and possibly Celebrex if she can tolerate it while in the hospital due to her gastric bypass. Dictated by: Tori Cabral N.P. Signing Clinician: Jose Tesfaye M.D. Dictated: 08/23/2025 08:22:50 Transcribed: 03:47:48 AM Transcribed by: NIC DocID: [id number] PRELIMINARY REPORT UNLESS MANUALLY/ELECTRONICALLY SIGNED Electronically Signed on 09/04/25 03:13 PM Tori Cabral NP Electronically Signed on 09/04/25 04:22 PM Mera GOODSON, Jose Cristobal Patient Care team information Care Team Personnel Name: Celina Mcginnis RN Position: [facility] RN Member Role: Primary Care Nurse Name: Braden Faye RN Position: S RN Member Role: Primary Care Nurse Name: Felipa Sanchez RN Position: [facility] RN Member Role: Primary Care Nurse Name: Isela Grier MD Position: S Outreach Member Role: PCP Address: [address] [place] [address] Telecom: Name: Yohana Greenfield RN Position: [facility] RN Member Role: Primary Care Nurse Care Team Related Persons Name: CRISTA LOU Insurance Providers Guarantor name: [facility] [place] Information #: 1 Payer: [facility] CM[employer]LT [employer] Payer Identifier: ALBERTO Member Number: [id number] Group Number: [id number] Subscriber Identifier: [id number] Relationship to Subscriber: self Coverage Type: Medicare Managed Care (Includes Medicare Advantage Plans) Coverage Verification Date: ALBERTO Telecom: Address:
--- OUTSIDE RECORDS SUMMARY | 2025-09-25 14:27 | XMS_ITS | Continuity of Care Document ---
Author Organization [facility] ter Address [address] [place] [address]- Care Team Providers Care Behavioral Science Chair Name Role Phone Marvel GOODSON, Isela Primary Care Physician Encounter [facility] Date(s): 09/25/25 - 09/25/[address] [address]- Discharge Disposition: A-D/C Home Attending Physician: Elva Tim DO Admitting Physician: Elva Tim DO Referring Physician: Not on Staff, Referring MD Encounter Type: Disch ES Allergies, Adverse Reactions, Alerts No Known Allergies [...] Total Allowed Fills: 1 Fills Dispensed: 0 Mental Status Mental Status Assessment Assessment Assessment Component Result Effecti ve Date Wilder coma score total 15 09/25/25 Mental Status Assessment Assessment Assessment Component Result Effecti ve Date [place] coma score total 15 09/25/25 Problem List Condition Confirmation Course Effective Dates Status Health St at[facility] Informant Chest pain at rest Confirmed Active HLD (hyperlipidemia) Confirmed Active HTN (hypertension) Confirmed Active Depression with anxiety Confirmed Active Moderate persistent asthma Confirmed Active Morbid obesity Confirmed 01/09/11 Active Obese class II Confirmed Active BEATRICE (obstructive sleep apnea) Confirmed Active OA (osteoarthritis) Confirmed Active Type 2 diabetes mellitus Confirmed Active Results Radiology Reports * Exam Date Time Procedure Performing Provider Status 09/25/25 1:09 PM Chest 2 Views Frontal and Lat Auth (Verified) Notes: (Chest 2 Views Frontal and Lat) Reason For Exam: Shortness of Breath RESULT: Chest 2 Views Frontal and Lat Chest 2 Views Frontal and Lat Hx of Present Illness: Patient reports diff breathing x 2 days. Reports occasional prod cough. Denies chest pain. Denies fever chills.; Reason: Shortness of Breath; Clinical Question(s): Pneumonia; Special Instructions: This is a protocol film and radiologist should call any findings to the Charge Nurse COMPARISON: 07/31/2025 FINDINGS: Stable elevation of the right hemidiaphragm. Mild right basilar airspace disease is likely chronic atelectasis IMPRESSION: Stable elevation of hte right hemidiaphragm. Mild right basilar airspace disease this likely due tochronic atelectasis. No acute cardiopulmonary process. WSN: [id number] Ordering Physician: Randy Tolliver Dictated By: Jose Holt MD Dictated Date/Time: 09/25/25 1:19 pm Reviewed By: Jose Holt MD Signed By: Jose Holt MD Signed Date/Time: 09/25/25 1:19 pm Transcribed By: PAULINA Transcribed Date/Time: 09/25/25 1:17 pm Vital Signs Most recent to oldest [Reference Range]: 1 2 Oxygen Saturation [94-100 %] 96 % (09/25/25 2:25 PM) 96 % (09/25/25 11:29 AM) Pulse Rate [55-90 bpm] 82 bpm (09/25/25 2:25 PM) 86 bpm (09/25/25 11:29 AM) Blood Pressure [90-138/55-84 mm Hg] 130/ 68mm Hg (09/25/25 2:25 PM) 130/84mm Hg (09/25/25 11:29 AM) Respiratory Rate [16-30 br/min] 18 br/mi n (09/25/25 2:25 PM) 18 br/min (09/25/25 11:29 AM) Temperature [96.8-100.4 DegF] 98.1 DegF (09/25/25 11:29 AM) Mode of Delivery (Oxygen) Room air (12/1/25 2:25 PM) Room air (09/25/25 11:29 AM) Blood pressure sites Arm, left (09/25/25 11:29 AM) Temperature Route Oral (09/25/25 11:29 AM) Social History Social History Type Response Smoking Status Current every day baldo juarez; Type: Cigarettes; Previous treatment: None; Interested in cessation: No entered on: 10/17/14 Sex Female Sex Representation Female (finding) Status Not EKG study * Event Display: ECG 12-Lead Authored Date: Please click on pdf link to open report * Event Display: ECG 12-Lead Authored Date: Ventricular Rate: 87 BPM Atrial Rate: 87 BPM P-R Interval: 152 ms QRS Duration: 84 ms Q-T Interval: 360 ms QTC Calculation(Bazett): 433 ms P [place]: 43 degrees R [place]: 43 degrees T [place]: 41 degrees Normal sinus rhythm Normal ECG When compared with ECG of 31-Jul-2025 18:03, No significant change was found Confirmed by ABISAI JOHN MD ([id number]) on 09/25/2025 12:12:28 PM [place]: ABISAI JOHN MD Note * Jordyn Cardoza: PERFORM, SIGN, VERIFY Event Display: Patient Education Handout Authored Date: Patient Care team information Care Team Personnel Name: Celina Mcginnis RN Position: [facility] RN Member Role: Primary Care Nurse Name: Braden Faye RN Position: [facility] RN Member Role: Primary Care Nurse Name: Felipa Sanchez RN Position: [facility] RN Member Role: Primary Care Nurse Name: Isela Grier MD Position: [facility] Outreach Member Role: PCP Address: [address] [place] [address] Telecom: Name: Yohana Greenfield RN Position: [facility] RN Member Role: Primary Care Nurse Care Team Related Persons Name: CRISTA LOU Insurance Providers Guarantor name: VICTOR MANUEL LY Health Plan Information #: 1 Payer: [facility] CMNWLT C[employer]IANCE Payer Identifier: NA Member Number: [id number] Group Number: [id number] Subscriber Identifier: [id number] Relationship to Subscriber: self Coverage Type: Medicare Managed Care (Includes Medicare Advantage Plans) Coverage Verification Date: NA Telecom: NA Address: NA
--- NOTE | ~2025-09-27 | CT_ITS ---
EXAMINATION: CT LUNG SCREENING HISTORY: F17.210 - Nicotine dependence, cigarettes, uncomplicated TECHNIQUE: Low dose axial images were obtained from the sternal notch to upper abdomen without IV contrast per standard departmental protocol. Sagittal and coronal reformatted images were also obtained and reviewed. One or more of the following techniques was used for dose reduction: Automated exposure control, adjustment of the mA and/or kV according to patient size, use of iterative reconstruction technique. DLP: 54 mGy-cm COMPARISON: Comparison is made with the prior examination dated 08/16/2021. FINDINGS: Lung nodules: Again seen is a suture line in the lingula. There is a 2 mm nodule in the lingula (series 5, image 64). No suspicious pulmonary nodules are identified. Emphysema: none Coronary Calcification: mild Aortic Arch Calcification: mild Potentially Significant Incidentals : There is moderate elevation of the right hemidiaphragm which has increased since the prior study. Additional Chest Findings: There is no pleural or pericardial effusion. No mediastinal or axillary lymphadenopathy is identified. Visualized upper abdomen: The visualized portions of the liver, spleen, and adrenals have an unremarkable unenhanced appearance. There are postsurgical changes involving the stomach. CT/CT lung screening IMPRESSION: 1. No suspicious pulmonary nodules are identified. 2. Elevation of the right hemidiaphragm which has increased since the prior study. This could represent diaphragmatic paralysis. If further imaging is desired, a sniff test could be performed. LUNG-RADS ASSESSMENT: Lung-RADS 2: Benign MANAGEMENT: Continue annual screening with LDCT in 12 months Category S: S Electronically signed by: Pravin Kendrick MD 09/28/2025 07:08 AM [facility]
--- OUTSIDE RECORDS SUMMARY | 2025-09-27 19:01 | XMS_ITS | Patient Health Record ---
Author Organization [facility] Address [address] [place] [address] Care Team Providers Care Pipe Fitter Helper Name Role Phone Pravin Huynh Unavailable [phone] Reason For Referral No Information Plan Of Treatment No Information
--- OUTSIDE RECORDS SUMMARY | 2025-09-27 19:01 | XMS_ITS | Encounter Summary ---
Author Organization [facility] Address [address] [place] [address] [address] [place] [address] Care Team Providers Care Security Assessor Name Role Phone Isela Grier MD Primary Care Provider [phone] Jaron Ambrose Unavailable Unavailable Reason for Visit * Reason Comments Med Refill Encounter Details Date Type Department Care Team (Late st Contact Info) Description 06/19/2023 Refill [facility] [address] [place] [id number] Rosi Saxena MD [address] [place] [address] [phone] Type 2 diabetes mellitus without complications ([facility]) Social History Tobacco Use Types Packs/Day Years [...] Care Team (Late st Contact Info) Description 10/16/2025 2:00 PM EST Office Visit [facility] [address] [place] [address] [phone] Isela Grier MD [address] [place] [address] [phone] 11/24/2025 10:00 AM EST Clinical Support [facility] [address] [place] [address] Shanita Vasquez, BRANDY [address] [place] [address] documented as of this encounter Visit Diagnoses Diagnosis Type 2 diabetes mellitus without complications (HCC) documented in this encounter Additional Health Concerns Assessment Noted Time PHQ-9 Depression Total Score: 15 023 2:20 PM EDT documented as of this encounter Care Teams Security Assessor Relationship Specialty Start Date End Date Isela Grier MD [address] [place] [phone] PCP - General Family Medicine 10/26/18 Jaron Ambrose FNP [address] [place] [id number] Nurse Practitioner Family Medicine 09/21/23 documented as of this encounter
--- OUTSIDE RECORDS SUMMARY | 2025-09-27 19:01 | XMS_ITS | Clinical Summary ---
Author Organization [employer] Address [address] [facility] [address] [place] [address] Care Team Providers Care Patient Intake Coordinator Name Role Phone Isela Rothman MD Primary Care Provider [phone] Jaron Ambrose Unavailable Unavailable Allergies No known [...] 13 g 11 09/21/20 23 Active Umeclidinium [place] (Incruse Ellipta) 62.5 MCG/ACT aerosol powder Inhale [...] EVERY MORNING 30 capsule 04/06/20 24 Active TRUEplus Lancets 33G miscIndications:T ype 2 diabetes mellitus with diabetic polyneuropathy ([facility]),Type 2 diabetes mellitus without complications ([facility]) TEST BLOOD SUGAR TWICE DAILY 100 each 07/14/20 24 Active alendronate (Fosamax) 70 MG tabletIndications :Screening for osteoporosis Take 1 tablet (70 mg) by mouth every 7 (seven) days. Take in the morning with a full glass of water, on an empty stomach, and do not take anything else by mouth or lie down for the next 30 min. 4 tablet 11 11/29/19 25 026 Active Blood Glucose Monitoring Suppl (FreeStyle [place] Lite) w/Device kit 1 each before breakfast and before evening meal. 1 kit 1 11/29/19 25 Active cyanocobalamin (Vitamin B-12) 1000 MCG tablet TAKE 1 TABLET BY MOUTH EVERY MORNING 90 tablet 3 01/05/20 25 Active dapagliflozin (Farxiga) 10 MG Take 1 tablet (10 mg) by mouth Once per day. 90 tablet 3 01/25/20 25 026 Active famotidine (Pepcid) 20 MG tablet TAKE 1 TABLET BY MOUTH AT BEDTIME NEEDED FOR HEARTBURN 30 tablet 11 02/02/20 25 Active montelukast (Singulair) 10 MG tablet TAKE 1 TABLET BY MOUTH EVERY EVENING 90 tablet 3 02/02/20 25 Active lisinopril 20 MG tablet TAKE 1 TABLET BY MOUTH EVERY MORNING 90 tablet 3 03/01/20 25 Active Blood Pressure Monitor [facility] Check BP daily 1 each 05/01/20 25 Active Tirzepatide (Mounjaro) 7.5 MG/0.5ML solution auto-injectorIndi cations:Type 2 diabetes mellitus with hyperglycemia, without long-term current use of insulin ([facility]) Inject 7.5 mg under the skin 1 (one) time per week. 2 mL 11 05/01/20 25 Active QUEtiapine (SEROquel) 300 MG tabletIndications :MDD (major depressive disorder), recurrent, severe, with psychosis (CMS/HCC) ([facility]) Take 1 tablet (300 mg) by mouth at bedtime. Plus Seroquel (Quetiapine) 50 mg in the morning 90 tablet 3 5 5:10 PM EST 06/05/20 25 Active FREESTYLE LITE test stripIndications: Type 2 diabetes mellitus with diabetic polyneuropathy (HCC),Type 2 diabetes mellitus without complications ([facility]) USE DIRECTED TO TEST BLOOD SUGAR TWICE DAILY 50 strip 11 06/19/20 25 Active atorvastatin (Lipitor) 80 MG tablet TAKE 1 TABLET BY MOUTH AT BEDTIME 90 tablet 3 07/03/20 25 Active QUEtiapine (SEROquel) 50 MG tabletIndications :MDD (major depressive disorder), recurrent, severe, with psychosis (CMS/HCC) (HCC) Take 1 tablet (50 mg) by mouth [...] depressive disorder), recurrent, severe, with psychosis (CMS/HCC) ([facility]) Take 1 capsule (60 mg) by mouth 2 times daily. 180 capsule 3 07/03/20 25 Active Alcohol Swabs (Alcohol Prep) 70 % pads USE DIRECTED TWICE DAILY 100 each 5 07/19/20 25 Active loratadine (Claritin) 10 MG tablet TAKE 1 TABLET BY MOUTH EVERY MORNING 90 tablet 3 07/28/20 25 Active fluticasone (Flonase) 50 MCG/ACT nasal spray INSTILL 1 SPRAY IN EACH NOSTRIL ONCE DAILY IN THE MORNING 16 g 3 08/04/20 25 Active folic acid (Folvite) 400 MCG tablet TAKE 1 TABLET BY MOUTH EVERY MORNING 90 tablet 3 08/28/20 25 Active D3-1000 25 MCG (1000 UT) capsule TAKE 1 CAPSULE BY MOUTH EVERY MORNING 90 capsule 1 08/28/20 25 Active Multiple Vitamin (Multivitamin) tablet TAKE 1 TABLET BY MOUTH EVERY MORNING WITH FOOD 90 tablet 1 08/28/20 25 Active metFORMIN XR (Glucophage-XR) 500 MG 24 hr tabletIndications :Type 2 diabetes mellitus with hyperglycemia, without long-term current use of insulin ([facility]) TAKE 2 TABLETS BY MOUTH TWICE DAILY IN THE MORNING AND EVENING WITH MEALS, DO NOT BREAK, CRUSH, DISSOLVE OR CHEW 360 tablet 1 08/28/20 25 Active Ascorbic Acid (vitamin C) 500 MG tabletIndications :Iron deficiency anemia, unspecified iron deficiency anemia type TAKE 1 TABLET BY MOUTH TWICE DAILY IN THE MORNING AND AT BEDTIME 180 tablet 1 08/28/20 25 Active clonazePAM (KlonoPIN) 0.5 MG tabletIndications :MDD (major depressive disorder), recurrent, severe, with psychosis (CMS/HCC) (HCC) TAKE 1 TABLET BY MOUTH EVERY TWELVE HOURS NEEDED ANXIETY 60 tablet 5 5:10 PM EST 09/15/20 25 Active clonazePAM (KlonoPIN) 0.5 MG tabletIndications :MDD (major depressive disorder), recurrent, severe, with psychosis (CMS/HCC) (HCC) TAKE 1 TABLET BY MOUTH EVERY TWELVE HOURS NEEDED FOR ANXIETY 60 tablet 07/27/20 25 025 Discontinued Active Problems Problem Noted Date [...] (05/14/2025 3:22 PM EDT): - Following with supervisor frame assembly at [facility], Dr. Maldonado, last seen in December 2024. [...] EDT): Hospitalized from 06/19 - 06/21 in [facility] Treated with IV Abx, completed Abx course [...] Dr. Edwards - will obtain abdominal CT nursing home (current) use of oral hypoglycemic kayla jaquez 02/26/2023 Tobacco dependence 10/07/2022 Assessment & Plan (05/01/2025 1:09 PM EDT): Last CT scan in Lung [facility] 2 in Jul 2021 She stopped smoking in Oct 2023 Continue working on smoking cessation effort Referred back to [facility] lung cancer screening program, but missed appt Assessment & Plan (01/25/2025 11:55 AM EDT): Last CT scan in Lung RADS 2 in Jul 2021 She stopped smoking in Oct 2023 Continue working on smoking cessation effort Referred back to [facility] lung cancer screening program, but missed appt Assessment & Plan (02/20/2024 7:00 AM EDT): Last CT scan in Lung RADS 2 in Jul 2021 She stopped smoking in Oct 2023 Continue working on smoking cessation effort Referred back to [facility] lung cancer screening program, but missed appt Assessment & Plan (01/04/2024 9:13 AM EDT): Last CT scan in Lung RADS 2 in Jul 2021 She has cut down on smoking and stopped completely recently Continue working on smoking cessation effort Refer back to [facility] lung cancer screening program Assessment & Plan (10/16/2023 11:53 AM EST): Last CT scan in Lung RADS 2 in Jul 2021 Currently 4-5 cigs per day, slowly cutting down Continue working on smoking cessation effort Start nicotine patch and gum Advised pt to check with [facility] lung cancer screening program Assessment & Plan (07/07/2023 10:27 AM EDT): Last CT scan in Lung RADS 2 in Jul 2021 Currently 4-5 cigs per day, slowly cutting down Continue working on smoking cessation effort Evaluate with PFT for COPD Consider adding Long-Acting Muscarinic agonist Advised pt to check with [facility] lung cancer screening program Assessment & Plan (05/12/2023 6:46 AM EDT): Last CT scan in Lung RADS 2 in Jul 2021 Currently 3-4 cigs per day, slowly cutting down Continue working on smoking cessation effort Advised pt to check with [facility] lung cancer screening program Assessment & [...] multiple joints 10/07/2022 Overview (10/07/2022): Referred to airport security screener per pt's request Pt missed appt and states pt will reschedule Stopped smoking with greater than 20 pack year h istory 10/07/2022 Overview (10/07/2022): Followed by [facility] lung cancer screening program Last seen on 08/14/21 Assessment & Plan (05/01/2025 1:09 PM EDT): Previously followed by [facility] lung cancer screening program Last seen on 08/14/21, and missed recent appointment Encouraged to reschedule Assessment & Plan (10/27/2024 5:36 PM EST): Previously followed by [facility] lung cancer screening program Last seen on 08/14/21, and missed recent appointment Encouraged to reschedule Assessment & Plan (02/20/2024 7:00 AM EDT): Previously followed by [facility] lung cancer screening program Last seen on 08/14/21, and missed recent appointment Encouraged to reschedule Assessment & Plan (10/06/2023 7:28 AM EST): Followed by [facility] lung cancer screening program Last seen on 08/14/21 Assessment & Plan (10/07/2022 11:27 AM EST): Followed by [facility] lung cancer screening program Last seen on 10/20/21 Check the status of follow-up Obstructive sleep [...] Last sleep study done on 05/05/22, at [facility], recommended Auto-PAP between 11-20 cm H2O. Check the status of Auto-PAP. Assessment & Plan (01/04/2024 8:58 AM EDT): Last sleep study done on 05/05/22, at [facility], recommended Auto-PAP between 11-20 cm H2O. Check the status of Auto-PAP. Assessment & Plan (10/06/2023 7:24 AM EST): Last sleep study done on 05/05/22, at [facility], recommended Auto-PAP between 11-20 cm H2O. Check the status of Auto-PAP. Assessment & Plan (07/07/2023 10:11 AM EDT): Last sleep study done on 05/05/22, at [facility], recommended Auto-PAP between 11-20 cm H2O. Check the status of Auto-PAP. Assessment & Plan (05/12/2023 6:27 AM EDT): Last sleep study done on 05/05/22, at [facility], recommended Auto-PAP between 11-20 cm H2O. Check the status of Auto-PAP. Assessment & Plan (02/26/2023 11:45 AM EDT): Last sleep study done in April 2022, at [facility]. It was a titration study, but [...] 07/02/2016 Essential hypertension 03/31/2016 Assessment & Plan (08/23/2025 11:35 AM EDT): Patient's BP was elevated today (174/78, 154/72 upon recheck). This is likely due to not taking her regular medications. [facility] was contacted and a message was left to clarify what changes need to be made to the patient's medication prior to knee surgery and to see if the total knee replacement can proceed as scheduled considering her current blood glucose and blood pressure. Awaiting reply. I explained to the patient that I cannot clear her for cataract surgery today due to her BP and blood glucose. I instructed her to take her medications today and we will call her when the surgeon replies to my message. She should reschedule her cataract surgery and return for a preoperative assessment when she is taking her regular medications. Assessment & Plan (05/14/2025 3:11 PM EDT): [...] (05/01/2025 1:09 PM EDT): - Following with [facility] Concrete Products Dispatcher, Dr. Hall, last seen in Oct 2024. Upcoming appointment. - Last exacerbation in April 2021 - recently seen in [facility] ED on 10/19/24, and Dx pneumonia. [...] (01/29/2025 12:59 PM EDT): - Following with [facility] Con[employer] Dispatcher, Dr. Hall, last seen in Oct 2024. Upcoming appointment. - Last exacerbation in April 2021 - recently seen in [facility] ED on 10/19/24, and Dx pneumonia. [...] (10/27/2024 5:46 PM EST): - Following with [facility] Con[employer] Dispatcher, Dr. Hall, last seen in March 2024. Upcoming appointment. - Last exacerbation in April 2021 - recently seen in [facility] ED on 10/19/24, and Dx pneumonia. [...] depressive disord er), recurrent, severe, with psychosis (CMS/HCC) 12/03/2012 Assessment & Plan (05/14/2025 3:16 PM [...] EST): >>ASSESSMENT AND PLAN FOR SCHIZOAFFECTIVE DISORDER ([facility]) WRITTEN ON 02/20/2024 7:00 AM [...] retiring, she will be referred to new [facility] psychiatric provider. Pt is aware that those will be televisits, and that the new provider is not an [facility] employee. She gives verbal consent to [...] then she will be referred to new [facility] psychiatric provider. Pt is aware that those will be televisits, and that the new provider is not an [facility] employee. She gives verbal consent to [...] mg prn Continue following Tx plan per Robbie. Salmeron's input appreciated. She was able to contract [...] Pt would be interested in speaking with pipe wrapping machine operator and the provider will consult PCP about [...] mellitus, type 2 05/19/2012 Assessment & Plan (08/23/2025 11:35 AM EDT): Patient's POC Glucose was unreadable ([facility]) today A1c was 7.6, which suggests she is normally relatively well-controlled at baseline. This is likely due to administration of prednisone. Orders: POCT Glucose POCT Hgb A1c Assessment & Plan (05/14/2025 3:20 PM EDT): [...] Encounters Date Type Department Care Team Description 09/20/[address] [facility] [address] [place] [address] Isela Rothman MD Pre Op 09/18/2025 Telephone [facility] [address] [place] [address] Shanita Vasquez, BRANDY 09/15/2025 Telephone [facility] [address] [place] [address] Shanita Vasquez, BRANDY 09/14/[address] [facility] [address] [place] [address] Isela Rothman MD Med Refill 09/13/2025 Refill [facility] [address] [place] [address] Isela Rothman MD MDD (major depressive disorder), recurrent, severe, with psychosis (CMS/HCC) (HCC) 09/04/[address] [facility] [address] [place] [phone] Isela Rothman MD Call Back Request 08/27/[address] [facility] [address] [place] [phone] Isela Rothman MD Type 2 diabetes mellitus with hyperglycemia, without long-term current use of insulin (HCC); Iron deficiency anemia, unspecified iron deficiency anemia type 08/24/[address] [facility] [address] [place] [phone] Isela Rothman MD 08/23/2025 10:30 AM EDT Office Visit [address] [phone] Tierra Robles MD Type 2 diabetes mellitus with hyperglycemia, without long-term current use of insulin (HCC) (Primary Dx); Essential hypertension 08/23/2025 Travel 08/03/[address] [facility] [address] [place] [phone] Isela Rothman MD 08/01/[address] [facility] [address] [place] [address] Isela Rothman MD Pre Op 07/28/[address] [facility] [address] [place] [address] Isela Rothman MD 07/26/2025 Refill [facility] [address] [place] [address] Isela Rothman MD MDD (major depressive disorder), recurrent, severe, with psychosis (CMS/HCC) (HCC) 07/18/[address] [facility] [address] [place] [address] Isela Rothman MD 07/03/2025 Refill [facility] [address] [place] [address] Isela Rothman MD MDD (major depressive disorder), recurrent, severe, with psychosis (CMS/HCC) 07/02/[address] [facility] [address] [place] [address] Isela Rothman MD MDD (major depressive disorder), recurrent, severe, with psychosis (CMS/HCC) from Last 3 Months Immunizations Immunization Administration [...] Smoking Tobacco: Former Cigarettes Passive Smoke Exposure: Past Smokeless Tobacco: Never Tobacco Cessation:Counseling Given: Not Answered Depression Answer Date Recorded [...] Sign Reading Time Taken Comments Blood Pressure 154/72 08/23/2025 10:35 AM EDT Pulse 105 08/23/2025 10:29 AM EDT Temperature 36.8 C (98.3 F) 08/23/2025 10:29 AM EDT Respiratory Rate 16 08/23/2025 10:29 AM EDT Oxygen Saturation 95% 08/23/2025 10:29 AM EDT Inhaled Oxygen Concentration - - Weight 87.2 kg (192 lb 4 oz) 08/23/2025 10:29 AM EDT Height 154.9 cm (5' 1 ) 08/23/2025 10:29 AM EDT Body Mass Index 36.33 08/23/2025 10:29 AM EDT Plan of Treatment Upcoming Encounters Date Type Department Care Team (Late st Contact Info) Description 10/16/2025 2:00 PM EST Office Visit [address] [phone] Isela Rothman MD [address] [place] [address] 11/24/2025 10:00 AM EST Clinical Support [address] [phone] Shanita Vasquez, BRANDY [address] [place] [address] Health Maintenance Due Date Last Done Comments CT Colonography 1957 FIT DNA/Cologuard 1957 FIT 1957 FOBT 1957 Sigmoidoscopy 1957 Eye Exam 1967 RSV Patients and Patients Aged 60 years or older (1 - Risk 50-74 years 1-dose series) 2007 Colonoscopy 05/09/2024 05/09/2014 Colorectal Cancer Screening 05/09/2024 COVID-19 Vaccine ( season) 2025 10/27/2024, 12/21/2023, 05/21/2022, Additional history exists Influenza Vaccine (#1) 2025 , 07/07/2023, 07/18/2022, Additional history exists Diabetes: Foot Exam 10/27/2025 10/27/2024 Lipid Panel 10/27/2025 10/27/2024, 11/27, 11/11/2022, Additional history exists Depression Monitoring 11/16/2025 05/16/2025, 025 Diabetes: Hemoglobin A1C 11/23/2025 025, 05/01/2025, 01/24/2025, Additional history exists Diabetes: Urine Protein Screening 11/28/2025 11/28/2024, 12/21/2023, 05/21/2020 Alcohol/Substance Use Screening 05/01/2026 05/01/2025 SDOH Screening 05/01/2026 05/01/2025 Tobacco Screening 08/23/2026 08/23/2025 Mammogram 11/09/2026 11/09/2024, 10/26, 11/09/2024, Additional history [...] on patient's age to complete this topic Goals Goal Patient Goal Type Associated Problems Recent Progress Patient-Stated? Author Help patients manage their type 2 diabetes Care Plan Help patients manage their type 2 diabetes No Yulia Ferris Weekly blood pressure task Care Plan Weekly blood pressure task No Yulia Ferris Help patients manage their type 2 diabetes Care Plan Help patients manage their type 2 diabetes No Yulia Ferris Patient has chronic kidney disease Care Plan Patient has chronic kidney disease No Yulia Ferris Weekly blood pressure task Care Plan Weekly blood pressure task No Yulia Ferris Patient has chronic kidney disease Care Plan Patient has chronic kidney disease No Yulia Ferris Weekly blood pressure task Care Plan Weekly blood pressure task No Mk Hall Weekly blood pressure task Care Plan Weekly blood pressure task No Mk Hall Patient has chronic kidney disease Care Plan Patient has chronic kidney disease No Mk Hall Patient has chronic kidney disease Care Plan Patient has chronic kidney disease No Mk Hall Weekly blood pressure task Care Plan Weekly blood pressure task No Shanita Vasquez RN Weekly blood pressure task Care Plan Weekly blood pressure task No Shanita Vasquez RN Patient has chronic kidney disease Care Plan Patient has chronic kidney disease No Shanita Vasquez RN Patient has chronic kidney disease Care Plan Patient has chronic kidney disease No Shanita Vasquez RN Weekly blood pressure task Care Plan Weekly blood pressure task No Shanita Vasquez RN Weekly blood pressure task Care Plan Weekly blood pressure task No Shanita Vasquez RN Patient has chronic kidney disease Care Plan Patient has chronic kidney disease No Shanita Vasquez RN Patient has chronic kidney disease Care Plan Patient has chronic kidney disease No Shanita Vasquez RN Weekly blood pressure task Care Plan Weekly blood pressure task No Shanita Vasquez RN Weekly blood pressure task Care Plan Weekly blood pressure task No Shanita Vasquez RN Patient has chronic kidney disease Care Plan Patient has chronic kidney disease No Shanita Vasquez RN Patient has chronic kidney disease Care Plan Patient has chronic kidney disease No Shanita Vasquez RN Weekly blood pressure task Care Plan Weekly blood pressure task No Phan Hall Weekly blood pressure task Care Plan Weekly blood pressure task No Phan Hall Patient has chronic kidney disease Care Plan Patient has chronic kidney disease No Phan Hall Patient has chronic kidney disease Care Plan Patient has chronic kidney disease No Phan Hall Procedures Procedure Name Priority Date/Time Associated Diagnosis Comments POCT GLYCATED HEMOGLOBIN, TOTAL Routine 08/23/2025 10:31 AM EDT Type 2 diabetes mellitus with hyperglycemia, without long-term current use of insulin ([facility]) POCT GLUCOSE Routine 08/23/2025 10:31 AM EDT Type 2 diabetes mellitus with hyperglycemia, without long-term current use of insulin ([facility]) ALBUMIN, RANDOM URINE W/CREATININE Routine 11/28/2024 9:30 AM EST Type 2 diabetes mellitus with hyperglycemia, without long-term current use of insulin ([facility]) HM MAMMOGRAPHY Routine 11/09/2024 LIPID PANEL WITH REFLEX TO DIRECT LDL Routine 10/27/2024 12:13 PM EST Type 2 diabetes mellitus with hyperglycemia, without long-term current use of insulin ([facility]) COLONOSCOPY Routine 05/09/2014 from Last 3 Months or Most Recently Relevant to Health Maintenance Results * (ABNORMAL) POCT Hgb A1c (08/23/2025 10:31 AM EDT) Hemoglobin A1C 7.6(A) 4.0 - 5.7 % QC Media Lot # [id number] Lot# Expiration Date , Blood 08/23/2025 10:3 1 AM EDT Tierra Robles MD POINT OF CARE TEST ENTER/EDIT ORDERABLES Final Result * (ABNORMAL) POCT Glucose (08/23/2025 10:31 AM EDT) Glucose Blood, POC 500(A) 60 - 200 mg/dL Comment:[facility] QC Media Lot # [id number] Lot# Expiration Date , Blood Capillary blood specimen / Unknown 08/23/2025 10:31 AM EDT Tierra Robles MD POINT OF CARE TEST ENTER/EDIT ORDERABLES Final Result * Albumin, Random Urine W/Creatinine (11/28/2024 9:30 AM EST) Creatinine, Urine 187.33 mg/dL [facility] Microalbumin Urine 11.0 mg/L [facility] Microalbum Creatinine Ratio Ur 5.8 <30 ug/mg cr [facility] Comment:Albumin/Creatinine R atio Reference Ranges: Normal: < 30 ug/mg creatinine Microalbuminuria: 30 - 300 ug/mg creatinineClinical Albuminuria: > 300 ug/mg creatinine Urine 11/28/2024 9:30 AM EST 11/28/2024 10:29 AM EST Isela Rothman MD LAB URINE ORDERABLES Final Resul t Performing Organization Address City/State/[facility] Co de Phone Number [facility] [address] [place] [phone] * Mammography (11/09/2024) Mammogram BIRADS 1 Normal, Abnormal, BIRADS 1 , BIRADS 2 Anatomical Region Laterality Modality Other 11/09/2024 Luis Aguayo MD HEALTH MAINTENANCE Final Result * (ABNORMAL) Lipid Panel with Reflex to Direct LDL (10/27/2024 12:13 PM EST) Triglycerides 125 <150 mg/dL [facility] Comment:Desirable Triglyceri de: less than 150 mg/dLBorderline High Triglyceride 150-199 mg/dLHigh Triglyceride: 200-499 mg/dLVery High Triglyceride: greater than or equal to 5OO mg/dL Cholesterol 110 <200 mg/dL [facility] Comment:Desirable Cholestero l: less than 200 mg/dLBorderline High Cholesterol: 200-239 mg/dLHigh Cholesterol: greater than 239 mg/dL LDL Cholesterol Calculated 52 <100 mg/dL [facility] Comment:Desirable LDL: less than 100 mg/dLNear Optimal/Above Optimal LDL: 110- 129 mg/dLBorderline High LDL: 130-159 mg/dLHigh LDL: 160-189 mg/dLVery High LDL: greater than or equal to 190 mg/dL HDL Cholesterol 33(L) >40 mg/dL [facility] Comment:Desirable HDL: great er than 40 mg/dL Note: This HDL assay may give artificially low results in patients with liver disease. Blood 10/27/2024 12:1 3 PM EST 10/27/2024 1:00 PM EST Isela Rothman MD LAB BLOOD ORDERABLES Final Resul t [facility] [address] [place] [phone] * Colonoscopy (05/09/2014) Colonoscopy Normal Normal [facility] External Provider HEALTH MAINTENANCE Final Result from Last 3 Months or Most Recently Relevant to Health Maintenance Additional Health Concerns Active Problems Noted Date Diagnosed Date Help patients manage their type 2 diabetes 09/13 Weekly blood pressure task 09/13/2025 Help patients manage their type 2 diabetes 09/13 Patient has chronic kidney disease 09/13/2025 Weekly blood pressure task 09/13/2025 Patient has chronic kidney disease 09/13/2025 Weekly blood pressure task 09/14/2025 Weekly blood pressure task 09/14/2025 Patient has chronic kidney disease 09/14/2025 Patient has chronic kidney disease 09/14/2025 Weekly blood pressure task 09/15/2025 Weekly blood pressure task 09/15/2025 Patient has chronic kidney disease 09/15/2025 Patient has chronic kidney disease 09/15/2025 Weekly blood pressure task 09/15/2025 Weekly blood pressure task 09/15/2025 Patient has chronic kidney disease 09/15/2025 Patient has chronic kidney disease 09/15/2025 Weekly blood pressure task 09/18/2025 Weekly blood pressure task 09/18/2025 Patient has chronic kidney disease 09/18/2025 Patient has chronic kidney disease 09/18/2025 Weekly blood pressure task 09/20/2025 Weekly blood pressure task 09/20/2025 Patient has chronic kidney disease 09/20/2025 Patient has chronic kidney disease 09/20/2025 Insurance [facility] [employer] (O D-SNP) VIKKI HONEYCUTT [id number] Care Teams Patient Intake Coordinator Relationship Specialty Start Date End Date Isela Rothman MD [address] [place] [address] PCP - General Family Medicine 10/26/18 Jaron Ambrose FNP [address] [place] [address] Nurse Practitioner Family Medicine 09/21/23
--- OUTSIDE RECORDS SUMMARY | 2025-09-27 19:01 | XMS_ITS | Encounter Summary ---
Author Organization [employer] Address [address] [place] [address] 7 [place] [address] Care Team Providers Care Log Data Technician Name Role Phone Isela Grier MD Primary Care Provider [phone] Jaron Ambrose LUNCHROOM ATTENDANT Unavailable Unavailable Encounter Details Date Type Department Care Team (Late st Contact Info) Description 09/26/2022 Abstract [facility] [address] [place] [address] ProviderLuis MD Social History Tobacco Use Types [...] Description 10/16/2025 2:00 PM EST Office Visit [facility] [address] [place] [address] Isela Grier MD [address] [place] [address] 11/24/2025 10:00 AM EST Clinical Support [facility] [address] [place] [address] Shanita Vasquez, RN [address] [place] [address] documented as of this encounter Visit Diagnoses Not on filedocumented in this encounter Care Teams Log Data Technician Relationship Specialty Start Date End Date Isela Grier MD [address] [place] [address] PCP - General Family Medicine 10/26/18 Jaron Ambrose FNP [address] [place] [address] Nurse Practitioner Family Medicine 09/21/23 documented as of this encounter
--- OUTSIDE RECORDS SUMMARY | 2025-09-27 19:01 | XMS_ITS | Encounter Summary ---
Author Organization [employer] Address [address] [facility] 7 [place] [address] Care Team Providers Care Telecommunicator Supervisor Name Role Phone Isela Grier MD Primary Care Provider [phone] Jaron Ambrose Unavailable Unavailable Reason for Visit * Reason Comments Med Refill Encounter Details Date Type Department Care Team (Late st Contact Info) Description 09/21/2024 Refill [facility] [address] [place], [place] [phone] Isela Grier MD [address] [place], [place] [phone] Social History Tobacco Use Types Packs/Day Years [...] Description 10/16/2025 2:00 PM EST Office Visit [address] [address] Isela Grier MD [address] [place] [address] 11/24/2025 10:00 AM EST Clinical Support [address] [address] Shanita Vasquez, BRANDY [address] [place] [address] documented as of this encounter Visit Diagnoses Not on filedocumented in this encounter Additional Health Concerns Assessment Noted Time PHQ-9 Depression Total Score: 13 024 2:55 PM EDT documented as of this encounter Care Teams Telecommunicator Supervisor Relationship Specialty Start Date End Date Isela Grier MD [address] [place] [address] PCP - General Family Medicine 10/26/18 Jaron Ambrose FNP [address] [place] [address] Nurse Practitioner Family Medicine 09/21/23 documented as of this encounter
--- OUTSIDE RECORDS SUMMARY | 2025-09-27 19:01 | XMS_ITS | Encounter Summary ---
Author Organization [employer] Address [address] [facility] 7 [place] [address] Care Team Providers Care Hog Trader Name Role Phone Isela Grier MD Primary Care Provider [phone] Jaron Ambrose Unavailable Unavailable Reason for Referral * Imaging (Routine) - Closed Specialty Diagnoses / Procedures Referred By Jaden mallory Referred To Contact Radiology Diagnoses Generalized abdominal pain Procedures CT Abdomen Pelvis w/ Contrast Isela Grier MD [address] [place] [address] Phone: tel: fax: [facility] [address] [place] [address] Phone: tel: fax: Referral ID Status Reason Start Date Expiration Date Visits Re quested Visits Authorized [id number] Closed 05/13/2023 05/12/2024 1 1 Encounter Details Date Type Department Care Team (Late st Contact Info) Description 05/13/2023 Orders Only [facility] [address] [place], [place] [phone] Isela Grier MD [address] [place] [address] Generalized abdominal pain (Primary Dx) Social History [...] Description 10/16/2025 2:00 PM EST Office Visit [address] [address] Isela Grier MD [address] [place] [address] 11/24/2025 10:00 AM EST Clinical Support [address] [address] Shanita Vasquez, BRANDY [address] [place] [address] Scheduled Orders Name Type Priority Associated Diagnoses [...] documented as of this encounter Care Teams Hog Trader Relationship Specialty Start Date End Date Isela Grier MD [address] [place] [address] PCP - General Family Medicine 10/26/18 Jaron Ambrose FNP [address] [place] [address] Nurse Practitioner Family Medicine 09/21/23 documented as of this encounter
--- OUTSIDE RECORDS SUMMARY | 2025-09-27 19:01 | XMS_ITS | Continuity of Care Document ---
Author Name [facility] Address [address] [place] [id number] Organization Unknown Address [address] [place] [address] Medications No known medications Problems No known problems
--- OUTSIDE RECORDS SUMMARY | 2025-09-27 19:01 | XMS_ITS | Encounter Summary ---
Author Organization [facility] Address [address] [facility] [address] [place] [address] Encounters * CPT with Medical [facility] at [facility] on 2025-08-21 Member was having breathing difficulties, chest pain. Member reports symptoms for about 4 days now.Reports she went to ED on 08/19 but left due to long wait times. Taking Robitussin to manage symptoms but difficulty speaking during this call. Was unable to provide any further details of symptoms to this congregational care pastor. [facility] requesting visit per members request and concerns with members health during call { reasonForRequest : , patientReports : , denies&quot ;:[], chiefComplaints : Chest Pain, Weakness, Breathing Problems , pmh&quot ;: Asthma, Diabetes Mellitus Type 2, Schizophrenia , allergies : No Known Drug Allergies , otherAllergies : , painAssessment : , visitOutcome : , additionalComments : HPI reviewed } Encountered patient seated upright and conscious with family present. Patient reports for approximately three days she has been experiencing a non-productive cough, sinus congestion and has found herself using her prescribed inhaler more frequently than usual. Patient reports rib soreness while coughing, but denies an anterior wall chest pain, fevers and acute changes in vision. POCT Covid and flu swabs performed, both resulted negative; [facility] notified. Skin is warm, moist and of appropriate color for ethnicity. Head and neck free of trauma and edema.??? JVD. Breath sounds exhibit light wheezing in the anterior apexes, remainder of breath sounds present and clear. Abdomen is soft, non-tender and non-distended. Extremities are free of trauma and edema. [facility] contacted: 40 mg of PO prednisone, 100 mg of PO doxycycline and one DuoNeb treatment administered after medication ???rights?? were reconciled with patient. [facility] states they will send a prescription for further treatment to a pharmacy of patient???s choice. Patient was advised to seek an appointment with her primary care doctor as soon as possible. Patient was additionally urged to monitor herself for chest pain, shortness of breath or fevers and was encouraged to seek further medical attention, including 911 if said symptoms were to develop. Patient verbalizes understanding of the plan and states she is comfortable remaining home today. ORAL_MEDICATION, EKG, POC_FLU_STREP, COVID_TEST, WOUND_CARE Written by Medical [facility] on 2025-08-21
--- OUTSIDE RECORDS SUMMARY | 2025-09-27 19:01 | XMS_ITS | Encounter Summary ---
Author Organization [employer] Address [address] [facility] 7 [place] [address] Care Team Providers Care Band Sewer Name Role Phone Isela Grier MD Primary Care Provider [phone] Jaron Ambrose Unavailable Unavailable Reason for Visit * Reason Onset Date Comments Med Refill 09/14/2025 Encounter Details Date Type Department Care Team (Late st Contact Info) Description 09/14/2025 Telephone [facility] [address] [place], [place] [phone] Isela Grier MD [address] [place], [place] [phone] Med Refill Social History Tobacco Use Types Packs/Day Years Used Date Smoking Tobacco: Former Cigarettes Passive Smoke Exposure: Past Smokeless Tobacco: Never Depression Answer Date Recorded Patient Health Questionnaire-9 Score 05/16/2025 Patient Health Questionnaire-9 Score 21 05/16/2025 [...] encounter Miscellaneous Notes * Telephone Encounter - [facility] - 09/14/2025 2:34 PM EST TC from pt requesting medication refill. Medications needing refill :clonazePAM (KlonoPIN) 0.5 MG tablet To be sent to: [facility] - [place], [place] - [address] [place] [address] documented in this encounter Plan of Treatment Upcoming Encounters Date Type Department Care Team ([facility] st Contact Info) Description 10/16/2025 2:00 PM EST Office Visit [address] [address] Isela Grier MD [address] [place] [address] 11/24/2025 10:00 AM EST Clinical Support [address] [address] Shanita Vasquez RN [address] [place] [address] documented as of this encounter Goals Goal Patient Goal Type Associated Problems Recent Progress Patient-Stated? Author Help patients manage their type 2 diabetes Care Plan Help patients manage their type 2 diabetes No Colon Asif, Yulia Weekly blood pressure task Care Plan Weekly blood pressure task No Colon Asif, Yulia Help patients manage their type 2 diabetes Care Plan Help patients manage their type 2 diabetes No Colon Asif, Yulia Patient has chronic kidney disease Care Plan Patient has chronic kidney disease No Colon Asif, Yulia Weekly blood pressure task Care Plan Weekly blood pressure task No Colon Asif, Yulia Patient has chronic kidney disease Care Plan Patient has chronic kidney disease No Colon Asif, Yulia Weekly blood pressure task Care Plan Weekly blood pressure task No [facility] Weekly blood pressure task Care Plan Weekly blood pressure task No [facility] Patient has chronic kidney disease Care Plan Patient has chronic kidney disease No [facility] Patient has chronic kidney disease Care Plan Patient has chronic kidney disease No [facility] documented as of this encounter Visit Diagnoses Not on filedocumented in this encounter Additional Health Concerns Active Problems Noted Date [...] 09/14/2025 Patient has chronic kidney disease 09/14/2025 Assessment Noted Time PHQ-9 Depression Total Score: 21 05/16/2 025 1:55 PM EDT documented as of this encounter Care Teams Band Sewer Relationship Specialty Start Date End Date Isela Grier MD [address] [place] [address] PCP - General Family Medicine 10/26/18 Jaron Ambrose FNP [address] [place] [address] Nurse Practitioner Family Medicine 09/21/23 documented as of this encounter
--- OUTSIDE RECORDS SUMMARY | 2025-09-27 19:01 | XMS_ITS | Encounter Summary ---
Author Organization [employer] Address [address] [facility] 7t [place] [address] Care Team Providers Care Neuro Intensivist Physician Name Role Phone Isela Grier MD Primary Care Provider [phone] Jaron Ambrose Unavailable Unavailable Encounter Details Date Type Department Care Team (Late st Contact Info) Description 08/24/2025 Telephone [facility] [address] [place], [place] [phone] Isela Grier MD [address] [place], [place] [phone] Social History Tobacco Use Types Packs/Day Years [...] Description 10/16/2025 2:00 PM EST Office Visit [address] [address] Isela Grier MD [address] [place] [address] 11/24/2025 10:00 AM EST Clinical Support [address] [address] Shanita Vasquez, BRANDY [address] [place] [address] documented as of this encounter Visit Diagnoses Not on filedocumented in this encounter Additional Health Concerns Assessment Noted Time PHQ-9 Depression Total Score: 21 025 1:55 PM EDT documented as of this encounter Care Teams Neuro Intensivist Physician Relationship Specialty Start Date End Date Isela Grier MD [address] [place] [address] PCP - General Family Medicine 10/26/18 Jaron Ambrose FNP [address] [place] [address] Nurse Practitioner Family Medicine 09/21/23 documented as of this encounter
--- OUTSIDE RECORDS SUMMARY | 2025-09-27 19:01 | XMS_ITS | Encounter Summary ---
Author Organization [employer] Address [address] [place] [address] 7 [place] [address] Care Team Providers Care De Icer Installer Name Role Phone Isela Grier MD Primary Care Provider [phone] Jaron Ambrose Unavailable Unavailable Reason for Visit * Reason Comments Med Refill Encounter Details Date Type Department Care Team (Late Contact Info) Description 07/27/2023 Refill [facility] [address] [place] [address] Rosi Saxena MD [address] [place] [address] [phone] Social History Tobacco Use Types Packs/Day Years [...] Department Care Team (Late Contact Info) Description 10/16/2025 2:00 PM EST Office Visit [facility] [address] [place] [phone] Isela Grier MD [address] [place] [address] 11/24/2025 10:00 AM EST Clinical Support [facility] [address] [place] [address] Shanita Vasquez, RN [address] [place] [address] documented as of this encounter Visit Diagnoses Not on filedocumented in this encounter Additional Health Concerns Assessment Noted Time PHQ-9 Depression Total Score: 12 023 1:12 PM EDT documented as of this encounter Care Teams De Icer Installer Relationship Specialty Start Date End Date Isela Grier MD [address] [place] [address] PCP - General Family Medicine 10/26/18 Jaron Ambrose FNP [address] [place] [address] Nurse Practitioner Family Medicine 09/21/23 documented as of this encounter
--- OUTSIDE RECORDS SUMMARY | 2025-09-27 19:01 | XMS_ITS | Data Portability ---
Author Organization [facility], [facility] Address [address] [place] [address] Care Team Providers Care Schedule Maker Name Role Phone Unavailable Primary Care Provider [phone] Assessment Encounter Date Assessment Date Assessment LastModified by Organization Details LastModified Time 08/21/2025 08/21/2025 I provided real -time medical direction via phone for this encounter and was available for additional phone-based assistance as needed. I have reviewed and agree with the Assessment and Plan as documented by the [employer]. Patient given the opportunity to ask questions. Our service contacted for an assessment of: Cough and wheezing As per above, patient with a history of asthma, went to the emergency department but left prior to being seen on August 19. Apparently the wait was too long. She went there for cough and wheezing. Because the service she does not feel that she is responding well to her own inhalers and MDIs. Denies chest pain. She states that she has rib pain when she coughs. Denies significant shortness of breath at rest and has some minimal MCGUIRE. Denies sick contacts. Per family service assistant on the scene, VSS Please read the family service assistant note for their exam findings. COVID and flu are both negative Impression: Asthmatic bronchitis Plan: Short course of prednisone. First dose in the field of 40 mg. Course of doxycycline in case there is a atypical bacterial component to asthmatic bronchitis. DuoNeb x 1 with continuation of the patient's use of her nebulizers. Red flags discussed as to when to seek a higher level of care. Allergies: Reviewed PCP f/u: We discussed the diagnostic uncertainty of home visits and the risk associated with this. In this case, the patient and I felt this to be an acceptable and reasonable amount of risk given the benefit of avoiding an ED visit. We discussed the need to seek care urgently/emergentl y in the setting of any new or worsening serious symptoms, particularly fever chills lightheadedness altered mental status [email or web address] Not available 08/21/2025 15:56:09 Plan of Treatment Reminders Order Date Submit Date Provider Last Modified By Organization Details Last Modified Time Details Appointments None recorded. Lab rapid SARS CoV 2 Ag, QL IA, respiratory specimen 2024 [facility], [address] [place] [address], [id number] 20:05:56 rapid flu (A+B) 2024 [facility], [address] [place] [address], [id number] 17:08:57 Referral None recorded. Procedures None recorded. Surgeries None recorded. Imaging None recorded. Medication Orders prednisone 20 mg tablet 2024 [facility], [address] [place] [address], [id number], 05:01:17 prednisone 20 mg tablet 2024 [facility], [address] [place] [address], [id number], 05:01:17 doxycycline hyclate 100 mg capsule 2024 [facility], [address] [place] [address], [id number], 05:01:13 ipratropium 0.5 mg-albutero l 3 mg (2.5 mg base)/3 mL nebulizatio n soln 2024 [email or web address] [facility], [address] [place] [address], [id number], 15:48:05 doxycycline hyclate 100 mg capsule 2024 [facility], [address] [place] [address], [id number], 05:01:13 Patient TargetsNo targets recorded. Patient InstructionsNo instructions recorded. Reason for Referral None Reported. Results Created Date Observation Date Name Description Value Unit Range Abnormal Flag Note LastModifiedBy Organization Detail LastModifiedTime Result Notes None recorded. Medical Equipment None Reported. Allergies No known drug allergies Medications Name Sig Start Date Stop Date Status Note LastModified by Organization Details LastModified Time multivitami n tablet TAKE 1 TABLET BY MOUTH EVERY MORNING WITH FOOD active Not Available Not Available No t Available atorvastati n 80 mg tablet TAKE 1 TABLET BY MOUTH AT BEDTIME active Not Available Not Available No t Available doxycycline hyclate 100 mg capsule Take 1 capsule twice a day by oral route for 7 days. 09/04 completed Not Available Not Available Not Available quetiapine 300 mg tablet TAKE 1 TABLET BY MOUTH AT BEDTIME active Not Available Not Available No t Available Vitamin C 500 mg tablet TAKE 1 TABLET BY MOUTH TWICE DAILY IN THE MORNING AND AT BEDTIME active Not Available Not Available No t Available ibuprofen 800 mg tablet TAKE 1 TABLET BY MOUTH EVERY 8 HOURS NEEDED FOR PAIN active Not Available Not Available No t Available lisinopril 20 mg tablet TAKE 1 TABLET BY MOUTH EVERY MORNING active Not Available Not Available No t Available prednisone 20 mg tablet Take 2 tablets every day by oral route for 4 days. 09/01 completed Not Available Not Available Not Available alendronate 70 mg tablet take 1 tablet by mouth once a week with 6 to 8 oz of water 30 min before first food of day. do not lie down for 30 minutes active Not Available Not Available No t Available clonazepam 0.5 mg tablet TAKE 1 TABLET BY MOUTH EVERY TWELVE HOURS NEEDED ANXIETY active Not Available Not Available No t Available clindamycin HCl 150 mg capsule TAKE 1 CAPSULE BY MOUTH THREE TIMES DAILY FOR 7 DAYS UNTIL FINISHED 08/21 completed Not Available Not Available Not Available cyanocobala min (vit B-12) 1,000 mcg tablet TAKE 1 TABLET BY MOUTH EVERY MORNING active Not Available Not Available No t Available penicillin V potassium 500 mg tablet TAKE 1 TABLET BY MOUTH FOUR TIMES DAILY UNTIL FINISHED 08/21 completed Not Available Not Available Not Available acetaminoph en 300 mg-codeine 30 mg tablet TAKE 1 TABLET BY MOUTH EVERY 6 HOURS NEEDED FOR PAIN active Not Available Not Available No t Available folic acid 400 mcg tablet TAKE 1 TABLET BY MOUTH EVERY MORNING active Not Available Not Available No t Available acetaminoph en 500 mg tablet TAKE 2 TABLETS BY MOUTH EVERY 8 HOURS active Not Available Not Available No t Available amoxicillin 500 mg tablet TAKE 1 TABLET BY MOUTH FOUR TIMES DAILY UNTIL FINISHED 08/21 completed Not Available Not Available Not Available ketorolac 0.5 % eye drops INSTILL 1 DROP IN THE AFFECTED EYE THREE TIMES DAILY. START 2 DAYS BEFORE SURGERY. CONTINUE DIRECTED active Not Available Not Available No t Available famotidine 20 mg tablet TAKE 1 TABLET BY MOUTH AT BEDTIME NEEDED FOR HEARTBURN active Not Available Not Available No t Available neomycin-po lymyxin-dex ameth 3.5 mg/mL-10,00 0 unit/mL-0.1 % eye drops INSTILL 1 DROP IN EACH EYE FOUR TIMES DAILY FOR 2-3 WEEKS active Not Available Not Available No t Available polymyxin B sulfate 10,000 unit-trimet hoprim 1 mg/mL eye drops PLACE 1 DROP IN EACH EYE FOUR TIMES DAILY FOR 10 DAYS 08/21 completed Not Available Not Available Not Available docusate sodium 100 mg capsule TAKE 1 CAPSULE BY MOUTH TWICE DAILY active Not Available Not Available No t Available montelukast 10 mg tablet TAKE 1 TABLET BY MOUTH EVERY EVENING active Not Available Not Available No t Available furosemide 20 mg tablet TAKE 1 TABLET BY MOUTH EVERY DAY active Not Available Not Available No t Available fluticasone propionate 50 mcg/actuati on nasal spray,suspe nsion INSTILL 1 SPRAY IN EACH NOSTRIL ONCE DAILY IN THE MORNING active Not Available Not Available No t Available metformin ER 500 mg tablet,exte nded release 24 hr TAKE 2 TABLETS BY MOUTH TWICE DAILY IN THE MORNING AND EVENING WITH MEALS, DO NOT BREAK, CRUSH, DISSOLVE OR CHEW active Not Available Not Available No t Available loratadine 10 mg tablet TAKE 1 TABLET BY MOUTH EVERY MORNING active Not Available Not Available No t Available amoxicillin 875 mg-potassiu m clavulanate 125 mg tablet TOME 1 TABLETA POR V A ORAL CADA 12 HORAS POR 7 D 08/21 completed Not Available Not Available Not Available amoxicillin 500 mg-potassiu m clavulanate 125 mg tablet TAKE 1 TABLET BY MOUTH THREE TIMES DAILY UNTIL FINISHED active Not Available Not Available No t Available Ventolin HFA 90 mcg/actuati on aerosol inhaler INHALE 2 PUFFS BY MOUTH EVERY 6 HOURS NEEDED FOR WHEEZING OR SHORTNESS OF BREATH active Not Available Not Available No t Available oxycodone 5 mg tablet TAKE 1 TABLET BY MOUTH EVERY 6 HOURS NEEDED FOR PAIN active Not Available Not Available No t Available Vitamin D3 25 mcg (1,000 unit) capsule TAKE 1 CAPSULE BY MOUTH EVERY MORNING active Not Available Not Available No t Available moxifloxaci n 0.5 % eye drops INSTILL 1 DROP IN THE RIGHT EYE FOUR TIMES DAILY active Not Available Not Available No t Available bupropion HCl XL 150 mg 24 hr tablet, extended release TAKE 1 TABLET BY MOUTH EVERY MORNING active Not Available Not Available No t Available Alcohol Prep Pads USE DIRECTED TWICE DAILY active Not Available Not Available No t Available duloxetine 60 mg capsule,del ayed release TAKE 1 CAPSULE BY MOUTH TWICE DAILY IN THE MORNING AND IN THE EVENING active Not Available Not Available No t Available chlorhexidi ne gluconate 0.12 % mouthwash SWISH 15 ML IN THE MOUTH OR THROAT FOR 30 SECONDS THEN SPIT OUT TWICE DAILY AFTER BREAKFAST AND BEFORE BEDTIME active Not Available Not Available No t Available quetiapine 50 mg tablet TAKE 1 TABLET BY MOUTH EVERY MORNING active Not Available Not Available No t Available FreeStyle Lite Strips USE DIRECTED TO TEST BLOOD SUGAR TWICE DAILY active Not Available Not Available No t Available FreeStyle [place] Lite kit USE DIRECTED TO TEST BLOOD SUGAR TWICE DAILY BEFORE BREAKFAST AND BEFORE SUPPER active Not Available Not Available No t Available sodium,pota ssium,mag sulfates 17.5 gram-3.13 gram-1.6 gram oral soln MIX DIRECTED BY PACKAGE AND DRINK DIRECTED BY PACKAGE IN THE EVENING BEFORE AND IN THE MORNING OF PROCEDURE AT LEAST 2 HOURS BEFORE PROCEDURE DIRECTED active Not Available Not Available No t Available TRUEplus Lancets 33 gauge USE DIRECTED TO TEST BLOOD SUGAR TWICE DAILY active Not Available Not Available No t Available Farxiga 10 mg tablet TAKE 1 TABLET BY MOUTH EVERY DAY active Not Available Not Available No t Available Trulicity 1.5 mg/0.5 mL subcutaneou s pen injector INJECT ONE PEN (=1.5MG) SUBCUTANE OUSLY ONCE A WEEK DIRECTED active Not Available Not Available No t Available Trelegy Ellipta 100 mcg-62.5 mcg-25 mcg powder for inhalation INHALE 1 PUFF BY MOUTH EVERY DAY AT THE SAME TIME RINSE MOUTH AFTER USING active Not Available Not Available No t Available Trulicity 3 mg/0.5 mL subcutaneou s pen injector INJECT ONE PEN (= 3MG) SUBCUTANE OUSLY ONCE A WEEK DIRECTED active Not Available Not Available No t Available Mounjaro 7.5 mg/0.5 mL subcutaneou s pen injector INJECT ONE PEN (=7.5MG) SUBCUTANE OUSLY ONCE A WEEK DIRECTED active Not Available Not Available No t Available Omron Blood Pressure Monitor-3 Series kit CHECK BLOOD PRESSURE ONCE DAILY active Not Available Not Available No t Available Vitals Date Recorded Heart rate Oxygen saturation Respiratory rate Body temperature Systolic And Diastolic Provider Name and Address Organization Details Last Updated DateTime 78 /min 98 % 20 /min 98.3 [degF] 138/96 mm[Hg] Not Available [employer] - production 15:40:58 Social History None recorded. Functional Status None recorded. Mental Status None recorded. Family History Nothing Reported. Medical History No medical history recorded. Gynecological HistoryNo gynecological history recorded. Obstetrics History GPAL:G 0 P 0 0 0 0 Past Encounters Encounter ID Performer Location Encounter Start Date Encounter Closed Date Diagnosis/Indication Diagnosis SNOMED-CT Code Diagnosis ICD10 Code Diagnosis IMO Codes Diagnosis Note [id number] Kira Hayden MD [facility] ED Medical [address] [phone] 08/21/2025 15:40:50 08/21/2025 20:13:39 Asthmatic bronchitis 400495020 J45.909 [id number] Common cold [id number] J00 70560 Health Concerns Section Related Observation LastModified by Organization Detai ls LastModified Time None Recorded Concern Status LastModified by Organization Details LastModified Time None Recorded Advance Directives Directive None Recorded Payers Insurance Date Sequence Insurance Name Policy Number Policy Martin Covered Member ID Martin Member ID Guarantor Name 08/21/2025 1 [facility] - DOS ON OR AFTER 2023 - DUAL ELIGIBLE - RESIDENTIAL OPTIONS AND ONE CARE (MEDICARE REPLACEMENT/ADV ANTAGE - HMO) Lilliam Miranda [id number] Lilliam Miranda Notes Date Note Type Note Provider Name and Address Organization Details Recorded Time 08/21/2025 text/html HPI: Member was having breathing difficulties, chest pain. Member reports symptoms for about 4 days now. Reports she went to ED on 08/19 but left due to long wait times. Taking Robitussin to manage symptoms but difficulty speaking during this call. Was unable to provide any further details of symptoms to this care mgr. CCM requesting visit per members request and concerns with members health during call ................... ................... ................... ................... ................... ................... ................... ........ [facility] Nurse Triage Notes (Mirna Draper): Chief Complaints: Chest Pain, Weakness, Breathing Problems PMH: Asthma, Diabetes Mellitus Type 2, Schizophrenia PMH Reviewed at 08/21/2025:49 Allergies Reviewed at 08/21/2025:49 Comments: HPI reviewed [employer] Organization Information for [facility] [employer] Legal Name: [employer]. Address: [address] [place] [address], Urban Design Consultant: Monty Harris MD [place] No.: [id number] [employer] POC Test Results from [facility] Rapid COVID antigen (15:38:07) COVID: - Attachments uploaded as part of this test result can be found under Documents section. Rapid influenza antigen (15:38:08) Flu: - Attachments uploaded as part of this test result can be found under Documents section. ................... ................... ................... ................... ................... ................... ................... ........ [employer] Note From [facility]: Encountered patient seated upright and conscious with [...] and flu swabs performed, both resulted negative; [facility] notified. Skin is warm, moist and of appropriate color for ethnicity. Head and neck free of trauma and edema. JVD. Breath sounds exhibit light wheezing in the anterior apexes, remainder of breath sounds present and clear. Abdomen is soft, non-tender and non-distended. Extremities are free of trauma and edema. [facility] contacted: 40 mg of PO prednisone, 100 mg of PO doxycycline and one DuoNeb treatment administered after medication r ights were reconciled with patient. [facility] states they will send a prescription for further treatment to a pharmacy of patient s choice. Patient was advised to seek an appointment with her primary care doctor as soon as possible. Patient was additionally urged to monitor herself for chest pain, shortness of breath or fevers and was encouraged to seek further medical attention, including 911 if said symptoms were to develop. Patient verbalizes understanding of the plan and states she is comfortable remaining home today. [facility] Lab Orders: rapid SARS CoV 2 Ag, QL IA, respiratory specimen: Performed rapid flu (A+B): Performed [facility] Medication Orders: prednisone 20 mg tablet: Performed ipratropium 0.5 mg-albuterol 3 mg (2.5 mg base)/3 mL nebulization soln: Performed doxycycline hyclate 100 mg capsule: Performed ................... ................... ................... ................... ................... ................... ................... ........ [facility] Consulted: Kira Hayden ................... ................... ................... ................... ................... ................... ................... ........ Disposition: Fulfilled Kira Hayden MD [address] [place] [address],[address] [facility], [place], [phone], [employer], [employer] 08/21/2025 19:40:08 OBGyn Episode No OBEpisode recorded.
--- OUTSIDE RECORDS SUMMARY | 2025-09-27 19:01 | XMS_ITS | Encounter Summary ---
Author Organization [employer] Address [address] [facility] [address] [place] [address] Care Team Providers Care Power Mule Operator Name Role Phone Isela Grier MD Primary Care Provider [phone] Jaron Ambrose Unavailable Unavailable Reason for Visit * Reason Comments Med Refill Encounter Details Date Type Department Care Team (Late st Contact Info) Description 04/06/2025 Refill [facility] [address] [place], [place] [phone] Rosi Saxena MD [address] [place], [place] [phone] Moderate persistent asthma, uncomplicated Social History Tobacco [...] Description 10/16/2025 2:00 PM EST Office Visit [address] [address] Isela Grier MD [address] [place] [phone] 11/24/2025 10:00 AM EST Clinical Support [address] [address] Shanita Vasquez, RN [address] [place] [address] documented as of this encounter Visit Diagnoses Diagnosis Moderate persistent asthma, uncomplicated documented in this encounter Additional Health Concerns Assessment Noted Time PHQ-9 Depression Total Score: 13 024 2:55 PM EDT documented as of this encounter Care Teams Power Mule Operator Relationship Specialty Start Date End Date Isela Grier MD [address] [place] [phone] PCP - General Family Medicine 10/26/18 Jaron Ambrose FNP [address] [place] [phone] Nurse Practitioner Family Medicine 09/21/23 documented as of this encounter
--- OUTSIDE RECORDS SUMMARY | 2025-09-27 19:02 | XMS_ITS | Clinical Summary ---
Author Organization [facility] Address [address] [place] [address] Phone Care Team Providers Care Correction Officer Reformatory Name Role Phone Isela Grier MD Primary Care Provider [phone] Allergies No known active allergies Medications cholecalciferol [...] type 2 wit h neurological manifestations ([facility] V24, [facility] V28) 01/16/2014 Overview (07/28/2024): CTS DJD (degenerative joint disease) 01/16/2014 Overview (07/28/2024): Multiple joints Hyperlipidemia 01/16/2014 Obesity 01/16/2014 Overview (07/28/2024): S/p gastric bypass Schizoaffective disorder ([facility] V24, [facility] V 28) 01/16/2014 Vitamin D deficiency 01/16/2014 Anxiety 12/14/2013 Chronic joint pain 12/14/2013 Depression 12/14/2013 Resolved Problems Problem Noted Date Diagnosed Date Resolved Date Incarcerated ventral hernia 09/06/2024 09/07/2024 Encounters Date Type Department Care Team Description 08/19/2025 5:07 AM EDT - 08/19/2025 7:[address] [facility] [address] [place] [id number] Piedad Gibbs MD Shortness of breath (Primary Dx) Discharge Disposition: Left Against Medical Advice from Last 3 Months Immunizations Immunization Administration Dates Next Due COVID-19 (Moderna/Spikevax) 14yo [...] HISTORICAL TUBAL LIGATION OTHER SURGICAL HISTORY PROCEDURE: WI ANES HRNA RPR UPR ABD LMBR&VNT HERNIA&/DEHSN BLADDER SUSPENSION PROCEDURE: HISTORICAL BLADDER SUSPENSION HYSTERECTOMY PROCEDURE: HISTORICAL HYSTERECTOMY GASTRIC BYPASS PROCEDURE: WI GASTRIC RSTCV W/BYP W/SM INT RCNSTJ LIMIT ABSRPJ OTHER SURGICAL HISTORY 11/19/12 PROCEDURE: OUTSIDE MAMMO SALIVARY GLANDS Bilateral REMOVED STEREOTACTIC CORE BIOPSY Right BREAST CYST ASPIRATION Right Medical History Medical History Date Comments Depression 12/14/2013 DX:Depression Anxiety 12/14/2013 DX:Anxiety Chronic joint pain 12/14/2013 DX:Chronic joel int pain Diabetes mellitus type 2, diet-controlled (CMS/HCC V24, CMS/HCC V28) 01/16/2014 DX:Diabetes mellitus type 2, diet-controlled (HCC) Schizoaffective disorder (CM S/HCC V24, CMS/HCC V28) 01/16/2014 DX:Schizoaffective disorder (HCC) Hyperlipidemia 01/16/2014 DX:Hyperlipidemi [...] Asthma COPD (chronic obstructive pu lmonary disease) ([facility] V24, [facility] V28) Sleep apnea Shortness of breath HL (hearing loss) Hearing loss GERD (gastroesophageal reflux disease) Hernia of abdominal wall Anemia Neuromuscular disorder ([facility] V24, [facility] V28) Chronic fatigue syndrome wit h fibromyalgia [...] Sign Reading Time Taken Comments Blood Pressure 119/62 08/19/2025 6:01 AM EDT Pulse 74 08/19/2025 6:01 AM EDT Temperature 36.7 C (98.1 F) 08/19/2025 6:01 AM EDT Respiratory Rate 21 08/19/2025 6:01 AM EDT Oxygen Saturation 93% 08/19/2025 6:01 AM EDT Inhaled Oxygen Concentration - - Weight 86.2 kg (190 lb) 08/19/2025 1:55 AM EDT Height 154.9 cm (5' 1 ) 08/19/2025 1:55 AM EDT Body Mass Index 35.9 08/19/2025 1:55 AM EDT Plan of Treatment Health Maintenance Due Date Last Done Comments Colorectal Cancer Screening: Colonoscopy 1957 Diabetes: Annual Foot Exam 1967 Diabetes: Annual Retina Eye Exam 1967 RSV Immunization Adult Patients (1 - Risk 50-74 years 1-dose series) 2007 Falls Risk Assessment 09/27/2022 Hepatitis C Screening 09/27/2022 Medicare Annual Wellness Visit 09/27/2022 Social Influencers of Health Screening 09/27/2022 Depression Screening 10/26/2024 Diabetes: Annual Urine Albumin-Creatinine Ratio (uACR) 12/21/2024 12/21/2023 COVID-19 Vaccine ( season) 2025 10/27/2024, 12/21/2023, 05/21/2022, Additional history exists Influenza Vaccine (#1) 2025 , 07/07/2023, 07/18/2022, Additional history exists Diabetes: Blood Sugar Control Test (HGBA1C) 11/01/2025 05/01/2025, 01/24/2025, 10/27/2024, Additional history exists Diabetes: Annual GFR (Glomerular Filtration Rate) 08/19/2026 08/19/2025, 04/04/2025, 10/27/2024, Additional history exists Hypertension/CHF/CAD Annual BMP Blood Test 08/19/2026 08/19/2025, 04/04/2025, 10/27/2024, Additional history exists Breast Cancer Screening 11/09/2026 [...] this topic Medical Devices Implanted Type Area Emulsion Operator Device Identifier Shelf Expiration Date Model / Serial / Lot Mesh Ventralex St 2.5in Med [place] W/Strap - Sn/A - [id number] Implanted:Qty: 1 on 09/07/2024 by Adwoa Tate MD at [facility] Surgical Mesh Sling Implants N/A: Abdomen CR BARD - DAVOL DIV [id number] 09/22/2025 [id number] / N/A / [id number] Procedures Procedure Name Priority Date/Time Associated Diagnosis Comments ECG ANNOTATED 08/21/2025 ECG ANNOTATED 08/21/2025 XR CHEST 2 VIEWS STAT 08/19/2025 5:1 3 AM EDT TROPONIN I HIGH SENSITIVITY Timed 08/19/2025 4:31 AM EDT ECG 12-LEAD STAT 08/19/2025 4:28 AM EDT ECG 12-LEAD STAT 08/19/2025 2:28 AM EDT CBC WITH AUTO DIFFERENTIAL STAT 08/19/2025 2:21 AM EDT B-TYPE NATRIURETIC PEPTIDE STAT 08/19/2025 2:21 AM EDT MAGNESIUM STAT 08/19/2025 2:21 AM EDT LIPASE STAT 08/19/2025 2:21 AM EDT COMPREHENSIVE METABOLIC PANEL STAT 08/19/2025 2:21 AM EDT CBC AND DIFFERENTIAL STAT 08/19/2025 2:21 AM EDT TROPONIN I HIGH SENSITIVITY Timed 08/19/2025 2:21 AM EDT BD BONE DENSITY DXA AXIAL [...] Relevant to Health Maintenance Results * ECG-Annotated (08/21/2025) Only the most recent of2 resultswithin the time period is included. us Provider Onbase MD ECG ORDERABLES Final Result * XR Chest 2 Views (08/19/2025 5:13 AM EDT) Anatomical Region Laterality Modality Body Radiographic Afsaneh ging 08/19/2025 9:06 AM EDT Impressions 08/19/2025 9:07 AM EDT FINDINGS/IMPRESSION: Elevated right diaphragm is unchanged. Linear scarring and postsurgical change in the left lung is stable compared to prior. No pneumonia or pulmonary edema. No pleural effusion or pneumothorax. Cardiac silhouette is normal in size. Degenerative changes seen throughout the bones. Cholecystectomy clips. -------- FINAL REPORT -------- Dictated By: ARNALDO AGUILAR Dictated Date: 08/19/2025 09:06 ET Assigned Physician: ARNALDO AGUILAR Reviewed and Electronically Signed By: ARNALDO AGUILAR Signed Date: 08/19/2025 09:07 ET Workstation ID: [id number] Transcribed By: Self Edit Transcribed Date: 08/19/2025 09:06 ET Narrative 08/19/2025 9:07 AM EDT XR CHEST 2 VIEWS INDICATION: Chest pain TECHNIQUE: XR CHEST 2 VIEWS COMPARISON: 04/04/2025. Procedure Note Arnaldo Aguilar MD - 08/19/2025 XR CHEST 2 VIEWS INDICATION: Chest pain TECHNIQUE: XR CHEST 2 VIEWS COMPARISON: 04/04/2025. IMPRESSION: FINDINGS/IMPRESSION: Elevated right diaphragm is unchanged. Linearscarring and postsurgical change in the left lung is stable compared toprior. No pneumonia or pulmonary edema. No pleural effusion orpneumothorax. Cardiac silhouette is normal in size. Degenerative changesseen throughout the bones. Cholecystectomy clips. -------- FINAL REPORT -------- Dictated By: ARNALDO AGUILAR Dictated Date: 08/19/2025 09:06 ET Assigned Physician: ARNALDO AGUILAR Reviewed and Electronically Signed By: ARNALDO AGUILAR Signed Date: 08/19/2025 09:07 ET Workstation ID: [id number] Transcribed By: Self Edit Transcribed Date: 08/19/2025 09:06 ET us Jasmin Flores MD IMG XR PROCEDURES Final Result * Troponin I high sensitivity (08/19/2025 4:31 AM EDT) Only the most recent of2 resultswithin the time period is included. High Sensitivity Troponin I 4 <=54 ng/L LAB CHEMISTRY METHOD 08/19/2025 6:33 AM EDT [facility] Blood Venous blood specimen / Unknown Venipuncture / Unknown 08/19/2025 4:31 AM EDT 08/19/2025 5:46 AM EDT Narrative [facility] - 08/19/2025 6:33 AM EDT High levels of biotin in samples may falsely decrease hsTroponin values. Use caution when interpreting hsTroponin results in patients taking biotin who exhibit renal impairment (eGFR <60) or in patients taking more than 20 mg/day of biotin. us Jasmin Flores MD LAB BLOOD ORDERABLES Final Resul t [facility] [address] [place] [address], [place] [phone] * ECG 12 lead (08/19/2025 4:28 AM EDT) Only the most recent of2 resultswithin the time period is included. Ventricular Rate ECG 75 BPM GEMUSE Atrial Rate 75 BPM GEMUSE P-R Interval 148 ms GEMUSE QRS Duration 80 ms GEMUSE Q-T Interval 366 ms GEMUSE QTc 408 ms GEMUSE P Wave Amma 34 degrees GEMUSE R Amma 32 degrees GEMUSE T Amma 27 degrees GEMUSE ECG Interpretation Normal sinus rhythm Normal ECG When compared with ECG of 19-AUG-2025 02:28, (unconfirmed) No significant change was found Confirmed by TONE BENAVIDEZ ([id number]) on 08/19/2025 11:58:31 PM GEMUSE 08/19/2025 4:28 AM EDT 08/19/2025 11:58 PM EDT Jasmin Flores MD ECG ORDERABLES Final Result Performing Organization Address [facility]/ZIP Co de Phone Number GEMUSE * (ABNORMAL) CBC auto differential (08/19/2025 2:21 AM EDT) Pathologist [facility] WBC 6.1 4.8 - 10.8 K/mcL LAB HEMETOLOGY METHOD 08/19/2025 3:55 AM EDT [facility] RBC 3.80 3.80 - 4.80 M/mcL LAB HEMETOLOGY METHOD 08/19/2025 3:55 AM EDT [facility] Hemoglobin 11.1(L) 11.5 - 16.0 g/dL LAB HEMETOLOGY METHOD 08/19/2025 3:55 AM EDT [facility] Hematocrit 35.6 35.0 - 47.0 % LAB HEMETOLOGY METHOD 08/19/2025 3:55 AM EDT [facility] MCV 93.2 79.0 - 98.0 FL LAB HEMETOLOGY METHOD 08/19/2025 3:55 AM EDT [facility] MCH 29.1 27.0 - 32.0 pcg LAB HEMETOLOGY METHOD 08/19/2025 3:[address] [facility] MCHC 31.2(L) 32.0 - 37.0 g/dL LAB HEMETOLOGY METHOD 08/19/2025 3:55 AM EDT [facility] RDW 12.4 11.0 - 15.0 % LAB HEMETOLOGY METHOD 08/19/2025 3:[address] [facility] Platelets 389 130 - 400 K/mcL LAB HEMETOLOGY METHOD 08/19/2025 3:[address] [facility] MPV 9.6 7.0 - 11.0 FL LAB HEMETOLOGY METHOD 08/19/2025 3:[address] [facility] NRBC 0.0 <1.0 % LAB HEMETOLOGY METHOD 08/19/2025 3:[address] [facility] NRBC Absolute 0.00 <0.10 K/mcL LAB HEMETOLOGY METHOD 08/19/2025 3:[address] [facility] Neutrophils Relative 54.3 % LAB HEMETOLOGY METHOD 08/19/2025 3:55 AM T [facility] Lymphocytes Relative 32.8 % LAB [facility]ETOLOGY [facility] Monocytes Relative 8.1 % LAB HEMETOLOGY METHOD 08/19/2025 3:[address] [facility] Eosinophils Relative 3.8 % LAB HEMETOLOGY METHOD 08/19/2025 3:[address] [facility] Basophils Relative 0.5 % LAB HEMETOLOGY METHOD 08/19/2025 3:55 AM EDT [facility] Immature Granulocytes Relative 0.5 % LAB HEMETOLOGY METHOD 08/19/2025 3:55 AM EDT [facility] Neutrophils Absolute 3.29 1.50 - 7.00 K/mcL LAB HEMETOLOGY METHOD 08/19/2025 3:55 AM EDT [facility] Lymphocytes Absolute 1.99 1.00 - 5.00 K/mcL LAB HEMETOLOGY METHOD 08/19/2025 3:55 AM EDT [facility] Monocytes Absolute 0.49 0.20 - 1.00 K/mcL LAB HEMETOLOGY METHOD 08/19/2025 3:55 AM EDT [facility] Eosinophils Absolute 0.23 0.00 - 0.50 K/mcL LAB HEMETOLOGY METHOD 08/19/2025 3:55 AM EDT [facility] Basophils Absolute 0.03 0.00 - 0.20 K/mcL LAB HEMETOLOGY METHOD 08/19/2025 3:55 AM EDT [facility] Immature Granulocytes Absolute 0.03 0.00 - 0.03 K/mcL LAB HEMETOLOGY METHOD 08/19/2025 3:55 AM EDT [facility] Blood Venous blood specimen / Unknown Venipuncture / Unknown 08/19/2025 2:21 AM EDT 08/19/2025 3:48 AM EDT us Jasmin Flores MD LAB BLOOD ORDERABLES Final Resul t [facility] [address] [place] [address], * B-type natriuretic peptide (08/19/2025 2:21 AM EDT) BNP 28 <=100 pcg/mL LAB CHEMISTRY METHOD 08/19/2025 4:20 AM EDT [facility] Blood Venous blood specimen / Unknown Venipuncture / Unknown 08/19/2025 2:21 AM EDT 08/19/2025 3:48 AM EDT us Jasmin Flores MD LAB BLOOD ORDERABLES Final Resul t Performing Organization Address [facility] Co de Phone Number [facility] [address] [place] [address], [place] [phone] * (ABNORMAL) Magnesium (08/19/2025 2:21 AM EDT) Magnesium 1.8(L) 1.9 - 2.6 mg/dL LAB CHEMISTRY METHOD 08/19/2025 4:13 AM EDT [facility] Blood Venous blood specimen / Unknown Venipuncture / Unknown 08/19/2025 2:21 AM EDT 08/19/2025 3:48 AM EDT us Jasmin Flores MD LAB BLOOD ORDERABLES Final Resul t Performing Organization Address [facility] de Phone Number [facility] [address] [place] [address], [place] [phone] * Lipase (08/19/2025 2:21 AM EDT) Lipase 57 13 - 75 unit/L LAB CHEMISTRY METHOD 08/19/2025 4:13 AM EDT [facility] Blood Venous blood specimen / Unknown Venipuncture / Unknown 08/19/2025 2:21 AM EDT 08/19/2025 3:48 AM EDT us Jasmin Flores MD LAB BLOOD ORDERABLES Final Resul t Performing Organization Address [facility]/ZIP Co de Phone Number [facility] [address] [place] [address], [place] [phone] * (ABNORMAL) Comprehensive metabolic panel (08/19/2025 2:21 AM EDT) Sodium 139 133 - 145 mmol/L LAB CHEMISTRY METHOD 08/19/2025 4:[address] [facility] Potassium 4.6 3.5 - 5.5 mmol/L LAB CHEMISTRY METHOD 08/19/2025 4:[address] [facility] Chloride 104 96 - 110 mmol/L LAB CHEMISTRY METHOD 08/19/2025 4:[address] [facility] CO2 30 21 - 32 mmol/L LAB CHEMISTRY METHOD 08/19/2025 4:[address] [facility] Anion Gap 5 3 - 11 LAB CHEMISTRY METHOD 08/19/2025 4:[address] [facility] Glucose 217(H) 70 - 100 mg/dL LAB CHEMISTRY METHOD 08/19/2025 4:[address] [facility] BUN 15 5 - 25 mg/dL LAB CHEMISTRY METHOD 08/19/2025 4:[address] [facility] Creatinine 0.98 0.50 - 1.10 mg/dL LAB CHEMISTRY METHOD 08/19/2025 4:[address] [facility] eGFR 63 >=60 mL/min/1. 73m2 LAB CHEMISTRY METHOD 08/19/2025 4:[address] [facility] Comment:Calculation based on the Chronic Kidney Disease Epidemiology Collaboration (CKD-EPI) equation refit without adjustment for race. BUN/Creatinine Ratio 15.3 LAB CHEMISTRY METHOD 08/19/2025 4:[address] [facility] Calcium 8.8 8.5 - 10.5 mg/dL LAB CHEMISTRY METHOD 08/19/2025 4:[address] [facility] AST (SGOT) 17 10 - 42 unit/L LAB CHEMISTRY METHOD 08/19/2025 4:[address] [facility] ALT (SGPT) 30 10 - 60 unit/L LAB CHEMISTRY METHOD 08/19/2025 4:13 AM EDT [facility] Alkaline Phosphatase 157(H) 42 - 121 unit/L LAB CHEMISTRY METHOD 08/19/2025 4:13 AM EDT [facility] Total Protein 6.6 6.0 - 8.0 g/dL LAB CHEMISTRY METHOD 08/19/2025 4:13 AM EDT [facility] Albumin 3.5 3.2 - 5.0 g/dL LAB CHEMISTRY METHOD 08/19/2025 4:13 AM EDT [facility] Total Bilirubin 0.2 0.0 - 1.4 mg/dL LAB CHEMISTRY METHOD 08/19/2025 4:13 AM EDT [facility] Blood Venous blood specimen / Unknown Venipuncture / Unknown 08/19/2025 2:21 AM EDT 08/19/2025 3:48 AM EDT us Jasmin Flores MD LAB BLOOD ORDERABLES Final Resul t [facility] [address] [place] [address], * BD Bone Density DXA Axial Skeleton (11/09/2024 10:33 AM EST) Anatomical Region Laterality Modality Wrist, Hip, L-spine Bone Densito metry 11/09/2024 12:2 2 PM EST Impressions 11/09/2024 12:24 PM EST 1. Osteopenia. 2. FRAX analysis yields a 10-year probability of major osteoporotic fracture of 10.5% and a 10-year probability of hip fracture of 1.8%. Code 60118 -------- FINAL REPORT -------- Dictated By: Michael Fierro Dictated Date: 11/09/2024 12:22 ET Assigned Physician: Michael Fierro Reviewed and Electronically Signed By: Michael Fierro Signed Date: 11/09/2024 12:24 ET Workstation ID: [id number] Transcribed By: Self Edit Transcribed Date: 11/09/2024 [...] density of the femurs bilaterally is 0.836 gm/vb1qyxrp is 83% of that of young normals [...] probability of hip fracture of 1.8%. Code 94258 -------- FINAL REPORT -------- Dictated By: Michael Fierro Dictated Date: 11/09/2024 12:22 ET Assigned Physician: Michael Fierro Reviewed and Electronically Signed By: Michael Fierro Signed Date: 11/09/2024 12:24 ET Workstation ID: [id number] Transcribed By: Self Edit Transcribed Date: 11/09/2024 [...] Signed Date: 11/18/2024 15:36 ET Workstation ID: [id number] Transcribed By: Self Edit Transcribed Date: 11/18/2024 15:31 ET Narrative 11/18/2024 3:36 PM EST EXAM: SCREENING MAMMOGRAPHY, BILATERAL HISTORY: SCREENING. No additional history. COMPARISON: 11/19/2012 TECHNIQUE: Synthesized CC and MLO projections of each breast. Tomosynthesis of each breast in the CC and MLO projections. ADDITIONAL IMAGING: None Computer-aided detection was employed with the [employer] AI 3-D. TISSUE DENSITY: There are scattered [...] Computer-aided detection was employed with the [employer] Quigo AI 3-D. TISSUE DENSITY: There are scattered [...] Signed Date: 11/18/2024 15:36 ET Workstation ID: [id number] Transcribed By: Self Edit Transcribed Date: 11/18/2024 15:31 ET us Isela Grier MD IMG BI PROCEDURES Final Result * (ABNORMAL) Hemoglobin A1c (09/07/2024 11:45 AM EST) Hemoglobin A1C 8.3(H) <6.5 % LAB CHEMISTRY METHOD 09/08/2024 10:30 PM [facility] Mean Bld Glu Estim. 192 mg/dL LAB CHEMISTRY METHOD 09/08/2024 10:30 PM [facility] Blood Venous blood specimen / Unknown Venipuncture / Unknown 09/07/2024 11:45 AM EST 09/08/2024 2:14 PM EST Adwoa Tate MD LAB BLOOD ORDERABLES Final R esult [facility] ([facility]) [facility] [address] [place] [address], [place] [phone] * HM Urine Albumin Creatinine Ratio (12/21/2023) [...] Most Recently Relevant to Health Maintenance Insurance [facility] MEDIC[facility] Member Subscriber Plan / Payer (Ef fective 2022-Present) Name:Lilliam Miranda Relation to Subscriber:Self Name:Lilliam Miranda Payer ID:[id number] Group ID:[id number] Type:Not on file Address: [place] [address] [address] [id number] Advance Directives * Full Code - Default [...] currently active code status orders. Care Teams Correction Officer Reformatory Relationship Specialty Start Date End Date Isela Grier MD [address] [place] [phone] PCP - General 10/20/23
--- OUTSIDE RECORDS SUMMARY | 2025-09-27 19:02 | XMS_ITS | Encounter Summary ---
Author Organization [employer] Address [address] [facility] [place] [address] Care Team Providers Care Rn Psychiatric Name Role Phone Isela Grier MD Primary Care Provider [phone] Jaron Ambrose Unavailable Unavailable Encounter Details Date Type Department Care Team (Late st Contact Info) Description 11/28/2024 Abstract [facility] [address] [place] [address] Luanne Miles MA Social History Tobacco Use [...] Description 10/16/2025 2:00 PM EST Office Visit [address] [address] Isela Grier MD [address] [place] [address] 11/24/2025 10:00 AM EST Clinical Support [address] [address] Shanita Vasquez, BRANDY [address] [place] [address] documented as of this encounter Visit Diagnoses Not on filedocumented in this encounter Additional Health Concerns Assessment Noted Time PHQ-9 Depression Total Score: 13 024 2:55 PM EDT documented as of this encounter Care Teams Rn Psychiatric Relationship Specialty Start Date End Date Isela Grier MD [address] [place] [phone] PCP - General Family Medicine 10/26/18 Jaron Ambrose FNP [address] [place] [phone] Nurse Practitioner Family Medicine 09/21/23 documented as of this encounter
--- OUTSIDE RECORDS SUMMARY | 2025-09-27 19:02 | XMS_ITS | Encounter Summary ---
Author Organization [employer] Address [address] [facility] [address] [place] [address] Care Team Providers Care Hvac Refrigeration Technician Name Role Phone Isela Grier MD Primary Care Provider [phone] Jaron Ambrose Unavailable Unavailable Reason for Visit * Reason Onset Date Comments Med Refill 09/19/2024 Encounter Details Date Type Department Care Team (Late st Contact Info) Description 09/19/2024 Telephone [facility] [address] [place], [place] [phone] Isela Grier MD [address] [place], [place] [phone] Med Refill Social History Tobacco Use Types [...] - 09/19/2024 2:45 PM EST TC from [facility] requesting refills on medications : Multiple Vitamin (Multivitamin) tablet ,Vitamin D High Potency 25 MCG (1000 UT) capsule , metFORMINXR (Glucophage-XR) 500 MG 24 hr tablet, Ascorbic Acid (vitamin C) 500 MG tablet Pt need refills for medboxes. PCP DR. rGier documented in this encounter Plan of Treatment Upcoming Encounters Date Type Department Care Team (Late st Contact Info) Description 10/16/2025 2:00 PM EST Office Visit [facility] [address] [place] [address] Isela Grier MD [address] [place] [phone] 11/24/2025 10:00 AM EST Clinical Support [facility] [address] [place] [phone] Shanita Vasquez RN [address] [place] [address] documented as of this encounter Visit Diagnoses Not on filedocumented in this encounter Additional Health Concerns Assessment Noted Time PHQ-9 Depression Total Score: 13 024 2:55 PM EDT documented as of this encounter Care Teams Hvac Refrigeration Technician Relationship Specialty Start Date End Date Isela Grier MD [address] [place] [address] PCP - General Family Medicine 10/26/18 Jaron Ambrose FNP [address] [place] [address] Nurse Practitioner Family Medicine 09/21/23 documented as of this encounter
== END 2025-09-27 16:39 | disposition home or self-care (01) ==
LOC: HO.CT 16:38
PROVIDERS: PCP Internal Medicine; Visit Provider Physician Assistant Medical
DX: F17.210 Nicotine dependence, cigarettes, uncomplicated (principal); Z12.2 Encounter for screening for malignant neoplasm of respiratory organs
CPT/HCPCS: 71271

== ENCOUNTER → 2025-09-27 16:40 | Outpatient (BNV) | payer OTHER, SELFPAY | PROVIDERS: PCP Internal Medicine; Visit Provider Radiology Diagnostic Radiology | DX: Z12.2 Encounter for screening for malignant neoplasm of respiratory organs (principal); Z87.891 Personal history of nicotine dependence; J98.6 Disorders of diaphragm | CPT/HCPCS: 71271 ==

== ENCOUNTER → 2025-10-03 08:56 | Outpatient (REF) | payer OTHER, SELFPAY ==
--- NOTE | 2025-10-03 09:00 | CA_ITS ---
Acquisition Time: 2025-10-03 09:06:02 Total Exercise Time: 00:02:00 Test Indications: Dyspnea Medications: SEE H&P Protocol: LEXISCAN Max HR: 98 BPM 64% of Pred: 152 BPM Max BP: 136/64 mmHG Max Work Load: 1.0 METS Pharmacological stress test with Lexiscan while pt swings her legs in chair, with reports of 6/10 left sided chest tightness and SOB, without any arrythmias, with normotensive response to injection. Nondiagnostic EKG for ischemia. In recovery, pt treated with IVP Aminophylline 75 mg to reverse Lexiscan after which pt's symptoms resolved and pt feeling back to baseline. Nuclear images pending. Test reviewed with Dr. Rey. Referred By: Matt Rey Electronically Signed By: Smith Salcedo
== END ==
LOC: HO.CARD 08:56
PROVIDERS: PCP Internal Medicine; Visit Provider Internal Medicine Cardiovascular Disease
DX: R06.09 Other forms of dyspnea (principal)
CPT/HCPCS: 78452; 93017; A9500; J0280; J2785

== ENCOUNTER → 2025-10-03 09:00 | Outpatient (BNV) | payer OTHER, SELFPAY | PROVIDERS: PCP Internal Medicine | DX: R06.00 Dyspnea, unspecified (principal) | CPT/HCPCS: 78452; 93016; 93018 ==

== ENCOUNTER 2025-10-20 13:27 | Outpatient (AMB) | payer OTHER, SELFPAY ==
--- OUTSIDE RECORDS SUMMARY | 2025-10-16 14:00 | XMS_ITS | Encounter Summary ---
Author Organization [facility] Address [address] [place] [address] 7 [place] [address] Care Team Providers Care Sweatband Perforator Name Role Phone Isela Grier MD Primary Care Provider [phone] Jaron Ambrose Unavailable Unavailable Reason for Referral * Medications - Closed Specialty Diagnoses / Procedures Referred By Jaden mallory Referred To Contact Diagnoses Osteoarthritis of multiple joints, unspecified osteoarthritis type Isela Grier MD [address] [place] [id number] Phone: tel: fax: Referral ID Status Reason Start Date Expiration Date Visits Re quested Visits Authorized [id number] Closed 1 1 Encounter Details Date Type Department Care Team (Latest Contact Info) Description 10/16/2025 2:00 PM EST Office Visit [facility] [address] [place] [phone] Isela Grier MD [address] [place] [id number] Essential hypertension (Primary Dx); Dyslipidemia; Type 2 diabetes mellitus with hyperglycemia, without long-term current use of insulin (HCC); Chronic pain of both knees; Chronic obstructive pulmonary disease, unspecified COPD type (CMS/HCC) (HCC); Obstructive sleep apnea syndrome; Encounter for immunization; Tongue pain; Imbalance; Vitamin D deficiency; Osteoarthritis of multiple joints, unspecified osteoarthritis type; Pre-op evaluation; Dyspnea on exertion; MDD (major depressive disorder), recurrent, severe, with psychosis (CMS/HCC) (HCC); WADE (generalized anxiety disorder); Neck pain on left side; Chronic left shoulder pain; Stopped smoking with greater than 20 pack year history; Tobacco dependence Social History Tobacco Use Types Packs/Day Years Used Date Smoking Tobacco: Former Cigarettes Passive Smoke Exposure: Past Smokeless Tobacco: Never Depression Answer Date Recorded Patient Health Questionnaire-9 Score 6 10/16/2025 Patient Health Questionnaire-9 Score 6 10/16/2025 Last PHQ-9: Questionnaire Data Not on file 1 12/17/2024 Housing Stability Answer Date Recorded What is your housing situation today? I have sharon dwaine 05/01/[address] you li [...] Answer Date Recorded Patient Health Questionnaire-2 Score 2 10/16/2025 Internet Access Answer Date Recorded Internet Access Q1 Yes 05/01/2025 Internet Access Q2 Not on file 05/01/2025 Comments No Sex and Gender Information Value Date Recorded Sex Assigned at Female 08/25/2022 10:14 AM EDT Legal Sex Female 10:14 AM EDT Gender Identity Female 08/25/2022 10:14 AM EDT Sexual Orientation Straight 08/25/2022 10 :14 AM EDT documented as of this encounter Last Filed Vital Signs Vital Sign Reading Time Taken Comments Blood Pressure 130/74 10/16/2025 2:26 PM EST Pulse 97 10/16/2025 2:26 PM EST Temperature 35.7 C (96.2 F) 10/16/2025 2:26 PM EST Respiratory Rate 19 10/16/2025 2:26 PM EST Oxygen Saturation 97% 10/16/2025 2:26 PM EST Inhaled Oxygen Concentration - - Weight 93.2 kg (205 lb 6.4 oz) 10/16/2025 2:26 P M EST Height 154.9 cm (5' 1 ) 10/16/2025 2:26 PM EST Body Mass Index 38.81 10/16/2025 2:26 PM EST documented in this encounter Functional Status * Over the past 2 weeks, how often have you been bothered by any of the following problems? Question Answer Date of Assessment Author Patient Health Questionnaire -2 Score 2 10/16/2025 2:28 PM EST Shiloh Miles MA * Little interest or pleasure in doing things Answer Date of Assessment Author Several days 10/16/2025 2:28 PM Luanne Purcell MA * Feeling down, depressed, or hopeless Answer Date of Assessment Author Several days 10/16/2025 2:28 PM Luanne Purcell MA * Trouble falling or staying asleep, or sleeping too much Answer Date of Assessment Author Several days 10/16/2025 2:28 PM Luanne Purcell MA * Feeling tired or having little energy Answer Date of Assessment Author Several days 10/16/2025 2:28 PM Luanne Purcell MA * Poor appetite or overeating Answer Date of Assessment Author Several days 10/16/2025 2:28 PM Luanne Purcell MA * Feeling bad about yourself - or that you are a failure or have let yourself or your family down Answer Date of Assessment Author Not at all 10/16/2025 2:28 PM Luanne Purcell MA * Trouble concentrating on things, such as reading the newspaper or watching television Answer Date of Assessment Author Not at all 10/16/2025 2:28 PM Luanne Purcell MA * Moving or speaking so slowly that other people could have noticed? Or the opposite - being so fidgety or restless that you have been moving around a lot more than usual. Answer Date of Assessment Author Several days 10/16/2025 2:28 PM Luanen Purcell MA * Thoughts that you would be better off or hurting yourself in some way Answer Date of Assessment Author Not at all 10/16/2025 2:28 PM Luanne Purcell MA * Patient Health Questionnaire-9 Score Answer Date of Assessment Author 6 10/16/2025 2:28 PM Luanne Purcell MA * Over the last 2 weeks, how often have you been bothered by any of the following problems? Question Answer Date of Assessment Author Feeling nervous, anxious, or on edge 0 10/16/2025 2:29 PM Shiloh Purcell MA Not being able to stop or control worrying 0 10/16/2025 2:29 PM Shiloh Purcell MA Worrying too much about different things 0 10/16/2025 2:29 PM Shiloh Purcell MA Trouble relaxing 0 10/16/2025 2:29 PM Luanne Hoffman MA Being so restless that it is hard to sit still 0 10/16/2025 2:29 PM Shiloh Purcell MA Becoming easily annoyed or irritable 0 10/16/2025 2:29 PM Shiloh Purcell MA Feeling afraid as if somethi ng awful might happen 0 10/16/2025 2:29 PM Shiloh Purcell MA WADE-7 Total Score 0 10/16/2025 2:29 PM Luanne Purcell MA * How difficult have these problems made it for you to do your work, take care of things at home, or get along with other people? Answer Date of Assessment Author Somewhat difficult 10/16/2025 2:28 PM Luanne Quinonez MA documented as of this encounter Progress Notes * Isela Grier MD - 10/16/2025 2:00 PM EST Subjective Lilliam Ayoub is a 70 y.o. female who has diabetes mellitus type 2, hypertension,, COPD, and BEATRICE, and patient presents for follow up of chronic conditions. Background: Problem List[1] Our last encounter was 05/01/2025. Anticipating knee surgery. Interval history: Seen by Dr. Edwards, on 06/14/2025 for colonoscopy preparation. Restart LDCT program. Seen by fence erector supervisor, Dr. Hall, on 07/04/2025. Seen by Dr. Rey on 07/04/2025. Referred by Dr. Hall. Stress test ordered. Seen by [facility] provider for knee pain on . Diagnosis end-stage left knee OA. Recommended TKAby Dr. Tesfaye. Needs cardiac and pulmonary risk stratification. Plan for apixaban for 1 mo postop and cephalexin perioperatively. Patient had a preop visit at the [facility] on 08/11/2025. Tentative plan for Left total knee arthroplasty by Dr. Tesfaye on 08/29/2025. Seen in [facility] ED on 09/25/2025 for cough. Diagnosed with viral URI. LDCT Lung RADS 2 on 09/27/2025 Today: Patient is here with her daughter. Reports a history of chronic knee pain and is scheduled for a knee replacement surgery, which was recently canceled pending medical clearance due to concerns about her lungs and recent illness. Experienced a cough and chest pain described as a pinching sensation, which occurs while watching TV and resolves on its own. Notes the chest pain is localized to the left side and does not radiate to her arm. Reports recent episodes of imbalance and states she cannot ambulate without her cane. Describes ongoing back and knee pain, for which she has used ibuprofen and topical creams, and expresses interest in muscle relaxants and pain patches. Reports her blood sugar has been elevated. Notes she has been prescribed Farxiga, Mounjaro, and metformin for diabetes management. However, she stopped taking dapagliflozin (Farxiga) and tirzepatide since she had a preop in Jul 2025 because she was told to stop tirzepatide 1 week prior to the surgery and dapagliflozin (Farxiga) 3 days prior to the procedure. Reports her tongue has been hurting in different areas for the past three weeks, with no clear cause identified, and recently saw a dentist to rule out malignancy. Expresses significant stress and anxiety related to her son???s recent heart transplant and ongoingdialysis, as well as his episodes of confusion, and notes frequent travel to [place] to support him. Date of procedure: TBD Pre-operative diagnosis: Knee osteoarthritis, left Procedure: Total knee arthroplasty, left Provider(s): Dr. Tesfaye Anesthesia type: General Pt has been in their usual state of health. No recent illness, fever, chest pain, or difficulty breathing. Pt has adequate support during preoperative period for preparation and post- operative period for recovery. Surgical History[2] Review of Systems Constitutional: Negative for activity change, appetite change and fever. Respiratory: Negative for shortness of breath. Cardiovascular: Negative for chest pain. Objective Vitals: 10/16/25 1426 BP: 130/74 Pulse: 97 Resp: 19 Temp: 96.2 ??F (35.7 ??C) TempSrc: Temporal SpO2: 97% Weight: 205 lb 6.4 oz (93.2 kg) Height: 5' 1 (1.549 m) Physical Exam Constitutional: General: She is not in acute distress. Appearance: Normal appearance. She is not ill-appearing. HENT: Head: Normocephalic and atraumatic. Mouth/Throat: Mouth: Mucous membranes are moist. Eyes: Extraocular Movements: Extraocular movements intact. Pupils: Pupils are equal, round, and reactive to light. Cardiovascular: Rate and Rhythm: Normal rate and regular rhythm. Heart sounds: No murmur heard. Pulmonary: Effort: Pulmonary effort is normal. No respiratory distress. Breath sounds: Normal breath sounds. No wheezing or rhonchi. Skin: General: Skin is warm. Neurological: Mental Status: She is alert. Mental status is at baseline. Psychiatric: Mood and Affect: Mood normal. Results: Lab Results Component Value Date NA 137 10/27/2024 K 4.6 10/27/2024 CL 101 10/27/2024 CO2 29 10/27/2024 BUN 11 10/27/2024 CREATININE 0.89 10/27/2024 EGFR >60 10/27/2024 GLUCOSE 245 (H) 10/27/2024 TOTALBILIRUB 0.4 10/27/2024 AST 21 10/27/2024 ALT 16 10/27/2024 TOTPROTEIN 7.4 10/27/2024 ALB 4.4 10/27/2024 ALP 177 (H) 10/27/2024 Lab Results Component Value Date TRIG 125 10/27/2024 CHOL 110 10/27/2024 LDLCHOLCAL 52 10/27/2024 HDL 33 (L) 10/27/2024 Lab Results Component Value Date HGBA1C 9.8 (A) 10/16/2025 MICROALBUR 11.0 11/28/2024 CREATUR 187.33 11/28/2024 MICROALBCREU 5.8 11/28/2024 Lab Results Component Value Date WBC 8.6 07/07/2023 HGB 12.3 07/07/2023 HCT 39.8 07/07/2023 PLT 324 07/07/2023 MCV 95.0 07/07/2023 Screenings: PHQ-2/9 Score: Patient Health Questionnaire-9 Score: 6 (10/16/2025 2:28 PM) Patient Health Questionnaire-2 Score: 2 (10/16/2025 2:28 PM) Thoughts that you would be better off or hurting yourself in some way: Not at all (10/16/2025 2:28 PM) WADE-7 Score: WADE-7 Total Score: 0 (10/16/2025 2:29 PM) Essential hypertension: - Monitor blood pressure. No changes to antihypertensive regimen discussed. Type 2 diabetes mellitus with hyperglycemia, without long-term current use of insulin ([facility]): - Hyperglycemia present; blood glucose noted to be elevated. Diabetes control suboptimal, requiringadjustment prior to knee replacement surgery. - Start Mounjaro injection today. Continue Farxiga (dapagliflozin) and metformin. Stop Mounjaro 1 week before surgery. Stop Farxiga 3 days before surgery. Follow up in 1 week to reassess glycemic control; if hyperglycemia persists, initiate insulin therapy. Dietary modification recommended. Laboratory evaluation for vitamin deficiency ordered. - Risks and side effects: Discussed potential for weight gain with insulin. Patient informed and consented to plan. Chronic pain of both knees: - Chronic bilateral knee pain, pending knee replacement surgery. - Prescribed diclofenac topical cream. Discussed use of muscle relaxants and lidocaine patch. Advised to avoid oral ibuprofen due to renal risk. Celecoxib (Celebrex) considered if topical therapy insufficient. Patches may be tried, pending insurance approval. Surgery postponed until diabetes bettercontrolled. - Risks and side effects: Discussed gastrointestinal and renal side effects of oral NSAIDs and diclofenac pill. Patient informed and consented to topical therapy. Chronic obstructive pulmonary disease, unspecified COPD type (CMS/HCC) (HCC): - No evidence of active pulmonary disease; lungs clear. No lung cancer per recent imaging. - Cleared for surgery from pulmonary perspective. Monitor for respiratory symptoms. Chest pain: - Non-cardiac chest pain described as pinching, occurring at rest. No radiation to arm. Cardiac clearance pending with cardiology appointment scheduled for October 20, 2025. - Monitor symptoms. Cardiology evaluation scheduled for October 20, 2025. Tongue pain: - Tongue pain of unclear etiology; possible vitamin deficiency considered. - Ordered laboratory evaluation for vitamin deficiency. Recent dental evaluation noted. Balance issues and dizziness: - Reports loss of balance and dizziness; possible vitamin deficiency considered. - Ordered laboratory evaluation for vitamin deficiency. Stress and anxiety: - Significant stress and anxiety related to family illness and caregiving responsibilities. - Recommended relaxation and stress management. Cardiac Risk History of ischemic heart disease: NO (history of myocardial infarction or a positive exercise test, current complaint of chest pain considered to be secondary to myocardial ischemia, use of nitrate therapy, or ECG with pathological Q waves): History of heart failure: NO History of cerebrovascular disease: NO Diabetes mellitus requiring treatment with insulin: NO She is taking GLP1RA and metformin. Preoperative serum creatinine >2.0 mg/dL : NO Activity tolerance >4 METS: NO climb up a flight of stairs, walk up a hill, walk at ground level at 4 miles per hour, or perform heavy work around the house. Bleeding Risk: Chronic anticoagulation: NO Daily aspirin: NO Blood clotting disorder: NO Pulmonary History: COPD; BEATRICE BMI > 40: NO Smoking History: Denies current/ history of tobacco use ETOH: None Substance Use: None Personal or family history of anesthesia reaction: NO PREOPERATIVE ASSESSMENT AND PLAN: - Provider considers procedure to be medium -Reviewed cardiac risk factors based on RCRI. Patient has 1 risk factors corresponding to 1.0% riskof a major cardiac event during surgery. - Due to worsening glycemic control, we agreed to postpone her surgery until she improves glycemic control. Also, patient reports chest pain. Her clocksmith was planning to evaluate her with stresstest. Patient was advised to contact cardiology office for further instruction. Assessment/Plan Problem List Items Addressed This Visit COPD (chronic obstructive pulmonary disease) (HCC) - [place] [facility] [place], Dr. Hall, last seen in Jun 2025 - Last exacerbation in April 2021 - recently seen in [facility] ED on 10/19/24, and Dx pneumonia. Rx Augmentin. No prednisone. Patient reports minimal improvement. No wheezing today. - Previously treated as asthma. Most recent PFT in Aug 2023 is suggestive of COPD. - Previously on mometasone (Asmanex) and umeclidinium (Incruse), which were switched to fluticasone/ umeclidinium / vilanterol (Trelegy). Questionable adherence to a new inhaler. - Continue montelukast 10 mg daily - Continue albuterol HFA prn. - She stop smoking 09/2023. She has not smoked since then. Cont her smoking cessation efforts. - Optimize treatment for BEATRICE Diabetes mellitus, type 2 (HCC) Dx > 10 years. Hx GBP. Previously diet-controlled after GBP. Started pharmacological Tx in 2022 Hgb A1C 9.8% on 10/16/2025, trending upwards. 8.0% on 05/01/25 Continue Metformin ER 1000 mg bid Continue tirzepatide 7.5 mg weekly Continue dapagliflozin (Farxiga) 10 mg daily Consider adding basal insulin if we need to improve glycemic control quickly for the surgery; She will likely be able to improve with GLP1RA. Continue working on lifestyle modifications Continue checking BG Microalbumin test: 11/28/24 No microalbutminuria. Lipid profile: 10/27/24 Diabetic eye exam: 09/24/23 Foot exam: 10/27/24 Relevant Orders POCT glucose manually resulted ([id number]) (Completed) POCT glycosylated hemoglobin (Hgb A1c) (Completed) Vitamin B12 (Cobalamin) and Folate Panel, Serum Albumin, Random Urine W/Creatinine Dyslipidemia - last lipid profile 10/27/24 - continue Atorvastatin 80 mg nightly - continue working on lifestyle modification Relevant Orders Lipid Panel with Reflex to Direct LDL Essential hypertension - Primary Goal BP < 130/80 per ACC/AHA guideline BP borderline today Continue lisinopril 20 mg daily Continue working on lifestyle modifications Relevant Orders Comprehensive Metabolic Panel Obstructive sleep apnea syndrome - Sleep study on 01/2022 severe BEATRICE. - Titration sleep study on 05/12/22. AutoPAP 11-20 cm H2O recommended. - Recently seen by Dr. Hall, and was prescribed all the supplies she needed; improve adherence Vitamin D deficiency Relevant Orders Vitamin D, 25-Hydroxy, Total, Immunoassay Tobacco dependence She stopped smoking in Oct 2023 LDCT Lung RADS 2 on 09/27/2025 Continue working on smoking cessation effort Osteoarthritis of multiple joints - continue judicious use of APAP / diclofenac topical and lidocaine patch - switch NSAID to COX2i - optimize treatment for anxiety and depression. Patient is prescribed duloxetine. Relevant Medications Diclofenac Sodium 1 % gel lidocaine (Lidoderm) 5 % patch Stopped smoking with greater than 20 pack year history LDCT Lung RADS 2 on 09/27/2025 MDD (major depressive disorder), recurrent, severe, with psychosis (CMS/HCC) (HCC) Chronic pain of both knees - Following with orthopedists at [facility] - Scheduling for left knee replacement - continue judicious use of APAP and topical medications - switch NSAID to COX2i Relevant Medications Diclofenac Sodium 1 % gel cyclobenzaprine (Flexeril) 10 MG tablet lidocaine (Lidoderm) 5 % patch Neck pain on left side - will try muscle relaxant Relevant Medications Diclofenac Sodium 1 % gel lidocaine (Lidoderm) 5 % patch Chronic left shoulder pain Evaluate with X-ray Refer to [facility] Improve glycemic control before intraarticular steroid injection Relevant Medications Diclofenac Sodium 1 % gel lidocaine (Lidoderm) 5 % patch WADE (generalized anxiety disorder) Dyspnea - Followed by both fence erector supervisor and clocksmith - Last seen [place] Dr. Rey, [facility] [place] [facility] [place]. Stress test was ordered. - Advised to check the status of stress test Other Visit Diagnoses Encounter for immunization Relevant Orders FLU VACCINE TRIVALENT HIGH DOSE [id number] (Fluzone) 65 yrs + (Completed) Tongue pain Relevant Orders Zinc Imbalance Relevant Orders Vitamin B12 (Cobalamin) and Folate Panel, Serum TSH with Reflex to Free T4 CBC auto differential Pre-op evaluation Although there is no absolute contraindication to the surgery, we agreed to improve her glycemic control before scheduling for her knee arthroplasty. Allergies[3] Current Outpatient Medications Medication Instructions albuterol 108 (90 Base) MCG/ACT inhaler Inhale 2 puffs by mouth every 4 to 6 hours as needed Alcohol Swabs (Alcohol Prep) 70 % pads USE DIRECTED TWICE DAILY alendronate (FOSAMAX) 70 mg, Oral, Every 7 days, Take in the morning with a full glass of water, rosa empty stomach, and do not take anything else by mouth or lie down for the next 30 min. Ascorbic Acid (vitamin C) 500 MG tablet TAKE 1 TABLET BY MOUTH TWICE DAILY IN THE MORNING AND AT BEDTIME atorvastatin (LIPITOR) 80 mg, Oral, Nightly Blood Glucose Monitoring Suppl (FreeStyle [place] Lite) w/Device kit 1 each, Does not apply, 2 times daily before meals Blood Pressure Monitor [facility] Check BP daily buPROPion XL (WELLBUTRIN XL) 150 mg, Oral, Every morning, Do not crush, chew, or split. clonazePAM (KLONOPIN) 0.5 mg, Oral, 2 times daily PRN cyanocobalamin (VITAMIN B-12) 1,000 mcg, Oral, Every morning cyclobenzaprine (Flexeril) 10 MG tablet Take 1 tablet by mouth at bedtime as needed for muscle spasm D3-1000 25 mcg, Oral, Every morning Diclofenac Sodium 1 % gel Apply to affected area once or twice daily DULoxetine (CYMBALTA) 60 mg, Oral, 2 times daily famotidine (Pepcid) 20 MG tablet TAKE 1 TABLET BY MOUTH AT BEDTIME NEEDED FOR HEARTBURN Farxiga 10 mg, Oral, Daily fluticasone (Flonase) 50 MCG/ACT nasal spray INSTILL 1 SPRAY IN EACH NOSTRIL ONCE DAILY IN THE MORNING folic acid (FOLVITE) 400 mcg, Oral, Every morning FREESTYLE LITE test strip USE DIRECTED TO TEST BLOOD SUGAR TWICE DAILY Ibuprofen-Acetaminophen (Advil Dual Action) 125-250 MG tablet per tablet Take 2 tablets by mouth every 4 hours as needed lidocaine (Lidoderm) 5 % patch 1 patch, Apply externally, Daily, Remove & discard patch within 12 hours or as directed by MD. lisinopril 20 MG tablet TAKE 1 TABLET BY MOUTH EVERY MORNING loratadine (CLARITIN) 10 mg, Oral, Every morning metFORMIN XR (Glucophage-XR) 500 MG 24 hr tablet TAKE 2 TABLETS BY MOUTH TWICE DAILY IN THE MORNINGAND EVENING WITH MEALS, DO NOT BREAK, CRUSH, DISSOLVE OR CHEW Mometasone Furoate (Asmanex HFA) 100 MCG/ACT aerosol INHALE 1 PUFF BY MOUTH TWICE DAILY RINSE MOUTHAFTER USING. montelukast (Singulair) 10 MG tablet TAKE 1 TABLET BY MOUTH EVERY EVENING Mounjaro 7.5 mg, Subcutaneous, Weekly Multiple Vitamin (Multivitamin) tablet TAKE 1 TABLET BY MOUTH EVERY MORNING WITH FOOD nicotine (Nicoderm, Step 3) 7 MG/24HR patch APPLY 1 PATCH TOPICALLY TO THE SKIN IN THE MORNING *DO NOT SMOKE WHILE USING PATCH* nicotine polacrilex (Nicorette) 2 MG gum CHEW 1 PIECE OF GUM EVERY 2 HOURS NEEDED omeprazole (PriLOSEC) [address] capsule TAKE 1 CAPSULE BY MOUTH ONCE DAILY EVERY MORNING QUEtiapine (SEROQUEL) 300 mg, Oral, Nightly, Plus Seroquel (Quetiapine) 50 mg in the morning QUEtiapine (SEROQUEL) 50 mg, Oral, Every morning, Also take Seroquel (Quetiapine) 200 mg at bedtime TRUEplus Lancets 33G misc TEST BLOOD SUGAR TWICE DAILY Umeclidinium [place] (Incruse Ellipta) 62.5 MCG/ACT aerosol powder 1 Dose, Inhalation, Daily Follow-up: 3 mo or sooner if any problem arises. This note was drafted using Ambient (AI) technology. The patient/patient's guardian has been informed and has consented to the use of this technology [1] Patient Active Problem List Diagnosis Allergic rhinitis COPD (chronic obstructive pulmonary disease) (HCC) Carpal tunnel syndrome Diabetes mellitus, type 2 (HCC) Dyslipidemia Elevated alkaline phosphatase level Essential hypertension Megaloblastic anemia due to vitamin B12 deficiency Hearing loss Obstructive sleep apnea syndrome Obesity Vitamin D deficiency Status post gastric bypass for obesity Tobacco dependence Sialolithiasis Osteoarthritis of multiple joints Stopped smoking with greater than 20 pack year history MDD (major depressive disorder), recurrent, severe, with psychosis (CMS/HCC) (HCC) assisted (current) use of oral hypoglycemic drugs Generalized abdominal pain Pulmonary histoplasmosis (CMS/HCC) Dry mouth Infective sialoadenitis GERD (gastroesophageal reflux disease) Chronic pain of both knees S/P recurrent ventral herniorrhaphy Neck pain on left side Chronic left shoulder pain Osteopenia Recurrent falls Right maxillary sinus opacification Pulmonary fibrosis (HCC) WADE (generalized anxiety disorder) Dyspnea [2] Past Surgical History: Procedure Laterality Date BREAST SURGERY Right 2008 Incision and drainage of right breast abscess BRONCHOSCOPY Left 06/11/2017 left VATS lingular wedge resection, mediastinal lympadenectomy, bronchoscopy CHOLECYSTECTOMY 09/06/2018 acute cholecystitis, complicated by bile leak GASTRIC BYPASS [address] Tate HYSTERECTOMY 2010 REPAIR HERNIA VENTRAL / INCISIONAL 2014 Dr. Edwards SUBMANDIBULAR GLAND EXCISION Right 12/04/[address] Velez Pathology report: Chronic sialoadenitis with glandular atrophy and fibrosis TONSILECTOMY, ADENOIDECTOMY, BILATERAL MYRINGOTOMY AND TUBES 1968 TUBAL LIGATION VENTRAL HERNIA REPAIR 2012 VENTRAL HERNIA REPAIR 09/07/2024 by Dr. Tate [3] No Known Allergies documented in this encounter Miscellaneous Notes * Assessment & Plan Note - Isela Grier MD - 10/19/2025 7:28 PM ESTAssociated Problem(s): Tobacco dependence She stopped smoking in Oct 2023 LDCT Lung RADS 2 on 09/27/2025 Continue working on smoking cessation effort * Assessment & Plan Note - Isela Grier MD - 10/19/2025 7:27 PM ESTAssociated Problem(s): Stopped smoking with greater than 20 pack year history LDCT Lung RADS 2 on 09/27/2025 * Assessment & Plan Note - Isela Grier MD - 10/19/2025 7:26 PM ESTAssociated Problem(s): Obstructive sleep apnea syndrome - Sleep study on 01/2022 severe BEATRICE. - Titration sleep study on 05/12/22. AutoPAP 11-20 cm H2O recommended. - Recently seen by Dr. Hall, and was prescribed all the supplies she needed; improve adherence * Assessment & Plan Note - Isela Grier MD - 10/19/2025 7:26 PM ESTAssociated Problem(s): COPD (chronic obstructive pulmonary disease) (HCC) - [place] [facility] [place], Dr. Hall, last seen in Jun 2025 - Last exacerbation in April 2021 - recently seen in [facility] ED on 10/19/24, and Dx pneumonia. Rx Augmentin. No prednisone. Patient reports minimal improvement. No wheezing today. - Previously treated as asthma. Most recent PFT in Aug 2023 is suggestive of COPD. - Previously on mometasone (Asmanex) and umeclidinium (Incruse), which were switched to fluticasone/ umeclidinium / vilanterol (Trelegy). Questionable adherence to a new inhaler. - Continue montelukast 10 mg daily - Continue albuterol HFA prn. - She stop smoking 09/2023. She has not smoked since then. Cont her smoking cessation efforts. - Optimize treatment for BEATRICE * Assessment & Plan Note - Isela Grier MD - 10/19/2025 7:24 PM ESTAssociated Problem(s): Chronic left shoulder pain Evaluate with X-ray Refer to [facility] Improve glycemic control before intraarticular steroid injection * Assessment & Plan Note - Isela Grier MD - 10/19/2025 7:24 PM ESTAssociated Problem(s): Neck pain on left side - will try muscle relaxant * Assessment & Plan Note - Isela Grier MD - 10/19/2025 7:23 PM ESTAssociated Problem(s): Osteoarthritis of multiple joints - continue judicious use of APAP / diclofenac topical and lidocaine patch - switch NSAID to COX2i - optimize treatment for anxiety and depression. Patient is prescribed duloxetine. * Assessment & Plan Note - Isela Grier MD - 10/19/2025 7:22 PM ESTAssociated Problem(s): Chronic pain of both knees - Following with orthopedists at [facility] - Scheduling for left knee replacement - continue judicious use of APAP and topical medications - switch NSAID to COX2i * Assessment & Plan Note - Isela Grier MD - 10/19/2025 7:19 PM ESTAssociated Problem(s): Diabetes mellitus, type 2 (HCC) Dx > 10 years. Hx GBP. Previously diet-controlled after GBP. Started pharmacological Tx in 2022 Hgb A1C 9.8% on 10/16/2025, trending upwards. 8.0% on 05/01/25 Continue Metformin ER 1000 mg bid Continue tirzepatide 7.5 mg weekly Continue dapagliflozin (Farxiga) 10 mg daily Consider adding basal insulin if we need to improve glycemic control quickly for the surgery; She will likely be able to improve with GLP1RA. Continue working on lifestyle modifications Continue checking BG Microalbumin test: 11/28/24 No microalbutminuria. Lipid profile: 10/27/24 Diabetic eye exam: 09/24/23 Foot exam: 10/27/24 * Assessment & Plan Note - Isela Grier MD - 10/19/2025 7:16 PM ESTAssociated Problem(s): Essential hypertension Goal BP < 130/80 per ACC/AHA guideline BP borderline today Continue lisinopril 20 mg daily Continue working on lifestyle modifications * Assessment & Plan Note - Isela Grier MD - 10/19/2025 7:15 PM ESTAssociated Problem(s): Dyslipidemia - last lipid profile 10/27/24 - continue Atorvastatin 80 mg nightly - continue working on lifestyle modification * Assessment & Plan Note - Isela Grier MD - 10/19/2025 7:13 PM ESTAssociated Problem(s): Dyspnea - Followed by both fence erector supervisor and clocksmith - Last seen by Dr. Rey, [facility] [place]. Stress test was ordered. - Advised to check the status of stress test documented in this encounter Plan of Treatment Upcoming Encounters Date Type Department Care Team (Late st Contact Info) Description 11/03/2025 1:00 PM EST Medication Management [address] [address] Sumanth Dumont, PharmD [address] [place] [address] 11/24/2025 10:00 AM EST Clinical Support [address] [address] Shanita Vasquez, RN [address] [place] [address] Scheduled Orders Name Type Priority Associated Diagnoses Orde r Schedule Vitamin B12 (Cobalamin) and Folate Panel, Serum Lab Routine Type 2 diabetes mellitus with hyperglycemia, without long-term current use of insulin (HCC) Imbalance Expected: 10/16/2025 (Approximate), Expires: 10/16/2026 Lipid Panel with Reflex to Direct LDL Lab Routine Dyslipidemia Expected: 10/16/2025 (Approximate), Expires: 10/16/2026 Albumin, Random Urine W/Creatinine Lab Routine Type 2 diabetes mellitus with hyperglycemia, without long-term current use of insulin (HCC) Expected: 10/16/2025 (Approximate), Expires: 10/16/2026 Comprehensive Metabolic Panel Lab Routine Essential hypertension Expected: 10/16/2025 (Approximate), Expires: 10/16/2026 TSH with Reflex to Free T4 Lab Routine Imbalance Expected: 10/16/2025 (Approximate), Expires: 10/16/2026 Vitamin D, 25-Hydroxy, Total, Immunoassay Lab Routine Vitamin D deficiency Expected: 10/16/2025 (Approximate), Expires: 10/16/2026 Zinc Lab Routine Tongue pain Expected: 10/16/2025 (Approximate), Expires: 10/16/2026 CBC auto differential Lab Routine Imbalance Expected: 10/16/2025 (Approximate), Expires: 10/16/2026 documented as of this encounter Goals Goal Patient Goal Type Associated Problems Recent Progress Patient-Stated? Author Help patients manage their type 2 diabetes Care Plan Help patients manage their type 2 diabetes No Colon Yulia Asif Weekly blood pressure task Care Plan Weekly blood pressure task No Colon Yulia Asif Help patients manage their type 2 diabetes Care Plan Help patients manage their type 2 diabetes No Colon Yulia Asif Patient has chronic kidney disease Care Plan [...] has chronic kidney disease No Phan Hall Weekly blood pressure task Care Plan Weekly blood pressure task Isela Carvajal MD Weekly blood pressure task Care Plan Weekly blood pressure task No Isela Grier MD Patient has chronic kidney disease Care Plan Patient has chronic kidney disease No Isela Grier MD Patient has chronic kidney disease Care Plan Patient has chronic kidney disease No Isela Grier MD documented as of this encounter Procedures Procedure Name Priority Date/Time Associated Diagnosis Comments POCT GLYCOSYLATED HEMOGLOBIN (HGB A1C) Routine 10/16/2025 2:30 PM EST Type 2 diabetes mellitus with hyperglycemia, without long-term current use of insulin (HCC) POCT GLUCOSE (CPT-74249) Routine 10/16/2025 2:30 PM EST Type 2 diabetes mellitus with hyperglycemia, without long-term current use of insulin (HCC) documented in this encounter Results * (ABNORMAL) POCT glycosylated hemoglobin (Hgb A1c) (10/16/2025 2:30 PM EST) Pathologist [facility] Hemoglobin A1C 9.8(A) 4.0 - 5.7 % QC Media Lot # [id number] Lot# Expiration Date Blood Capillary blood specimen / Unknown 10/16/2025 2:30 PM EST Isela Grier MD POINT OF CARE TEST ENTER/EDIT OR DERABLES Final Result * (ABNORMAL) POCT glucose manually resulted (CPT-[id number]) (10/16/2025 2:30 PM EST) Pathologist [facility] Glucose Blood, POC 335(A) 60 - 200 mg/dL QC Media Lot # [id number] Lot# Expiration Date Blood Capillary blood specimen / Unknown 10/16/2025 2:30 PM EST Isela Grier MD POINT OF CARE TEST ENTER/EDIT OR DERABLES Final Result documented in this encounter Visit Diagnoses Diagnosis Essential hypertension- Primary Unspecified essential hypertension Dyslipidemia Other and unspecified hyperlipidemia Type 2 diabetes mellitus with hyperglycemia, without long-term current use of insulin (HCC) Chronic pain of both knees Chronic obstructive pulmonary disease, unspecified COPD type (CMS/HCC) (HCC) Obstructive sleep apnea syndrome Obstructive sleep apnea (adult) (pediatric) Encounter for immunization Tongue pain Glossodynia Imbalance Abnormality of gait Vitamin D deficiency Osteoarthritis of multiple joints, unspecified osteoarthritis type Pre-op evaluation Dyspnea on exertion Other dyspnea and respiratory abnormality MDD (major depressive disorder), recurrent, severe, with psychosis (CMS/HCC) ([facility]) WADE (generalized anxiety disorder) Generalized anxiety disorder Neck pain on left side Chronic left shoulder pain Pain in joint, shoulder region Stopped smoking with greater than 20 pack year history Tobacco dependence Tobacco use disorder documented in this encounter Additional Health Concerns Active [...] 09/20/2025 Patient has chronic kidney disease 09/20/2025 Weekly blood pressure task 10/16/2025 Weekly blood pressure task 10/16/2025 Patient has chronic kidney disease 10/16/2025 Patient has chronic kidney disease 10/16/2025 Assessment Noted Time PHQ-9 Depression Total Score: 6 10/16/20 25 2:28 PM EST documented as of this encounter Care Teams Sweatband Perforator Relationship Specialty Start Date End Date Isela Grier MD [address] [place] [address] PCP - General Family Medicine 10/26/18 Jaron Ambrose FNP [address] [place] [address] Nurse Practitioner Family Medicine 09/21/23 documented as of this encounter
--- OUTSIDE RECORDS SUMMARY | 2025-10-20 13:29 | XMS_ITS | Encounter Summary ---
Author Organization [employer] Address [address] [place] [address] Care Team Providers Care Tax Examiner Name Role Phone Isela Grier MD Primary Care Provider [phone] Jaron Ambrose Unavailable Unavailable Encounter Details Date Type Department Care Team (Latest Contact Info) Description 10/16/2025 Travel Social History Tobacco Use Types Packs/Day Years [...] Description 11/03/2025 1:00 PM EST Medication Management [address] [address] Sumanth Dumont, PharmD [address] [place] [address] 11/24/2025 10:00 AM EST Clinical Support [address] [address] Shanita Vasquez, BRANDY [address] [place] [address] documented as of this encounter Goals Goal [...] blood pressure task No Isela Grier MD Weekly blood pressure task Care Plan Weekly blood pressure task No Isela Grier MD Patient has chronic kidney disease Care Plan Patient has chronic kidney disease No Isela Grier MD Patient has chronic kidney disease Care Plan Patient has chronic kidney disease No Isela Grier MD documented as of this encounter Visit Diagnoses [...] documented as of this encounter Care Teams Tax Examiner Relationship Specialty Start Date End Date Isela Grier MD [address] [place] [address] PCP - General Family Medicine 10/26/18 Jaron Ambrose FNP [address] [place] [address] Nurse Practitioner Family Medicine 09/21/23 documented as of this encounter
--- OUTSIDE RECORDS SUMMARY | 2025-10-20 13:29 | XMS_ITS | Data Portability ---
Author Organization [facility], [facility] Address [address] [place] [address] Care Team Providers Care Supervisor Maintenance And Custodians Name Role Phone Unavailable Primary Care Provider [phone] Assessment Encounter Date Assessment Date Assessment LastModified by Organization Details LastModified Time 08/21/2025 08/21/2025 I provided real -time medical direction via phone for this encounter and was available for additional phone-based assistance as needed. I have reviewed and agree with the Assessment and Plan as documented by the World Travel Counselor. Patient given the opportunity to ask questions. [...] some minimal MCGUIRE. Denies sick contacts. Per chairman president and chief executive officer on the scene, VSS Please read the chairman president and chief executive officer note for their exam findings. COVID and [...] 2 Ag, QL IA, respiratory specimen 2024 [facility], [address] [place] [address], [id number] 20:05:56 rapid flu (A+B) 2024 [facility], [address] [place] [address], [id number] 17:08:57 Referral None recorded. Procedures None recorded. Surgeries None recorded. Imaging None recorded. Medication Orders prednisone 20 mg tablet 2024 [facility], [address] [place] [address], [id number], 05:01:17 prednisone 20 mg tablet 2024 [facility], [address] [place] [address], [id number], 05:01:17 doxycycline hyclate 100 mg capsule 2024 [facility], [address] [place] [address], [id number], 05:01:13 ipratropium 0.5 mg-albutero l 3 mg (2.5 mg base)/3 mL nebulizatio n soln 2024 [email or web address], [address] [place] [address], [id number], 15:48:05 doxycycline hyclate 100 mg capsule 2024 [facility], [address] [place] [address], [id number], 05:01:13 Patient TargetsNo targets recorded. Patient InstructionsNo [...] Available Not Available No t Available FreeStyle Dows Lite kit USE DIRECTED TO TEST BLOOD [...] ICD10 Code Diagnosis IMO Codes Diagnosis Note [id number] Kira Hayden MD [facility] ED Medical [address] [phone] 08/21/2025 15:40:50 08/21/2025 20:13:39 Asthmatic bronchitis [id number] J45.909 [id number] Common cold [id number] J00 [id number] Health Concerns Section Related Observation LastModified by Organization Detai ls LastModified Time None Recorded Concern Status LastModified by Organization Details LastModified Time None Recorded Advance Directives Directive None Recorded Payers Insurance Date Sequence Insurance Name Policy Number Policy Martin Covered Member ID Martin Member ID Guarantor Name 08/21/2025 1 [employer] - DOS ON OR AFTER 2023 - DUAL ELIGIBLE - JAIL OPTIONS AND ONE CARE (MEDICARE REPLACEMENT/ADV ANTAGE - HMO) Lilliam Miranda [id number] Lilliam Miranda Notes Date Note Type Note [...] any further details of symptoms to this pediatric care coordinator. CCM requesting visit per members request and concerns with members health during call ................... ................... ................... ................... ................... ................... ................... ........ [facility] Nurse Triage Notes (Mirna Draper): Chief Complaints: Chest Pain, Weakness, Breathing Problems PMH: Asthma, Diabetes Mellitus Type 2, Schizophrenia PMH Reviewed at 08/21/2025:49 Allergies Reviewed at 08/21/2025:49 Comments: HPI reviewed World Travel Counselor Organization Information for [facility] Go [employer] Legal Name: [employer]. Address: [address] [place] [address], Strip Machine Tender: Monty Harris MD [place] No.: [id number] World Travel Counselor POC Test Results from [facility] Rapid COVID antigen (15:38:07) COVID: - Attachments uploaded as part of this test result can be found under Documents section. Rapid influenza antigen (15:38:08) Flu: - Attachments uploaded as part of this test result can be found under Documents section. ................... ................... ................... ................... ................... ................... ................... ........ World Travel Counselor Note From [facility]: Encountered patient seated [...] and flu swabs performed, both resulted negative; [facility] notified. Skin is warm, moist and of appropriate color for ethnicity. Head and neck free of trauma and edema. JVD. Breath sounds exhibit light wheezing in the anterior apexes, remainder of breath sounds present and clear. Abdomen is soft, non-tender and non-distended. Extremities are free of trauma and edema. [facility] contacted: 40 mg of PO prednisone, 100 mg of PO doxycycline and one DuoNeb treatment administered after medication r ights were reconciled with patient. [facility] states they will send a prescription for [...] states she is comfortable remaining home today. [facility] Lab Orders: rapid SARS CoV 2 Ag, QL IA, respiratory specimen: Performed rapid flu (A+B): Performed [facility] Medication Orders: prednisone 20 mg tablet: Performed ipratropium 0.5 mg-albuterol 3 mg (2.5 mg base)/3 mL nebulization soln: Performed doxycycline hyclate 100 mg capsule: Performed ................... ................... ................... ................... ................... ................... ................... ........ [facility] Consulted: Kira Hayden ................... ................... ................... ................... ................... ................... ................... ........ Disposition: Fulfilled Kira Hayden MD [address] [place] [address],[facility], [place], [address], [employer] - pope[employer]pert, 2d2c 08/21/2025 19:40:08 OBGyn Episode No OBEpisode recorded.
--- OUTSIDE RECORDS SUMMARY | 2025-10-20 13:29 | XMS_ITS | Encounter Summary ---
Author Organization [employer] Address [address] [facility] [address] [place] [address] Care Team Providers Care Commercial Drone Pilot Name Role Phone Isela Grier MD Primary Care Provider [phone] Jaron Ambrose Unavailable Unavailable Reason for Visit * Reason Comments Med Refill Encounter Details Date Type Department Care Team (Late st Contact Info) Description 04/06/[address] [facility] [address] [place], [place] [phone] Rosi Saxena MD [address] [place], [place] [phone] Moderate persistent asthma, uncomplicated Social History Tobacco [...] Description 11/03/2025 1:00 PM EST Medication Management [address] [address] Sumanth Dumont, PharmD [address] [place] [address] 11/24/2025 10:00 AM EST Clinical Support [address] [address] Shanita Vasquez, RN [address] [place] [address] documented as of this encounter Visit Diagnoses Diagnosis Moderate persistent asthma, uncomplicated documented in this encounter Additional Health Concerns Assessment Noted Time PHQ-9 Depression Total Score: 13 024 2:55 PM EDT documented as of this encounter Care Teams Commercial Drone Pilot Relationship Specialty Start Date End Date Isela Grier MD [address] [place] [address] PCP - General Family Medicine 10/26/18 Jaron Ambrose FNP [address] [place] [address] Nurse Practitioner Family Medicine 09/21/23 documented as of this encounter
--- OUTSIDE RECORDS SUMMARY | 2025-10-20 13:29 | XMS_ITS | Encounter Summary ---
Author Organization [employer] Address [address] [place] [address] [address] [place] [address] Care Team Providers Care Salvager Name Role Phone Isela Grier MD Primary Care Provider [phone] Jaron Ambrose Unavailable Unavailable Reason for Visit * Reason Comments Med Refill Encounter Details Date Type Department Care Team (Late Contact Info) Description 07/27/2023 Refill [facility] [address] [place] [address] Rosi Saxena MD [address] [place], [place] [phone] Social History Tobacco Use Types Packs/Day Years [...] Department Care Team (Late Contact Info) Description 11/03/2025 1:00 PM EST Medication Management [facility] [address] [place], [place] [phone] Sumanth Dumont, TuanD [address] [place] [address] 11/24/2025 10:00 AM EST Clinical Support [facility] [address] [place] [address] Shanita Vasquez, RN [address] [place] [address] documented as of this encounter Visit Diagnoses Not on filedocumented in this encounter Additional Health Concerns Assessment Noted Time PHQ-9 Depression Total Score: 12 023 1:12 PM EDT documented as of this encounter Care Teams Salvager Relationship Specialty Start Date End Date Isela Grier MD [address] [place] [address] PCP - General Family Medicine 10/26/18 Jaron Ambrose FNP [address] [place] [address] Nurse Practitioner Family Medicine 09/21/23 documented as of this encounter
--- OUTSIDE RECORDS SUMMARY | 2025-10-20 13:29 | XMS_ITS | Continuity of Care Document ---
Author Organization [facility], [facility] Address [address] [place] [address] Care Team Providers Care Bath Attendant Name Role Phone Unavailable Primary Care Provider Assessment Encounter Date Assessment Date Assessment LastModified by Organization Details LastModified Time 08/21/2025 08/21/2025 I provided real -time medical direction via phone for this encounter and was available for additional phone-based assistance as needed. I have reviewed and agree with the Assessment and Plan as documented by the Qa Specialist. Patient given the opportunity to ask questions. [...] some minimal MCGUIRE. Denies sick contacts. Per coding specialist on the scene, VSS Please read the coding specialist note for their exam findings. COVID and [...] 2 Ag, QL IA, respiratory specimen 2024 [facility], [address] [place] [address], [id number] 20:05:56 rapid flu (A+B) 2024 [facility], [address] [place] [address], [id number] 17:08:57 Referral None recorded. Procedures None recorded. Surgeries None recorded. Imaging None recorded. Medication Orders prednisone 20 mg tablet 2024 [facility], [address] [place] [address], [id number], 05:01:17 prednisone 20 mg tablet 2024 [facility], [address] [place] [address], [id number], 05:01:17 doxycycline hyclate 100 mg capsule 2024 [facility], [address] [place] [address], [id number], 05:01:13 ipratropium 0.5 mg-albutero l 3 mg (2.5 mg base)/3 mL nebulizatio n soln 2024 [email or web address] [facility], [address] [place] [address], [id number], 15:48:05 doxycycline hyclate 100 mg capsule 2024 [facility], [address] [place] [address], [id number], 05:01:13 Patient TargetsNo targets recorded. Patient InstructionsNo [...] Available Not Available No t Available [employer]Style [place] Lite kit USE DIRECTED TO TEST BLOOD [...] ICD10 Code Diagnosis IMO Codes Diagnosis Note [id number] Kira Hayden MD [facility] ED Medical [address] [phone] 08/21/2025 15:40:50 08/21/2025 20:13:39 Asthmatic bronchitis [id number] J45.909 [id number] Common cold [id number] J00 [id number] Health Concerns Section Related Observation LastModified by Organization Detai ls LastModified Time None Recorded Concern Status LastModified by Organization Details LastModified Time None Recorded Payers Encounter Date Sequence Insurance Name Policy Number Policy Martin Covered Member ID Martin Member ID Guarantor Name 08/21/2025 1 [facility] - DOS ON OR AFTER 2023 - DUAL ELIGIBLE - [employer] OPTIONS AND ONE CARE (MEDICARE REPLACEMENT/ADV ANTAGE - HMO) Lilliam Miranda [id number] Lilliam Miranda Notes Date Note Type Note [...] any further details of symptoms to this rn primary care. [facility] requesting visit per members request and concerns with members health during call ................... ................... ................... ................... ................... ................... ................... ........ [facility] Nurse Triage Notes (Mirna Draper): Chief Complaints: Chest Pain, Weakness, Breathing Problems PMH: Asthma, Diabetes Mellitus Type 2, Schizophrenia PMH Reviewed at 08/21/2025:49 Allergies Reviewed at 08/21/2025:49 Comments: HPI reviewed Qa Specialist Organization Information for [facility] Business Legal Name: [employer] Address: [address] [place] [address], Surgical Resident: Monty Harris MD IA No.: [id number] Qa Specialist POC Test Results from [facility] Rapid COVID antigen (15:38:07) COVID: - Attachments uploaded as part of this test result can be found under Documents section. Rapid influenza antigen (15:38:08) Flu: - Attachments uploaded as part of this test result can be found under Documents section. ................... ................... ................... ................... ................... ................... ................... ........ Qa Specialist Note From [facility]: Encountered patient seated [...] and flu swabs performed, both resulted negative; [facility] notified. Skin is warm, moist and of appropriate color for ethnicity. Head and neck free of trauma and edema. JVD. Breath sounds exhibit light wheezing in the anterior apexes, remainder of breath sounds present and clear. Abdomen is soft, non-tender and non-distended. Extremities are free of trauma and edema. [facility] contacted: 40 mg of PO prednisone, 100 mg of PO doxycycline and one DuoNeb treatment administered after medication r ights were reconciled with patient. [facility] states they will send a prescription for [...] states she is comfortable remaining home today. [facility] Lab Orders: rapid SARS CoV 2 Ag, QL IA, respiratory specimen: Performed rapid flu (A+B): Performed [facility] Medication Orders: prednisone 20 mg tablet: Performed ipratropium 0.5 mg-albuterol 3 mg (2.5 mg base)/3 mL nebulization soln: Performed doxycycline hyclate 100 mg capsule: Performed ................... ................... ................... ................... ................... ................... ................... ........ [facility] Consulted: Kira Hayden ................... ................... ................... ................... ................... ................... ................... ........ Disposition: Fulfilled Kira Hayden MD [address] [place] [address],[address] [facility], [place], [address], [address] 08/21/2025 19:40:08 OBGyn Episode No OBEpisode recorded.
--- OUTSIDE RECORDS SUMMARY | 2025-10-20 13:29 | XMS_ITS | Encounter Summary ---
Author Organization [employer] Address [address] [place] [address] 7 [place] [address] Care Team Providers Care Chemical Checker Name Role Phone Isela Grier MD Primary Care Provider [phone] Jaron Ambrose Unavailable Unavailable Reason for Visit * Reason Comments Med Refill Encounter Details Date Type Department Care Team (Late st Contact Info) Description 06/19/2023 Refill [facility] [address] [place] [id number] Rosi Saxena MD [address] [place], [place] [phone] Type 2 diabetes mellitus without complications ([facility]) Social History Tobacco Use Types Packs/Day Years [...] Description 11/03/2025 1:00 PM EST Medication Management [facility] [address] [place] [id number] Sumanth Dumont, PharmD [address] [place], [place] [phone] 11/24/2025 10:00 AM EST Clinical Support [facility] [address] [place] [address] Shanita Vasquez, BRANDY [address] [place] [address] documented as of this encounter Visit Diagnoses Diagnosis Type 2 diabetes mellitus without complications (HCC) documented in this encounter Additional Health Concerns Assessment Noted Time PHQ-9 Depression Total Score: 15 023 2:20 PM EDT documented as of this encounter Care Teams Chemical Checker Relationship Specialty Start Date End Date Isela Grier MD [address] [place] [address] PCP - General Family Medicine 10/26/18 Jaron Ambrose FNP [address] [place] [address] Nurse Practitioner Family Medicine 09/21/23 documented as of this encounter
--- OUTSIDE RECORDS SUMMARY | 2025-10-20 13:30 | XMS_ITS | Encounter Summary ---
Author Organization [employer] Address [address] [facility] 7 [place] [address] Care Team Providers Care Sports Broadcasting Internship Name Role Phone Isela Grier MD Primary Care Provider [phone] Jaron Ambrose Unavailable Unavailable Reason for Referral * Imaging (Routine) - Closed Specialty Diagnoses / Procedures Referred By Jaden mallory Referred To Contact Radiology Diagnoses Generalized abdominal pain Procedures CT Abdomen Pelvis w/ Contrast Isela Grier MD [address] [place] [address] Phone: tel: fax: [facility] [address] [place] [address] Phone: tel: fax: Referral ID Status Reason Start Date Expiration Date Visits Re quested Visits Authorized [id number] Closed 05/13/2023 05/12/2024 1 1 Encounter Details Date Type Department Care Team (Late st Contact Info) Description 05/13/2023 Orders Only [facility] [address] [place], [place] [phone] Isela Grier MD [address] [place] [address] Generalized abdominal pain (Primary Dx) Social History [...] Description 11/03/2025 1:00 PM EST Medication Management [address] [address] Sumanth Dumont, PharmD [address] [place] [phone] 11/24/2025 10:00 AM EST Clinical Support [address] [address] Shanita Vasquez, BRANDY [address] [place] [address] Scheduled Orders Name Type Priority Associated Diagnoses [...] documented as of this encounter Care Teams [employer] Relationship Specialty Start Date End Date Isela Grier MD [address] [place] [address] PCP - General Family Medicine 10/26/18 Jaron Ambrose FNP [address] [place] [address] Nurse Practitioner Family Medicine 09/21/23 documented as of this encounter
--- OUTSIDE RECORDS SUMMARY | 2025-10-20 13:30 | XMS_ITS | Encounter Summary ---
Author Organization [employer] Address [address] [facility] [address] [place] [address] Care Team Providers Care Global Compensation Manager Name Role Phone Isela Grier MD Primary Care Provider [phone] Jaron Ambrose Unavailable Unavailable Encounter Details Date Type Department Care Team (Late st Contact Info) Description 11/28/2024 Abstract [facility] [address] [place] [address] Luanne Miles [place] Social History Tobacco Use [...] Description 11/03/2025 1:00 PM EST Medication Management [address] [address] Sumanth Dumont, PharmD [address] [place] [phone] 11/24/2025 10:00 AM EST Clinical Support [address] [address] Shanita Vasquez, RN [address] [place] [address] documented as of this encounter Visit Diagnoses Not on filedocumented in this encounter Additional Health Concerns Assessment Noted Time PHQ-9 Depression Total Score: 13 024 2:55 PM EDT documented as of this encounter Care Teams Global Compensation Manager Relationship Specialty Start Date End Date Isela Grier MD [address] [place] [phone] PCP - General Family Medicine 10/26/18 Jaron Ambrose FNP [address] [place] [phone] Nurse Practitioner Family Medicine 09/21/23 documented as of this encounter
--- OUTSIDE RECORDS SUMMARY | 2025-10-20 13:30 | XMS_ITS | Clinical Summary ---
Author Organization [employer] Address [address] [place] [address] Care Team Providers Care Pickling Operator Name Role Phone Isela Rothman MD Primary Care Provider [phone] Jaron Ambrose Unavailable Unavailable Allergies No known active allergies Medications * This document contains information received from the source organization and may not represent a complete record from that organization. albuterol 108 (90 Base) MCG/ACT inhaler Inhale 2 puffs by mouth every 4 to 6 hours as needed 2 Active Ibuprofen-Acetamin ophen (Advil Dual Action) 125-250 MG tablet per tablet Take 2 tablets by mouth every 4 hours as needed Active Mometasone Furoate (Asmanex HFA) 100 MCG/ACT aerosol INHALE 1 PUFF BY MOUTH TWICE DAILY RINSE MOUTH AFTER USING. 13 g 11 3 Active Umeclidinium [place] (Incruse Ellipta) 62.5 MCG/ACT aerosol powder Inhale [...] USING PATCH* 30 patch 1 4 Active omeprazole (PriLOSEC) [address] capsule TAKE 1 CAPSULE BY MOUTH ONCE DAILY EVERY MORNING 30 capsule 4 Active TRUEplus Lancets 33G miscIndications:Ty pe 2 diabetes mellitus with diabetic polyneuropathy (HCC),Type 2 diabetes mellitus without complications (HCC) TEST BLOOD SUGAR TWICE DAILY 100 each 4 Active alendronate (Fosamax) 70 MG tabletIndications: Screening for osteoporosis Take 1 tablet (70 mg) by mouth every 7 (seven) days. Take in the morning with a full glass of water, on an empty stomach, and do not take anything else by mouth or lie down for the next 30 min. 4 tablet 11 5 11/29/19 26 Active Blood Glucose Monitoring Suppl (CareLuLuStyle [place] Lite) w/Device kit 1 each before breakfast and before evening meal. 1 kit 1 5 Active cyanocobalamin (Vitamin B-12) 1000 MCG tablet TAKE 1 TABLET BY MOUTH EVERY MORNING 90 tablet 3 5 Active dapagliflozin (Farxiga) 10 MG Take 1 tablet (10 mg) by mouth Once per day. 90 tablet 3 10/16/2025 2:00 PM EST 5 01/25/20 26 Active famotidine (Pepcid) 20 MG tablet TAKE 1 TABLET BY MOUTH AT BEDTIME NEEDED FOR HEARTBURN 30 tablet 11 5 Active montelukast (Singulair) 10 MG tablet TAKE 1 TABLET BY MOUTH EVERY EVENING 90 tablet 3 5 Active lisinopril 20 MG tablet TAKE 1 TABLET BY MOUTH EVERY MORNING 90 tablet 3 5 Active Blood Pressure Monitor [facility] Check BP daily 1 each 5 Active Tirzepatide (Mounjaro) 7.5 MG/0.5ML solution auto-injectorIndic ations:Type 2 diabetes mellitus with hyperglycemia, without long-term current use of insulin (HCC) Inject 7.5 mg under the skin 1 (one) time per week. 2 mL 11 5 Active QUEtiapine (SEROquel) 300 MG tabletIndications: MDD (major depressive disorder), recurrent, severe, with psychosis (CMS/HCC) ([facility]) Take 1 tablet (300 mg) by mouth at bedtime. Plus Seroquel (Quetiapine) 50 mg in the morning 90 tablet 3 09/15/2025 5:10 PM EST 5 Active FREESTYLE LITE test stripIndications:T ype 2 diabetes mellitus with diabetic polyneuropathy (HCC),Type 2 diabetes mellitus without complications (HCC) USE DIRECTED TO TEST BLOOD SUGAR TWICE DAILY 50 strip 11 5 Active atorvastatin (Lipitor) 80 MG tablet TAKE 1 TABLET BY MOUTH AT BEDTIME 90 tablet 3 5 Active QUEtiapine (SEROquel) 50 MG tabletIndications: MDD (major depressive disorder), recurrent, severe, with psychosis (CMS/HCC) (HCC) Take 1 tablet (50 mg) by mouth in the morning. Also take Seroquel (Quetiapine) 200 mg at bedtime 90 tablet 3 10/16/2025 2:00 PM EST Active buPROPion XL (Wellbutrin XL) 150 MG 24 hr tablet Take 1 tablet (150 mg) by mouth in the morning. Do not crush, chew, or split. 90 tablet 3 10/16/2025 2:00 PM EST 5 Active DULoxetine (Cymbalta) [address] capsuleIndications :MDD (major depressive disorder), recurrent, severe, with psychosis (CMS/HCC) ([facility]) Take 1 capsule (60 mg) by mouth 2 times daily. 180 capsule 3 10/16/2025 2:00 PM EST 5 Active Alcohol Swabs (Alcohol Prep) 70 % pads USE DIRECTED TWICE DAILY 100 each 5 5 Active loratadine (Claritin) 10 MG tablet TAKE 1 TABLET BY MOUTH EVERY MORNING 90 tablet 3 Active fluticasone (Flonase) 50 MCG/ACT nasal spray INSTILL 1 SPRAY IN EACH NOSTRIL ONCE DAILY IN THE MORNING 16 g 3 5 Active folic acid (Folvite) 400 MCG tablet TAKE 1 TABLET BY MOUTH EVERY MORNING 90 tablet 3 5 Active D3-1000 25 MCG (1000 UT) capsule TAKE 1 CAPSULE BY MOUTH EVERY MORNING 90 capsule 1 5 Active Multiple Vitamin (Multivitamin) tablet TAKE 1 TABLET BY MOUTH EVERY MORNING WITH FOOD 90 tablet 1 5 Active metFORMIN XR (Glucophage-XR) 500 MG 24 hr tabletIndications: Type 2 diabetes mellitus with hyperglycemia, without long-term current use of insulin (HCC) TAKE 2 TABLETS BY MOUTH TWICE DAILY IN THE MORNING AND EVENING WITH MEALS, DO NOT BREAK, CRUSH, DISSOLVE OR CHEW 360 tablet 1 5 Active Ascorbic Acid (vitamin C) 500 MG tabletIndications: Iron deficiency anemia, unspecified iron deficiency anemia type TAKE 1 TABLET BY MOUTH TWICE DAILY IN THE MORNING AND AT BEDTIME 180 tablet 1 5 Active clonazePAM (KlonoPIN) 0.5 MG tabletIndications: MDD (major depressive disorder), recurrent, severe, with psychosis (CMS/HCC) (HCC) TAKE 1 TABLET BY MOUTH EVERY TWELVE HOURS NEEDED ANXIETY 60 tablet 09/15/2025 5:10 PM EST 5 Active Diclofenac Sodium 1 % gel Apply to affected area once or twice daily 150 g 3 10/17/2025 1:09 PM EST 5 Active cyclobenzaprine (Flexeril) 10 MG tabletIndications: Chronic pain of both knees Take 1 tablet by mouth at bedtime as needed for muscle spasm 30 tablet 3 10/17/2025 1:09 PM EST 5 Active lidocaine (Lidoderm) 5 % patchIndications:O steoarthritis of multiple joints, unspecified osteoarthritis type Apply 1 patch topically Once per day. Remove & discard patch within 12 hours or as directed by MD. 30 patch 11 5 Active celecoxib (CeleBREX) 100 MG capsule Take 1 capsule (100 mg) by mouth if needed in the morning and at bedtime for moderate pain. 60 capsule 1 5 Active Active Problems Problem Noted Date Diagnosed Date Dyspnea 10/19/2025 Assessment & Plan (10/19/2025 7:13 PM EST): - Followed by both rn wellness and business development engineer - Last seen by Dr. Rey, [facility] in Jun 2025. Stress test was ordered. - Advised to check the status of stress test WADE (generalized anxiety disorder) 05/16/2025 Right maxillary [...] (05/14/2025 3:22 PM EDT): - Following with rn wellness at [facility], Dr. Maldonado, last seen in December 2024. [...] exercise Neck pain on left side 10/27/2024 Assessment & Plan (10/19/2025 7:24 PM EST): - will try muscle relaxant Chronic left shoulder pain 10/27/2024 Assessment & Plan (10/19/2025 7:24 PM EST): Evaluate with X-ray Refer to [facility] Improve glycemic control before intraarticular steroid injection Assessment & Plan (10/27/2024 5:34 PM EST): Evaluate with X-ray Refer to [facility] Improve glycemic control before intraarticular steroid injection S/P recurrent ventral herniorrhaphy 10/26/2024 Assessment & Plan (10/26/2024 4:19 PM EST): - On our record at least 3 times - Another provider documents 5 times - most recently by Dr. Tate on 09/07/24 Chronic pain of both knees 02/09/2024 Assessment & Plan (10/19/2025 7:32 PM EST): - Following with orthopedists at [facility] - Scheduling for left knee replacement - continue judicious use of APAP and topical medications - switch NSAID to COX2i Assessment & Plan (10/27/2024 5:33 PM EST): [...] EDT): Hospitalized from 06/19 - 06/21 in [facility] Treated with IV Abx, completed Abx course [...] Dr. Edwards - will obtain abdominal CT correction (current) use of oral hypoglycemic kayla gs 02/26/2023 Tobacco dependence 10/07/2022 Assessment & Plan (10/19/2025 7:28 PM EST): She stopped smoking in Oct 2023 LDCT Lung RADS 2 on 09/27/2025 Continue working on smoking cessation effort Assessment & Plan (05/01/2025 1:09 PM EDT): Last CT scan in Lung RADS 2 in Jul 2021 She stopped smoking in Oct 2023 Continue working on smoking cessation effort Referred back to [facility] lung cancer screening program, but missed appt Assessment & Plan (01/25/2025 11:55 AM EDT): Last CT scan in Lung RADS 2 in Jul 2021 She stopped smoking in Oct 2023 Continue working on smoking cessation effort Referred back to [facility] cancer screening program, but missed appt Assessment & Plan (02/20/2024 7:00 AM EDT): Last CT scan in Lung RADS 2 in Jul 2021 She stopped smoking in Oct 2023 Continue working on smoking cessation effort Referred back to [facility] cancer screening program, but missed appt Assessment & Plan (01/04/2024 9:13 AM EDT): Last CT scan in Lung RADS 2 in Jul 2021 She has cut down on smoking and stopped completely recently Continue working on smoking cessation effort Refer back to [facility] lung cancer screening program Assessment & Plan (10/16/2023 11:53 AM EST): Last CT scan in Lung RADS 2 in Jul 2021 Currently 4-5 cigs per day, slowly cutting down Continue working on smoking cessation effort Start nicotine patch and gum Advised pt to check with [facility] lung cancer screening program Assessment & Plan (07/07/2023 10:27 AM EDT): Last CT scan in Lung RADS 2 in Jul 2021 Currently 4-5 cigs per day, slowly cutting down Continue working on smoking cessation effort Evaluate with PFT for COPD Consider adding Long-Acting Muscarinic agonist Advised pt to check with [facility] lung cancer screening program Assessment & Plan (05/12/2023 6:46 AM EDT): Last CT scan in Lung RADS 2 in Jul 2021 Currently 3-4 cigs per day, slowly cutting down Continue working on smoking cessation effort Advised pt to check with [facility] cancer screening program Assessment & Plan [...] multiple joints 10/07/2022 Overview (10/07/2022): Referred to park recreation manager per pt's request Pt missed appt and states pt will reschedule Assessment & Plan (10/19/2025 7:31 PM EST): - continue judicious use of APAP / diclofenac topical and lidocaine patch - switch NSAID to COX2i - optimize treatment for anxiety and depression. Patient is prescribed duloxetine. Stopped smoking with greater than 20 pack year h istory 10/07/2022 Overview (10/07/2022): Followed by [facility] lung cancer screening program Last seen on 08/14/21 Assessment & Plan (10/19/2025 7:28 PM EST): LDCT Lung RADS 2 on 09/27/2025 Assessment & Plan (05/01/2025 1:09 PM EDT): Previously followed by [facility] lung cancer screening program Last seen on 08/14/21, and missed recent appointment Encouraged to reschedule Assessment & Plan (10/27/2024 5:36 PM EST): Previously followed by [facility] cancer screening [facility] Last seen on 08/14/21, and missed recent appointment Encouraged to reschedule Assessment & Plan (02/20/2024 7:00 AM EDT): Previously followed by [facility] screening [facility] Last seen on 08/14/21, and missed recent appointment Encouraged to reschedule Assessment & Plan (10/06/2023 7:28 AM EST): Followed by [facility] screening [facility] Last seen on 08/14/21 Assessment & Plan (10/07/2022 11:27 AM EST): Followed by [facility] lung cancer screening program Last seen on 08/14/21 Check the status of follow-up Obstructive sleep apnea syndrome 09/29/2022 Assessment & Plan (10/19/2025 7:26 PM EST): - Sleep study on 01/2022 severe BEATRICE. - Titration sleep study on 05/12/22. AutoPAP 11-20 cm H2O recommended. - Recently seen by Dr. Hall, and was prescribed all the supplies she needed; improve adherence Assessment & Plan (05/01/2025 1:09 PM EDT): [...] Last sleep study done on 05/05/22, at [facility], recommended Auto-PAP between 11-20 cm H2O. Check the status of Auto-PAP. Assessment & Plan (01/04/2024 8:58 AM EDT): Last sleep study done on 05/05/22, at [facility], recommended Auto-PAP between 11-20 cm H2O. Check the status of Auto-PAP. Assessment & Plan (10/06/2023 7:24 AM EST): Last sleep study done on 05/05/22, at [facility], recommended Auto-PAP between 11-20 cm H2O. Check the status of Auto-PAP. Assessment & Plan (07/07/2023 10:11 AM EDT): Last sleep study done on 05/05/22, at [facility], recommended Auto-PAP between 11-20 cm H2O. Check the status of Auto-PAP. Assessment & Plan (05/12/2023 6:27 AM EDT): Last sleep study done on 05/05/22, at [facility], recommended Auto-PAP between 11-20 cm H2O. Check the status of Auto-PAP. Assessment & Plan (02/26/2023 11:45 AM EDT): Last sleep study done in April 2022, at [facility]. It was a titration study, but ideal [...] 07/02/2016 Essential hypertension 03/31/2016 Assessment & Plan (10/19/2025 7:16 PM EST): Goal BP < 130/80 per ACC/AHA guideline BP borderline today Continue lisinopril 20 mg daily Continue working on lifestyle modifications Assessment & Plan (08/23/2025 11:35 AM EDT): [...] obstructive pulmonary disease) 09/2015 Assessment & Plan (10/19/2025 7:26 PM EST): - Following with [facility] Honing Machine Set Up Operator Tool, Dr. Hall, last seen in Jun 2025 - Last exacerbation in April 2021 - recently seen in [facility] ED on 10/19/24, and Dx pneumonia. [...] cessation efforts. - Optimize treatment for BEATRICE Assessment & Plan (05/01/2025 1:09 PM EDT): - Following with [facility] [employer] Machine [employer] Up [employer], Dr. Hall, last seen in Oct 2024. Upcoming appointment. - Last exacerbation in April 2021 - recently seen in [facility] ED on 10/19/24, and Dx pneumonia. [...] (01/29/2025 12:59 PM EDT): - Following with [facility] [employer] Machine Set Up Operator [employer], Dr. Hall, last seen in Oct 2024. Upcoming appointment. - Last exacerbation in April 2021 - recently seen in [facility] ED on 10/19/24, and Dx pneumonia. [...] (10/27/2024 5:46 PM EST): - Following with [facility] [employer] Machine Set Up Operator [employer], Dr. Hall, last seen in March 2024. Upcoming appointment. - Last exacerbation in April 2021 - recently seen in [facility] ED on 10/19/24, and Dx pneumonia. [...] (CMS/HCC) WRITTEN ON 10/07/2022 11:14 AM BY IESLA ROTHMAN MD Followed by Jaron for psychopharmacology clinic Current medications: Cymalta 120 mg daily; Quetiapine 50 mg qAM and 150 mg at bedtime, clonazepam 1mg prn Continue following Tx plan per Jaron. Jaron's input appreciated. She was able to contract safety today. Assessment & Plan (10/26/2024 4:20 PM EST): >>ASSESSMENT AND PLAN FOR SCHIZOAFFECTIVE DISORDER (CMS/[facility]) WRITTEN ON 02/20/2024 7:00 AM BY ISELA [...] retiring, she will be referred to new [facility] psychiatric provider. Pt is aware that those will be televisits, and that the new provider is not an [facility] employee. She gives verbal consent to [...] then she will be referred to new [facility] psychiatric provider. Pt is aware that those will be televisits, and that the new provider is not an [facility] employee. She gives verbal consent to [...] WRITTEN ON 10/16/2023 11:49 AM BY ISELA ROTHMNA MD Followed by Jaron for psychopharmacology clinic [...] today. >>ASSESSMENT AND PLAN FOR SCHIZOAFFECTIVE DISORDER ([facility]) WRITTEN ON 05/05/2023 1:52 PM BY KIMBERLY [...] Pt would be interested in speaking with composite mechanic and the provider will consult PCP about [...] the plan. Dyslipidemia 06/17/2012 Assessment & Plan (10/19/2025 7:15 PM EST): - last lipid profile 10/27/24 - continue Atorvastatin 80 mg nightly - continue working on lifestyle modification Assessment & Plan (05/01/2025 1:07 PM EDT): [...] mellitus, type 2 05/19/2012 Assessment & Plan (10/19/2025 7:19 PM EST): Dx > 10 years. Hx [...] Diabetic eye exam: 09/24/23 Foot exam: 10/27/24 Assessment & Plan (08/23/2025 11:35 AM EDT): Patient's POC Glucose was unreadable ([facility]) today A1c was 7.6, which suggests she [...] Encounters Date Type Department Care Team Description 10/16/2025 2:00 PM EST Office Visit [facility] [address] [place] [address] Isela Rothman MD Essential hypertension (Primary Dx); Dyslipidemia; Type 2 diabetes mellitus with hyperglycemia, without long-term current use of insulin ([facility]); Chronic pain of both knees; Chronic obstructive pulmonary disease, unspecified COPD type (CMS/HCC) ([facility]); Obstructive sleep apnea syndrome; Encounter for immunization; Tongue pain; Imbalance; Vitamin D deficiency; Osteoarthritis of multiple joints, unspecified osteoarthritis type; Pre-op evaluation; Dyspnea on exertion; MDD (major depressive disorder), recurrent, severe, with psychosis (CMS/HCC) ([facility]); WADE (generalized anxiety disorder); Neck pain on left side; Chronic left shoulder pain; Stopped smoking with greater than 20 pack year history; Tobacco dependence 10/16/2025 Travel 10/09/2025 Travel 09/27/2025 Orders Only [facility] External Provider, [facility] 09/20/2025 Telephone [facility] [address] [place] [address] Isela Rothman MD Pre Op 09/18/2025 Telephone [facility] [address] [place] [address] Shanita Vasquez RN 09/15/2025 Telephone [facility] [address] [place] [address] Shanita Vasquez, BRANDY 09/14/2025 Telephone [facility] [address] [place] [address] Isela Rothman MD Med Refill 09/13/2025 Refill [facility] [address] [place] [address] Isela Rothman MD MDD (major depressive disorder), recurrent, severe, with psychosis (CMS/HCC) (HCC) 09/04/2025 Telephone [facility] [address] [place] [id number] Isela Rothman MD Call Back Request 08/27/2025 Refill [facility] [address] [place] [phone] Isela Rothman MD Type 2 diabetes mellitus with hyperglycemia, without long-term current use of insulin (HCC); Iron deficiency anemia, unspecified iron deficiency anemia type 08/24/[address] [address] Isela Rothman MD 08/23/2025 10:30 AM EDT Office Visit [facility] [address] [place] [phone] Tierra Robles MD Type 2 diabetes mellitus with hyperglycemia, without long-term current use of insulin (HCC) (Primary Dx); Essential hypertension 08/23/2025 Travel 08/03/2025 Refill [facility] [address] [place] [address] Isela Rothman MD 08/01/2025 Telephone [facility] [address] [place] [phone] Isela Rothman MD Pre Op 07/28/2025 Refill [facility] [address] [place] [address] Isela Rothman MD 07/26/2025 Refill [facility] [address] [place], [place] [id number] Isela Rothman MD MDD (major depressive disorder), recurrent, severe, with psychosis (CMS/HCC) (HCC) from Last 3 Months Immunizations Immunization Administration Dates Next Due Hep A, Adult 12/21/2023 Hep B, adult 07/02/2016,07/23/2015,06/07/2015 Influenza High-dose Quadriva lent Preservative Free 07/07/2023,07/18/2022 Influenza injectable quadriv alent IIV4 with preservative 07/21/2017,07/23/2015 Influenza injectable quadriv alent preservative free 07/26/2020,07/15/2019,10/05/2018,12/25 Influenza, High Dose Seasona l, Preservative Free 10/16/2025,10/27/2024 Influenza, IIV3, injectable 10/23/2014, 1,07/10/2010 Influenza, Split (incl. nazia fied surface antigen) 07/08/2013,11/17/2012 Moderna Covid-19 Vaccine 12+ 05/21/2022, 10/24/2021,01/29/2021,01/01 Pfizer Covid-19 Vaccine 12+ 10/16/2025,,12/21/2023 Pneumococcal Conjugate PCV 20 07/30/2022 Pneumococcal Polysaccharide [...] Mass Index 38.81 10/16/2025 2:26 PM EST Plan of Treatment Upcoming Encounters Date Type Department Care Team (Late st Contact Info) Description 11/03/2025 1:00 PM EST Medication Management [facility] [address] [place] [phone] Sumanth Dumont, PharmD [address] [place] [address] 11/24/2025 10:00 AM EST Clinical Support [address] [address] Shanita Vasquez, BRANDY [address] [place] [address] Health Maintenance Due Date Last Done Comments CT Colonography 1957 FIT DNA/Cologuard 1957 FIT 1957 FOBT 1957 Sigmoidoscopy 1957 Eye Exam 1967 RSV Patients and Patients Aged 60 years or older (1 - Risk 50-74 years 1-dose series) 2007 Colonoscopy 05/09/2024 05/09/2014 Colorectal Cancer Screening 05/09/2024 Diabetes: Foot Exam 10/27/2025 10/27/2024 Lipid Panel 10/27/2025 10/27/2024, 11/27, 11/11/2022, Additional history exists Diabetes: Urine Protein Screening 11/28/2025 11/28/2024, 12/21/2023, 05/21/2020 Diabetes: Hemoglobin A1C 01/14/2026 025, 08/23/2025, 05/01/2025, Additional history exists COVID-19 Vaccine ( season) 2026 10/16/2025, 10/27/2024, 12/21/2023, Additional history exists SDOH Screening 05/01/2026 05/01/2025 Alcohol/Substance Use Screening 10/16/2026 10/16/2025 Depression Screening 10/16/2026 10/16/2025, 10/16/20 25 Tobacco Screening 10/19/2026 10/19/2025 Mammogram 11/09/2026 11/09/2024, 10/26, 11/09/2024, Additional history [...] to complete this topic Influenza Vaccine Completed 10/16/2025, , 07/07/2023, Additional history exists HIB Vaccines Aged Out [...] Plan Weekly blood pressure task No Isela Rothman MD Weekly blood pressure task Care Plan Weekly blood pressure task No Isela Rothman MD Patient has chronic kidney disease Care Plan Patient has chronic kidney disease No Isela Rothman MD Patient has chronic kidney disease Care Plan Patient has chronic kidney disease No Isela Rothman MD Procedures Procedure Name Priority Date/Time Associated Diagnosis Comments POCT GLYCOSYLATED HEMOGLOBIN (HGB A1C) Routine 10/16/2025 2:30 PM EST Type 2 diabetes mellitus with hyperglycemia, without long-term current use of insulin (HCC) POCT GLUCOSE (CPT-83092) Routine 10/16/2025 2:30 PM EST Type 2 diabetes mellitus with hyperglycemia, without long-term current use of insulin (HCC) NM HEART PERFUSION SPECT STRESS AND REST Routine 10/03/2025 9:53 AM EST LDCT LUNG SCREENING Routine 09/27/2025 4 :44 PM EST POCT GLYCATED HEMOGLOBIN, TOTAL Routine 08/23/2025 10:31 AM EDT Type 2 diabetes mellitus with hyperglycemia, without long-term current use of insulin (HCC) POCT GLUCOSE (CPT-41614) Routine 08/23/2025 10:31 AM EDT Type 2 diabetes mellitus with hyperglycemia, without long-term current use of insulin (HCC) ALBUMIN, RANDOM URINE W/CREATININE Routine 11/28/2024 9:30 AM EST Type 2 diabetes mellitus with hyperglycemia, without long-term current use of insulin (CMS/HCC) HM MAMMOGRAPHY Routine 11/09/2024 LIPID PANEL WITH REFLEX TO DIRECT LDL Routine 10/27/2024 12:13 PM EST Type 2 diabetes mellitus with hyperglycemia, without long-term current use of insulin (CMS/[facility]) COLONOSCOPY Routine 05/09/2014 from Last 3 Months or Most Recently Relevant to Health Maintenance Results * (ABNORMAL) POCT glycosylated hemoglobin (Hgb A1c) (10/16/2025 2:30 PM EST) Hemoglobin A1C 9.8(A) 4.0 - 5.7 % QC Media Lot # [id number] Lot# Expiration Date ,027 Blood Capillary blood specimen / Unknown 10/16/2025 2:30 PM EST Result [facility] Isela Rothman MD POINT OF CARE TEST ENTER/EDIT OR DERABLES Final Result * (ABNORMAL) POCT glucose manually resulted (CPT-83501) (10/16/2025 2:30 PM EST) Only the most recent of2 resultswithin the time period is included. Glucose Blood, POC 335(A) 60 - 200 mg/dL QC Media Lot # [id number] Lot# Expiration Date ,026 Blood Capillary blood specimen / Unknown 10/16/2025 2:30 PM EST Isela Rothman MD POINT OF CARE TEST ENTER/EDIT OR DERABLES Final Result * NM heart perfusion SPECT stress and rest (10/03/2025 9:53 AM EST) Anatomical Region Laterality Modality Body Nuclear Medicine 10/03/2025 9:53 AM EST Narrative 10/20/2025 10:15 AM EST [place] [address] Nuclear Medicine Report Signed Patient: Lilliam Savage MR#: [id number] : 1955 Acct:[id number] Age/Sex: 70 / F ADM Date: 10/03/25 Loc: [facility] Attending Dr: Matt Rey MD Ordering Physician: Matt Rey MD Date of Service: 10/03/25 Procedure(s): NM denilson perf SPECT rest str Accession Number(s): [id number] cc: Mary Parker MD; Matt Rey MD Reason for Exam: DYSPNEA LEXISCAN STRESS TEST Lexiscan Myocardial perfusion study Indication: Shortness of breath to evaluate for myocardial ischemia Technique: The patient was brought in for a Lexiscan perfusion study on 10/03/2025 and was injected 0.4 mg of Lexiscan intravenously. Within a minute of this injection 30 mCi of sestamibi was given intravenously. Images were obtained using the SPECT gamma camera interlaced with the gating device. Images were obtained in supine position. Resting perfusion study was performed on 10/04/2025. Patient was administered 30 mCi of sestamibi intravenously at rest. Images were then obtained in supine position. Images were processed with the software and compared side to side in short axis, horizontal long axis and vertical long axis views. Images obtained without without CT attenuation. Total DLP 188 mGy-cm Findings: The stress perfusion study showed nonattenuated images show a focal mildly reduced uptake in the distal and mid lateral wall of the LV myocardium. Attenuated corrected images show mildly reduced uptake in the apex of the LV myocardium. The gated study shows normal LV systolic function with calculated LVEF of 64%. LV cavity is normal in size. The gated study shows normal systolic wall thickening and contraction of segments. Resting study shows nonattenuated images show normal uptake of radiotracer in all segments of the LV myocardium. Attenuated corrected images show mildly reduced uptake in the apex of the LV myocardium. Gating at rest reveals normal systolic wall motion with ejection fraction at 74%. The findings are consistent with reversible defect noted on attenuated images most likely suggestive of shifting attenuation artifact related to the arms. Attenuated corrected images show overall show normal perfusion.. NM/NM denilson perf SPECT rest str Impression: 1. Myocardial perfusion imaging study shows likely normal myocardial perfusion 2. Gated LVEF is 64% 3. Transient ischemic dilatation not present Nondiagnostic changes on EKG. Electronically signed by: Matt Rey MD 10/05/2025 04:18 PM EST Dictated By: Matt Rey MD Signed By: <Electronically signed by Matt Rey MD in OV> 10/05/25 1618 DD/ 0953 TD/TT: 10/04/25 1015 Prescription Clerk: Procedure Note Donotuseinterpreter, Image - 10/20/2025 [place] [address] Nuclear Medicine Report Signed Patient: Cecelia Savage#: [id number] : 7Acct:[id number] Age/Sex: 70 / FADM Date: 10/03/25 Loc: [facility] Attending Dr: Matt Rey MD Ordering Physician: Matt Rey MD Date of Service: 10/03/25 Procedure(s): NM denilson perf SPECT rest str Accession Number(s): [id number] cc: Mary Parker MD; Matt Rey MD Reason for Exam: DYSPNEA LEXISCAN STRESS TEST Lexiscan Myocardial perfusion study Indication: Shortness of breath to evaluate for myocardial ischemia Technique: The patient was brought in for a Lexiscan perfusion study on 10/03/2025 and was injected 0.4 mg of Lexiscan intravenously. Within a minute of this injection 30 mCi of sestamibi was given intravenously. Images were obtained using the SPECT gamma camera interlaced with the gating device. Images were obtained in supine position. Resting perfusion study was performed on 10/04/2025. Patient was administered 30 mCi of sestamibi intravenously at rest. Images were then obtained in supine position. Images were processed with the software and compared side to side in short axis, horizontal long axis and vertical long axis views. Images obtained without without CT attenuation. Total DLP 188 mGy-cm Findings: The stress perfusion study showed nonattenuated images show a focal mildly reduced uptake in the distal and mid lateral wall of the LV myocardium. Attenuated corrected images show mildly reduced uptake in the apex of the LV myocardium. The gated study shows normal LV systolic function with calculated LVEF of 64%. LV cavity is normal in size. The gated study shows normal systolic wall thickening and contraction of segments. Resting study shows nonattenuated images show normal uptake of radiotracer in all segments of the LV myocardium. Attenuated corrected images show mildly reduced uptake in the apex of the LV myocardium. Gating at rest reveals normal systolic wall motion with ejection fraction at 74%. The findings are consistent with reversible defect noted on attenuated images most likely suggestive of shifting attenuation artifact related to the arms. Attenuated corrected images show overall show normal perfusion.. NM/NM denilson perf SPECT rest str Impression: 1. Myocardial perfusion imaging study shows likely normal myocardial perfusion 2. Gated LVEF is 64% 3. Transient ischemic dilatation not present Nondiagnostic changes on EKG. Electronically signed by: Matt Rey MD 10/05/2025 04:18 PM EST Dictated By: Matt Rey MD Signed By: <Electronically signed by Matt Rey MD in OV> 10/05/25 1618 DD/ 0953 TD/TT: 10/04/25 1015 Prescription Clerk: [facility] External Provider IMG NM PROCEDURES Edited Result - Final * CT Lung Screening Low dose (09/27/2025 4:44 PM EST) Anatomical Region Laterality Modality Lung Computed Tomogra phy 09/27/2025 4:44 PM EST Narrative 09/28/2025 7:12 AM EST [address] [address] [address] Scan Report Signed Patient: Lilliam Savage MR#: [id number] : 1955 Acct:[id number] Age/Sex: 70 / F ADM Date: 09/27/25 Loc: [facility] Attending Dr: Benita Whitaker PA-C Ordering Physician: Benita Whitaker PA-C Date of Service: 09/27/25 Procedure(s): CT lung screening Accession Number(s): [id number] cc: Mary Parker MD; Benita Whitaker PA-C Report Number: [id number]: Total DLP = 54.00 mGy-cm Reason for Exam: F17.210 - Nicotine dependence, cigarettes, uncomplicated EXAMINATION: CT LUNG SCREENING HISTORY: F17.210 - Nicotine dependence, cigarettes, uncomplicated TECHNIQUE: Low dose axial images were obtained from the sternal notch to upper abdomen without IV contrast per standard departmental protocol. Sagittal and coronal reformatted images were also obtained and reviewed. One or more of the following techniques was used for dose reduction: Automated exposure control, adjustment of the mA and/or kV according to patient size, use of iterative reconstruction technique. DLP: 54 mGy-cm COMPARISON: Comparison is made with the prior examination dated 08/16/2021. FINDINGS: Lung nodules: Again seen is a suture line in the lingula. There is a 2 mm nodule in the lingula (series 5, image 64). No suspicious pulmonary nodules are identified. Emphysema: none Coronary Calcification: mild Aortic Arch Calcification: mild Potentially Significant Incidentals : There is moderate elevation of the right hemidiaphragm which has increased since the prior study. Additional Chest Findings: There is no pleural or pericardial effusion. No mediastinal or axillary lymphadenopathy is identified. Visualized upper abdomen: The visualized portions of the liver, spleen, and adrenals have an unremarkable unenhanced appearance. There are postsurgical changes involving the stomach. CT/CT lung screening IMPRESSION: 1. No suspicious pulmonary nodules are identified. 2. Elevation of the right hemidiaphragm which has increased since the prior study. This could represent diaphragmatic paralysis. If further imaging is desired, a sniff test could be performed. LUNG-RADS ASSESSMENT: Lung-RADS 2: Benign MANAGEMENT: Continue annual screening with LDCT in 12 months Category S: S Electronically signed by: Pravin Kendrick MD 09/28/2025 07:08 AM EST Dictated By: Pravin Kendrick MD Signed By: <Electronically signed by Pravin Kendrick MD in OV> 09/28/25 0708 DD/ 1644 TD/TT: 09/27/25 1659 Prescription Clerk: Procedure Note Donotuseinterpreter, Image - 09/28/[address] [address] [address] Scan Report Signed Patient: Cecelia Savage#: [id number] : 1955cct:[id number] Age/Sex: 70 / FADM Date: 09/27/25 Loc: [facility] Attending Dr: Benita Whitaker PA-C Ordering Physician: Benita Whitaker PA-C Date of Service: 09/27/25 Procedure(s): CT lung screening Accession Number(s): [id number] cc: Mary Parker MD; Benita Whitaker PA-C Report Number: [id number]: Total DLP = 54.00 mGy-cm Reason for Exam: F17.210 - Nicotine dependence, cigarettes, uncomplicated EXAMINATION: CT LUNG SCREENING HISTORY: F17.210 - Nicotine dependence, cigarettes, uncomplicated TECHNIQUE: Low dose axial images were obtained from the sternal notch to upper abdomen without IV contrast per standard departmental protocol. Sagittal and coronal reformatted images were also obtained and reviewed. One or more of the following techniques was used for dose reduction: Automated exposure control, adjustment of the mA and/or kV according to patient size, use of iterative reconstruction technique. DLP: 54 mGy-cm COMPARISON: Comparison is made with the prior examination dated 08/16/2021. FINDINGS: Lung nodules: Again seen is a suture line in the lingula. There is a 2 mm nodule in the lingula (series 5, image 64). No suspicious pulmonary nodules are identified. Emphysema: none Coronary Calcification: mild Aortic Arch Calcification: mild Potentially Significant Incidentals : There is moderate elevation of the right hemidiaphragm which has increased since the prior study. Additional Chest Findings: There is no pleural or pericardial effusion. No mediastinal or axillary lymphadenopathy is identified. Visualized upper abdomen: The visualized portions of the liver, spleen, and adrenals have an unremarkable unenhanced appearance. There are postsurgical changes involving the stomach. CT/CT lung screening IMPRESSION: 1. No suspicious pulmonary nodules are identified. 2. Elevation of the right hemidiaphragm which has increased since the prior study. This could represent diaphragmatic paralysis. If further imaging is desired, a sniff test could be performed. LUNG-RADS ASSESSMENT: Lung-RADS 2: Benign MANAGEMENT: Continue annual screening with LDCT in 12 months Category S: S Electronically signed by: Pravin Kendrick MD 09/28/2025 07:08 AM EST RP Dictated By: Pravin Kendrick MD Signed By: <Electronically signed by Pravin Kendrick MD in OV> 09/28/25 0708 DD/ 1644 TD/TT: 09/27/25 1659 Prescription Clerk: [facility] External Provider IMG CT PROCEDURES Edited Result - Final * (ABNORMAL) POCT Hgb A1c (08/23/2025 10:31 AM EDT) Pathologist [facility] Hemoglobin A1C 7.6(A) 4.0 - 5.7 % QC Media Lot # [id number] Lot# Expiration Date [id number] Blood 08/23/2025 10:3 1 AM EDT Tierra Robles MD POINT OF CARE TEST ENTER/EDIT ORDERABLES Final Result * Albumin, Random Urine W/Creatinine (11/28/2024 9:30 AM EST) Creatinine, Urine 187.33 mg/dL [facility] Microalbumin Urine 11.0 mg/L [facility] Microalbum Creatinine Ratio Ur 5.8 <30 ug/mg cr [facility] Comment:Albumin/Creatinine R atio Reference Ranges: Normal: < 30 ug/mg creatinine Microalbuminuria: 30 - 300 ug/mg creatinineClinical Albuminuria: > 300 ug/mg creatinine Urine 11/28/2024 9:30 AM EST 11/28/2024 10:29 AM EST Isela Rothman MD LAB URINE ORDERABLES Final Resul t [facility] [address] [place] [phone] * Mammography (11/09/2024) Mammogram BIRADS 1 Normal, Abnormal, BIRADS 1 , BIRADS 2 Anatomical Region Laterality Modality Other 11/09/2024 Historical Provider HEALTH MAINTENANCE Final Result * (ABNORMAL) Lipid Panel with Reflex to Direct LDL (10/27/2024 12:13 PM EST) Triglycerides 125 <150 mg/dL [facility] Comment:Desirable Triglyceri de: less than 150 mg/dLBorderline High Triglyceride 150-199 mg/dLHigh Triglyceride: 200-499 mg/dLVery High Triglyceride: greater than or equal to 5OO mg/dL Cholesterol 110 <200 mg/dL [facility] Comment:Desirable Cholestero l: less than 200 mg/dLBorderline High Cholesterol: 200-239 mg/dLHigh Cholesterol: greater than 239 mg/dL LDL Cholesterol Calculated 52 <100 mg/dL [facility] Comment:Desirable LDL: less than 100 mg/dLNear Optimal/Above Optimal LDL: 110- 129 mg/dLBorderline High LDL: 130-159 mg/dLHigh LDL: 160-189 mg/dLVery High LDL: greater than or equal to 190 mg/dL HDL Cholesterol 33(L) >40 mg/dL [facility] Comment:Desirable HDL: great er than 40 mg/dL Note: This HDL assay may give artificially low results in patients with liver disease. Blood 10/27/2024 12:1 3 PM EST 10/27/2024 1:00 PM EST Isela Rothman MD LAB BLOOD ORDERABLES Final Resul t [facility] [address] [place] [phone] * Hm Colonoscopy (05/09/2014) Colonoscopy Normal Normal [facility] External Provider HEALTH MAINTENANCE Final Result [...] 10/16/2025 Patient has chronic kidney disease 10/16/2025 Insurance [facility] [employer] (HMO D-SNP) [place]I [place] [id number] Care Teams Pickling Operator Relationship Specialty Start Date End Date Isela Rothman MD [address] [place] [address] PCP - General Family Medicine 10/26/18 Jaron Ambrose FNP [address] [place] [address] Nurse Practitioner Family Medicine 09/21/23
--- OUTSIDE RECORDS SUMMARY | 2025-10-20 13:30 | XMS_ITS | Patient Health Record ---
Author Organization [facility] Address [address] [place] [address] Care Team Providers Care Manager Of Drilling Name Role Phone Pravin Huynh Unavailable [phone] Reason For Referral No Information Plan Of Treatment No Information
--- OUTSIDE RECORDS SUMMARY | 2025-10-20 13:30 | XMS_ITS | Encounter Summary ---
Author Organization [employer] Address [address] [facility] 7 [place] [address] Care Team Providers Care Stake Driver Name Role Phone Isela Grier MD Primary Care Provider [phone] Jaron Ambrose Unavailable Unavailable Reason for Visit * Reason Onset Date Comments Med Refill 09/14/2025 Encounter Details Date Type Department Care Team (Late st Contact Info) Description 09/14/[address] [facility] [address] [place], [place] [phone] Isela Grier MD [address] [place], [place] [phone] Med Refill Social History Tobacco Use Types [...] 0.5 MG tablet To be sent to: [facility] - [place], [place] - [address] [place] [address] documented in this encounter Plan of Treatment Upcoming Encounters Date Type Department Care Team ([facility] st Contact Info) Description 11/03/2025 1:00 PM EST Medication Management [address] [address] Sumanth Dumont, PharmD [address] [place] [phone] 11/24/2025 10:00 AM EST Clinical Support [address] [address] Shanita Vasquez, RN [address] [place] [address] documented as of this encounter Goals Goal [...] documented as of this encounter Care Teams Stake Driver Relationship Specialty Start Date End Date Isela Grier MD [address] [place] [address] PCP - General Family Medicine 10/26/18 Jaron Ambrose FNP [address] [place] [address] Nurse Practitioner Family Medicine 09/21/23 documented as of this encounter
--- OUTSIDE RECORDS SUMMARY | 2025-10-20 13:30 | XMS_ITS | Data Portability ---
Author Organization [place] [facility], [facility] Address [address] [place] [phone] Care Team Providers Care Chiropractic Practice Manager Name Role Phone BENITA RAO Primary Care Provider Assessment Encounter Date Assessment [...] Details Last Modified Time Details Appointments None record ed. Lab None record ed. Referral None record ed. Procedures None record ed. Surgeries None record ed. Imaging None record ed. Medication Orders None record ed. Patient TargetsNo targets recorded. Patient InstructionsNo instructions recorded. Reason for Referral None Reported. Problems Name Problem SNOMED Code Status Onset Date Resolution Date Notes Provider Name and Address Organization Details Recorded Time Sialolith iasis 10946813 Active 2022 Sialolith iasis; Note: Date Diagnosed : 06/18/2023 9:53 AM (K11.5) Not Available [facility] 4 03:09:19 Acute recurrent sialoaden itis 13349147311 13666 Active 2022 Acute recurrent sialoaden itis; Note: Date Diagnosed : 06/18/2023 9:53 AM (K11.22) Not Available [facility] 4 03:09:17 Follow-up visit Active 2023 Encounter for follow-up examinati on after completed treatment for condition s other than malignant neoplasm; Note: Date Diagnosed : 12/07/2023 3:50 PM (Z09) Not Available [facility] 4 03:09:17 Mass of neck 138462049 Active 2023 Localized swelling, mass and lump, neck; Note: Date Diagnosed : 01/18/2024 4:30 PM (R22.1) Not Available [facility] 4 03:09:18 Neck swelling 350622280 Active 2023 Localized swelling, mass and lump, neck; Note: Date Diagnosed : 01/18/2024 4:30 PM (R22.1) Not Available [facility] 4 03:09:18 Sensorine ural hearing loss 31879350 Active 2023 Sensorine ural hearing loss, unilatera l, right ear, with unrestric cyndee hearing on the contralat eral side; Note: Date Diagnosed : 01/18/2024 4:30 PM (H90.41) Not Available [facility] 4 03:09:18 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 Procedures Surgical History Date Name Laterality Status Provider Name and Address Organization Details Recorded Time Injection kenalog completed CRISTOPHER MCDONNELL MD [address] [facility],[place] [address], [place], [address], [facility] - [facility] 02/19/2025 09:42:50 Imaging Results None recorded. Procedure [...] Not Available Not Available No t Available prednison e 20 mg tablet TAKE 1 TABLET BY MOUTH TWICE DAILY FOR 5 DAYS active Not Available Not Available No t Available alendrona te 70 mg tablet take 1 tablet by [...] completed Not Available Not Available Not Available clindamyc in HCl 150 mg capsule TAKE 1 CAPSULE BY MOUTH THREE TIMES DAILY FOR 7 DAYS UNTIL FINISHED active Not Available Not Available No t Available cyanocoba nicole (vit B-12) 1,000 mcg tablet TAKE 1 TABLET BY MOUTH EVERY MORNING active Not Available Not Available No t Available penicilli n V potassium 500 mg tablet TAKE 1 TABLET BY MOUTH FOUR TIMES DAILY UNTIL FINISHED active Not Available Not Available No t Available acetamino phen 300 mg-codein e 30 mg tablet TAKE 1 TABLET BY [...] ORAL CADA 12 HORAS POR 7 D 02/04 /2025 completed Not Available Not Available Not Available [...] tion aerosol inhaler active Medicati on ID: [id number] B rand Name: Flovent HFA Send Method: [...] Available Not Available No t Available FreeStyle Rice Lite kit USE DIRECTED TO TEST BLOOD SUGAR TWICE DAILY BEFORE BREAKFAS T AND BEFORE SUPPER active Not Available Not [...] Updated DateTime 11/29/2024 154.94 cm 36.7 kg/m2 79125.92 g Helena Blancas [place] [facility] 11/29/2024 08:53:09 Date Recorded Body height Body mass index (BMI) Body weight Provider Name and Address Organization Details Last Updated DateTime 02/16/2025 154.94 cm 35.9 kg/m2 78853.55 g Helena Blancas [place] [facility] 02/16/2025 15:41:19 Social History None recorded. Functional Status None recorded. Mental Status None recorded. Family History Nothing Reported. Medical History No medical history recorded. Gynecological HistoryNo gynecological history recorded. Obstetrics History GPAL:G 0 P 0 0 0 0 Past Encounters Encounter ID Performer Location Encounter Start Date Encounter Closed Date Diagnosis/Indication Diagnosis SNOMED-CT Code Diagnosis ICD10 Code Diagnosis IMO Codes Diagnosis Note [id number] GURINDER LACY MD [facility] [address] [address] 11/29/2024 08:36:23 11/29/2024 09:17:33 Acute recurrent sialoadenitis [id number] 910960 K11.22 Hypertrophic scar 696417 06 L91.0 Type 2 brent betes mellitus 13974139 E11.9 [id number] CRISTOPHER MCDONNELL MD [facility] [address] [place] [address] 02/16/2025 15:30:00 02/16/2025 16:06:39 Hypertrophic scar 47370460 L91.0 Health Concerns Section Related Observation LastModified by Organization Detai ls LastModified Time None Recorded Concern Status LastModified by Organization Details LastModified Time None Recorded Advance Directives Directive None Recorded Payers Insurance Date Sequence Insurance Name Policy Number Policy Martin Covered Member ID Martin Member ID Guarantor Name 04/03/2025 1 [facility] - DOS ON OR AFTER 2023 - [employer] OPTIONS AND ONE CARE (MEDICARE REPLACEMENT/ADV ANTAGE - PPO) Lilliam Miranda [id number] Lilliam Miranda 11/29/2024 1 [facility] - DOS ON OR AFTER 2023 - MEDICARE [place]VANTAGE [place] (MEDICARE REPLACEMENT/ADV ANTAGE - PPO) Lilliam Miranda [id number] Lilliam Miranda Notes Date Note Type Note Provider Name and Address Organization Details Recorded Time 11/29/2024 text/html ROS as noted in the HPI Swedish - son translatingRIGHT sialoadenitisnow reports occasional numb, itch or burn of the skin areapain 10 now, 910 prior to surgeryfeels the area swells when she is asleepuses advil to improve pain to 3/10 12/04/23 Rosie, Right submandibular gland excision02/23/20[facility]. There is residual 14 mm island of submandibular tissue with surrounding stranding consistent with scarring. No obstructing sialolith GURINDER LACY MD [address] [place] [address], [phone], [facility] - [facility] 11/29/2024 09:16:12 02/16/2025 text/html ROS as noted in the HPI 69yo woman who presents for kenalog injection. She had a right submandibular gland excision 01/2024 w/ Dr. Velez. She reports pain and discomfort at the incision site since that time. She also does not like the thickened appearance of the scar. CRISTOPHER MCDONNELL MD [address] [place] [address], [place], [phone], [facility] - [facility] 02/19/2025 09:45:03 OBGyn Episode No OBEpisode recorded.
--- OUTSIDE RECORDS SUMMARY | 2025-10-20 13:30 | XMS_ITS | Encounter Summary ---
Author Organization [employer] Address 75 [facility] 7 [place] [address] Care Team Providers Care Plastic Manager Name Role Phone Isela Grier MD Primary Care Provider [phone] Jaron Ambrose Unavailable Unavailable Reason for Visit * Reason Onset Date Comments Med Refill 09/19/2024 Encounter Details Date Type Department Care Team (Late st Contact Info) Description 09/19/2024 Telephone [facility] MEDICINE [address] [place], [place] [phone] Isela Grier MD [address] [place], [place] [phone] Med Refill Social History Tobacco Use Types [...] - 09/19/2024 2:45 PM EST TC from [facility] Pharmacy requesting refills on medications : Multiple [...] Description 11/03/2025 1:00 PM EST Medication Management [facility] MEDICINE [address] [place] [address] Sumanth Dumont, PharmD [address] [place] [address] 11/24/2025 10:00 AM EST Clinical Support [facility] MEDICINE [address] [place] [address] Shanita Vasquez RN [address] [place] [address] documented as of this encounter Visit Diagnoses Not on filedocumented in this encounter Additional Health Concerns Assessment Noted Time PHQ-9 Depression Total Score: 13 024 2:55 PM EDT documented as of this encounter Care Teams Plastic Manager Relationship Specialty Start Date End Date Isela Grier MD [address] [place] [address] PCP - General Family Medicine 10/26/18 Jaron Ambrose FNP [address] [place] [address] Nurse Practitioner Family Medicine 09/21/23 documented as of this encounter
--- OUTSIDE RECORDS SUMMARY | 2025-10-20 13:30 | XMS_ITS | Encounter Summary ---
Author Organization [employer] Address 75 [facility] 7t [place] [address] Care Team Providers Care Weather Strip Installer Name Role Phone Isela Grier MD Primary Care Provider [phone] Jaron Ambrose Unavailable Unavailable Encounter Details Date Type Department Care Team (Late st Contact Info) Description 08/24/2025 Telephone [facility] MEDICINE [address] [place], [place] [phone] Isela Grier MD 230 [place], [place] [phone] Social History Tobacco Use Types Packs/Day Years [...] Description 11/03/2025 1:00 PM EST Medication Management [address] [address] Sumanth Dumont, PharmD [address] [place] [address] 11/24/2025 10:00 AM EST Clinical Support [address] [address] Shanita Vasquez, RN 505 [place] [address] documented as of this encounter Visit Diagnoses Not on filedocumented in this encounter Additional Health Concerns Assessment Noted Time PHQ-9 Depression Total Score: 21 025 1:55 PM EDT documented as of this encounter Care Teams Weather Strip Installer Relationship Specialty Start Date End Date Isela Grier MD [address] [place] [address] PCP - General Family Medicine 10/26/18 Jaron Ambrose FNP [address] [place] [address] Nurse Practitioner Family Medicine 09/21/23 documented as of this encounter
--- OUTSIDE RECORDS SUMMARY | 2025-10-20 13:30 | XMS_ITS | Encounter Summary ---
Author Organization [employer] Address [address] [place] [address] 7 [place] [address] Care Team Providers Care Distillery Miller Name Role Phone Isela Grier MD Primary Care Provider [phone] Jaron Ambrose Unavailable Unavailable Encounter Details Date Type Department Care Team (Late st Contact Info) Description 09/26/2022 Abstract [facility] [address] [place] [address] Provider, MD Luis Social History Tobacco Use [...] Description 11/03/2025 1:00 PM EST Medication Management [address] [address] Sumanth Dumont, PharmD [address] [place] [address] 11/24/2025 10:00 AM EST Clinical Support [facility] 230 [place] [address] Shanita Vasquez, RN 505 [place] [address] documented as of this encounter Visit Diagnoses Not on filedocumented in this encounter Care Teams Distillery Miller Relationship Specialty Start Date End Date Isela Grier MD [address] [place] [address] PCP - General Family Medicine 10/26/18 Jaron Ambrose FNP [address] [place] [address] Nurse Practitioner Family Medicine 09/21/23 documented as of this encounter
--- OUTSIDE RECORDS SUMMARY | 2025-10-20 13:30 | XMS_ITS | Clinical Summary ---
Author Organization [facility] Address [address] [place] [address] Phone Care Team Providers Care Bakery Manager Name Role Phone Isela Grier MD Primary Care Provider [phone] Allergies No known active allergies Medications cholecalciferol [...] EDT - 08/19/2025 7:22 AM EDT Emergency [facility] Emergency [address] [place] [address] Piedad Gibbs MD Shortness of breath (Primary [...] HISTORICAL TUBAL LIGATION OTHER SURGICAL HISTORY PROCEDURE: MO ANES HRNA RPR UPR ABD LMBR&VNT HERNIA&/DEHSN BLADDER SUSPENSION PROCEDURE: HISTORICAL BLADDER SUSPENSION HYSTERECTOMY PROCEDURE: HISTORICAL HYSTERECTOMY GASTRIC BYPASS PROCEDURE: MO GASTRIC RSTCV W/BYP W/SM INT RCNSTJ LIMIT ABSRPJ OTHER SURGICAL HISTORY 11/19/12 PROCEDURE: OUTSIDE MAMMO SALIVARY GLANDS Bilateral REMOVED STEREOTACTIC CORE BIOPSY Right BREAST CYST ASPIRATION Right Medical History Medical History Date Comments Depression 12/14/2013 DX:Depression Anxiety 12/14/2013 DX:Anxiety Chronic joint pain 12/14/2013 DX:Chronic joel int pain Diabetes mellitus type 2, diet-controlled (CMS/HCC V24, CMS/[facility] V28) 01/16/2014 DX:Diabetes mellitus type 2, diet-controlled [...] Asthma COPD (chronic obstructive pu lmonary disease) ([facility] V24, [facility] V28) Sleep apnea Shortness of breath HL (hearing loss) Hearing loss GERD (gastroesophageal reflux disease) Hernia of abdominal wall Anemia Neuromuscular disorder ([facility]/ [facility] V24, [facility] V28) Chronic fatigue syndrome wit h fibromyalgia [...] this topic Medical Devices Implanted Type Area Weight Yardage Checker Device Identifier Shelf Expiration Date Model / Serial / Lot Mesh Ventralex St 2.5in Med Lyons W/Strap - Sn/A - [id number] Implanted:Qty: 1 on 09/07/2024 by Adwoa Tate MD at [facility] Surgical Mesh Sling Implants N/A: Abdomen CR BARD - DAVOL DIV [id number] 09/22/2025 [id number] / N/A / [id number] Procedures Procedure Name Priority Date/Time Associated Diagnosis Comments ECG ANNOTATED 08/21/2025 ECG ANNOTATED 08/21/2025 XR CHEST 2 VIEWS STAT 08/19/2025 5:13 AM EDT TROPONIN I HIGH SENSITIVITY Timed [...] Signed Date: 08/19/2025 09:07 ET Workstation ID: [id number] Transcribed By: Self Edit Transcribed Date: 08/19/2025 [...] Signed Date: 08/19/2025 09:07 ET Workstation ID: [id number] Transcribed By: Self Edit Transcribed Date: 08/19/2025 09:06 ET Jasmin Flores MD IMG XR PROCEDURES Final Result * Troponin I high sensitivity (08/19/2025 4:31 AM EDT) Only the most recent of2 resultswithin the time period is included. High Sensitivity Troponin I 4 <=54 ng/L LAB CHEMISTRY METHOD 08/19/2025 6:33 AM EDT [facility] Blood Venous blood specimen / Unknown Venipuncture / Unknown 08/19/2025 4:31 AM EDT 08/19/2025 5:46 AM EDT Narrative [facility] - 08/19/2025 6:33 AM EDT High levels of biotin in samples may falsely decrease hsTroponin values. Use caution when interpreting hsTroponin results in patients taking biotin who exhibit renal impairment (eGFR <60) or in patients taking more than 20 mg/day of biotin. Jasmin Flores MD LAB BLOOD ORDERABLES Final Resul t [facility] [address] [place] [address], [place] [phone] * ECG 12 lead (08/19/2025 4:28 AM EDT) Only the most recent of2 resultswithin the time period is included. Pathologist [facility] Ventricular Rate ECG 75 BPM GEMUSE Atrial Rate 75 BPM GEMUSE P-R Interval 148 ms GEMUSE QRS Duration 80 ms GEMUSE Q-T Interval 366 ms GEMUSE QTc 408 ms GEMUSE P Wave [place] 34 degrees GEMUSE R [place] 32 degrees GEMUSE T [place] 27 degrees GEMUSE ECG Interpretation Normal sinus rhythm Normal ECG When compared with ECG of 19-AUG-2025 02:28, (unconfirmed) No significant change was found Confirmed by TONE BENAVIDEZ ([id number]) on 08/19/2025 11:58:31 PM GEMUSE 08/19/2025 4:28 AM EDT 08/19/2025 11:58 PM EDT us Jasmin Flores MD ECG ORDERABLES Final Result Performing Organization Address City/[facility]/ZIP Co de Phone Number GEMUSE * (ABNORMAL) CBC auto differential (08/19/2025 2:21 AM EDT) [facility] WBC 6.1 4.8 - 10.8 K/mcL LAB HEMETOLOGY METHOD 08/19/2025 3:55 AM EDT [facility] RBC 3.80 3.80 - 4.80 M/mcL LAB HEMETOLOGY METHOD 08/19/2025 3:55 AM EDT [facility] Hemoglobin 11.1(L) 11.5 - 16.0 g/dL LAB HEMETOLOGY METHOD 08/19/2025 3:55 AM EDT [facility] Hematocrit 35.6 35.0 - 47.0 % LAB HEMETOLOGY METHOD 08/19/2025 3:55 AM EDT [facility] MCV 93.2 79.0 - 98.0 FL LAB HEMETOLOGY METHOD 08/19/2025 3:55 AM [facility] MCH 29.1 27.0 - 32.0 pcg LAB HEMETOLOGY METHOD 08/19/2025 3:55 AM [facility] MCHC 31.2(L) 32.0 - 37.0 g/dL LAB HEMETOLOGY METHOD 08/19/2025 3:55 AM [facility] RDW 12.4 11.0 - 15.0 % LAB HEMETOLOGY METHOD 08/19/2025 3:55 AM [facility] Platelets 389 130 - 400 K/mcL LAB HEMETOLOGY METHOD 08/19/2025 3:55 AM [facility] MPV 9.6 7.0 - 11.0 FL LAB HEMETOLOGY METHOD 08/19/2025 3:55 AM [facility] NRBC 0.0 <1.0 % LAB HEMETOLOGY METHOD 08/19/2025 3:55 AM [facility] NRBC Absolute 0.00 <0.10 K/mcL LAB HEMETOLOGY METHOD 08/19/2025 3:55 AM [facility] Neutrophils Relative 54.3 % LAB HEMETOLOGY METHOD 08/19/2025 3:55 AM [facility] Lymphocytes Relative 32.8 % LAB HEMETOLOGY METHOD 08/19/2025 3:55 AM [facility] Monocytes Relative 8.1 % LAB HEMETOLOGY METHOD 08/19/2025 3:55 AM [facility] Eosinophils Relative 3.8 % LAB HEMETOLOGY METHOD 08/19/2025 3:55 AM [facility] Basophils Relative 0.5 % LAB HEMETOLOGY METHOD 08/19/2025 3:55 AM EDT [facility] Immature Granulocytes Relative 0.5 % LAB HEMETOLOGY METHOD 08/19/2025 3:55 AM EDT [facility] Neutrophils Absolute 3.29 1.50 - 7.00 K/[facility] LAB HEMETOLOGY METHOD 08/19/2025 3:55 AM EDT [facility] Lymphocytes Absolute 1.99 1.00 - 5.00 K/mcL LAB HEMETOLOGY METHOD 08/19/2025 3:55 AM EDT [facility] Monocytes Absolute 0.49 0.20 - 1.00 K/mcL LAB HEMETOLOGY METHOD 08/19/2025 3:55 AM EDT [facility] Eosinophils Absolute 0.23 0.00 - 0.50 K/mcL LAB HEMETOLOGY METHOD 08/19/2025 3:55 AM EDT [facility] Basophils Absolute 0.03 0.00 - 0.20 K/mcL LAB HEMETOLOGY METHOD 08/19/2025 3:55 AM EDT [facility] Immature Granulocytes Absolute 0.03 0.00 - 0.03 K/mcL LAB HEMETOLOGY METHOD 08/19/2025 3:55 AM EDT [facility] Blood Venous blood specimen / Unknown Venipuncture / Unknown 08/19/2025 2:21 AM EDT 08/19/2025 3:48 AM EDT us Jasmin Flores MD LAB BLOOD ORDERABLES Final Resul t [facility]) [facility] [address] [place] [address], * B-type natriuretic peptide (08/19/2025 2:21 AM EDT) BNP 28 <=100 pcg/mL LAB CHEMISTRY METHOD 08/19/2025 4:20 AM EDT [facility] Blood Venous blood specimen / Unknown Venipuncture / Unknown 08/19/2025 2:21 AM EDT 08/19/2025 3:48 AM EDT us Jasmin Flores MD LAB BLOOD ORDERABLES Final Resul t Performing Organization Address [facility] Co de Phone Number [facility] [address] [place] [address], [place] [phone] * (ABNORMAL) Magnesium (08/19/2025 2:21 AM EDT) Pathologist [facility] Magnesium 1.8(L) 1.9 - 2.6 mg/dL LAB CHEMISTRY METHOD 08/19/2025 4:13 AM EDT [facility] Blood Venous blood specimen / Unknown Venipuncture / Unknown 08/19/2025 2:21 AM EDT 08/19/2025 3:48 AM EDT us Jasmin Flores MD LAB BLOOD ORDERABLES Final Resul t Performing Organization Address [facility] de Phone Number [facility] [address] [place] [address], [place] [phone] * Lipase (08/19/2025 2:21 AM EDT) [facility] Lipase 57 13 - 75 unit/L LAB CHEMISTRY METHOD 08/19/2025 4:13 AM EDT [facility] Blood Venous blood specimen / Unknown Venipuncture / Unknown 08/19/2025 2:21 AM EDT 08/19/2025 3:48 AM EDT us Jasmin Flores MD LAB BLOOD ORDERABLES Final Resul t Performing Organization Address [facility]/ZIP Co de Phone Number [facility] [address] [place] [address], [place] [phone] * (ABNORMAL) Comprehensive metabolic panel (08/19/2025 2:21 AM EDT) Pathologist [facility] Sodium 139 133 - 145 mmol/L LAB CHEMISTRY METHOD 08/19/2025 4:13 AM [facility] Potassium 4.6 3.5 - 5.5 mmol/L LAB CHEMISTRY METHOD 08/19/2025 4:13 AM [facility] Chloride 104 96 - 110 mmol/L LAB CHEMISTRY METHOD 08/19/2025 4:13 AM [facility] CO2 30 21 - 32 mmol/L LAB CHEMISTRY METHOD 08/19/2025 4:13 AM [facility] Anion Gap 5 3 - 11 LAB CHEMISTRY METHOD 08/19/2025 4:13 AM [facility] Glucose 217(H) 70 - 100 mg/dL LAB CHEMISTRY METHOD 08/19/2025 4:13 AM [facility] BUN 15 5 - 25 mg/dL LAB CHEMISTRY METHOD 08/19/2025 4:13 AM [facility] Creatinine 0.98 0.50 - 1.10 mg/dL LAB CHEMISTRY METHOD 08/19/2025 4:13 AM [facility] eGFR 63 >=60 mL/min/1. 73m2 LAB CHEMISTRY METHOD 08/19/2025 4:13 AM [facility] Comment:Calculation based on the Chronic Kidney Disease Epidemiology Collaboration (CKD-EPI) equation refit without adjustment for race. BUN/Creatinine Ratio 15.3 LAB CHEMISTRY METHOD 08/19/2025 4:13 AM [facility] Calcium 8.8 8.5 - 10.5 mg/dL LAB CHEMISTRY METHOD 08/19/2025 4:13 AM [facility] AST (SGOT) 17 10 - 42 unit/L LAB CHEMISTRY METHOD 08/19/2025 4:13 AM [facility] ALT (SGPT) 30 10 - 60 unit/L LAB CHEMISTRY METHOD 08/19/2025 4:13 AM [facility] Alkaline Phosphatase 157(H) 42 - 121 unit/L LAB CHEMISTRY METHOD 08/19/2025 4:13 AM EDT [facility] Total Protein 6.6 6.0 - 8.0 g/dL LAB CHEMISTRY METHOD 08/19/2025 4:13 AM EDT [facility] Albumin 3.5 3.2 - 5.0 g/dL LAB CHEMISTRY METHOD 08/19/2025 4:13 AM EDT [facility] Total Bilirubin 0.2 0.0 - 1.4 mg/dL LAB CHEMISTRY METHOD 08/19/2025 4:13 AM EDT [facility] Blood Venous blood specimen / Unknown Venipuncture / Unknown 08/19/2025 2:21 AM EDT 08/19/2025 3:48 AM EDT us Jasmin Flores MD LAB BLOOD ORDERABLES Final Resul t [facility] [address] [place] [address], * BD Bone Density DXA Axial Skeleton (11/09/2024 10:33 AM EST) Anatomical Region Laterality Modality Wrist, Hip, L-spine Bone Densito metry 11/09/2024 12:2 2 PM EST Impressions 11/09/2024 12:24 PM EST 1. Osteopenia. 2. FRAX analysis yields a 10-year probability of major osteoporotic fracture of 10.5% and a 10-year probability of hip fracture of 1.8%. Code 90481 -------- FINAL REPORT -------- Dictated By: Michael Fierro Dictated Date: 11/09/2024 12:22 ET Assigned Physician: Michael Fierro Reviewed and Electronically Signed By: Michael Fierro Signed Date: 11/09/2024 12:24 ET Workstation ID: [id number] Transcribed By: Self Edit Transcribed Date: 11/09/2024 [...] density of the femurs bilaterally is 0.836 gm/jk3vrxmi is 83% of that of young normals [...] probability of hip fracture of 1.8%. Code 41172 -------- FINAL REPORT -------- Dictated By: Michael Fierro Dictated Date: 11/09/2024 12:22 ET Assigned Physician: Michael Fierro Reviewed and Electronically Signed By: Michael Fierro Signed Date: 11/09/2024 12:24 ET Workstation ID: [id number] Transcribed By: Self Edit Transcribed Date: 11/09/2024 12:22 ET Isela Grier MD IMG DXA PROCEDURES Final Result * MG Mammo [...] Signed Date: 11/18/2024 15:36 ET Workstation ID: [id number] Transcribed By: Self Edit Transcribed Date: 11/18/2024 [...] Signed Date: 11/18/2024 15:36 ET Workstation ID: [id number] Transcribed By: Self Edit Transcribed Date: 11/18/2024 15:31 ET Isela Grier MD IM BI PROCEDURES Final Result * (ABNORMAL) Hemoglobin A1c (09/07/2024 11:45 AM EST) Hemoglobin A1C 8.3(H) <6.5 % LAB CHEMISTRY METHOD 09/08/2024 10:30 PM EST [facility] Mean Bld Glu Estim. 192 mg/dL LAB CHEMISTRY METHOD 09/08/2024 10:30 PM EST [facility] Blood Venous blood specimen / Unknown Venipuncture / Unknown 09/07/2024 11:45 AM EST 09/08/2024 2:14 PM EST Adwoa Tate MD LAB BLOOD ORDERABLES Final R esult [facility]) [facility] [address] [place] [address], * Urine Albumin Creatinine Ratio (12/21/2023) Urine Albumin [...] Most Recently Relevant to Health Maintenance Insurance [facility] MEDICARE Member Subscriber Plan / Payer (Ef fective 2022-Present) Name:Lilliam Mrianda Relation to Subscriber:Self Name:Lilliam Miranda Payer ID:[id number] Group ID:[id number] Type:Not on file Address: [facility] [place] [id number] Advance Directives * Full Code - Default [...] currently active code status orders. Care Teams Bakery Manager Relationship Specialty Start Date End Date Isela Grier MD [address] [place] [phone] PCP - General 10/20/23
--- OUTSIDE RECORDS SUMMARY | 2025-10-20 13:30 | XMS_ITS | Encounter Summary ---
Author Organization [employer] Address 75 [facility] 7 [place] [address] Care Team Providers Care Supervisor [place] Name Role Phone Isela Grier MD Primary Care Provider [phone] Jaron Ambrose Unavailable Unavailable Reason for Visit * Reason Comments Med Refill Encounter Details Date Type Department Care Team (Late st Contact Info) Description 09/21/2024 Refill [facility] MEDICINE [address] [place], [place] [phone] Isela Grier MD [address] [place], [place] [phone] Social History Tobacco Use Types Packs/Day Years [...] Description 11/03/2025 1:00 PM EST Medication Management [address] [address] Sumanth Dumont, PharmD [address] [place] [address] 11/24/2025 10:00 AM EST Clinical Support [address] [address] Shanita Vasquez, BRANDY [address] [place] [address] documented as of this encounter Visit Diagnoses Not on filedocumented in this encounter Additional Health Concerns Assessment Noted Time PHQ-9 Depression Total Score: 13 024 2:55 PM EDT documented as of this encounter Care Teams Supervisor [place] Relationship Specialty Start Date End Date Isela Grier MD [address] [place] [phone] PCP - General Family Medicine 10/26/18 Jaron Ambrose FNP [address] [place] [phone] Nurse Practitioner Family Medicine 09/21/23 documented as of this encounter
[2025-10-20 13:41] VITALS: BP 118/62; PULSE 74; BMI 36.2
--- NOTE | 2025-10-20 13:41 | A.OFFVIS_ITS ---
Vital Signs 10/20/25 13:41 Height 5 ft 1 in Weight 191 lb 5.78 oz BMI 36.2 BP 118/62 Blood Pressure Location Lt brachial Position Sitting Pulse 74 Pulse Source Pulse Oximeter Intake Visit Reasons: F/u Erika mibi Electroencephalographic Technologist Required: Yes Electroencephalographic Technologist Name: [id number] Mikayla Information Interpreted: non-clinical & clinical Accompanied by: Self / Same As Patient Allergies No Known Allergies (No Known Allergies*) Allergy (Verified 10/20/25 13:44) Medication List - Last Reconciled 10/20/25 by Smith Salcedo NP albuterol sulfate mg inhalation QID PRN albuterol sulfate 90 mcg/actuation 2 inhalations inhalation Q6H PRN 30 days alcohol swabs (Alcohol Prep Pads) 0 pad topical BID atorvastatin 80 mg PO DAILY blood sugar diagnostic (FreeStyle Lite Strips) As directed bupropion HCl XL 150 mg PO DAILY cholecalciferol (vitamin D3) (Vitamin D3) 25 mcg PO DAILY clonazepam 0.5 mg PO DAILY PRN CPAP (CPAP Machine/Device) As directed cyanocobalamin (vitamin B-12) 1,000 mcg PO DAILY duloxetine 120 mg PO DAILY fluticasone propionate 50 mcg/actuation 1 spray intranasal DAILY itjncjrghqh-naufgiyuo-gslfnjxx 100-62.5-25 mcg (Trelegy Ellipta) 1 inh inhalation DAILY 30 days folic acid 0.4 mg PO DAILY furosemide (Lasix) 20 mg PO DAILY lisinopril 20 mg PO DAILY loratadine 10 mg PO DAILY metformin 500 mg PO DAILY montelukast 10 mg PO DAILY multivitamin (One Daily Multivitamin tablet) 1 tab PO DAILY naproxen 500 mg PO BID nebulizers As directed omeprazole 20 mg PO DAILY quetiapine 100 mg PO BEDTIME sodium,potassium,mag sulfates 17.5-3.13-1.6 gram (Suprep Bowel Prep Kit) DILUTE; drink full amount early evening before AND next morning at least 2 hr before procedure; follow w 960 mL water PO HPI Comments Details: This is a 70-year-old female patient coming in for a follow-up visit. Patient is [place]-speaking and a refinery operator alkylation was used throughout the visit. Patient was seen in the office for further evaluation of exertional shortness of breath referred by pulmonology who follows patient for COPD. Patient also with a history of hypertension, diabetes, hyperlipidemia, obesity and sleep apnea. Patient underwent an echo study and a myocardial perfusion study for further evaluation. Today, patient is reporting ongoing exertional shortness of breath without any chest discomfort, palpitations, dizziness, orthopnea, PND, leg edema or presyncope or syncope. Patient is reporting compliance with all medications. Patient does note that her CPAP machine for her sleep apnea is not working and has a an upcoming pulmonology appointment to address this. [facility] Medical History Nicotine dependence, cigarettes, uncomplicated Dyspnea COPD (chronic obstructive pulmonary disease) Abdominal pain Vitamin B12 deficiency anemia Depression Hyperlipidemia Hypertension, essential, benign Obstructive sleep apnea (~2007) Surgical History History of tonsillectomy History of hysterectomy History of gastric bypass History of colonoscopy History of hernia repair History of lung surgery Social History Alcohol intake: never Patient Tobacco Use Status: Former Tobacco user Review of Systems Const Denies daytime sleepiness, Denies difficulty sleeping, Denies snoring, Denies stops breathing during sleep and Denies weakness Card Reports chest pain, Denies rapid heart rate, Denies irregular heart rhythm, Denies claudication, Denies leg edema, Denies lightheadedness, Denies palpitations, Reports dyspnea, Denies dyspnea on exertion, Denies orthopnea, Denies paroxysmal nocturnal dyspnea and Denies slow heart rate Resp Denies cough, Reports dyspnea, Denies dyspnea on exertion and Denies snoring GI Reports no additional complaints, Denies hematochezia, Denies change in stool character and Denies dyspepsia Musc Denies abnormal gait, Denies muscle weakness and Denies numbness Neuro Denies abnormal gait, Denies numbness and Denies weakness Endo Denies palpitations Physical Exam Vital Signs: Last Vital Signs Pulse 74 10/20/25 13:41 BP 118/62 10/20/25 13:41 BMI result Body Mass Index 36.2 Const General: cooperative, healthy appearing, comfortable and no acute distress Orientation/consciousness: patient oriented x3 Limitations: ambulation with cane HEENT Head: Yes normal to inspection Neck Neck: Yes normal visual inspection, Yes trachea midline and Yes supple Chest Chest palpation & inspection: normal inspection of the chest Resp Effort & Inspection: normal respiratory effort Auscultation: clear to auscultation bilaterally, no crackles, no rales, no rh onchi and no wheezes Cardio Jugular venous distension: no JVD Palpation: normal PMI Rate: regular rate Rhythm: regular rhythm Heart sounds: S1 normal heart sound present, S2 normal heart sound present, no click, no gallops, no murmurs and no rubs Peripheral pulses: Peripheral pulses 2+ throughout GI Inspection: Yes normal to inspection Palpation (GI): Soft to palpation Auscultation: normal bowel sounds Skin General skin exam: no rashes or lesions noted Neuro General: patient oriented x3 Extrem General: Yes normal to inspection, No no pedal edema and No calf tenderness Psych Appearance: grossly normal Mental Status: mental status grossly normal Speech and movement: Normal speech and movement present Assessment & Plan Assessment & Plan (1) Dyspnea: Code(s): R06.00 - Dyspnea, unspecified Category: Medical Qualifiers: Dyspnea type: dyspnea on exertion Qualified Code(s): R06.09 - Other forms of dyspnea (2) Hypertension, essential, benign: Code(s): I10 - Essential (primary) hypertension Category: Medical (3) Hyperlipidemia: Code(s): E78.5 - Hyperlipidemia, unspecified Category: Medical (4) Obstructive sleep apnea: Onset Date: ~2007 Comment: (Moderate BEATRICE on 2007 sleep test - AHI 45.6 on 01/21/21 sleep test Code(s): G47.33 - Obstructive sleep apnea (adult) (pediatric) Category: Medical Plan 12/02/2024-echo study showed a normal LV systolic function with the ejection fraction between 60-65% without any wall motion abnormalities, with indet erminate filling pressures. 10/03/2025-underwent a myocardial perfusion study that showed normal perfusion. Given above finding no further indication for testing at this point. Patient's symptoms more likely due to underlying pulmonary parenchymal disease with a obesity and deconditioning. Blood pressure today is well-controlled. Continue current regimen with a blood pressure goal less than 130/80. Advised on low-salt diet. Continue statin therapy and aggressive diabetes management with an A1c goal less than 7%. Patient reports her CPAP machine isn't working recently and has a follow-up coming up with pulmonology to address this. Compliance with CPAP therapy for sleep apnea was emphasized. Heart healthy diet, regular exercise, losing weight, med compliance, and aggressive management of vascular risk factors was discussed with the patient. Follow up on an as-needed basis. In the interim, patient will call the office with any concerns or change in symptoms. This note was generated using voice recognition software. While every effort has been made to ensure accuracy and proper painter barrel, there may be occasional errors that could affect the content or meaning of the described symptoms. Coding Level of Care Code Est Pt Level 4 (07372) Add On Problem Visit Only Diagnoses Dyspnea on exertion R06.09 Dyspnea type: dyspnea on exertion Hypertension, essential, benign I10 Hyperlipidemia E78.5 Obstructive sleep apnea G47.33 Time Spent (min) 32 Comment Time spent in reviewing the chart, test results, assessment, counseling and documentation.
== END 2025-10-20 14:06 | disposition home or self-care (01) ==
LOC: HO.HCS 13:27
PROVIDERS: PCP Family Medicine
DX: R06.09 Other forms of dyspnea (principal); I10 Essential (primary) hypertension; E78.5 Hyperlipidemia, unspecified; G47.33 Obstructive sleep apnea (adult) (pediatric)
CPT/HCPCS: 99214; G2211

== ENCOUNTER → 2025-10-20 13:27 | Outpatient (BNVA) | payer OTHER, SELFPAY | PROVIDERS: PCP Family Medicine | DX: R06.09 Other forms of dyspnea (principal); I10 Essential (primary) hypertension; E78.5 Hyperlipidemia, unspecified; G47.33 Obstructive sleep apnea (adult) (pediatric); E11.9 Type 2 diabetes mellitus without complications; Z79.899 Other long term (current) drug therapy; Z79.84 Long term (current) use of oral hypoglycemic drugs; Z99.89 Dependence on other enabling machines and devices; Z87.891 Personal history of nicotine dependence | CPT/HCPCS: 99212 ==